=== PATIENT | female | born 1940 | race Caucasian/White ===

== ENCOUNTER 2016-12-12 13:58 | Emergency (ER) | payer MEDICARE ==
[2016-12-12 14:21] VITALS: BP 132/75
--- NOTE | 2016-12-12 14:42 | ED ---
Lower Extremity - HPI Summary HPI Summary: 75 YEAR OLD FEMALE PRESENTS WITH COMPLAINS OF LEFT FOOT AND COCCYX INJURY AFTER FALL. - History of Current Complaint Chief Complaint: UCLowerExtremity Stated Complaint: TOE INJURY LOWER LEG/FOOT SWOLLEN Time Seen by Provider: 12/12/16 14:41 Hx Obtained From: Patient Mechanism Of Injury: Fall From A Standing Position Onset/Duration: Hours Severity Initially: Moderate Severity Currently: Moderate Pain Scale Used: 0-10 Numeric - 5 Timing: Constant Character Of Pain: Sharp Associated Signs And Symptoms: Positive: Swelling, Bruising Aggravating Factor(s): Movement - Allergies/Home Medications Allergies/Adverse Reactions: Allergies Allergy/AdvReac Type Severity Reaction Status Date / Time Prochlorperazine Allergy Severe SWOLLEN Verified 12/12/16 14:21 TONGUE Latex Allergy Intermediate ITCHING,DEWEY Verified 12/12/16 14:21 H Sulfa Drugs Allergy Mild Rash Verified 12/12/16 14:21 Adhesive Tape Allergy Unknown ITCHY RASH Verified 12/12/16 14:21 Erythromycin Allergy Unknown GI Upset Verified 12/12/16 14:21 Home Medications: Home Medications Bisacodyl EC TAB* [Dulcolax EC TAB*] 5 mg PO BID 12/12/16 [History Confirmed ] PMH/Surg Hx/FS Hx/Imm Hx Previously Healthy: Yes Endocrine/Hematology History: Denies: Hx Diabetes, Hx Systemic Lupus Erythematosus, Hx Thyroid Disease Cardiovascular History: Reports: Hx Valvular Heart Disease - MV regurge, Other Cardiovascular Problems/Disorders - mitral valve regur Denies: Hx Congestive Heart Failure, Hx Hypertension, Hx Pacemaker/ICD Respiratory History: Reports: Hx Asthma, Hx Sleep Apnea - NO MACHINES GI History: Reports: Hx Gastroesophageal Reflux Disease History: Denies: Hx Dialysis, Hx Renal Disease Musculoskeletal History: Reports: Hx Arthritis, Other Musculoskeletal History - osteo arthritis Denies: Hx Rheumatoid Arthritis, Hx Gout Sensory History: Reports: Hx Cataracts, Hx Contacts or Glasses, Hx Glaucoma - BOTH EYES Denies: Hx Hearing Aid Opthamlomology History: Reports: Hx Cataracts, Hx Contacts or Glasses, Hx Glaucoma - BOTH EYES Psychiatric History: Reports: Hx Anxiety - ON MEDS, Hx Depression - ON MEDS Denies: Hx Panic Disorder - Cancer History Cancer Type, Location and Year: Breast CA WITH BONE METS Hx Chemotherapy: Yes - 1998 per pt Hx Radiation Therapy: No - Surgical History Surgery Procedure, Year, and Place: bilaterally knee replacement-07/2011, 01/2012 , right masectomy-1997, gall bladder removed-1984, rt shoulder-1999, lap for mekels diverticulum-1991, tubal ligation-1974, bunion repair-2003, bilateral, rt toes, bilateral cataract surgeries August 2014, D&C-2003 Hx Anesthesia Reactions: No Infectious Disease History: No Infectious Disease History: Denies: Hx Clostridium Difficile, Hx Hepatitis, Hx Human Immunodeficiency Virus (HIV), Hx of Known/Suspected MRSA, Hx Shingles, Hx Tuberculosis, Hx Known/ Suspected VRE, Hx Known/Suspected VRSA, History Other Infectious Disease, Traveled Outside the [place] in Last 30 Days - Social History Alcohol Use: Daily Alcohol Amount: glass wine, night caps Substance Use Type: Reports: None Smoking Status (MU): Never Smoked Tobacco Review of Systems Constitutional: Negative Eyes: Negative ENT: Negative Cardiovascular: Negative Respiratory: Negative Gastrointestinal: Negative Genitourinary: Negative Positive: Other - left foot and coccyx pain ssecondary to fall Skin: Negative Neurological: Negative Psychological: Normal All Other Systems Reviewed And Are Negative: Yes Physical Exam Triage Information Reviewed: Yes Vital Signs On Initial Exam: Initial Vitals Temp Pulse Resp BP Pulse Ox 36.9 C 72 18 132/75 98 12/12/16 14:16 12/12/16 14:16 12/12/16 14:16 12/12/16 14:16 12/12/16 14:16 Appearance: Positive: Well-Appearing Skin: Positive: Warm Head/Face: Positive: Normal Head/Face Inspection Eyes: Positive: Normal ENT: Positive: Normal ENT inspection Neck: Positive: Supple Respiratory/Lung Sounds: Positive: Clear to Auscultation Cardiovascular: Positive: Normal Abdomen Description: Positive: Nontender Musculoskeletal: Positive: Other - left foot and coccyx pain ssecondary to fall Diagnostics - Vital Signs Vital Signs Temp Pulse Resp BP Pulse Ox 12/12/16 14:16 36.9 C 72 18 132/75 98 - Laboratory Lab Statement: Any lab studies that have been ordered have been reviewed, and results considered in the medical decision making process. Lower Extremity Course/Dx - Diagnoses Provider Diagnoses: Foot sprain, Sprain of foot, left, Coccyodynia Discharge - Discharge Plan Condition: Stable Disposition: HOME Patient Education Materials: Deep Venous Thrombosis (ED), Leg Edema (ED) Referrals: Sushil Brooks MD [Primary Care Provider] - If Needed Additional Instructions: PLEASE GO TO ER TO RULE OUT FRACTURE AND DVT
== END 2016-12-12 15:26 | disposition home or self-care (01) ==
LOC: UCEAST 13:58
DX: S93.602A Unspecified sprain of left foot, initial encounter (principal); S39.92XA Unspecified injury of lower back, initial encounter; W18.30XA Fall on same level, unspecified, initial encounter; Y93.9 Activity, unspecified; Y99.9 Unspecified external cause status
CPT/HCPCS: 99212; G0463

== ENCOUNTER 2016-12-12 15:59 | Emergency (ER) | payer MEDICARE ==
--- NOTE | 2016-12-12 17:54 | RAD ---
INDICATION: Left lower extremity pain and swelling. COMPARISON: There are no prior studies available for comparison. TECHNIQUE: Multiple real-time, color flow and Doppler tracings of the left lower extremity were obtained. FINDINGS: The common femoral, femoral, profunda femoral and popliteal veins all demonstrate normal compressibility, augmentation with compression and phasic response with respiration. The posterior tibial veins demonstrate normal compressibility and augmentation with compression. There is occlusive thrombus in one of the peroneal veins. The other peroneal vein appears patent. IMPRESSION: DEEP VENOUS THROMBOSIS IN ONE PERONEAL VEIN IN THE CALF.
[2016-12-12 18:12] LABS: Hematocrit 37 % (35-47); Hemoglobin 12.2 g/dl (12.0-16.0); Mean Corpuscular HGB Conc 33 g/dl (31-36); Mean Corpuscular Hemoglobin 30 pg (27-31); Mean Corpuscular Volume 92 fL (80-97); Mean Platelet Volume 9 um3 (7.4-10.4); Red Blood Count 4.07 10^6/ul (4.0-5.4); Red Cell Distribution Width 17 % (10.5-15); White Blood Count 7.2 10^3/ul (3.5-10.8)
[2016-12-12 18:31] LABS: BUN/Creatinine Ratio 24.1 (8-20); Calcium 8.8 mg/dL (8.6-10.3); EGFR Non-African American 70.8 (>60); Potassium 3.9 mmol/L (3.5-5.0)
[2016-12-12] MEDS ORDERED: Rivaroxaban TAB(*) 15 MG PO ONE ×3 (18:34→18:48)
--- NOTE | 2016-12-12 19:17 | RAD ---
INDICATION: Left foot injury. TECHNIQUE: 3 views of the left foot were obtained. FINDINGS: There appears to be diffuse soft tissue swelling. There is an oblique fracture extending through the lateral distal aspect of the fifth proximal phalanx to the distal articular margin. The fracture fragment is slightly displaced. There is hallux valgus deformity and mild to moderate osteoarthritic change in the first metatarsal-phalangeal joint. IMPRESSION: OBLIQUE, INTRA-ARTICULAR, SLIGHTLY DISPLACED FRACTURE OF THE FIFTH PROXIMAL PHALANX.
[2016-12-12 19:33] VITALS: BP 133/76
--- NOTE | 2016-12-20 15:10 | ED ---
Hector Garner Angela, scribed for Pritesh Gardiner MD on 12/12/16 at 1736 . Lower Extremity - HPI Summary HPI Summary: This pt is a 75 y/o female presenting to [facility] from [facility] to rule out a blood clot in left lower extremity. Pt reports she has had recent air travel (3 hours long) and approximately 2.5 hour car ride home. She notes she stubbed her toe on 12/03/16 and every since she has had pain, worsening over the last few days becoming more red. She states she had difficulty breathing over the last few days, but believed it was due to the elevation. She denies heart racing. 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 Pt is currently on Coumadin. - History of Current Complaint Chief Complaint: EDExtremityLower Stated Complaint: LT LEG/ANKLE/FOOT SWOLLEN Time Seen by Provider: 12/12/16 16:38 Hx Obtained From: Patient Onset of Pain: Days Onset/Duration: Days Pain Intensity: 4 Pain Scale Used: 0-10 Numeric Timing: Constant Location: Is Discrete @ - Left lower extremity. Associated Signs And Symptoms: Positive: Redness, Bruising Aggravating Factor(s): Nothing Alleviating Factor(s): Nothing - Allergies/Home Medications Allergies/Adverse Reactions: Allergies Allergy/AdvReac Type Severity Reaction Status Date / Time Prochlorperazine Allergy Severe SWOLLEN Verified 12/12/16 14:21 TONGUE Latex Allergy Intermediate ITCHING,DEWEY Verified 12/12/16 14:21 H Sulfa Drugs Allergy Mild Rash Verified 12/12/16 14:21 Adhesive Tape Allergy Unknown ITCHY RASH Verified 12/12/16 14:21 Erythromycin Allergy Unknown GI Upset Verified 12/12/16 14:21 PMH/Surg Hx/FS Hx/Imm Hx Endocrine/Hematology History: Denies: Hx Diabetes, Hx Systemic Lupus Erythematosus, Hx Thyroid Disease Cardiovascular History: Reports: Hx Valvular Heart Disease - MV regurge, Other Cardiovascular Problems/Disorders - mitral valve regur Denies: Hx Congestive Heart Failure, Hx Hypertension, Hx Pacemaker/ICD Respiratory History: Reports: Hx Asthma, Hx Sleep Apnea - NO MACHINES GI History: Reports: Hx Gastroesophageal Reflux Disease History: Denies: Hx Dialysis, Hx Renal Disease Musculoskeletal History: Reports: Hx Arthritis, Other Musculoskeletal History - osteo arthritis Denies: Hx Rheumatoid Arthritis, Hx Gout Sensory History: Reports: Hx Cataracts, Hx Contacts or Glasses, Hx Glaucoma - BOTH EYES Denies: Hx Hearing Aid Opthamlomology History: Reports: Hx Cataracts, Hx Contacts or Glasses, Hx Glaucoma - BOTH EYES Psychiatric History: Reports: Hx Anxiety - ON MEDS, Hx Depression - ON MEDS Denies: Hx Panic Disorder - Cancer History Cancer Type, Location and Year: Breast CA WITH BONE METS Hx Chemotherapy: Yes - 1998 per pt Hx Radiation Therapy: No - Surgical History Surgery Procedure, Year, and Place: bilaterally knee replacement-07/2011, 01/2012 , right masectomy-1997, gall bladder removed-1984, rt shoulder-1999, lap for mekels diverticulum-1991, tubal ligation-1974, bunion repair-2003, bilateral, rt toes, bilateral cataract surgeries August 2014, D&C-2003 Hx Anesthesia Reactions: No Infectious Disease History: No Infectious Disease History: Denies: Hx Clostridium Difficile, Hx Hepatitis, Hx Human Immunodeficiency Virus (HIV), Hx of Known/Suspected MRSA, Hx Shingles, Hx Tuberculosis, Hx Known/ Suspected VRE, Hx Known/Suspected VRSA, History Other Infectious Disease, Traveled Outside the [place] in Last 30 Days - Social History Alcohol Use: Daily Alcohol Amount: glass wine, night caps Substance Use Type: Reports: None Smoking Status (MU): Never Smoked Tobacco Review of Systems Negative: Fever, Chills Negative: Erythema Negative: Sore Throat Negative: Chest Pain Positive: Shortness Of Breath. Negative: Cough Negative: Abdominal Pain, Vomiting, Nausea Negative: dysuria, hematuria Positive: Edema - Left lower extremity, Other - Bruise on left lower . Negative : Myalgia Negative: Rash Neurological: Other - NEGATIVE: dizziness All Other Systems Reviewed And Are Negative: Yes Physical Exam - Summary Physical Exam Summary: Constitutional: Well-developed, Well-nourished, Alert. (-) Distressed Skin: Warm, Dry HENT: Normocephalic; Atraumatic Eyes: Conjunctiva normal Neck: Musculoskeletal ROM normal neck. (-) JVD, (-) Stridor, (-) Tracheal deviation Cardio: Rhythm regular, rate normal, Heart sounds normal; Intact distal pulses; The pedal pulses are 2+ and symmetric. Radial pulses are 2+ and symmetric. (-) Murmur Pulmonary/Chest wall: Effort normal. (-) Respiratory distress, (-) Wheezes, (-) Rales Abd: Soft, (-) Tenderness, (-) Distension, (-) Guarding, (-) Rebound Musculoskeletal: (-) Edema. LLE: There is redness on the lateral aspect of left foot. The third left toe has ecchymosis on distal phalanx. Left calf is tender to palpation. Lymph: (-) Cervical adenopathy Neuro: Alert, Oriented x3 Psych: Mood and affect Normal Triage Information Reviewed: Yes Vital Signs On Initial Exam: Initial Vitals Temp Pulse Resp BP Pulse Ox 98 F 69 17 123/66 97 12/12/16 16:18 12/12/16 16:18 12/12/16 16:18 12/12/16 16:18 12/12/16 16:18 Vital Signs Reviewed: Yes - [place] Coma Scale Coma Scale Total: 15 Diagnostics - Vital Signs Vital Signs Temp Pulse Resp BP Pulse Ox 12/12/16 16:40 98 F 97 17 132/66 98 12/12/16 16:36 63 97 12/12/16 16:34 121/66 12/12/16 16:18 98 F 69 17 123/66 97 - Laboratory Lab Results: Lab Results 12/12/16 12/12/16 12/12/16 Range/Units 18:00 18:00 18:00 WBC 7.2 (3.5-10.8) 10^3/ul RBC 4.07 (4.0-5.4) 10^6/ul Hgb 12.2 (12.0-16.0) g/dl Hct 37 (35-47) % MCV 92 (80-97) fL MCH 30 (27-31) pg MCHC 33 (31-36) g/dl RDW 17 H (10.5-15) % Plt Count 209 (150-450) 10^3/ul MPV 9 (7.4-10.4) um3 INR (Anticoag Therapy) 3.04 H (0.89-1.11) Sodium 135 (133-145) mmol/L Potassium 3.9 (3.5-5.0) mmol/L Chloride 104 (101-111) mmol/L Carbon Dioxide 27 (22-32) mmol/L Anion Gap 4 (2-11) mmol/L BUN 19 (6-24) mg/dL Creatinine 0.79 (0.51-0.95) mg/dL Est GFR ( Amer) 91.0 (>60) Est GFR (Non-Af Amer) 70.8 (>60) BUN/Creatinine Ratio 24.1 H (8-20) Glucose 103 H (70-100) mg/dL Calcium 8.8 (8.6-10.3) mg/dL Result Diagrams: 12/12/16 18:00 12/12/16 18:00 Lab Statement: Any lab studies that have been ordered have been reviewed, and results considered in the medical decision making process. - Radiology XR of Left foot Xray Interpretation: Positive (See Comments) - There is a fracture of the fifth distal phalanx. Radiology Interpretation Completed By: ED Physician - Ultrasound No standard instances Ultrasound Interpretation: Positive (See Comments) - VL Lower Extremity Veins Left- IMPRESSION: Deep venous thrombosis in one peroneal vein in the calf. Ultrasound Interpretation Completed By: Radiologist Lower Extremity Course/Dx - Course Course Of Treatment: 16:56 - Pt is going to ultrasound. 17:46 - Went to see pt. Pt is still in ultrasound - Diagnoses Provider Diagnoses: DVT (deep venous thrombosis) - Physician Notifications Discussed Care Of Patient With: Adiel Perry Time Discussed With Above Provider: 18:46 Instructed by Provider To: Other - I discussed pt care with Dr. Perry. He understand that the pt has failed Coumadin at therapeutic INR. He recommends an alternate agent. We agreed on Xarelto. Discharge - Discharge Plan Condition: Stable Disposition: HOME Prescriptions: Rivaroxaban [Xarelto Starter Pack 15 & 20 mg] 1 tab PO SEE INSTRUCTIONS #1 packet Patient Education Materials: Deep Venous Thrombosis (ED) Referrals: Adiel Perry MD [Medical Doctor] - Sushil Brooks MD [Primary Care Provider] - Malik Robles MD [Medical Doctor] - Additional Instructions: Please follow up with Dr. Perry in 2-3 days. Also, please follow up with orthopedics regarding your fracture. RETURN TO THE EMERGENCY DEPARTMENT FOR CHANGING OR WORSENING SYMPTOMS. The documentation as recorded by the Hector cho Angela accurately reflects the service I personally performed and the decisions made by me, Pritesh Gardiner MD.
== END 2016-12-12 19:33 | disposition home or self-care (01) ==
LOC: ED 15:59
DX: I82.4Z2 Acute embolism and thrombosis of unspecified deep veins of left distal lower extremity (principal); R06.02 Shortness of breath; R60.9 Edema, unspecified
CPT/HCPCS: 36415; 80048; 85027; 85610; 99282

== ENCOUNTER 2017-07-12 13:07 | Inpatient (IN) | payer MEDICARE ==
[2017-07-12 13:27] LABS: ABS Basophils 0.1 10^3/ul (0-0.2); ABS Eosinophils 0 10^3/ul (0-0.6); ABS Lymphocytes 0.6 10^3/ul (1.0-4.8); ABS Monocytes 0.5 10^3/ul (0-0.8); ABS Neutrophils 1.5 10^3/ul (1.5-7.7); ABS Nucleated RBC 0 10^3/ul; Eosinophil % 1.4 % (0-6); Hematocrit 24 % (35-47); Hemoglobin 7.9 g/dl (12.0-16.0); Lymphocyte % 21.8 % (25-47); Mean Corpuscular HGB Conc 33 g/dl (31-36); Mean Corpuscular Hemoglobin 38 pg (27-31); Mean Corpuscular Volume 115 fL (80-97); Mean Platelet Volume 8 um3 (7.4-10.4); Nucleated Red Blood Cells % 0.9; Platelet Count 157 10^3/ul (150-450); Red Blood Count 2.06 10^6/ul (4.0-5.4); Red Cell Distribution Width 19 % (10.5-15); White Blood Count 2.6 10^3/ul (3.5-10.8)
[2017-07-12 13:44] LABS: EGFR Non-African American 66.7 (>60)
[2017-07-12] MEDS ORDERED: Iohexol 350* (CONTRAST) 500 ML MDV IV ONE ×2 (18:07→18:36)
[2017-07-12] MEDS ORDERED: oxyCODONE/Acetamin 5/325 MG* TAB PO PRN (18:13)
[2017-07-12] MEDS ORDERED: Ondansetron INJ* 2 MG/ML VIAL IV PRN (18:13)
[2017-07-12] MEDS ORDERED: Albuterol HFA INHALER* 8 gm MDI INH PRN (18:17)
[2017-07-12] MEDS: Mometasone 220 MCG MDI INH SCH (20:34)
[2017-07-12] MEDS ORDERED: Zolpidem TAB* 5 MG PO SCH (21:00)
--- NOTE | 2017-07-12 22:40 | CONS ---
GASTROENTEROLOGY CONSULTATION REPORT: DATE OF CONSULT: 07/12/17 HOSPITAL PROVIDER: COLLINS Barriga REASON FOR CONSULTATION: Anemia. HISTORY OF PRESENT ILLNESS: Mrs. Mckinney is a very pleasant 76-year-old female who presents with a history of breast cancer with metastasis, undergoing chemotherapy with previous hstory of right mastectomy and asthma. She was receiving chemotherapy today and she had a repeat laboratory work for progressive anemia and her hemoglobin was noted to be at 7.9. She complains of dark stools. She is currently on Xarelto therapy due to history of pulmonary embolism and recurrent DVTs. She has never had an upper endoscopy and her last colonoscopy was preformed by Dr. Lit cardenas in 2008. She did not have any colon polyps at that time. She currently denies abdominal pain, nausea, vomiting. Admits to some occasional heartburn symptoms for which she takes omeprazole 20 mg daily. Denies dysphagia, odynophagia, melena, hematemesis, and hematochezia. Gastroenterology was consulted for further evaluation of progressive anemia. She does admit to increased dyspnea on exertion. She was given 2 L of oxygen and she states she feels slightly better at this time. She is being admitted directly to [facility]. PAST MEDICAL HISTORY: 1. Asthma. 2. Breast cancer with metastasis. 3. GERD. 4. History of PE and recurrent DVTs. PAST SURGICAL HISTORY: 1. Bilateral knee replacement. 2. Right mastectomy. 3. Cholecystectomy. 4. Meckel's diverticulum with laparoscopic surgery. 5. Tubal ligation. 6. Bunion repair. 7. Bilateral cataract surgeries. 8. D and C. HOME MEDICATIONS: 1. Fish oil. 2. Nasonex. 3. Calcium carbonate. 4. Prilosec. 5. Coenzyme Q10. 6. Xarelto. 7. Dulcolax as needed. 8. Ibrance. 9. Albuterol inhaler as needed. 10. Oxycodone/acetaminophen. 11. Xanax as needed. 12. Lexapro. 13. OxyContin. 14. Arimidex. 15. Remeron. ALLERGIES: To ADHESIVE TAPE, ERYTHROMYCIN BASE, LATEX, ZOFRAN. FAMILY HISTORY: Denies any known history of gastrointestinal malignancies. SOCIAL HISTORY: She denies any tobacco or recreational drug use. She does admit to drinking sebastian every night with a glass of wine during lunch. REVIEW OF SYSTEMS: On a 14-point scale have been reviewed, all pertinent positives and negatives have been noted above in the HPI. PHYSICAL EXAM: Generally, the patient is alert and oriented x3, well nourished , no acute distress. HEENT: Normocephalic, atraumatic. Anicteric sclerae bilaterally. Cardiovascular: Regular rate and rhythm. Pulmonary: Clear to auscultation bilaterally. Abdomen: Positive bowel sounds, soft, nontender, nondistended, obese. Extremities: No clubbing, cyanosis, or edema. Neurological Exam: No gross focal deficits are appreciated. LABORATORY DATA: WBC is 2.6, hemoglobin 7.9, hematocrit 24, platelet count 157. ASSESSMENT AND PLAN: Mrs. Mckinney is a very pleasant 76-year-old female with breast cancer and metastasis, on chemotherapy with progressive dyspnea on exertion and progressive anemia, who presented as a direct admit to [facility] for further evaluation. The patient had a colonoscopy back in [address] Murrieta, which was negative for any polyps. She denies previous history of an endoscopy. She has been on anticoagulation and currently on Xarelto therapy for many years due to her history of PEs and recurrent DVTs. Given her progressive anemia, she is a candidate for an upper endoscopy to further evaluate for any peptic ulcer diseases versus infiltrative masses. We will plan for this tomorrow morning. Her anemia may be related to her chemo regimen as well. She is scheduled to receive a CAT scan to rule out pulmonary embolism due to her dyspnea on exertion. She will also receive 2 units of packed red blood cells due to her symptomatic anemia. If upper endoscopy is grossly unremarkable, we will proceed forward with a colonoscopy for further evaluation since it has almost been 10 years since her last colonoscopy. The patient is in agreement with this plan. Will hold Xarelto for now and further recommendations will be provided after endoscopy tomorrow. Continue PPI daily. The case was discussed with Medardo Pacheco PA-C. Thank you for allowing us to participate in the care of your pleasant patient. If you should have any further questions or concerns, please do not hesitate to contact us. [id number]/[facility] #: [id number] MTDD
[2017-07-12] MEDS: Betaxolol-S 0.25%* 10 ML BTL BOTH EYES SCH (22:51)
[2017-07-12] MEDS: CMCS Escitalopram (NF) 10 MG TAB PO SCH (22:51)
[2017-07-12] MEDS: oxyCODONE SR TAB(*) 10 MG TAB.SR PO SCH (22:51)
[2017-07-12] MEDS: Heparin VIAL(*) 5000 UNITS/ML VIAL (FIVE THOUSAND) SUBCUT SCH (22:52)
[2017-07-12] MEDS: Pantoprazole IV* 40 MG IV SCH (23:27)
[2017-07-12] MEDS: NS 0.9% 1000 ML* 1,000 ML IV SCH (23:28)
[2017-07-13 07:04] LABS: Hematocrit 25 % (35-47); Hemoglobin 8.8 g/dl (12.0-16.0); Mean Corpuscular HGB Conc 35 g/dl (31-36); Mean Corpuscular Hemoglobin 37 pg (27-31); Mean Corpuscular Volume 105 fL (80-97); Mean Platelet Volume 9 um3 (7.4-10.4); Platelet Count 136 10^3/ul (150-450); Red Blood Count 2.41 10^6/ul (4.0-5.4); Red Cell Distribution Width 24 % (10.5-15); White Blood Count 2.7 10^3/ul (3.5-10.8)
[2017-07-13 07:10] LABS: EGFR Non-African American 68.6 (>60)
[2017-07-13] MEDS: NS 0.9% 1000 ML* 1,000 ML IV SCH (07:58)
[2017-07-13] MEDS: Pantoprazole IV* 40 MG IV SCH (08:00)
[2017-07-13] MEDS: Betaxolol-S 0.25%* 10 ML BTL BOTH EYES SCH ×2 (08:01→21:33)
[2017-07-13] MEDS: Heparin VIAL(*) 5000 UNITS/ML VIAL (FIVE THOUSAND) SUBCUT SCH ×2 (08:01→21:36)
[2017-07-13] MEDS: Acetaminophen TAB* 325 MG PO PRN ×2 (08:04→19:40)
[2017-07-13] MEDS: Mirtazapine TAB* 15 MG PO SCH ×2 (08:04→21:33)
[2017-07-13] MEDS: TRETIN X TOPICAL SCH (08:05)
[2017-07-13] MEDS: oxyCODONE SR TAB(*) 10 MG TAB.SR PO SCH ×2 (08:05→21:33)
[2017-07-13] MEDS: CMCS Anastrozole (NF) 1 MG TAB PO SCH (08:06)
[2017-07-13] MEDS ORDERED: Docusate CAP* 100 MG PO PRN (08:22)
--- NOTE | 2017-07-13 08:34 | RAD ---
INDICATION: Shortness in breath and elevated d-dimer COMPARISON: Similar CTA of the chest dated February 05, 2017 TECHNIQUE: Axial source images were acquired following the administration of 82 mL Omnipaque [address] angiographic technique. Coronal and sagittal reconstructed images were constructed and reviewed. FINDINGS: At the distal portion of the right interlobular pulmonary artery (axial image 120) there is nonocclusive linear filling defect that is similar in appearance to the previous CTA. There are no new filling defects of the pulmonary arteries morphologically consistent with acute pulmonary embolism. Lungs exhibit diffuse centrilobular emphysematous changes. There is pleural-based linear density at the lung bases as well as compressive atelectasis at the medial left lower lobe adjacent to a large hiatal hernia. At the right upper and middle lobes there is nodular parenchymal thickening similar in appearance to the previous CT examination (for example axial image 31). There are bibasilar trace pleural effusions. The heart is normal in size. There is no evidence of pericardial effusion. There is no evidence of aortic aneurysm or dissection. There is no mediastinal, hilar, or axillary lymphadenopathy. Multilevel degenerative changes of the thoracic spine includes loss of intervertebral disc height and mild marginal osteophyte formation. There are multilevel sclerotic foci in the thoracic spine and sternum unchanged from the previous CT examination. There are expansile bony lesions scattered the ribs, for example the lateral left seventh rib (axial image 66). There is trace perihepatic fluid. IMPRESSION: 1. The stable linear filling defects at the distal interlobular pulmonary artery are unchanged from the previous CT examination and are more consistent with scarring than acute pulmonary embolism. The pulmonary arteries are otherwise grossly clear. 2. Interlobular parenchymal thickening and nodularity overlying the right lung similar in appearance to the previous CT examination could be secondary to external beam radiation therapy. 3. Interval appearance of trace pleural effusions and trace perihepatic fluid. 4. Diffuse bony sclerotic lesions similar in appearance to the previous CTA consistent with the patient's reported history of breast cancer with healed bony metastases.
--- NOTE | 2017-07-13 09:24 | PN ---
Progress Note - Progress Note Date of Service: 07/13/17 SOAP: Subjective: []Better today, less SOB. Still with solid BM, dark. Some gastric pain. Pain in sternum. No fevers. Acetaminophen (Tylenol Tab*) 650 mg PO Q4H PRN PRN Reason: FEVER/PAIN Last Admin: 07/13/17 08:04 Dose: 650 mg Albuterol (Ventolin Hfa Inhaler*) 2 puff INH Q4H PRN PRN Reason: SOB/WHEEZING Alprazolam (Xanax Tab*) 0.25 mg PO BEDTIME PRN PRN Reason: ANXIETY Anastrozole (Arimidex (Nf)) 1 mg PO QAM [facility] Last Admin: 07/13/17 08:06 Dose: 1 mg Betaxolol HCl (Betoptic-S 0.25%*) 1 drop BOTH EYES BID [facility] Last Admin: 07/13/17 08:01 Dose: 1 drop Docusate Sodium (Colace Cap*) 100 mg PO BID PRN PRN Reason: CONSTIPATION Escitalopram Oxalate (Lexapro (Nf)) 20 mg PO BEDTIME [facility] Last Admin: 07/12/17 22:51 Dose: 20 mg Heparin Sodium (Porcine) (Heparin Vial(*)) 5,000 units SUBCUT Q12HR [facility] Last Admin: 07/13/17 08:01 Dose: Not Given Sodium Chloride (Ns 0.9% 1000 Ml*) 1,000 mls @ 125 mls/hr IV PER RATE [facility] Last Admin: 07/13/17 07:58 Dose: 125 mls/hr Mirtazapine (Remeron Tab*) 30 mg PO 2100 [facility] Mometasone Furoate (Asmanex 220 Mcg Mdi *) 2 puff INH 2100 [facility] Last Admin: 07/12/17 20:34 Dose: 2 puff Non-Formulary Medication (Tretin-X 0.05 % Cream) 1 applic TOPICAL DAILY [facility] Last Admin: 07/13/17 08:05 Dose: Not Given Ondansetron HCl (Zofran Inj*) 4 mg IV Q4H PRN PRN Reason: NAUSEA/VOMITING Oxycodone HCl (Oxycontin(*)) 10 mg PO BID [facility] Last Admin: 07/13/17 08:05 Dose: 10 mg Oxycodone/Acetaminophen (Percocet 5/325 Tab*) 1 tab PO Q4H PRN PRN Reason: Pain Pantoprazole Sodium (Protonix Iv*) 40 mg IV DAILY [facility] Last Admin: 07/13/17 08:00 Dose: 40 mg Objective: Vital Signs Temp Pulse Resp BP Pulse Ox 101.1 F 86 18 133/66 92 07/13/17 07:45 07/13/17 07:45 07/13/17 08:05 07/13/17 07:45 07/13/17 07:45 HEENT - pale, no oral lesions CTA RRR S1S2 +BS, there is slight epigastric pain No ROSAS Neuro - AAOx3 Assessment: []76 year old on Ibrance and Femara with history of PE. Presents with dark stool and progressive anemia after changing from Lovenox to Xeloda 10 days ago. Suspect GIB. She has been stable overnight, increased Hgb with 2 U PRBC. Plan: []1. EGD today 2. If negative will follow CBC until tomorrow and if stable re-start full dose anticoagulation. 3. CTA without new thrombosis or progression of cancer. SQ heparin today. 4. She continues on Femara, hold Ibrance until follow up in clinic with Dr. Perry 5. Will add back her regular bowl regimen. 6. Advance diet pending EGD
[2017-07-13] MEDS ORDERED: Midazolam* 1 MG/ML 10 ML VIAL (10 MG) ONE (09:47)
[2017-07-13] MEDS ORDERED: fentaNYL* 50 MCG/ML 2 ML VIAL (100 MCG VIAL) ONE (09:47)
--- NOTE | 2017-07-13 11:15 | PN ---
Progress Note - Progress Note Date of Service: 07/13/17 - Gastroenterology Note: Patient seen and examined. Feeling better after 2 units of prbcs. No CP. Improved RODRIGUEZ. Had a hard dark bowel movement. Fever this am. No abdominal pain. Tolerating clears. No nausea/emesis. Was NPO for EGD this am. Vital Signs: Temp Pulse Resp BP Pulse Ox 101.1 F 86 18 133/66 92 07/13/17 07:45 07/13/17 07:45 07/13/17 08:05 07/13/17 07:45 07/13/17 07:45 Physical Examination: GENERAL: NAD, O2 per nasal canula. CV: RRR. PULM: Decreased air movement on exhalation B/L. ABDOMEN: Soft. Obese. NT/ND. EXT: No edema. Laboratory Results - last 24 hr 07/12/17 07/12/17 07/12/17 13:18 13:18 13:18 WBC 2.6 L RBC 2.06 L Hgb 7.9 L Hct 24 L MCV 115 H MCH 38 H MCHC 33 RDW 19 H Plt Count 157 MPV 8 Neut % (Auto) 55.2 Lymph % (Auto) 21.8 L Wolfe % (Auto) 19.5 H Eos % (Auto) 1.4 Baso % (Auto) 2.1 H Absolute Neuts (auto) 1.5 Absolute Lymphs (auto) 0.6 L Absolute Monos (auto) 0.5 Absolute Eos (auto) 0 Absolute Basos (auto) 0.1 Absolute Nucleated RBC 0 Nucleated RBC % 0.9 D-Dimer, Quantitative 499 H Sodium 134 Potassium 4.1 Chloride 103 Carbon Dioxide 27 Anion Gap 4 BUN 16 Creatinine 0.83 Est GFR ( Amer) 85.7 Est GFR (Non-Af Amer) 66.7 BUN/Creatinine Ratio 19.3 Glucose 105 H Calcium 8.9 Iron TIBC % Saturation Unsat Iron Binding Transferrin Ferritin Total Bilirubin 0.50 AST 44 H ALT 37 Alkaline Phosphatase 95 Troponin I 0.00 Total Protein 6.7 Albumin 3.5 Globulin 3.2 Albumin/Globulin Ratio 1.1 07/13/17 07/13/17 07/13/17 06:33 06:34 06:34 WBC 2.7 L RBC 2.41 L Hgb 8.8 L Hct 25 L MCV 105 H MCH 37 H MCHC 35 RDW 24 H Plt Count 136 L MPV 9 Neut % (Auto) Lymph % (Auto) Wol[place] % (Auto) Eos % (Auto) Baso % (Auto) Absolute Neuts (auto) Absolute Lymphs (auto) Absolute Monos (auto) Absolute Eos (auto) Absolute Basos (auto) Absolute Nucleated RBC Nucleated RBC % D-Dimer, Quantitative Sodium 135 Potassium 3.8 Chloride 106 Carbon Dioxide 22 Anion Gap 7 BUN 14 Creatinine 0.81 Est GFR ( Amer) 88.2 Est GFR (Non-Af Amer) 68.6 BUN/Creatinine Ratio 17.3 Glucose 103 H Calcium 8.4 L Iron 348 H TIBC 372 % Saturation 94 H Unsat Iron Binding 24 Transferrin 266 Ferritin 26.8 Total Bilirubin 1.20 H AST 34 ALT 29 Alkaline Phosphatase 75 Troponin I Total Protein 5.8 L Albumin 3.2 Globulin 2.6 Albumin/Globulin Ratio 1.2 A/P: 76 yo female with breast cancers and mets undergoing chemotherapy and 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 She is s/p 2 units of prbcs with improvement in hgb and symptoms. CT was negative for new PE on this admission. EGD was done this morning fairly unremarkable. 1. Macrocytic anemia s/p 2 units of prbcs ~S/p EGD this am: Mild gastritis. Normal duodenum and esophagus. No evidence of active bleeding or previous stigmata of bleeding. ~Discussed results with Dr. Hutchinson. Will re-start patient's diet and anticoagulation and monitor hgb. If there are signs of GI bleeding and continued progressive anemia, will consider a Colonoscopy at that time. ~Continue to monitor hgb. ~Of note, last colonoscopy was done by Dr. Murrieta in 2008 and was unremarkable. 2. Breast CA with metastatsis undergoing chemotherapy ~Heme/Onc following. D/w Dr. Hutchinson. Please call with any questions or concerns. Niyah Grady D.O.
[2017-07-13] MEDS: Mometasone 220 MCG MDI INH SCH (19:58)
[2017-07-13] MEDS: CMCS Escitalopram (NF) 10 MG TAB PO SCH (21:33)
--- NOTE | 2017-07-14 00:17 | PRO ---
AMENDED REPORT NOW INCLUDES DATE OF PROCEDURE - ESIGNED BEFORE ADJUSTMENT * CC: Dr. Hutchinson * GASTROENTEROLOGY OPERATIVE REPORT: DATE OF PROCEDURE: 07/13/17 OPERATIVE PROCEDURE: Esophagogastroduodenoscopy to third portion of the duodenum. SURGEON: Niyah Grady MD ANESTHESIA: 1. Midazolam 5 mg IV. 2. Fentanyl 75 mcg IV. HISTORY OF PRESENT ILLNESS: Marianne is a very pleasant 76-year-old female with breast cancer and metastasis, currently undergoing chemotherapy and on Xarelto for previous pulmonary embolism and recurrent DVTs, who presented with progressive symptomatic anemia. She is currently status post 2 units of packed red blood cells and requiring 2 L of oxygen per nasal cannula to maintain sats above 92%. She is here for a diagnostic endoscopy. PREOPERATIVE DIAGNOSES: 1. Symptomatic anemia. 2. Breast cancer with metastasis, undergoing chemotherapy. 3. History of pulmonary embolism with recurrent DVTs, on Xarelto therapy. POSTOPERATIVE DIAGNOSES: 1. Normal-appearing duodenum to the third portion with biopsy to rule out celiac disease. 2. Mild antral gastritis. 3. Hiatal hernia. 4. Normal gastroesophageal junction at 35 cm from the incisors. 5. Normal-appearing mid and proximal esophagus. 6. No active bleeding or previous stigmata of bleeding seen on this examination. RECOMMENDATIONS: 1. We will follow up path results. 2. Continue to monitor the patient's hemoglobin. 3. May resume diet and anticoagulation today. 4. Discussed endoscopy results with Dr. Hutchinson. We will continue to monitor the patient for now. If she shows any signs of active gastrointestinal bleeding or continued progressive anemia, we will consider a colonoscopy at that time for further evaluation. DESCRIPTION OF PROCEDURE: Esophagogastroduodenoscopy was explained in detail to the patient. The risks, benefits, complications, alternatives, possibilities of missed lesions were explained and understood. Complications included, but were not limited to reaction to anesthesia, aspiration, increased risk of bleeding, and perforation. All questions were answered. The patient demonstrated understanding of the conversation and informed consent was obtained. Next, the patient was brought to the endoscopy suite, placed in the left lateral recumbent position, where blood pressure, cardiac and oxygen monitors were applied. The patient was found to be a fit candidate for moderate anesthesia. After adequate IV sedation was achieved, a bite-block was placed. Next, an adult Olympus endoscope was inserted per os under direct visualization to the first, second, and third portion of the duodenum, which appeared grossly unremarkable. One very small biopsy was obtained via cold forceps. Further withdrawal of the endoscope into the gastric lumen revealed mild erythema in the antrum consistent with gastritis on retroflexion. The patient had a loose gastric cardia sling. Further withdrawal of the endoscope into the distal esophagus revealed a hiatal hernia. The length of hiatal hernia was unable to be assessed due to decreased 02 saturations in the low 90s while on 4L nasal canula and increased need for more sedation. There was a normal gastroesophageal junction at 35 cm from the incisors. The rest of the tubular esophagus was normal appearing. Air was then removed from the patient. Endoscope was removed from the patient and the patient tolerated the procedure well. There were no immediate complications. After a period of observation, the patient was transferred back to the medical floor in stable condition for further care and treatment. Thank you, Dr. Hutchinson for allowing us to participate in the care of your patient. If you should have any further questions or concerns, please do not hesitate to contact us. [id number]/[facility] #: [id number] [facility] HOSPITALFilomena
[2017-07-14] MEDS: NS 0.9% 1000 ML* 1,000 ML IV SCH ×2 (03:01→20:22)
[2017-07-14 06:24] LABS: EGFR Non-African American 73.8 (>60)
[2017-07-14] MEDS ORDERED: Albuterol 2.5 MG/3 ML NEB.SOL* (0.083%) ONE (06:24)
[2017-07-14 06:29] LABS: ABS Basophils 0.1 10^3/ul (0-0.2); ABS Eosinophils 0 10^3/ul (0-0.6); ABS Monocytes 0.4 10^3/ul (0-0.8); ABS Nucleated RBC 0 10^3/ul; Eosinophil % 0.2 % (0-6); Hematocrit 28 % (35-47); Hemoglobin 9.4 g/dl (12.0-16.0); Lymphocyte % 29.4 % (25-47); Mean Corpuscular HGB Conc 34 g/dl (31-36); Mean Corpuscular Hemoglobin 36 pg (27-31); Mean Corpuscular Volume 106 fL (80-97); Mean Platelet Volume 9 um3 (7.4-10.4); Nucleated Red Blood Cells % 1.2; Platelet Count 166 10^3/ul (150-450); Red Blood Count 2.62 10^6/ul (4.0-5.4); Red Cell Distribution Width 24 % (10.5-15); White Blood Count 3.5 10^3/ul (3.5-10.8)
[2017-07-14] MEDS ORDERED: Furosemide IV* 10 MG/ML VIAL (40 MG) IV ONE (06:36)
--- NOTE | 2017-07-14 06:42 | PN ---
Hospitalist Progress Note Date of Service: 07/14/17 called to the bedside by RT for work of breathing. Ms. Mckinney is tachypneic but able to speak to me and says she feels short of breath but otherwise has no pain or complaints. On exam, she is tachypneic, pulse ox is 92% on 2L, she is using accessory respiratory muscles. I cannot appreciate JVP due to accessory muscle use. She has wet crackles 1/4 up both lung valdovinos. Stop IVF, check stat CXR, neb now, bipap now, lasix now.
--- NOTE | 2017-07-14 08:45 | RAD ---
INDICATION: Difficulty breathing COMPARISON: CT chest July 12, 2017 TECHNIQUE: Single AP portable view of the chest was obtained. FINDINGS: Image quality is compromised due to the relative inferiority of a portable chest x-ray. Surgical clips are seen overlying the right axilla. The heart and mediastinum exhibit normal size and contour. Lungs exhibit mild patchy densities. There is no focal or lobar consolidation. There is no evidence of a large pleural effusion. Visualized bones are normal for the patient's age. IMPRESSION: Faint patchy densities overlying the bilateral lungs could be seen in the setting of pulmonary edema corresponding to the vague groundglass opacifications and trace pleural effusions seen on the July 12, 2017 CT of the chest.
[2017-07-14] MEDS: TRETIN X TOPICAL SCH (10:25)
[2017-07-14] MEDS: Enoxaparin(*) 100 MG/ML SYR SUBCUT SCH ×2 (10:26→20:26)
[2017-07-14] MEDS: Pantoprazole IV* 40 MG IV SCH (10:26)
[2017-07-14] MEDS: CMCS Anastrozole (NF) 1 MG TAB PO SCH (10:27)
[2017-07-14] MEDS: Betaxolol-S 0.25%* 10 ML BTL BOTH EYES SCH ×2 (10:27→20:26)
[2017-07-14] MEDS: oxyCODONE SR TAB(*) 10 MG TAB.SR PO SCH ×2 (10:27→20:24)
[2017-07-14] MEDS: Acetaminophen TAB* 325 MG PO PRN (11:20)
--- NOTE | 2017-07-14 11:20 | PN ---
Progress Note - Progress Note Date of Service: 07/21/17 SOAP: Subjective: [] Events: EGD w/o gastric lesion Episode sever SOB early this am, seen by hospitalist. Distressed and crackles both lungs, sat to 92% on 2L. Lasix 40 IV and improved. This am feeling better, still some SOB but no distress at rest. Has otherwise been feeling better. No pain. Tolerated procedure will. BM unchanged and no diarrhea. Started using Bipap last night after SOB as well. Polyuria after Lasix Acetaminophen (Tylenol Tab*) 650 mg PO Q4H PRN PRN Reason: FEVER/PAIN Last Admin: 07/13/17 19:40 Dose: 650 mg Albuterol (Ventolin Hfa Inhaler*) 2 puff INH Q4H PRN PRN Reason: SOB/WHEEZING Alprazolam (Xanax Tab*) 0.25 mg PO BEDTIME PRN PRN Reason: ANXIETY Anastrozole (Arimidex (Nf)) 1 mg PO QAM [facility] Last Admin: 07/14/17 10:27 Dose: 1 mg Betaxolol HCl (Betoptic-S 0.25%*) 1 drop BOTH EYES BID [facility] Last Admin: 07/14/17 10:27 Dose: 1 drop Docusate Sodium (Colace Cap*) 100 mg PO BID PRN PRN Reason: CONSTIPATION Enoxaparin Sodium (Lovenox(*)) 90 mg SUBCUT Q12H [facility] Last Admin: 07/14/17 10:26 Dose: 90 mg Escitalopram Oxalate (Lexapro (Nf)) 20 mg PO BEDTIME [facility] Last Admin: 07/13/17 21:33 Dose: 20 mg Mirtazapine (Remeron Tab*) 30 mg PO 2100 [facility] Last Admin: 07/13/17 21:33 Dose: 30 mg Mometasone Furoate (Asmanex 220 Mcg Mdi *) 2 puff INH 2100 [facility] Last Admin: 07/13/17 19:58 Dose: 2 puff Non-Formulary Medication (Tretin-X 0.05 % Cream) 1 applic TOPICAL DAILY [facility] Last Admin: 07/14/17 10:25 Dose: Not Given Ondansetron HCl (Zofran Inj*) 4 mg IV Q4H PRN PRN Reason: NAUSEA/VOMITING Oxycodone HCl (Oxycontin(*)) 10 mg PO BID [facility] Last Admin: 07/14/17 10:27 Dose: 10 mg Oxycodone/Acetaminophen (Percocet 5/325 Tab*) 1 tab PO Q4H PRN PRN Reason: Pain Pantoprazole Sodium (Protonix Iv*) 40 mg IV DAILY [facility] Last Admin: 07/14/17 10:26 Dose: 40 mg Objective: [] Vital Signs Temp Pulse Resp BP Pulse Ox 98.0 F 90 19 150/68 93 07/14/17 00:01 07/14/17 06:31 07/14/17 10:27 07/14/17 00:15 07/14/17 06:31 HEENT - pale, no oral lesions CTA, no carckles on exam now but after IV lasix RRR S1S2 +BS, no pain this am. No ROSAS Neuro - AAOx3 Assessment: []76 year old on Ibrance and Femara with history of PE. Presents with dark stool and progressive anemia after changing from Lovenox to Xeloda 10 days ago. EGD negative and suspect lower GIB. Course complicated by episode of sever SOB last night. Plan: []1. SOB. Suspect fluid overload after hydration for GIB. Better after lasix. Ddx also includes recurrent PE. - Follow after lasix and off IVF - check BNP today - Re-start Lovenox 90 sq bid. If stable discharge will be back on 150 mg daily. No Xeralto. 2. GIB. Follow on Lovenox today, if Hgb drops again will need colonoscopy. 4. She continues on Femara, hold Ibrance until follow up in clinic with Dr. Perry 5. Bipap at night
--- NOTE | 2017-07-14 12:03 | PN ---
Progress Note - Progress Note Date of Service: 07/14/17 - Gastroenterology Note: Patient seen and examined. [place] SOB of this am. XRAY showed small pleural effusions. Given lasix and feels much better. On 2L N/C. Tolerating diet. No nausea/emesis. No rectal bleeding. Vital Signs: Temp Pulse Resp BP Pulse Ox 98.0 F 90 19 150/68 93 07/14/17 00:01 07/14/17 06:31 07/14/17 10:27 07/14/17 00:15 07/14/17 06:31 Physical Examination: GENERAL: AAOx3. NAD. CV: RRR. PULM: CTAB. ABDOMEN: Soft. NT/ND. EXTREMITIES: No edema. Laboratory Results - last 24 hr 07/12/17 07/14/17 07/14/17 13:18 05:41 05:41 WBC 3.5 RBC 2.62 L Hgb 9.4 L Hct 28 L MCV 106 H MCH 36 H MCHC 34 RDW 24 H Plt Count 166 MPV 9 Neut % (Auto) 58.5 Lymph % (Auto) 29.4 [place] % (Auto) 10.2 H Eos % (Auto) 0.2 Baso % (Auto) 1.7 Absolute Neuts (auto) 2.0 Absolute Lymphs (auto) 1.0 Absolute Monos (auto) 0.4 Absolute Eos (auto) 0 Absolute Basos (auto) 0.1 Absolute Nucleated RBC 0 Nucleated RBC % 1.2 Sodium 137 Potassium 3.7 Chloride 106 Carbon Dioxide 25 Anion Gap 6 BUN 12 Creatinine 0.76 Est GFR ( Amer) 94.9 Est GFR (Non-Af Amer) 73.8 BUN/Creatinine Ratio 15.8 Glucose 108 H Calcium 8.5 L Ferritin 53.5 Total Bilirubin 0.50 AST 42 H ALT 34 Alkaline Phosphatase 92 Total Protein 6.5 Albumin 3.4 Globulin 3.1 Albumin/Globulin Ratio 1.1 CA 27-29 175 H A/P: 76 yo female with breast cancers and mets undergoing chemotherapy and 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 She is s/p 2 units of prbcs with improvement in hgb and symptoms. CT was negative for new PE on this admission. EGD was done yesterday morning fairly unremarkable. 1. Macrocytic anemia s/p 2 units of prbcs ~Last colonoscopy was done by Dr. Murrieta in 2008 and was unremarkable. ~S/p EGD this am: Mild gastritis. Hiatal hernia. Normal duodenum and esophagus. No evidence of active bleeding or previous stigmata of bleeding. ~Discussed results with Dr. Hutchinson. ~Anticoagulation was restarted yesterday and hgb remains stable at 9.4 today. ~If there are any signs of GI bleeding and continued progressive anemia in the future, will consider a Colonoscopy at that time. ~Continue to monitor hgb. 2. Breast CA with metastatsis undergoing chemotherapy ~Heme/Onc on board. 3. B/L pleural effusions ~S/p lasix and symptomatically improved. Please feel free to call with any further questions or concerns. Niyah Grady D.O.
[2017-07-14] MEDS ORDERED: Ibuprofen TAB* 400 MG PO ONE (13:00)
[2017-07-14 16:34] LABS: Urine Appearance Clear; Urine Blood 1+ (Negative); Urine Color Yellow; Urine Ketones Negative (Negative); Urine Protein Negative (Negative); Urine Specific Gravity 1.014 (1.010-1.030); Urine Urobilinogen Negative (Negative)
[2017-07-14] MEDS: Mometasone 220 MCG MDI INH SCH (19:18)
[2017-07-14] MEDS: Mirtazapine TAB* 15 MG PO SCH (20:24)
[2017-07-14] MEDS: CMCS Escitalopram (NF) 10 MG TAB PO SCH (20:25)
[2017-07-14] MEDS: Oseltamivir CAP* 75 MG CAP PO SCH (20:25)
[2017-07-15 05:55] LABS: ABS Basophils 0.1 10^3/ul (0-0.2); ABS Eosinophils 0 10^3/ul (0-0.6); ABS Lymphocytes 1.1 10^3/ul (1.0-4.8); ABS Monocytes 0.4 10^3/ul (0-0.8); ABS Neutrophils 2.5 10^3/ul (1.5-7.7); ABS Nucleated RBC 0 10^3/ul; Eosinophil % 0.5 % (0-6); Hematocrit 28 % (35-47); Hemoglobin 9.6 g/dl (12.0-16.0); Lymphocyte % 26.7 % (25-47); Mean Corpuscular HGB Conc 34 g/dl (31-36); Mean Corpuscular Hemoglobin 36 pg (27-31); Mean Corpuscular Volume 106 fL (80-97); Mean Platelet Volume 9 um3 (7.4-10.4); Nucleated Red Blood Cells % 0.7; Platelet Count 171 10^3/ul (150-450); Red Blood Count 2.66 10^6/ul (4.0-5.4); Red Cell Distribution Width 23 % (10.5-15); White Blood Count 4.1 10^3/ul (3.5-10.8)
[2017-07-15 06:01] LABS: EGFR Non-African American 72.7 (>60)
[2017-07-15] MEDS: Enoxaparin(*) 100 MG/ML SYR SUBCUT SCH ×2 (09:31→20:38)
[2017-07-15] MEDS: Pantoprazole IV* 40 MG IV SCH (09:32)
[2017-07-15] MEDS: oxyCODONE SR TAB(*) 10 MG TAB.SR PO SCH ×2 (09:32→20:36)
[2017-07-15] MEDS: Oseltamivir CAP* 75 MG CAP PO SCH ×2 (09:32→20:36)
[2017-07-15] MEDS: CMCS Anastrozole (NF) 1 MG TAB PO SCH (09:32)
[2017-07-15] MEDS: Betaxolol-S 0.25%* 10 ML BTL BOTH EYES SCH ×2 (09:33→20:36)
[2017-07-15] MEDS: NS 0.9% 1000 ML* 1,000 ML IV SCH (09:35)
[2017-07-15] MEDS: TRETIN X TOPICAL SCH (09:40)
--- NOTE | 2017-07-15 10:17 | PN ---
Progress Note - Progress Note Date of Service: 07/15/17 SOAP: Subjective: [Still has some complaints of dyspnea, especially when ambulating without O2. Occasional cough. No melena/hematachezia. No abd pain, n/v.] Objective: [ Acetaminophen (Tylenol Tab*) 650 mg PO Q4H PRN PRN Reason: FEVER/PAIN Last Admin: 07/14/17 11:20 Dose: 650 mg Albuterol (Ventolin Hfa Inhaler*) 2 puff INH Q4H PRN PRN Reason: SOB/WHEEZING Alprazolam (Xanax Tab*) 0.25 mg PO BEDTIME PRN PRN Reason: ANXIETY Anastrozole (Arimidex (Nf)) 1 mg PO QAM [facility] Last Admin: 07/15/17 09:32 Dose: 1 mg Betaxolol HCl (Betoptic-S 0.25%*) 1 drop BOTH EYES BID [facility] Last Admin: 07/15/17 09:33 Dose: 1 drop Docusate Sodium (Colace Cap*) 100 mg PO BID PRN PRN Reason: CONSTIPATION Enoxaparin Sodium (Lovenox(*)) 90 mg SUBCUT Q12H [facility] Last Admin: 07/15/17 09:31 Dose: 90 mg Escitalopram Oxalate (Lexapro (Nf)) 20 mg PO BEDTIME [facility] Last Admin: 07/14/17 20:25 Dose: 20 mg Sodium Chloride (Ns 0.9% 1000 Ml*) 1,000 mls @ 100 mls/hr IV PER RATE [facility] Last Admin: 07/15/17 09:35 Dose: 100 mls/hr Mirtazapine (Remeron Tab*) 30 mg PO 2100 [facility] Last Admin: 07/14/17 20:24 Dose: 30 mg Mometasone Furoate (Asmanex 220 Mcg Mdi *) 2 puff INH 2100 [facility] Last Admin: 07/14/17 19:18 Dose: 2 puff Non-Formulary Medication (Tretin-X 0.05 % Cream) 1 applic TOPICAL DAILY [facility] Last Admin: 07/15/17 09:40 Dose: Not Given Ondansetron HCl (Zofran Inj*) 4 mg IV Q4H PRN PRN Reason: NAUSEA/VOMITING Oseltamivir Phosphate (Tamiflu Cap*) 75 mg PO BID [facility] Stop: 07/19/17 09:01 Last Admin: 07/15/17 09:32 Dose: 75 mg Oxycodone HCl (Oxycontin(*)) 10 mg PO BID [facility] Last Admin: 07/15/17 09:32 Dose: 10 mg Oxycodone/Acetaminophen (Percocet 5/325 Tab*) 1 tab PO Q4H PRN PRN Reason: Pain Pantoprazole Sodium (Protonix Iv*) 40 mg IV DAILY [facility] Last Admin: 07/15/17 09:32 Dose: 40 mg Laboratory Results - last 24 hr 07/14/17 07/14/17 07/14/17 05:35 13:00 16:12 WBC RBC Hgb Hct MCV MCH MCHC RDW Plt Count MPV Neut % (Auto) Lymph % (Auto) [place] % (Auto) Eos % (Auto) Baso % (Auto) Absolute Neuts (auto) Absolute Lymphs (auto) Absolute Monos (auto) Absolute Eos (auto) Absolute Basos (auto) Absolute Nucleated RBC Nucleated RBC % Sodium Potassium Chloride Carbon Dioxide Anion Gap BUN Creatinine Est GFR ( Amer) Est GFR (Non-Af Amer) BUN/Creatinine Ratio Glucose Calcium Magnesium B-Natriuretic Peptide 559 H Urine Color Yellow Urine Appearance Clear Urine pH 5.0 Ur Specific [place] 1.014 Urine Protein Negative Urine Ketones Negative Urine Blood 1+ A Urine Nitrate Negative Urine Bilirubin Negative Urine Urobilinogen Negative Ur Leukocyte Esterase Negative Urine WBC (Auto) Trace(0-5/hpf) Urine RBC (Auto) 1+(3-5/hpf) A Ur Squamous Epith Cells Present A Urine Bacteria Absent Urine Glucose Negative Influenza A (Rapid) Negative Influenza B (Rapid) Positive A 07/15/17 07/15/17 05:25 05:25 WBC 4.1 RBC 2.66 L Hgb 9.6 L Hct 28 L MCV 106 H MCH 36 H MCHC 34 RDW 23 H Plt Count 171 MPV 9 Neut % (Auto) 62.3 Lymph % (Auto) 26.7 [place] % (Auto) 9.3 H Eos % (Auto) 0.5 Baso % (Auto) 1.2 Absolute Neuts (auto) 2.5 Absolute Lymphs (auto) 1.1 Absolute Monos (auto) 0.4 Absolute Eos (auto) 0 Absolute Basos (auto) 0.1 Absolute Nucleated RBC 0 Nucleated RBC % 0.7 Sodium 133 Potassium 3.8 Chloride 102 Carbon Dioxide 25 Anion Gap 6 BUN 14 Creatinine 0.77 Est GFR ( Amer) 93.5 Est GFR (Non-Af Amer) 72.7 BUN/Creatinine Ratio 18.2 Glucose 109 H Calcium 8.3 L Magnesium 1.9 B-Natriuretic Peptide Urine Color Urine Appearance Urine pH Ur Specific [place] Urine Protein Urine Ketones Urine Blood Urine Nitrate Urine Bilirubin Urine Urobilinogen Ur Leukocyte Esterase Urine WBC (Auto) Urine RBC (Auto) Ur Squamous Epith Cells Urine Bacteria Urine Glucose Influenza A (Rapid) Influenza B (Rapid) Vital Signs: Temp Pulse Resp BP Pulse Ox 99.4 F 96 18 138/68 96 07/15/17 02:26 07/15/17 07:59 07/15/17 09:32 07/15/17 07:59 07/15/17 07:59 Gen: Relatively well appearing 76 yo female in NAD HEENT: MMM CV: RRR, no m/r/g Resp: faint wheeze in all lung valdovinos Abd: soft, nonTTP Ext: trace edema] Assessment: [76 yo female with metastatic BCA on Ibrance and Femara who was admitted with symptomatic anemia and suspected GI bleed with negative EGD, who has now developed influenza.] Plan: [1. Symptomatic anemia - improved with 2U PRBCs EGD neg for signs of bleeding Anticoagulation resumed, will require colonoscopy if evidence of new bleeding, Hgb currently stable 2. Influenza - cont Tamiflu 3. Asthma - mild exacerbation secondary to influenza - start prednisone and prn albuterol - cont ICS 4. Metastatic BCA - holding Ibrance, follow up with Dr Perry following dc 5. H/o recurrent VTE - Lovenox resumed, Xarelto stopped Dispo: possible dc home tomorrow, will need to reassess O2 need in am]
[2017-07-15] MEDS ORDERED: Furosemide IV* 10 MG/ML 2 ML VIAL (20 MG) IV ONE (10:40)
[2017-07-15] MEDS ORDERED: Albuterol 2.5 MG/3 ML NEB.SOL* (0.083%) INH PRN (10:41)
[2017-07-15] MEDS: predniSONE TAB* 20 MG PO SCH (10:55)
[2017-07-15] MEDS: Hydrocortisone 1% CREAM* 30 GM TUBE TOPICAL SCH ×3 (12:03→20:37)
[2017-07-15] MEDS: Acetaminophen TAB* 325 MG PO PRN (15:52)
[2017-07-15] MEDS: Mometasone 220 MCG MDI INH SCH (19:49)
[2017-07-15] MEDS: Mirtazapine TAB* 15 MG PO SCH (20:35)
[2017-07-15] MEDS: CMCS Escitalopram (NF) 10 MG TAB PO SCH (20:36)
[2017-07-16 06:02] LABS: ABS Basophils 0 10^3/ul (0-0.2); ABS Eosinophils 0 10^3/ul (0-0.6); ABS Lymphocytes 0.6 10^3/ul (1.0-4.8); ABS Monocytes 0.2 10^3/ul (0-0.8); ABS Neutrophils 2.1 10^3/ul (1.5-7.7); ABS Nucleated RBC 0 10^3/ul; Eosinophil % 0 % (0-6); Hematocrit 25 % (35-47); Hemoglobin 8.4 g/dl (12.0-16.0); Lymphocyte % 21.5 % (25-47); Mean Corpuscular HGB Conc 34 g/dl (31-36); Mean Corpuscular Hemoglobin 36 pg (27-31); Mean Corpuscular Volume 106 fL (80-97); Mean Platelet Volume 9 um3 (7.4-10.4); Nucleated Red Blood Cells % 1.1; Platelet Count 157 10^3/ul (150-450); Red Blood Count 2.34 10^6/ul (4.0-5.4); Red Cell Distribution Width 22 % (10.5-15); White Blood Count 2.9 10^3/ul (3.5-10.8)
[2017-07-16 06:18] LABS: EGFR Non-African American 88.4 (>60)
--- NOTE | 2017-07-16 08:51 | PN ---
Progress Note - Progress Note Date of Service: 07/16/17 SOAP: Subjective: [Patient reports no significant change in symptoms. Dyspnea may be slightly improved. Occasional cough. Febrile yesterday afternoon to 100.7. No BM since Saturday. ] Objective: [ Acetaminophen (Tylenol Tab*) 650 mg PO Q4H PRN PRN Reason: FEVER/PAIN Last Admin: 07/15/17 15:52 Dose: 650 mg Albuterol (Ventolin Hfa Inhaler*) 2 puff INH Q4H PRN PRN Reason: SOB/WHEEZING Albuterol (Ventolin 2.5 Mg/3 Ml Neb.Mariajose*) 2.5 mg INH Q4H PRN PRN Reason: SOB/WHEEZING Alprazolam (Xanax Tab*) 0.25 mg PO BEDTIME PRN PRN Reason: ANXIETY Anastrozole (Arimidex (Nf)) 1 mg PO QAM [facility] Last Admin: 07/15/17 09:32 Dose: 1 mg Betaxolol HCl (Betoptic-S 0.25%*) 1 drop BOTH EYES BID [facility] Last Admin: 07/15/17 20:36 Dose: 1 drop Docusate Sodium (Colace Cap*) 100 mg PO BID PRN PRN Reason: CONSTIPATION Enoxaparin Sodium (Lovenox(*)) 90 mg SUBCUT Q12H [facility] Last Admin: 07/15/17 20:38 Dose: 90 mg Escitalopram Oxalate (Lexapro (Nf)) 20 mg PO BEDTIME [facility] Last Admin: 07/15/17 20:36 Dose: 20 mg Hydrocortisone (Hytone Cream 1%*) 1 applic TOPICAL BID [facility] Last Admin: 07/15/17 20:37 Dose: 1 applic Mirtazapine (Remeron Tab*) 30 mg PO 2100 [facility] Last Admin: 07/15/17 20:35 Dose: 30 mg Mometasone Furoate (Asmanex 220 Mcg Mdi *) 2 puff INH 2100 [facility] Last Admin: 07/15/17 19:49 Dose: 2 puff Non-Formulary Medication (Tretin-X 0.05 % Cream) 1 applic TOPICAL DAILY [facility] Last Admin: 07/15/17 09:40 Dose: Not Given Ondansetron HCl (Zofran Inj*) 4 mg IV Q4H PRN PRN Reason: NAUSEA/VOMITING Oseltamivir Phosphate (Tamiflu Cap*) 75 mg PO BID [facility] Stop: 07/19/17 09:01 Last Admin: 07/15/17 20:36 Dose: 75 mg Oxycodone HCl (Oxycontin(*)) 10 mg PO BID [facility] Last Admin: 07/15/17 20:36 Dose: 10 mg Oxycodone/Acetaminophen (Percocet 5/325 Tab*) 1 tab PO Q4H PRN PRN Reason: Pain Pantoprazole Sodium (Protonix Iv*) 40 mg IV DAILY [facility] Last Admin: 07/15/17 09:32 Dose: 40 mg Prednisone (Deltasone Tab*) 40 mg PO DAILY [facility] Last Admin: 07/15/17 10:55 Dose: 40 mg Laboratory Results - last 24 hr 07/16/17 07/16/17 05:43 05:43 WBC 2.9 L RBC 2.34 L Hgb 8.4 L Hct 25 L MCV 106 H MCH 36 H MCHC 34 RDW 22 H Plt Count 157 MPV 9 Neut % (Auto) 70.9 Lymph % (Auto) 21.5 L [place] % (Auto) 6.4 Eos % (Auto) 0 Baso % (Auto) 1.2 Absolute Neuts (auto) 2.1 Absolute Lymphs (auto) 0.6 L Absolute Monos (auto) 0.2 Absolute Eos (auto) 0 Absolute Basos (auto) 0 Absolute Nucleated RBC 0 Nucleated RBC % 1.1 Sodium 137 Potassium 3.1 L Chloride 104 Carbon Dioxide 30 Anion Gap 3 BUN 13 Creatinine 0.65 Est GFR ( Amer) 113.7 Est GFR (Non-Af Amer) 88.4 BUN/Creatinine Ratio 20.0 Glucose 103 H Calcium 8.4 L Vital Signs Temp Pulse Resp BP Pulse Ox 98.6 F 70 18 115/58 98 07/16/17 07:22 07/16/17 07:22 07/16/17 07:39 07/16/17 07:22 07/16/17 07:22 Gen: Relatively well appearing 76 yo female in NAD HEENT: MMM CV: RRR, no m/r/g Resp: faint wheeze in all lung valdovinos Abd: soft, nonTTP Ext: trace edema] Assessment: [76 yo female with metastatic BCA on Ibrance and Femara who was admitted with symptomatic anemia and suspected GI bleed with negative EGD, who has now developed influenza.] Plan: [1. Symptomatic anemia - improved with 2U PRBCs - EGD neg for signs of bleeding - Anticoagulation resumed - Hgb drop by 1g overnight, no melena - Plan to repeat H&H at noon, if Hgb the same or lower will consult with GI regarding a colonoscopy and stop anticoagulation again 2. Influenza - cont Tamiflu 3. Asthma - mild exacerbation secondary to influenza - cont prednisone and prn albuterol - cont ICS 4. Metastatic BCA - holding Ibrance, follow up with Dr Perry following dc 5. H/o recurrent VTE - Lovenox resumed, Xarelto stopped Dispo: pending repeat H&H, may require colonoscopy]
[2017-07-16] MEDS: Pantoprazole IV* 40 MG IV SCH (09:49)
[2017-07-16] MEDS: oxyCODONE SR TAB(*) 10 MG TAB.SR PO SCH ×2 (09:52→21:40)
[2017-07-16] MEDS: CMCS Anastrozole (NF) 1 MG TAB PO SCH (09:53)
[2017-07-16] MEDS: predniSONE TAB* 20 MG PO SCH (09:53)
[2017-07-16] MEDS: Oseltamivir CAP* 75 MG CAP PO SCH ×2 (09:53→21:39)
[2017-07-16] MEDS: Bisacodyl EC TAB* 5 MG PO SCH (09:53)
[2017-07-16] MEDS: Betaxolol-S 0.25%* 10 ML BTL BOTH EYES SCH ×2 (09:54→21:41)
[2017-07-16] MEDS: Enoxaparin(*) 100 MG/ML SYR SUBCUT SCH ×2 (09:55→21:41)
[2017-07-16] MEDS: Hydrocortisone 1% CREAM* 30 GM TUBE TOPICAL SCH ×2 (09:57→21:42)
[2017-07-16] MEDS: TRETIN X TOPICAL SCH (09:58)
[2017-07-16] MEDS ORDERED: Potassium Chlor TAB* 20 MEQ TAB.ER PO ONE (10:49)
[2017-07-16 13:15] LABS: Hematocrit 27 % (35-47); Hemoglobin 8.8 g/dl (12.0-16.0)
[2017-07-16] MEDS: Mometasone 220 MCG MDI INH SCH ×2 (18:37→19:16)
[2017-07-16] MEDS: Mirtazapine TAB* 15 MG PO SCH (21:39)
[2017-07-16] MEDS: CMCS Escitalopram (NF) 10 MG TAB PO SCH (21:40)
[2017-07-17] MEDS: ALPRAZolam TAB* 0.25 MG PO PRN ×2 (00:26→22:45)
[2017-07-17 06:57] LABS: ABS Basophils 0 10^3/ul (0-0.2); ABS Eosinophils 0 10^3/ul (0-0.6); ABS Lymphocytes 0.9 10^3/ul (1.0-4.8); ABS Monocytes 0.3 10^3/ul (0-0.8); ABS Nucleated RBC 0.1 10^3/ul; Eosinophil % 0.1 % (0-6); Hematocrit 24 % (35-47); Hemoglobin 7.9 g/dl (12.0-16.0); Lymphocyte % 28.1 % (25-47); Mean Corpuscular HGB Conc 34 g/dl (31-36); Mean Corpuscular Hemoglobin 36 pg (27-31); Mean Corpuscular Volume 107 fL (80-97); Mean Platelet Volume 9 um3 (7.4-10.4); Nucleated Red Blood Cells % 2.9; Platelet Count 161 10^3/ul (150-450); Red Blood Count 2.21 10^6/ul (4.0-5.4); Red Cell Distribution Width 23 % (10.5-15); White Blood Count 3.2 10^3/ul (3.5-10.8)
[2017-07-17 07:05] LABS: EGFR Non-African American 83.9 (>60)
[2017-07-17] MEDS ORDERED: predniSONE TAB* 20 MG PO SCH (09:22)
--- NOTE | 2017-07-17 09:39 | PN ---
Progress Note - Progress Note Date of Service: 07/17/17 SOAP: Subjective: [Patient reports her SOB is improving. No CP, cough improving. No abd pain, n/ v. No melena hematachezia. Having some trouble with insomnia that she blames on the prednisone.] Objective: [ Acetaminophen (Tylenol Tab*) 650 mg PO Q4H PRN PRN Reason: FEVER/PAIN Last Admin: 07/15/17 15:52 Dose: 650 mg Albuterol (Ventolin Hfa Inhaler*) 2 puff INH Q4H PRN PRN Reason: SOB/WHEEZING Albuterol (Ventolin 2.5 Mg/3 Ml Neb.Mariajose*) 2.5 mg INH Q4H PRN PRN Reason: SOB/WHEEZING Last Admin: 07/16/17 18:13 Dose: 2.5 mg Alprazolam (Xanax Tab*) 0.25 mg PO BEDTIME PRN PRN Reason: ANXIETY Last Admin: 07/17/17 00:26 Dose: 0.25 mg Betaxolol HCl (Betoptic-S 0.25%*) 1 drop BOTH EYES BID [facility] Last Admin: 07/16/17 21:41 Dose: 1 drop Bisacodyl (Dulcolax Ec Tab*) 5 mg PO DAILY [facility] Last Admin: 07/16/17 09:53 Dose: 5 mg Docusate Sodium (Colace Cap*) 100 mg PO BID PRN PRN Reason: CONSTIPATION Escitalopram Oxalate (Lexapro (Nf)) 20 mg PO BEDTIME [facility] Last Admin: 07/16/17 21:40 Dose: 20 mg Hydrocortisone (Hytone Cream 1%*) 1 applic TOPICAL BID [facility] Last Admin: 07/16/17 21:42 Dose: 1 applic Mirtazapine (Remeron Tab*) 30 mg PO 2100 [facility] Last Admin: 07/16/17 21:39 Dose: 30 mg Mometasone Furoate (Asmanex 220 Mcg Mdi *) 2 puff INH 2100 [facility] Last Admin: 07/16/17 19:16 Dose: Not Given Non-Formulary Medication (Tretin-X 0.05 % Cream) 1 applic TOPICAL DAILY [facility] Last Admin: 07/16/17 09:58 Dose: Not Given Ondansetron HCl (Zofran Inj*) 4 mg IV Q4H PRN PRN Reason: NAUSEA/VOMITING Oseltamivir Phosphate (Tamiflu Cap*) 75 mg PO BID [facility] Stop: 07/19/17 09:01 Last Admin: 07/16/17 21:39 Dose: 75 mg Oxycodone HCl (Oxycontin(*)) 10 mg PO BID [facility] Last Admin: 07/16/17 21:40 Dose: 10 mg Oxycodone/Acetaminophen (Percocet 5/325 Tab*) 1 tab PO Q4H PRN PRN Reason: Pain Pantoprazole Sodium (Protonix Iv*) 40 mg IV DAILY [facility] Last Admin: 07/16/17 09:49 Dose: 40 mg Polyethylene Glycol/Electrolytes (Golytely*) 4,000 ml PO ONCE ONE Stop: 07/17/17 17:01 Prednisone (Deltasone Tab*) 20 mg PO DAILY [facility] Laboratory Results - last 24 hr 07/16/17 07/17/17 07/17/17 12:14 06:35 06:35 WBC 3.2 L RBC 2.21 L Hgb 8.8 L 7.9 L Hct 27 L 24 L MCV 107 H MCH 36 H MCHC 34 RDW 23 H Plt Count 161 MPV 9 Neut % (Auto) 62.0 Lymph % (Auto) 28.1 [place] % (Auto) 9.1 H Eos % (Auto) 0.1 Baso % (Auto) 0.7 Absolute Neuts (auto) 2.0 Absolute Lymphs (auto) 0.9 L Absolute Monos (auto) 0.3 Absolute Eos (auto) 0 Absolute Basos (auto) 0 Absolute Nucleated RBC 0.1 Nucleated RBC % 2.9 Sodium 140 Potassium 3.6 Chloride 108 Carbon Dioxide 28 Anion Gap 4 BUN 12 Creatinine 0.68 Est GFR ( Amer) 107.9 Est GFR (Non-Af Amer) 83.9 BUN/Creatinine Ratio 17.6 Glucose 81 Calcium 8.2 L Vital Signs: Temp Pulse Resp BP Pulse Ox 97.6 F 67 14 129/71 96 07/17/17 03:42 07/17/17 09:21 07/17/17 09:21 07/17/17 03:42 07/17/17 09:21 Gen: Relatively well appearing 76 yo female in NAD HEENT: MMM CV: RRR, no m/r/g Resp: occasional wheeze in all lung valdovinos Abd: soft, nonTTP Ext: trace edema] Assessment: [76 yo female with metastatic BCA on Ibrance and Femara who was admitted with symptomatic anemia and suspected GI bleed with negative EGD, who has now developed influenza.] Plan: [1. Symptomatic anemia - s/p 2U PRBCs - EGD neg for signs of bleeding - Anticoagulation resumed but now Hgb falling again - will transfuse an additional unit PRBCs today - Discussed case again with Dr Grady this am who agrees to complete colonoscopy tomorrow, start prep this evening 2. Influenza - cont Tamiflu 3. Asthma - mild exacerbation secondary to influenza - improving - no longer requiring supp O2 - start to taper prednisone and cont prn albuterol - cont ICS 4. 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
[2017-07-17] MEDS: Pantoprazole IV* 40 MG IV SCH (09:43)
[2017-07-17] MEDS: oxyCODONE SR TAB(*) 10 MG TAB.SR PO SCH ×2 (09:43→22:32)
[2017-07-17] MEDS: Oseltamivir CAP* 75 MG CAP PO SCH ×2 (09:44→22:44)
[2017-07-17] MEDS: Betaxolol-S 0.25%* 10 ML BTL BOTH EYES SCH ×2 (09:44→22:48)
[2017-07-17] MEDS: Hydrocortisone 1% CREAM* 30 GM TUBE TOPICAL SCH ×2 (09:44→22:48)
[2017-07-17] MEDS: TRETIN X TOPICAL SCH (09:45)
[2017-07-17] MEDS: Bisacodyl EC TAB* 5 MG PO SCH (09:45)
[2017-07-17] MEDS: predniSONE TAB* 20 MG PO SCH ×2 (10:02→10:50)
[2017-07-17] MEDS: CMCS Anastrozole (NF) 1 MG TAB PO SCH (10:50)
[2017-07-17] MEDS ORDERED: PEG 3000 GI LAVAGE* 1 GALLON PO ONE (17:00)
--- NOTE | 2017-07-17 18:49 | PN ---
Progress Note - Progress Note Date of Service: 07/17/17 - Gastroenterology Note: Patient seen and examined. Decrease in hgb overnight to 7.9. One dark tarry stool this am. No abdominal pain. Tolerating diet. No nausea/emesis. No longer on nasal canula and feels less SOB. Vital Signs: Temp Pulse Resp BP Pulse Ox 98.7 F 68 16 129/64 94 07/17/17 11:40 07/17/17 11:40 07/17/17 11:40 07/17/17 11:40 07/17/17 11:40 Physical Examination: GENERAL: NAD. CV: RRR. PULM: B/L mild expiratory wheezing. ABDOMEN: Obese. Soft, NT/ND. Laboratory Results - last 24 hr 07/17/17 07/17/17 07/17/17 06:35 06:35 06:35 WBC 3.2 L RBC 2.21 L Hgb 7.9 L Hct 24 L MCV 107 H MCH 36 H MCHC 34 RDW 23 H Plt Count 161 MPV 9 Neut % (Auto) 62.0 Lymph % (Auto) 28.1 Taylor % (Auto) 9.1 H Eos % (Auto) 0.1 Baso % (Auto) 0.7 Absolute Neuts (auto) 2.0 Absolute Lymphs (auto) 0.9 L Absolute Monos (auto) 0.3 Absolute Eos (auto) 0 Absolute Basos (auto) 0 Absolute Nucleated RBC 0.1 Nucleated RBC % 2.9 Sodium 140 Potassium 3.6 Chloride 108 Carbon Dioxide 28 Anion Gap 4 BUN 12 Creatinine 0.68 Est GFR ( Amer) 107.9 Est GFR (Non-Af Amer) 83.9 BUN/Creatinine Ratio 17.6 Glucose 81 Calcium 8.2 L Blood Type A Positive Antibody Screen Negative Crossmatch See Detail A/P: 76 yo female with breast cancers and mets undergoing chemotherapy and 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 She is s/p 2 units of prbcs with improvement in hgb and symptoms. CT was negative for new PE on this admission. EGD was done and it was fairly unremarkable. 1. Anemia s/p 3 units of prbcs ~Last colonoscopy was done by Dr. Murrieta in 2008 and was unremarkable. ~s/p EGD: Mild gastritis. Hiatal hernia. Normal duodenum and esophagus. No evidence of active bleeding or previous stigmata of bleeding. ~Anticoagulation was restarted and patient became progressively anemic again requiring another unit of prbcs today. Anticoagulation was placed on hold again. ~Plan for colonoscopy tomorrow afternoon. Patient is agreeable. Will prep tonight. 2. Breast CA with metastatsis undergoing chemotherapy ~Heme/Onc on board. 3. Asthma exacerbation - improving. ~On steroids and nebs. ~No longer requiring o2 per nasal canula. 4. Influenzae D/w Medardo Pacheco. Please call with any further questions or concerns. Niyah Grady D.O.
[2017-07-17] MEDS: Mometasone 220 MCG MDI INH SCH (19:43)
[2017-07-17] MEDS: CMCS Escitalopram (NF) 10 MG TAB PO SCH (22:33)
[2017-07-17] MEDS: Mirtazapine TAB* 15 MG PO SCH (22:33)
[2017-07-18] MEDS ORDERED: diPHENhydraMINE PO* 50 MG PO ONE (01:00)
[2017-07-18 06:02] LABS: ABS Basophils 0 10^3/ul (0-0.2); ABS Eosinophils 0 10^3/ul (0-0.6); ABS Monocytes 0.3 10^3/ul (0-0.8); ABS Neutrophils 2.3 10^3/ul (1.5-7.7); ABS Nucleated RBC 0.1 10^3/ul; Eosinophil % 0.1 % (0-6); Hematocrit 28 % (35-47); Hemoglobin 9.4 g/dl (12.0-16.0); Lymphocyte % 27.9 % (25-47); Mean Corpuscular HGB Conc 34 g/dl (31-36); Mean Corpuscular Hemoglobin 35 pg (27-31); Mean Corpuscular Volume 103 fL (80-97); Nucleated Red Blood Cells % 2.8; Platelet Count 159 10^3/ul (150-450); Red Blood Count 2.69 10^6/ul (4.0-5.4); Red Cell Distribution Width 24 % (10.5-15); White Blood Count 3.8 10^3/ul (3.5-10.8)
[2017-07-18 06:16] LABS: EGFR Non-African American 82.5 (>60)
[2017-07-18] MEDS: Betaxolol-S 0.25%* 10 ML BTL BOTH EYES SCH ×2 (09:36→21:09)
[2017-07-18] MEDS: oxyCODONE SR TAB(*) 10 MG TAB.SR PO SCH ×2 (09:37→21:07)
[2017-07-18] MEDS: Bisacodyl EC TAB* 5 MG PO SCH (09:37)
[2017-07-18] MEDS: Oseltamivir CAP* 75 MG CAP PO SCH ×2 (09:38→21:09)
[2017-07-18] MEDS: Pantoprazole IV* 40 MG IV SCH (09:39)
[2017-07-18] MEDS: TRETIN X TOPICAL SCH (09:39)
[2017-07-18] MEDS: Hydrocortisone 1% CREAM* 30 GM TUBE TOPICAL SCH ×2 (09:42→21:09)
--- NOTE | 2017-07-18 10:00 | PN ---
Progress Note - Progress Note Date of Service: 07/18/17 SOAP: Subjective: []Feeling well today overall. Breathing is much better though still coughing intermittently. Hates the prednisone as it keeps her up all night, does not want to take. Did the best she could with GI prep and has "barely any stool left." Did note a "glob" of blood in toilet this AM. No abd. pain or cramping. No pain. Aware of plan of care Medications: Acetaminophen (Tylenol Tab*) 650 mg PO Q4H PRN PRN Reason: FEVER/PAIN Last Admin: 07/15/17 15:52 Dose: 650 mg Albuterol (Ventolin Hfa Inhaler*) 2 puff INH Q4H PRN PRN Reason: SOB/WHEEZING Albuterol (Ventolin 2.5 Mg/3 Ml Neb.Mariajose*) 2.5 mg INH Q4H PRN PRN Reason: SOB/WHEEZING Last Admin: 07/16/17 18:13 Dose: 2.5 mg Alprazolam (Xanax Tab*) 0.25 mg PO BEDTIME PRN PRN Reason: ANXIETY Last Admin: 07/17/17 22:45 Dose: 0.25 mg Betaxolol HCl (Betoptic-S 0.25%*) 1 drop BOTH EYES BID [facility] Last Admin: 07/18/17 09:36 Dose: 1 drop Bisacodyl (Dulcolax Ec Tab*) 5 mg PO DAILY [facility] Last Admin: 07/18/17 09:37 Dose: Not Given Docusate Sodium (Colace Cap*) 100 mg PO BID PRN PRN Reason: CONSTIPATION Escitalopram Oxalate (Lexapro (Nf)) 20 mg PO BEDTIME [facility] Last Admin: 07/17/17 22:33 Dose: 20 mg Hydrocortisone (Hytone Cream 1%*) 1 applic TOPICAL BID [facility] Last Admin: 07/18/17 09:42 Dose: 1 applic Mirtazapine (Remeron Tab*) 30 mg PO 2100 [facility] Last Admin: 07/17/17 22:33 Dose: 30 mg Mometasone Furoate (Asmanex 220 Mcg Mdi *) 2 puff INH 2100 [facility] Last Admin: 07/17/17 19:43 Dose: 2 puff Non-Formulary Medication (Tretin-X 0.05 % Cream) 1 applic TOPICAL DAILY [facility] Last Admin: 07/18/17 09:39 Dose: Not Given Ondansetron HCl (Zofran Inj*) 4 mg IV Q4H PRN PRN Reason: NAUSEA/VOMITING Oseltamivir Phosphate (Tamiflu Cap*) 75 mg PO BID [facility] Stop: 07/19/17 09:01 Last Admin: 07/18/17 09:38 Dose: 75 mg Oxycodone HCl (Oxycontin(*)) 10 mg PO BID [facility] Last Admin: 07/18/17 09:37 Dose: 10 mg Oxycodone/Acetaminophen (Percocet 5/325 Tab*) 1 tab PO Q4H PRN PRN Reason: Pain Pantoprazole Sodium (Protonix Iv*) 40 mg IV DAILY [facility] Last Admin: 07/18/17 09:39 Dose: 40 mg Prednisone (Deltasone Tab*) 20 mg PO DAILY [facility] Last Admin: 07/17/17 10:02 Dose: 20 mg Objective: [] Vital Signs Temp Pulse Resp BP Pulse Ox 98.6 F 72 16 136/81 94 07/18/17 08:10 07/18/17 08:10 07/18/17 09:37 07/18/17 08:10 07/18/17 08:10 A&Ox3, EOMI, YOON, neuro grossly non-focal HRR, S1S2 LS with scattered wheeze, no rhonchi, resp. even and non-labored ++BS throughout, abd. soft and non-tender No edema noted Laboratory Results - last 24 hr 07/17/17 07/18/17 07/18/17 06:35 05:47 05:47 WBC 3.8 RBC 2.69 L Hgb 9.4 L Hct 28 L MCV 103 H MCH 35 H MCHC 34 RDW 24 H Plt Count 159 MPV 9.0 Neut % (Auto) 61.9 Lymph % (Auto) 27.9 Adams % (Auto) 9.3 H Eos % (Auto) 0.1 Baso % (Auto) 0.8 Absolute Neuts (auto) 2.3 Absolute Lymphs (auto) 1.0 Absolute Monos (auto) 0.3 Absolute Eos (auto) 0 Absolute Basos (auto) 0 Absolute Nucleated RBC 0.1 Nucleated RBC % 2.8 Sodium 140 Potassium 3.4 L Chloride 105 Carbon Dioxide 30 Anion Gap 5 BUN 10 Creatinine 0.69 Est GFR ( Amer) 106.1 Est GFR (Non-Af Amer) 82.5 BUN/Creatinine Ratio 14.5 Glucose 86 Calcium 8.3 L Blood Type A Positive Antibody Screen Negative Crossmatch See Detail Assessment: []76 yo female with metastatic breast cancer admitted a week ago d/t GI bleed c/ b influenza. Work-up cont.'s with colonoscopy today. Plan: []1. Anemia: stable following transfusion yesterday, EGD negative - Colonsocopy as planned today, repeat CBC in AM 2. Influenza B: D4 of 5 Tamiflu and symptomatically improved 3. Asthma exacerbation 05/31 Influenza: OK to stop prednisone (started 07/15 and I do not think a taper is necessary) - cont. PRN nebs, enc. incentive spirometry 4. Hypokalemia: / GI prep - give 20 mEq IV KCl today, check Mg, repeat labs in AM 5. Breast Cancer: chemo on hold - chemo precautions are not necessary as she has been on Palbocicilib and AI on hold 6. PE/DVT: anticoagulation on hold d/t active bleeding Disposition: monitor overnight following colonoscopy, hopeful for d/c tomorrow dependent on results
[2017-07-18] MEDS: predniSONE TAB* 20 MG PO SCH (10:23)
[2017-07-18] MEDS ORDERED: KCL 20 MEQ/100 ML IVPREMIX* 20 MEQ/100 ML BAG IV ONE (11:20)
[2017-07-18] MEDS ORDERED: Potassium Chloride IV* 20 MEQ in NS 0.9% 100 ML* 100 ML IVPB ONE (12:00)
[2017-07-18] MEDS ORDERED: Midazolam* 1 MG/ML 5 ML VIAL (5 MG) ONE (15:54)
[2017-07-18] MEDS ORDERED: fentaNYL* 50 MCG/ML 2 ML VIAL (100 MCG VIAL) ONE (15:54)
--- NOTE | 2017-07-18 19:22 | PN ---
Progress Note - Progress Note Date of Service: 07/18/17 - Gastroenterology Note: Patient seen and examined. No new overnight issues. No rectal bleeding. No abdominal pain. Vital Signs: Temp Pulse Resp BP Pulse Ox 99.0 F 63 16 138/66 93 07/18/17 17:53 07/18/17 17:53 07/18/17 17:53 07/18/17 17:53 07/18/17 17:53 Physical Examination: GENERAL: NAD. CV: RRR. PULM: Poor airway movement (baseline). No wheezing, ronchi, rales. ABDOMEN: Soft, NT/ND. EXTREMITIES: No edema. Laboratory Results - last 24 hr 07/18/17 07/18/17 05:47 05:47 WBC 3.8 RBC 2.69 L Hgb 9.4 L Hct 28 L MCV 103 H MCH 35 H MCHC 34 RDW 24 H Plt Count 159 MPV 9.0 Neut % (Auto) 61.9 Lymph % (Auto) 27.9 [place] % (Auto) 9.3 H Eos % (Auto) 0.1 Baso % (Auto) 0.8 Absolute Neuts (auto) 2.3 Absolute Lymphs (auto) 1.0 Absolute Monos (auto) 0.3 Absolute Eos (auto) 0 Absolute Basos (auto) 0 Absolute Nucleated RBC 0.1 Nucleated RBC % 2.8 Sodium 140 Potassium 3.4 L Chloride 105 Carbon Dioxide 30 Anion Gap 5 BUN 10 Creatinine 0.69 Est GFR ( Amer) 106.1 Est GFR (Non-Af Amer) 82.5 BUN/Creatinine Ratio 14.5 Glucose 86 Calcium 8.3 L Magnesium 2.0 A/P: 76 yo female with breast cancers and mets undergoing chemotherapy and 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 She is s/p 3 units of prbcs with improvement in hgb and symptoms. CT was negative for new PE on this admission. EGD was done and it was fairly unremarkable. 1. Anemia s/p 3 units of prbcs - stable. ~s/p EGD: Mild gastritis. Hiatal hernia. Normal duodenum and esophagus. No evidence of active bleeding or previous stigmata of bleeding. ~Colonoscopy today was negative for large tumors, poor prep. No active bleeding or previous stigmata of bleeding. ~Off Xarelto for now. ~Will monitor hgb in AM. ~D/w Dr. John haley. Will plan for outpatient video capsule endoscopy for further evaluation of anemia. 2. Breast CA with metastatsis undergoing chemotherapy ~Heme/Onc on board. 3. Asthma exacerbation - improving. ~On steroids and nebs. ~No longer requiring o2 per nasal canula. 4. Influenzae 5. Hx of PE and recurrent DVTs ~Xarelto on hold. D/w Dr. Lopez. Please call with any questions or concerns. Niyah Grady D.O.
[2017-07-18] MEDS: CMCS Escitalopram (NF) 10 MG TAB PO SCH (21:07)
[2017-07-18] MEDS: Mirtazapine TAB* 15 MG PO SCH (21:08)
[2017-07-18] MEDS: Mometasone 220 MCG MDI INH SCH (21:09)
[2017-07-18] MEDS: ALPRAZolam TAB* 0.25 MG PO PRN (21:21)
[2017-07-19 06:23] LABS: Hematocrit 29 % (35-47); Hemoglobin 9.7 g/dl (12.0-16.0); Mean Corpuscular HGB Conc 34 g/dl (31-36); Mean Corpuscular Hemoglobin 35 pg (27-31); Mean Corpuscular Volume 103 fL (80-97); Platelet Count 155 10^3/ul (150-450); Red Blood Count 2.77 10^6/ul (4.0-5.4); Red Cell Distribution Width 24 % (10.5-15); White Blood Count 3.4 10^3/ul (3.5-10.8)
[2017-07-19 06:29] LABS: EGFR Non-African American 77.3 (>60)
[2017-07-19 06:47] LABS: ABS Basophils 0 10^3/ul (0-0.2); ABS Eosinophils 0 10^3/ul (0-0.6); ABS Lymphocytes 0.9 10^3/ul (1.0-4.8); ABS Monocytes 0.4 10^3/ul (0-0.8)
[2017-07-19 06:50] LABS: Monocytes % 12 % (0-7)
[2017-07-19] MEDS: Betaxolol-S 0.25%* 10 ML BTL BOTH EYES SCH (08:50)
[2017-07-19] MEDS: oxyCODONE SR TAB(*) 10 MG TAB.SR PO SCH (08:51)
[2017-07-19] MEDS: Bisacodyl EC TAB* 5 MG PO SCH (08:51)
[2017-07-19] MEDS: Pantoprazole IV* 40 MG IV SCH (08:51)
[2017-07-19] MEDS: Oseltamivir CAP* 75 MG CAP PO SCH (08:52)
[2017-07-19] MEDS: TRETIN X TOPICAL SCH (08:53)
[2017-07-19] MEDS: Hydrocortisone 1% CREAM* 30 GM TUBE TOPICAL SCH (08:53)
--- NOTE | 2017-07-19 12:14 | PRO ---
CC: Dr. Hutchinson; Niyah Grady MD GASTROENTEROLOGY OPERATIVE REPORT: DATE OF PROCEDURE: 07/18/17 OPERATIVE PROCEDURE: Colonoscopy to the cecal base. SURGEON: Niyah Grady MD. ANESTHESIA: 1. Midazolam 7 mg IV. 2. Fentanyl 100 mcg IV. HISTORY OF PRESENT ILLNESS: Marianne is a pleasant 76-year-old female with breast cancer and metastasis, currently undergoing chemotherapy. She was found to be anemic and has been given 3 units of packed red blood cells with now stable hemoglobin. She is on Xarelto for previous history of PE and recurrent DVTs. Currently the Xarelto has been held. Endoscopy was performed earlier this week and was unrevealing for an etiology of acute anemia. Therefore, colonoscopy was requested by hematology/oncology services for further evaluation. PREOPERATIVE DIAGNOSIS: 1. Acute blood loss anemia. POSTOPERATIVE DIAGNOSES: 1. No large tumors seen in the colon. 2. Small non-bleeding internal hemorrhoids seen on retroflexion. 3. Poor colonoscopy preparation. Polyps less than 5 mm may have been missed on this examination. RECOMMENDATIONS: 1. We will resume the patient's diet. 2. Continue to monitor the patient's hemoglobin. 3. If anemia persists, the patient will have a video capsule endoscopy as an outpatient. 4. Discussed with Dr. Lopez, hematology/oncology. DESCRIPTION OF PROCEDURE: Colonoscopy was explained in detail to the patient. The risks, benefits, complications, alternatives, and possibilities of missed lesions were explained and understood. Complications included, but were not limited to reaction to anesthesia, aspiration, increased risk of bleeding, and perforation. All questions were answered. The patient demonstrated understanding of the conversation and informed consent was obtained. Next, the patient was brought to the endoscopy suite and placed in the left lateral recumbent position while blood pressure, cardiac, and oxygen monitors were applied. The patient was found to be a fit candidate for moderate anesthesia. After adequate IV sedation was achieved, a digital rectal exam was performed which revealed normal sphincter tone. No palpable masses were appreciated. Next, a standard adult Olympus colonoscope was inserted through the rectum, maneuvered all the way to the cecal base where the ileocecal valve and appendiceal orifice were identified and photographed. The patient's colonoscopy preparation overall was very poor. Polyps less than 5 mm may have been missed. There was significant stool adherent to the right side of the colonic mucosa. Aggressive irrigation and suctioning was performed in order to adequately visualize the mucosa. There were no large tumors present throughout the entire colon including the cecum, ascending colon, transverse colon, descending colon, sigmoid colon and rectum. Retroflexion was performed revealing some small non-bleeding internal hemorrhoids. No active bleeding was noted during the examination or previous stigmata of bleeding. Air was then removed from the patient. Colonoscope was removed from the patient. The patient tolerated the procedure well. There were no immediate complications. After a period of observation, the patient was transferred back to the medical floor for further care. Thank you, Drs. Hutchinson and John , for allowing us to participate in the care of your patient. If you should have any further questions or concerns, please do not hesitate to contact us. [id number]/[facility] #: [id number] PILY
[2017-07-19 12:38] VITALS: BP 123/63
== END 2017-07-19 15:40 | disposition home or self-care (01) | DRG 378 ==
LOC: CHOA 13:07 → MED 15:12
PROVIDERS: ADMIT Internal Medicine Hematology & Oncology; ATTEND Internal Medicine Hematology & Oncology
PROC: 30233N1 Transfusion of Nonautologous Red Blood Cells into Peripheral Vein, Percutaneous Approach (ICD-10-PCS; principal; 2017-07-12)
PROC: 0DB98ZX Excision of Duodenum, Via Natural or Artificial Opening Endoscopic, Diagnostic (ICD-10-PCS; 2017-07-13)
PROC: 5A09357 Assistance with Respiratory Ventilation, Less than 24 Consecutive Hours, Continuous Positive Airway Pressure (ICD-10-PCS; 2017-07-14)
PROC: 0DJD8ZZ Inspection of Lower Intestinal Tract, Via Natural or Artificial Opening Endoscopic (ICD-10-PCS; 2017-07-19)
DX: K92.2 Gastrointestinal hemorrhage, unspecified (principal); J90 Pleural effusion, not elsewhere classified; C79.9 Secondary malignant neoplasm of unspecified site; C50.919 Malignant neoplasm of unspecified site of unspecified female breast; J45.901 Unspecified asthma with (acute) exacerbation; D53.9 Nutritional anemia, unspecified; K21.9 Gastro-esophageal reflux disease without esophagitis; D62 Acute posthemorrhagic anemia; Z96.653 Presence of artificial knee joint, bilateral; R06.02 Shortness of breath; R06.82 Tachypnea, not elsewhere classified; R35.8 Other polyuria; G47.00 Insomnia, unspecified; K44.9 Diaphragmatic hernia without obstruction or gangrene; K29.70 Gastritis, unspecified, without bleeding; J10.1 Influenza due to other identified influenza virus with other respiratory manifestations; E87.6 Hypokalemia; K64.8 Other hemorrhoids; Z86.711 Personal history of pulmonary embolism; Z86.718 Personal history of other venous thrombosis and embolism; Z90.49 Acquired absence of other specified parts of digestive tract; Z90.11 Acquired absence of right breast and nipple; Z98.51 Tubal ligation status; Z98.42 Cataract extraction status, left eye; Z98.41 Cataract extraction status, right eye; Z88.8 Allergy status to other drugs, medicaments and biological substances; Z88.1 Allergy status to other antibiotic agents; Z91.040 Latex allergy status; Z91.048 Other nonmedicinal substance allergy status; Z72.89 Other problems related to lifestyle
CPT/HCPCS: 36415; 71045; 71275; 80048; 80053; 81003; 81015; 82272; 82728; 83540; 83550; 83735; 83880; 84484; 85014; 85018; 85025; 85027; 85379; 86300; 86850; 86900; 86901; 86922; 87040; 87086; 87502; 88305; 88341; 88342; 94640; 94660; 94760; 99156; 99157; 99214; 99222; 99231; 99232; 99233; 99238; A9270-GY; G0463; J1644; J1650; J1940; J2250; J3010; J3480; J7512; P9040; Q9967

== ENCOUNTER 2018-06-19 15:34 | Inpatient (IN) | payer MEDICARE ==
[2018-06-19] MEDS ORDERED: Albuterol 2.5 MG/3 ML NEB.SOL* (0.083%) INH PRN (16:25)
[2018-06-19] MEDS: Mirtazapine TAB* 15 MG PO SCH (21:41)
[2018-06-19] MEDS: oxyCODONE SR TAB(*) 10 MG TAB.SR PO SCH (21:43)
[2018-06-19] MEDS: Docusate CAP* 100 MG PO SCH (21:43)
[2018-06-19] MEDS: Betaxolol-S 0.25%* 10 ML BTL BOTH EYES SCH (21:45)
[2018-06-19] MEDS: PTO:Budesonide/Formote 80/4.5(NF) MDI INH SCH ×2 (21:47→23:24)
[2018-06-19] MEDS: ALPRAZolam TAB* 0.25 MG PO PRN (22:14)
[2018-06-20 08:08] LABS: Hematocrit 32 % (35-47); Hemoglobin 10.6 g/dl (12.0-16.0); Mean Corpuscular HGB Conc 33 g/dl (31-36); Mean Corpuscular Hemoglobin 40 pg (27-31); Mean Corpuscular Volume 120 fL (80-97); Platelet Count 72 10^3/ul (150-450); Red Blood Count 2.65 10^6/ul (4.00-5.40); Red Cell Distribution Width 17 % (10.5-15); White Blood Count 3.2 10^3/ul (3.5-10.8)
[2018-06-20 08:21] LABS: Albumin 3.4 g/dL (3.2-5.2); Potassium 4.5 mmol/L (3.5-5.0); Total Bilirubin 0.6 mg/dL (0.2-1.0)
[2018-06-20 08:27] LABS: Albumin/Globulin Ratio 1.2 (1-3); Globulin 2.9 g/dL (2-4); Total Protein 6.3 g/dL (6.4-8.9)
[2018-06-20] MEDS: PTO:Budesonide/Formote 80/4.5(NF) MDI INH SCH ×2 (08:36→19:25)
[2018-06-20 08:46] LABS: ABS Basophils 0 10^3/ul (0-0.2); ABS Eosinophils 0 10^3/ul (0-0.6); ABS Lymphocytes 0.5 10^3/ul (1.0-4.8); ABS Monocytes 0.1 10^3/ul (0-0.8); ABS Neutrophils 2.6 10^3/ul (1.5-7.7); ABS Nucleated RBC 0 10^3/ul; Eosinophil % 0 %; Lymphocyte % 14.5 %; Nucleated Red Blood Cells % 0.2
[2018-06-20] MEDS ORDERED: methylPREDNISolone SOD 40 MG* 1 ML VIAL IV SCH (09:00)
[2018-06-20] MEDS: CMCS:Escitalopram (NF) 10 MG TAB PO SCH (09:16)
[2018-06-20] MEDS: Docusate CAP* 100 MG PO SCH ×2 (09:17→22:05)
[2018-06-20] MEDS: Clindamycin 1% TOPICAL(NF) TOPICAL SCH (09:25)
[2018-06-20] MEDS: Pantoprazole TAB * 40 MG TAB PO SCH (09:25)
[2018-06-20] MEDS: Fluticasone NASAL SPRAY 50MCG* 16 gm SPRAY BTL BOTH NARES SCH (09:25)
[2018-06-20] MEDS: oxyCODONE SR TAB(*) 10 MG TAB.SR PO SCH ×2 (09:25→22:06)
[2018-06-20] MEDS: Betaxolol-S 0.25%* 10 ML BTL BOTH EYES SCH ×2 (09:25→22:13)
[2018-06-20] MEDS ORDERED: Albuterol 2.5 MG/3 ML NEB.SOL* (0.083%) INH PRN (10:14)
[2018-06-20 12:49] LABS: EGFR Non-African American 96.7 (>60)
[2018-06-20] MEDS ORDERED: Albuterol 2.5 MG/3 ML NEB.SOL* (0.083%) INH SCH (13:00)
[2018-06-20] MEDS: Albuterol/Ipratropium NEB.SOL* Albuterol 2.5 MG/Ipratropium 0.5 MG 3 ML INH SCH ×2 (14:04→20:20)
[2018-06-20] MEDS: NS 0.9% 1000 ML** 1,000 ML IV SCH (15:22)
[2018-06-20] MEDS: cefTRIAXone(*) 1 GM in NS 0.9% 50 ML* 50 ML IVPB SCH (18:04)
[2018-06-20] MEDS: Azithromycin IV(*) 250 MG in NS 0.9% 250 ML* 250 ML IVPB SCH (18:05)
[2018-06-20] MEDS: Acetaminophen TAB* 325 MG PO PRN (22:06)
[2018-06-20] MEDS: Mirtazapine TAB* 15 MG PO SCH (22:06)
[2018-06-20] MEDS: ALPRAZolam TAB* 0.25 MG PO PRN (22:09)
[2018-06-21] MEDS: Albuterol/Ipratropium NEB.SOL* Albuterol 2.5 MG/Ipratropium 0.5 MG 3 ML INH SCH ×4 (01:41→19:42)
[2018-06-21] MEDS: NS 0.9% 1000 ML** 1,000 ML IV SCH (03:03)
[2018-06-21] MEDS: oxyCODONE/Acetamin 5/325 MG* TAB PO PRN ×2 (03:04→18:43)
[2018-06-21] MEDS: PTO:Budesonide/Formote 80/4.5(NF) MDI INH SCH ×3 (06:59→19:44)
[2018-06-21] MEDS ORDERED: Furosemide IV* 10 MG/ML 2 ML VIAL (20 MG) IV ONE (09:02)
--- NOTE | 2018-06-21 09:02 | PN ---
Progress Note - Progress Note Date of Service: 06/21/18 SOAP: Subjective: []Breathing no better, using more oxygen. Could not sleep last night, no fevers. Has never had asthma this bad. Urinating, eating. Has had some chest pain that will come and go, chronic. Acetaminophen (Tylenol Tab*) 650 mg PO Q4H PRN PRN Reason: FEVER/PAIN Last Admin: 06/20/18 22:06 Dose: 650 mg Albuterol (Ventolin 2.5 Mg/3 Ml Neb.Mariajose*) 2.5 mg INH Q2H PRN PRN Reason: SOB/WHEEZING Albuterol/Ipratropium (Duoneb (Albuterol 2.5 Mg/Ipratropium 0.5 Mg)) 1 neb INH [id number] AWAKE [facility] Last Admin: 06/21/18 06:30 Dose: 1 neb Alprazolam (Xanax Tab*) 0.25 mg PO BID PRN PRN Reason: ANXIETY Last Admin: 06/20/18 22:09 Dose: 0.25 mg Betaxolol HCl (Betoptic-S 0.25%*) 1 drop BOTH EYES BID [facility] Last Admin: 06/20/18 22:13 Dose: 1 drop Budesonide/Formoterol Fumarate (Symbicort 80/4.5 (Nf)) 2 puff INH BID [facility] Last Admin: 06/21/18 06:59 Dose: Not Given Clindamycin Phosphate (Cleocin-T 1% Topical(Nf)) 1 applic TOPICAL DAILY [facility] Last Admin: 06/20/18 09:25 Dose: Not Given Docusate Sodium (Colace Cap*) 100 mg PO BID [facility] Last Admin: 06/20/18 22:05 Dose: 100 mg Escitalopram Oxalate (Lexapro (Nf)) 20 mg PO DAILY [facility] Last Admin: 06/20/18 09:16 Dose: 20 mg Fluticasone Propionate (Flonase Nasal [place] 50mcg*) 1 spray BOTH NARES DAILY [facility] Last Admin: 06/20/18 09:25 Dose: 1 spray Ceftriaxone Sodium 1 gm/ (Sodium Chloride) 50 mls @ 200 mls/hr IVPB Q24H [facility] Last Admin: 06/20/18 18:04 Dose: 200 mls/hr Azithromycin 250 mg/ Sodium (Chloride) 250 mls @ 250 mls/hr IVPB Q24H [facility] Last Admin: 06/20/18 18:05 Dose: 250 mls/hr Methylprednisolone Sodium Succinate (Solu-Medrol 40 Mg) 60 mg IV Q12H [facility] Mirtazapine (Remeron Tab*) 30 mg PO BEDTIME [facility] Last Admin: 06/20/18 22:06 Dose: 30 mg Montelukast Sodium (Singulair Tab*) 10 mg PO DAILY [facility] Oxycodone HCl (Oxycontin(*)) 10 mg PO BID [facility] Last Admin: 06/20/18 22:06 Dose: 10 mg Oxycodone/Acetaminophen (Percocet 5/325 Tab*) 1 tab PO Q6H PRN PRN Reason: PAIN Last Admin: 06/21/18 03:04 Dose: 1 tab Pantoprazole Sodium (Protonix Tab*) 40 mg PO DAILY [facility] Last Admin: 06/20/18 09:25 Dose: 40 mg Objective: [] Vital Signs Temp Pulse Resp BP Pulse Ox 98.1 F 95 16 166/74 98 06/21/18 02:58 06/21/18 06:30 06/21/18 06:30 06/21/18 02:58 06/21/18 06:30 HEENT - no thrush No JVD wheezed anteriorly, crackles at bases. rapid RR, has good air movement +BS Obsese, NT ND Ext w/o edema CXR-diffuse interstitial changes. no lobular infiltrate Assessment: []77 yo with history of asthma and metastatic breast cancer presents with fever and infiltrate on Ibrance/Femara. She is not neutropenic. Today a-fibrile on antibiotics but with progressive SOB. Ddx: viral illness and asthma exacerbation , same c/o CHF from IVF, atypical pneumonia with asthma, PCP or other OI pneumonia on Ibrance. Plan: []1. SOB. - Increase Solu-Medrol to 60 q 12 - Hold IVF and Lasix 20 IV x 1 - Check BNP and check LDH - Repeat CXR 2. Insomnia. Can try Trazadone 50 mg with current medications. 3. Breast cancer. Ibrance on hold 4. Hematologic. Leukopenia from Ibrance.
[2018-06-21] MEDS: Betaxolol-S 0.25%* 10 ML BTL BOTH EYES SCH ×2 (09:25→20:26)
[2018-06-21] MEDS: Fluticasone NASAL SPRAY 50MCG* 16 gm SPRAY BTL BOTH NARES SCH (09:25)
[2018-06-21] MEDS: methylPREDNISolone 125 MG* 2 ML VIAL IV SCH ×2 (09:26→20:21)
[2018-06-21] MEDS: Docusate CAP* 100 MG PO SCH ×2 (09:26→20:26)
[2018-06-21] MEDS: Pantoprazole TAB * 40 MG TAB PO SCH (09:26)
[2018-06-21] MEDS: Montelukast Sodium TAB* 10 MG PO SCH (09:26)
[2018-06-21] MEDS: CMCS:Escitalopram (NF) 10 MG TAB PO SCH (09:26)
[2018-06-21] MEDS: oxyCODONE SR TAB(*) 10 MG TAB.SR PO SCH ×2 (09:26→20:28)
[2018-06-21] MEDS: Clindamycin 1% TOPICAL(NF) TOPICAL SCH (09:30)
[2018-06-21] MEDS: Azithromycin IV(*) 250 MG in NS 0.9% 250 ML* 250 ML IVPB SCH (17:03)
[2018-06-21] MEDS: cefTRIAXone(*) 1 GM in NS 0.9% 50 ML* 50 ML IVPB SCH (19:06)
[2018-06-21] MEDS: traZODone TAB* 50 MG TAB PO SCH (20:25)
[2018-06-21] MEDS: Mirtazapine TAB* 15 MG PO SCH (20:26)
[2018-06-22] MEDS: oxyCODONE/Acetamin 5/325 MG* TAB PO PRN ×3 (00:12→17:50)
[2018-06-22] MEDS: Albuterol/Ipratropium NEB.SOL* Albuterol 2.5 MG/Ipratropium 0.5 MG 3 ML INH SCH ×4 (01:05→19:18)
[2018-06-22] MEDS: PTO:Budesonide/Formote 80/4.5(NF) MDI INH SCH ×2 (07:31→19:24)
--- NOTE | 2018-06-22 09:10 | PN ---
Progress Note - Progress Note Date of Service: 06/22/18 SOAP: Subjective: [] Better today, less short of breath. He urinated a lot with the Lasix. No fevers. No cough. Still not at baseline. Acetaminophen (Tylenol Tab*) 650 mg PO Q4H PRN PRN Reason: FEVER/PAIN Last Admin: 06/20/18 22:06 Dose: 650 mg Albuterol (Ventolin 2.5 Mg/3 Ml Neb.Mariajose*) 2.5 mg INH Q2H PRN PRN Reason: SOB/WHEEZING Last Admin: 06/21/18 09:56 Dose: 2.5 mg Albuterol/Ipratropium (Duoneb (Albuterol 2.5 Mg/Ipratropium 0.5 Mg)) 1 neb INH [id number] AWAKE [facility] Last Admin: 06/22/18 07:31 Dose: 1 neb Alprazolam (Xanax Tab*) 0.25 mg PO BID PRN PRN Reason: ANXIETY Last Admin: 06/20/18 22:09 Dose: 0.25 mg Betaxolol HCl (Betoptic-S 0.25%*) 1 drop BOTH EYES BID [facility] Last Admin: 06/21/18 20:26 Dose: 1 drop Budesonide/Formoterol Fumarate (Symbicort 80/4.5 (Nf)) 2 puff INH BID [facility] Last Admin: 06/22/18 07:31 Dose: 2 puff Clindamycin Phosphate (Cleocin-T 1% Topical(Nf)) 1 applic TOPICAL DAILY [facility] Last Admin: 06/21/18 09:30 Dose: Not Given Docusate Sodium (Colace Cap*) 100 mg PO BID [facility] Last Admin: 06/21/18 20:26 Dose: Not Given Escitalopram Oxalate (Lexapro (Nf)) 20 mg PO DAILY [facility] Last Admin: 06/21/18 09:26 Dose: 20 mg Fluticasone Propionate (Flonase Nasal [place] 50mcg*) 1 spray BOTH NARES DAILY [facility] Last Admin: 06/21/18 09:25 Dose: 1 spray Ceftriaxone Sodium 1 gm/ (Sodium Chloride) 50 mls @ 200 mls/hr IVPB Q24H [facility] Last Admin: 06/21/18 19:06 Dose: 200 mls/hr Azithromycin 250 mg/ Sodium (Chloride) 250 mls @ 250 mls/hr IVPB Q24H [facility] Last Admin: 06/21/18 17:03 Dose: 250 mls/hr Mirtazapine (Remeron Tab*) 30 mg PO BEDTIME [facility] Last Admin: 06/21/18 20:26 Dose: 30 mg Montelukast Sodium (Singulair Tab*) 10 mg PO DAILY [facility] Last Admin: 06/21/18 09:26 Dose: 10 mg Oxycodone HCl (Oxycontin(*)) 10 mg PO BID [facility] Last Admin: 06/21/18 20:28 Dose: 10 mg Oxycodone/Acetaminophen (Percocet 5/325 Tab*) 1 tab PO Q6H PRN PRN Reason: PAIN Last Admin: 06/22/18 00:12 Dose: 1 tab Pantoprazole Sodium (Protonix Tab*) 40 mg PO DAILY [facility] Last Admin: 06/21/18 09:26 Dose: 40 mg Prednisone (Deltasone Tab*) 40 mg PO DAILY [facility] Trazodone HCl (Desyrel Tab*) 50 mg PO BEDTIME [facility] Last Admin: 06/21/18 20:25 Dose: 50 mg Objective: [] Vital Signs Temp Pulse Resp BP Pulse Ox 97.5 F 81 16 133/68 98 06/22/18 03:44 06/22/18 07:37 06/22/18 07:37 06/22/18 03:44 06/22/18 07:37 HEENT - no thrush No JVD wheezed anteriorly, no change. Crackles posteriorly. Breathing comfortably. Improved. +BS Obsese, NT ND Ext w/o edema CXR-diffuse interstitial changes and hyperinflation. Not clearly changed from the . BNP 571 LDH 307 Assessment: []77 yo with history of asthma and metastatic breast cancer presents with fever and infiltrate on Ibrance/Femara. She is not neutropenic. Today a-fibrile on antibiotics. Breathing improved with Lasix. Shortness of breath is in part from CHF, asthma exacerbation, +/- atypical pneumonia. Plan: []1. SOB. -Improved with diuretics and not sleeping. Changed to prednisone 40 mg by mouth daily - Lasix 20 IV x 1 today -PCP unlikely. Given increased LDH will check noncontrast CT of chest. 2. Insomnia. Trazadone 50 mg and decreased steroids. 3. Breast cancer. Ibrance on hold 4. Hematologic. Leukopenia from Ibrance. 5. Labs still pending today, check magnesium and potassium.
[2018-06-22 09:12] LABS: Albumin 3.5 g/dL (3.2-5.2); BUN/Creatinine Ratio 23.6 (8-20); Calcium 8.7 mg/dL (8.6-10.3); EGFR African American 129.3 (>60); EGFR Non-African American 106.9 (>60); Globulin 3.4 g/dL (2-4); Magnesium 2.2 mg/dL (1.9-2.7); Potassium 3.6 mmol/L (3.5-5.0); Total Bilirubin 0.6 mg/dL (0.2-1.0); Total Protein 6.9 g/dL (6.4-8.9)
[2018-06-22 09:21] LABS: Hematocrit 30 % (35-47); Mean Corpuscular HGB Conc 34 g/dl (31-36); Mean Corpuscular Hemoglobin 39 pg (27-31); Mean Corpuscular Volume 117 fL (80-97); Mean Platelet Volume 10.1 fL (7.4-10.4); Platelet Count 94 10^3/ul (150-450); Red Blood Count 2.57 10^6/ul (4.00-5.40); Red Cell Distribution Width 17 % (10.5-15); White Blood Count 3.6 10^3/ul (3.5-10.8)
[2018-06-22 10:00] LABS: ABS Basophils 0 10^3/ul (0-0.2); ABS Eosinophils 0 10^3/ul (0-0.6); ABS Lymphocytes 0.4 10^3/ul (1.0-4.8); ABS Monocytes 0.2 10^3/ul (0-0.8); ABS Nucleated RBC 0 10^3/ul; Eosinophil % 0 %; Lymphocyte % 11.1 %; Nucleated Red Blood Cells % 0.4
[2018-06-22] MEDS: predniSONE TAB* 20 MG PO SCH (10:00)
[2018-06-22] MEDS: Docusate CAP* 100 MG PO SCH ×2 (10:00→20:37)
[2018-06-22] MEDS: Betaxolol-S 0.25%* 10 ML BTL BOTH EYES SCH ×2 (10:01→20:37)
[2018-06-22] MEDS: Fluticasone NASAL SPRAY 50MCG* 16 gm SPRAY BTL BOTH NARES SCH (10:01)
[2018-06-22] MEDS: oxyCODONE SR TAB(*) 10 MG TAB.SR PO SCH ×2 (10:02→20:38)
[2018-06-22] MEDS: Montelukast Sodium TAB* 10 MG PO SCH (10:02)
[2018-06-22] MEDS: Pantoprazole TAB * 40 MG TAB PO SCH (10:02)
[2018-06-22] MEDS: CMCS:Escitalopram (NF) 10 MG TAB PO SCH (10:02)
[2018-06-22] MEDS: Clindamycin 1% TOPICAL(NF) TOPICAL SCH (10:06)
[2018-06-22] MEDS: methylPREDNISolone 125 MG* 2 ML VIAL IV SCH (10:07)
[2018-06-22] MEDS ORDERED: Furosemide IV* 10 MG/ML 2 ML VIAL (20 MG) IV ONE (14:00)
[2018-06-22] MEDS: cefTRIAXone(*) 1 GM in NS 0.9% 50 ML* 50 ML IVPB SCH (17:51)
[2018-06-22] MEDS: Azithromycin IV(*) 250 MG in NS 0.9% 250 ML* 250 ML IVPB SCH (17:53)
[2018-06-22] MEDS: Mirtazapine TAB* 15 MG PO SCH (20:37)
[2018-06-22] MEDS: ALPRAZolam TAB* 0.25 MG PO PRN (20:38)
[2018-06-22] MEDS: traZODone TAB* 50 MG TAB PO SCH (20:38)
[2018-06-22] MEDS: Latanoprost 0.005%* 2.5 ml BTL SCH (20:48)
[2018-06-23] MEDS: Albuterol/Ipratropium NEB.SOL* Albuterol 2.5 MG/Ipratropium 0.5 MG 3 ML INH SCH ×4 (01:24→18:56)
[2018-06-23] MEDS: oxyCODONE/Acetamin 5/325 MG* TAB PO PRN ×4 (05:12→23:13)
[2018-06-23] MEDS: PTO:Budesonide/Formote 80/4.5(NF) MDI INH SCH ×3 (07:02→19:21)
[2018-06-23 07:45] LABS: Hematocrit 30 % (35-47); Hemoglobin 9.8 g/dl (12.0-16.0); Mean Corpuscular HGB Conc 33 g/dl (31-36); Mean Corpuscular Hemoglobin 39 pg (27-31); Mean Corpuscular Volume 118 fL (80-97); Mean Platelet Volume 10.3 fL (7.4-10.4); Platelet Count 100 10^3/ul (150-450); Red Blood Count 2.51 10^6/ul (4.00-5.40); Red Cell Distribution Width 17 % (10.5-15); White Blood Count 3.6 10^3/ul (3.5-10.8)
[2018-06-23 07:52] LABS: Albumin 3.3 g/dL (3.2-5.2); BUN/Creatinine Ratio 26.2 (8-20); Calcium 8.6 mg/dL (8.6-10.3); EGFR African American 114.8 (>60); EGFR Non-African American 94.9 (>60); Globulin 3.3 g/dL (2-4); Magnesium 2.1 mg/dL (1.9-2.7); Potassium 3.6 mmol/L (3.5-5.0); Total Bilirubin 0.7 mg/dL (0.2-1.0); Total Protein 6.6 g/dL (6.4-8.9)
[2018-06-23] MEDS: predniSONE TAB* 20 MG PO SCH (08:06)
[2018-06-23] MEDS: Montelukast Sodium TAB* 10 MG PO SCH (08:06)
[2018-06-23] MEDS: Fluticasone NASAL SPRAY 50MCG* 16 gm SPRAY BTL BOTH NARES SCH (08:07)
[2018-06-23] MEDS: CMCS:Escitalopram (NF) 10 MG TAB PO SCH (08:07)
[2018-06-23] MEDS: Betaxolol-S 0.25%* 10 ML BTL BOTH EYES SCH ×2 (08:07→23:03)
[2018-06-23] MEDS: Pantoprazole TAB * 40 MG TAB PO SCH (08:07)
[2018-06-23] MEDS: oxyCODONE SR TAB(*) 10 MG TAB.SR PO SCH ×2 (08:08→23:02)
[2018-06-23] MEDS: Docusate CAP* 100 MG PO SCH ×2 (08:09→23:02)
[2018-06-23 08:36] LABS: ABS Basophils 0 10^3/ul (0-0.2); ABS Eosinophils 0 10^3/ul (0-0.6); ABS Lymphocytes 0.8 10^3/ul (1.0-4.8); ABS Monocytes 0.4 10^3/ul (0-0.8); ABS Neutrophils 2.4 10^3/ul (1.5-7.7); ABS Nucleated RBC 0 10^3/ul; Eosinophil % 0.5 %; Lymphocyte % 21.1 %
[2018-06-23] MEDS: Clindamycin 1% TOPICAL(NF) TOPICAL SCH (09:55)
[2018-06-23] MEDS ORDERED: Furosemide IV* 10 MG/ML 2 ML VIAL (20 MG) IV ONE (10:17)
--- NOTE | 2018-06-23 10:17 | PN ---
Progress Note - Progress Note Date of Service: 06/23/18 SOAP: Subjective: []Still having a lot of difficulty breathing and gets winded with minimal activity. "I'm just rattling away." Coughs a lot in AM and sputum is dark brown. Chest pain to right lower lobe area, worse with coughing. Had some loose stools but then no BM yesterday. Asking for stool softener appropriately. Peeing a lot with lasix. Has seen Dr. Pierre in the past, but doesn't know exactly whey. Has not ever been on BP meds or diuretics. Medications: Acetaminophen (Tylenol Tab*) 650 mg PO Q4H PRN PRN Reason: FEVER/PAIN Last Admin: 06/20/18 22:06 Dose: 650 mg Albuterol (Ventolin 2.5 Mg/3 Ml Neb.Mariajose*) 2.5 mg INH Q2H PRN PRN Reason: SOB/WHEEZING Last Admin: 06/21/18 09:56 Dose: 2.5 mg Albuterol/Ipratropium (Duoneb (Albuterol 2.5 Mg/Ipratropium 0.5 Mg)) 1 neb INH [id number] AWAKE [facility] Last Admin: 06/23/18 07:01 Dose: 1 neb Alprazolam (Xanax Tab*) 0.25 mg PO BID PRN PRN Reason: ANXIETY Last Admin: 06/22/18 20:38 Dose: 0.25 mg Betaxolol HCl (Betoptic-S 0.25%*) 1 drop BOTH EYES BID [facility] Last Admin: 06/23/18 08:07 Dose: 1 drop Budesonide/Formoterol Fumarate (Symbicort 80/4.5 (Nf)) 2 puff INH BID [facility] Last Admin: 06/23/18 07:02 Dose: 2 puff Clindamycin Phosphate (Cleocin-T 1% Topical(Nf)) 1 applic TOPICAL DAILY [facility] Last Admin: 06/23/18 09:55 Dose: Not Given Docusate Sodium (Colace Cap*) 100 mg PO BID [facility] Last Admin: 06/23/18 08:09 Dose: 100 mg Escitalopram Oxalate (Lexapro (Nf)) 20 mg PO DAILY [facility] Last Admin: 06/23/18 08:07 Dose: 20 mg Fluticasone Propionate (Flonase Nasal [place] 50mcg*) 1 spray BOTH NARES DAILY [facility] Last Admin: 06/23/18 08:07 Dose: 1 spray Ceftriaxone Sodium 1 gm/ (Sodium Chloride) 50 mls @ 200 mls/hr IVPB Q24H [facility] Last Admin: 06/22/18 17:51 Dose: 200 mls/hr Azithromycin 250 mg/ Sodium (Chloride) 250 mls @ 250 mls/hr IVPB Q24H [facility] Last Admin: 06/22/18 17:53 Dose: 250 mls/hr Latanoprost (Xalatan 0.005%*) 1 drop .SEE ORDER BEDTIME [facility] Last Admin: 06/22/18 20:48 Dose: 1 drop Mirtazapine (Remeron Tab*) 30 mg PO BEDTIME [facility] Last Admin: 06/22/18 20:37 Dose: 30 mg Montelukast Sodium (Singulair Tab*) 10 mg PO DAILY [facility] Last Admin: 06/23/18 08:06 Dose: 10 mg Oxycodone HCl (Oxycontin(*)) 10 mg PO BID [facility] Last Admin: 06/23/18 08:08 Dose: 10 mg Oxycodone/Acetaminophen (Percocet 5/325 Tab*) 1 tab PO Q6H PRN PRN Reason: PAIN Last Admin: 06/23/18 05:12 Dose: 1 tab Pantoprazole Sodium (Protonix Tab*) 40 mg PO DAILY [facility] Last Admin: 06/23/18 08:07 Dose: 40 mg Prednisone (Deltasone Tab*) 40 mg PO DAILY [facility] Last Admin: 06/23/18 08:06 Dose: 40 mg Trazodone HCl (Desyrel Tab*) 50 mg PO BEDTIME [facility] Last Admin: 06/22/18 20:38 Dose: 50 mg Objective: [] Vital Signs Temp Pulse Resp BP Pulse Ox 98.6 F 79 24 152/67 96 06/23/18 07:42 06/23/18 07:42 06/23/18 08:08 06/23/18 07:42 06/23/18 07:42 A&Ox3, EOMI, neuro grossly non-focal HRR, S1S2 LS with diffuse rhonchi and scattered wheeze, resp. even with some accessory muscle use +BS, abd. soft and non-tender +PP = bilat., trace edema Laboratory Results - last 24 hr 06/23/18 06/23/18 07:14 07:14 WBC 3.6 RBC 2.51 L Hgb 9.8 L Hct 30 L MCV 118 H MCH 39 H MCHC 33 RDW 17 H Plt Count 100 L MPV 10.3 Neut % (Auto) 67.8 Lymph % (Auto) 21.1 [place] % (Auto) 10.0 Eos % (Auto) 0.5 Baso % (Auto) 0.6 Absolute Neuts (auto) 2.4 Absolute Lymphs (auto) 0.8 L Absolute Monos (auto) 0.4 Absolute Eos (auto) 0 Absolute Basos (auto) 0 Absolute Nucleated RBC 0 Nucleated RBC % 1.0 Sodium 140 Potassium 3.6 Chloride 105 Carbon Dioxide 31 Anion Gap 4 BUN 16 Creatinine 0.61 Est GFR ( Amer) 114.8 Est GFR (Non-Af Amer) 94.9 BUN/Creatinine Ratio 26.2 H Glucose 86 Calcium 8.6 Magnesium 2.1 Total Bilirubin 0.70 AST 37 ALT 28 Alkaline Phosphatase 94 Total Protein 6.6 Albumin 3.3 Globulin 3.3 Albumin/Globulin Ratio 1.0 Assessment: []77 yo female with metastatic breast cancer stable of Ibrance/Letrozole since 2017, admitted with pneumonia c/b fluid overload and continued SOB. Plan: []1. Pneumonia: CT chest personally reviewed, infiltrates focal and appear less likely PCP, continue current meds - suspect viral illness however with co-morbidities cont. current abx. d/t potential for secondary bacterial infection - long standing asthma/COPD, cont. steroids and nebs 2. Fluid overload: elevated BNP and still very rhonchorous, will check echo today and repeat diuretic - consider cardiology consult dependent on results and she may benefit from closer BP management as well 3. Breast Cancer: hold chemo during acute illness, will plan on resuming once recovered
--- NOTE | 2018-06-23 16:56 | ECHO ---
Patient: [facility] Rec#: [id number] : 1940 Date: 06/23/2018 Age: 77y Height: 168 cm / 66.1 in Weight: 70.2 kg / 154.7 lbs Sex: F BSA: 1.8 Room#: [facility] Admit Date#: 06/19/2018 Type: Inpatient Referring: Page Cardenas Reading: Grayson Rangel DO Automotive Welder: Petrona Bowens RN RDCS CC: Sushil Brooks MD Transthoracic Echocardiogram Indication: Shortness of breath, CHF BP: 152/67 HR: 82 Rhythm: NSR Findings History: Asthma, metastatic breast cancer, fever, pleural effusion Technical Comments: The study is technically limited due to patient body habitus. Left Ventricle: The left ventricular chamber size is normal. Mild concentric left ventricular hypertrophy is observed. Global left ventricular wall motion and contractility are within normal limits. There is normal left ventricular systolic function. The estimated ejection fraction is greater than 65%. Abnormal left ventricular diastolic function is observed. Left Atrium: The left atrium is moderately dilated. Right Ventricle: The right ventricular chamber size and systolic function are within normal limits. Right Atrium: The right atrium is moderately dilated. Aortic Valve: The aortic valve is trileaflet. The aortic valve leaflets are mildly thickened. There is no evidence of aortic regurgitation. There is no evidence of aortic stenosis. Mitral Valve: The mitral valve leaflets are mildly thickened. There is mild mitral regurgitation. There is no evidence of mitral stenosis. Tricuspid Valve: The tricuspid valve structure is not well visualized. There is mild tricuspid regurgitation. There is evidence of moderate to severe pulmonary hypertension. There is no tricuspid stenosis. Pulmonic Valve: The pulmonic valve structure is not well visualized. There is no evidence of pulmonic regurgitation. There is no pulmonic stenosis. Pericardium: There is no significant pericardial effusion. Aorta: There is no dilatation of the ascending aorta. There is no dilatation of the aortic arch. There is no dilation of the aortic root. Pulmonary Artery: The main pulmonary artery is not well visualized. Venous: The inferior vena cava is dilated. There is a greater than 50% respiratory change in the inferior vena cava dimension. Conclusions The left ventricular chamber size is normal. Mild concentric left ventricular hypertrophy is observed. Global left ventricular wall motion and contractility are within normal limits. There is normal left ventricular systolic function. The estimated ejection fraction is 65-70% The left atrium is moderately dilated. The right ventricular chamber size and systolic function are within normal limits. No significant valvular abnormalities noted There is evidence of moderate to severe pulmonary hypertension. Compared to prior study from 05/2017, no clinically significant changes noted Measurements Name Value Normal Range RVDdMajor (2D) 3.3 cm (2.2 - 4.4) RVAW (2D) 1 cm (0.2 - 0.5) RAd ISD 4CH 6.3 cm (3.4 - 4.9) RA (A4C)W 4.1 cm (2.9 - 4.6) IVSd (2D) 1.1 cm (0.6 - 1) LVPWd (2D) 1.1 cm (0.6 - 1) LVIDd (2D) 5.3 cm (3.6 - 5.4) LVIDs (2D) 3.4 cm - LV FS (2D) 36 % (25 - 45) Aortic Annulus 1.9 cm (1.4 - 2.6) Ao root diameter (2D) 3.1 cm (2.1 - 3.5) Ascending Ao 3.2 cm (2.1 - 3.4) Aortic arch 2.1 cm (1.8 - 3.4) LA dimension (AP) 2D 3.6 cm (2.3 - 3.8) LAd ISD 4CH 6.4 cm (2.9 - 5.3) LA ISD 4CH W 4.8 cm (2.5 - 4.5) Name Value Normal Range LA ESV BP (A/L) index 44.8 ml/m2 - Name Value Normal Range MV E-wave Vmax 1.2 m/sec - MV deceleration time 268 msec - MV A-wave Vmax 0.94 m/sec - MV E:A ratio 1.3 ratio - LV septal e' Vmax 0.08 m/sec - LV lateral e' Vmax 0.08 m/sec - LV E:e' septal ratio 15 ratio - LV E:e' lateral ratio 15 ratio - Name Value Normal Range AV Vmax 2.3 m/sec - AV VTI 46.4 cm - AV peak gradient 21 mmHg - AV mean gradient 11 mmHg - LVOT Vmax 1.9 m/sec - LVOT VTI 36.5 cm - LVOT peak gradient 15 mmHg - LVOT mean gradient 7 mmHg - DMITRIY Vmax 0.96 m/sec - Name Value Normal Range TR Vmax 3.6 m/sec - TR peak gradient 52 mmHg - RAP 8 mmHg - RVSP 60 mmHg - IVC diameter 2.4 cm - Name Value Normal Range PV Vmax 0.92 m/sec -
[2018-06-23] MEDS: cefTRIAXone(*) 1 GM in NS 0.9% 50 ML* 50 ML IVPB SCH (17:34)
[2018-06-23] MEDS: Azithromycin IV(*) 250 MG in NS 0.9% 250 ML* 250 ML IVPB SCH (17:43)
[2018-06-23] MEDS: Mirtazapine TAB* 15 MG PO SCH (22:59)
[2018-06-23] MEDS: ALPRAZolam TAB* 0.25 MG PO PRN (22:59)
[2018-06-23] MEDS: traZODone TAB* 50 MG TAB PO SCH (23:02)
[2018-06-23] MEDS: Latanoprost 0.005%* 2.5 ml BTL SCH (23:03)
[2018-06-24] MEDS: Albuterol/Ipratropium NEB.SOL* Albuterol 2.5 MG/Ipratropium 0.5 MG 3 ML INH SCH ×4 (00:56→19:00)
[2018-06-24] MEDS: PTO:Budesonide/Formote 80/4.5(NF) MDI INH SCH ×2 (08:25→19:00)
[2018-06-24] MEDS: oxyCODONE SR TAB(*) 10 MG TAB.SR PO SCH ×2 (08:51→21:39)
[2018-06-24] MEDS: Docusate CAP* 100 MG PO SCH ×2 (08:51→21:39)
[2018-06-24] MEDS: Fluticasone NASAL SPRAY 50MCG* 16 gm SPRAY BTL BOTH NARES SCH (08:52)
[2018-06-24] MEDS: Montelukast Sodium TAB* 10 MG PO SCH (08:52)
[2018-06-24] MEDS: Betaxolol-S 0.25%* 10 ML BTL BOTH EYES SCH ×2 (08:52→21:37)
[2018-06-24] MEDS: Pantoprazole TAB * 40 MG TAB PO SCH (08:52)
[2018-06-24] MEDS: CMCS:Escitalopram (NF) 10 MG TAB PO SCH (08:52)
[2018-06-24] MEDS: predniSONE TAB* 20 MG PO SCH (08:52)
[2018-06-24] MEDS: Acetaminophen TAB* 325 MG PO PRN (08:52)
[2018-06-24] MEDS: Clindamycin 1% TOPICAL(NF) TOPICAL SCH (08:53)
[2018-06-24] MEDS ORDERED: Magnesium Hydroxide LIQ* 30 ML UDC PO ONE (10:50)
[2018-06-24] MEDS ORDERED: Furosemide IV* 10 MG/ML 2 ML VIAL (20 MG) IV ONE (10:50)
[2018-06-24] MEDS: oxyCODONE/Acetamin 5/325 MG* TAB PO PRN ×2 (11:09→21:37)
[2018-06-24] MEDS: cefTRIAXone(*) 1 GM in NS 0.9% 50 ML* 50 ML IVPB SCH (16:55)
[2018-06-24] MEDS: Azithromycin IV(*) 250 MG in NS 0.9% 250 ML* 250 ML IVPB SCH (17:16)
[2018-06-24] MEDS: traZODone TAB* 50 MG TAB PO SCH (21:38)
[2018-06-24] MEDS: Mirtazapine TAB* 15 MG PO SCH (21:38)
[2018-06-24] MEDS: ALPRAZolam TAB* 0.25 MG PO PRN (21:38)
[2018-06-24] MEDS: Latanoprost 0.005%* 2.5 ml BTL SCH (21:40)
[2018-06-25] MEDS: Albuterol/Ipratropium NEB.SOL* Albuterol 2.5 MG/Ipratropium 0.5 MG 3 ML INH SCH ×2 (01:16→07:28)
[2018-06-25] MEDS: PTO:Budesonide/Formote 80/4.5(NF) MDI INH SCH (07:28)
[2018-06-25] MEDS ORDERED: Albuterol/Ipratropium NEB.SOL* Albuterol 2.5 MG/Ipratropium 0.5 MG 3 ML INH PRN (07:33)
[2018-06-25] MEDS: Clindamycin 1% TOPICAL(NF) TOPICAL SCH (08:36)
[2018-06-25] MEDS: Montelukast Sodium TAB* 10 MG PO SCH (09:05)
[2018-06-25] MEDS: Pantoprazole TAB * 40 MG TAB PO SCH (09:05)
[2018-06-25] MEDS: oxyCODONE SR TAB(*) 10 MG TAB.SR PO SCH (09:05)
[2018-06-25] MEDS: Docusate CAP* 100 MG PO SCH (09:06)
[2018-06-25] MEDS: predniSONE TAB* 20 MG PO SCH (09:06)
[2018-06-25] MEDS: Fluticasone NASAL SPRAY 50MCG* 16 gm SPRAY BTL BOTH NARES SCH (09:08)
[2018-06-25] MEDS: CMCS:Escitalopram (NF) 10 MG TAB PO SCH (09:09)
[2018-06-25] MEDS: Betaxolol-S 0.25%* 10 ML BTL BOTH EYES SCH (09:09)
[2018-06-25 09:12] VITALS: BP 163/86
[2018-06-25] MEDS ORDERED: Bisacodyl SUPP* 10 MG SUPP PR ONE (10:26)
--- NOTE | 2018-06-25 10:44 | PN ---
Progress Note - Progress Note Date of Service: 06/25/18 SOAP: See full discharge summary. Oxygen saturation on room air at rest was 91%, with ambulation dropped to 86%. On 4L via NC oxygen saturation was maintained at 92% while ambulating.
--- NOTE | 2018-06-25 12:47 | DS ---
CC: Dr. Sushil Brooks; Dr. Perry * DISCHARGE SUMMARY: DATE OF ADMISSION: 06/19/18 DATE OF DISCHARGE: 06/25/18 PRIMARY CARE PROVIDER: Dr. Sushil Brooks. PRIMARY ONCOLOGIST: Dr. Adiel Perry. ATTENDING PHYSICIAN: Dr. Dudley Hutchinson.* (DICTATED BY COLLINS BONILLA) DISCHARGING PROVIDER: COLLINS Bonilla. PRIMARY DISCHARGE DIAGNOSES: 1. Pneumonia. 2. Chronic obstructive pulmonary disease/asthma exacerbation. 3. Metastatic breast cancer, currently treated with Ibrance and Faslodex. DISCHARGE MEDICATIONS: 1. Albuterol inhaler 2 puffs inhaled q.4 hours as needed for shortness of breath. 2. Xanax 0.25 mg p.o. twice daily as needed for anxiety. 3. Betoptic S eye drops 0.25% solution, 1 drop bilaterally twice daily. 4. Symbicort 2 puffs inhaled twice daily. 5. Calcium and vitamin D 1 tablet p.o. twice daily. 6. Topical clindamycin 1% applied topically once daily. 7. Docusate 100 mg p.o. twice daily. 8. Lexapro 20 mg p.o. daily at mealtime. 9. Ferrous sulfate 325 mg p.o. every other day. 10. Fluticasone nasal spray 50 mcg per spray, 1 spray in both nostrils daily. 11. Faslodex 250 mg IM q. 4 weeks. 12. Remeron 30 mg p.o. at bedtime. 13. Multivitamin 1 tablet p.o. daily. 14. [place]-3 fatty acids 1 capsule p.o. at bedtime. 15. Omeprazole 20 mg p.o. daily. 16. OxyContin 10 mg p.o. twice daily. 17. Oxycodone/acetaminophen 1 tablet p.o. q. 6 hours as needed for pain. 18. Retin-A 0.01% solution applied topically at bedtime. 19. DuoNeb 1 neb inhaled q. 4 hours as needed for shortness of breath. 20. Cefdinir 300 mg p.o. twice daily x5 days. 21. Ibrance 125 mg p.o. daily for 21 days of a 28-day cycle - currently on hold. 22. Prednisone at a tapering dose with instructions for 40 mg x3 days followed by 20 mg x3 days, followed by 10 mg x3 days. HOSPITAL IMAGIN. Chest x-ray, 06/19/18, demonstrated mild diffuse interstitial infiltrate suggesting the possibility of mild congestive heart failure and atypical pneumonia. 2. Chest x-ray, 06/21/18, demonstrates cardiomegaly, hyperinflation consistent with COPD and a large hiatal hernia. 3. CT chest, 06/22/18, shows new bilateral ground glass infiltrate, nonspecific , although would be consistent with pneumonia, trace bilateral effusions, small amount of ascites which is unchanged, large hiatal hernia which is unchanged and extensive sclerotic osseous metastatic disease, which appears to be unchanged. HOSPITAL COURSE: This is a 77-year-old female with metastatic breast cancer followed by Dr. Adiel Perry, who presented to the Oncology Clinic with complaints of fever, cough and shortness of breath. Influenza testing in the clinic was negative. The patient was noted to be hypoxic on initial evaluation with oxygen saturations approximately 85% at rest. The patient initially received nebulizer treatment as well as Solu-Medrol and initiated antibiotics for a suspected pneumonia at that time. Due to her hypoxia, recommendations for admission were made. The patient was not neutropenic at the time of admission. She was day 19 of her Ibrance cycle at that time. The patient's chest x-ray demonstrated somewhat atypical pattern of infiltrate, but did appear to be consistent with pneumonia. Blood cultures were collected, which demonstrated no growth. Initial lactic acid measured at 1.6. The patient was treated with ceftriaxone and azithromycin to cover for community - acquired pneumonia. She received nebulizer treatments and IV corticosteroids , eventually transitioned to oral prednisone. She remained hypoxic throughout her hospitalization, although her level of dyspnea and severity of her cough improved. At the time of discharge, she was no longer hypoxic at rest with oxygen saturations maintaining in the low 90s on room air, but with ambulation desaturated to 86% on room air and was able to maintain oxygen saturations in the low 90s on 4 L of supplemental O2. In addition to this acute pneumonia, the patient does have a diagnosis of COPD/asthma, which is likely contributing to her persistent hypoxia. DISPOSITION AND FOLLOWUP PLAN: The patient is being discharged to home where she lives with her . She will continue to hold her Ibrance at this time until reevaluated by Dr. Perry next week. A followup appointment has been made on her behalf for 06/30/18. The patient will be discharged on 5 additional days of antibiotics and a tapering steroid dose. Arrangements have been made for her to have a home nebulizer machine and will require continued supplemental oxygen. This will be reevaluated during her followup office visit to determine whether it needs to be continued beyond next week. COLLINS BONILLA [id number]/[facility] #: [id number] PILY
== END 2018-06-25 13:30 | disposition home or self-care (01) | DRG 194 ==
LOC: MED 15:41
PROVIDERS: ADMIT Internal Medicine Hematology & Oncology; ATTEND Internal Medicine Hematology & Oncology
DX: J18.9 Pneumonia, unspecified organism (principal); J44.1 Chronic obstructive pulmonary disease with (acute) exacerbation; R18.8 Other ascites; J44.0 Chronic obstructive pulmonary disease with (acute) lower respiratory infection; J45.901 Unspecified asthma with (acute) exacerbation; C79.51 Secondary malignant neoplasm of bone; K44.9 Diaphragmatic hernia without obstruction or gangrene; I50.9 Heart failure, unspecified; R09.02 Hypoxemia; Z96.651 Presence of right artificial knee joint; G47.30 Sleep apnea, unspecified; C50.911 Malignant neoplasm of unspecified site of right female breast; K59.00 Constipation, unspecified; D72.819 Decreased white blood cell count, unspecified; G47.00 Insomnia, unspecified; Z17.0 Estrogen receptor positive status [ER+]; Z86.718 Personal history of other venous thrombosis and embolism; Z88.8 Allergy status to other drugs, medicaments and biological substances; Z88.2 Allergy status to sulfonamides; Z91.040 Latex allergy status; Z86.711 Personal history of pulmonary embolism; Z80.0 Family history of malignant neoplasm of digestive organs; Z80.8 Family history of malignant neoplasm of other organs or systems; Z98.42 Cataract extraction status, left eye; Z98.41 Cataract extraction status, right eye; Z98.51 Tubal ligation status; Z90.49 Acquired absence of other specified parts of digestive tract
CPT/HCPCS: 36415; 71046; 71250; 80053; 83615; 83735; 83880; 85025; 93306; 94640; 94660; 99222; 99232; 99233; 99239; A9270-GY; J0456; J0696; J1940; J2920; J2930; J7512

== ENCOUNTER 2018-12-08 16:58 | Inpatient (IN) | payer MEDICARE ==
--- OUTSIDE RECORDS SUMMARY | 2018-12-08 17:37 | XMS REPORT | Continuity of Care Document ---
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 [address] [place] [address] Policy Number: [id number] [facility] Care Option Marianne Mckinney PayID: [id number] Claims, [address] [place] [address] Problems Active Problems Provider Date Cirrhosis - non-alcoholic Rommel Chowdhury MD Onset: 11/19/2018 Iron deficiency anemia Rommel Chowdhury MD Onset: 08/22/2017 Social History Type Date Description Comments Sex Unknown ETOH Use Drinks 1 Alcoholic Beverage Per Day Tobacco Use Start: Unknown Patient has never smoked Smoking Status Reviewed: 11/19/18 Patient has never smoked Allergies, Adverse Reactions, Alerts Active Allergies Reaction Severity Comments Date Sulfa 09/21/2016 Compazine 09/21/2016 Erythromycin 09/21/2016 Latex 09/21/2016 Medications Active Medications SIG Qnty Indications Ordering Provider Date Symbicort 2 puff twice a day Unknown 80-4.5mcg/Act Aerosol Co Q-10 1 by mouth every Unknown 100mg Capsules day Faslodex Unknown 250mg/5ML Solution Ibrance Unknown 125mg Capsules Ferrous Sulfate 1 by mouth every Unknown 325(65Fe) day mg Tablets Vaniqa Apply Two Times A Unknown 13.9% Cream Day To Unwanted Hair Proair HFA Inhale Two Puffs Unknown 108(90Base) By Mouth Every 4 mcg/Act Aerosol Hours Mometasone Furoate Sushil Brooks MD 50mcg/Act Suspension Betoptic-S Place 1 Drop Into Unknown 0.25% Both Eyes Two Suspension Times A Day Anastrozole Page Gutierres NP 1mg Tablets Oxycodone-Acetaminophe Adiel Perry MD n 5-325mg Tablets Oxycodone HCL ER Take One Tablet By Unknown 10mg Tab Mouth Every 12 ER 12H Abuse-Det Hours Maximum Daily Dose Two Table Omeprazole Sushil Brooks MD 20mg Capsules Escitalopram Oxalate Sushil Brooks MD 20mg Tablets SoolantKanu Solis 1% Cream MD fabian Fluticasone Propionate Sushil Brooks MD 50mcg/Act Suspension Mirtazapine Sushil Brooks MD 45mg Tablets Alprazolam Sushil Brooks MD 0.5mg Tablets Betaxolol HCL Instill One Drop Unknown 0.5% In Each Eye Twice Solution A Day History Medications Amoxicillin/Clavulanate take one by 20tabs Marjorie Stafford, 09/21/2016 - Potassium mouth twice [employer] 10/16/2016 500-125mg Tablets daily for 10 days Warfarin Sodium Unknown - 5mg Tablets 08/22/2017 Qvar Sushil Brooks M - 80mcg/Act Aerosol D 11/06/2017 Amoxicillin Unknown - 500mg Capsules 09/21/2016 Clindamycin HCL Unknown - 300mg Capsules 09/21/2016 Penicillin V Potassium Take One Tablet Unknown - 500mg Tablets By Mouth Four 09/21/2016 Times A Day Tretinoin Apply To Unknown - 0.1% Cream Affected Area S 09/21/2016 A Pea Size Amount Nightly Metronidazole Apply Once Unknown - 0.75% Cream Daily For Acne 09/21/2016 Rosacea Clindamycin Phosphate Apply To Acne Unknown - 1% Lotion Once Daily 09/21/2016 Vital Signs Date Vital Result Comment 11/19/2018 1:02pm Height 65.5 inches 5'5.50" Weight 205.00 lb BP Systolic 130 mmHg BP Diastolic 74 mmHg Heart Rate 74 /min BMI (Body Mass Index) 33.6 kg/m2 11/06/2017 3:49pm Height 65.5 inches 5'5.50" Weight 214.00 lb BMI (Body Mass Index) 35.1 kg/m2 08/22/2017 2:49pm Height 65.5 inches 5'5.50" Weight 215.00 lb BP Systolic 130 mmHg BP Diastolic 74 mmHg Heart Rate 78 /min BMI (Body Mass Index) 35.2 kg/m2 11/05/2016 10:02am Height 66 inches 5'6" Weight 214.00 lb BMI (Body Mass Index) 34.5 kg/m2 10/16/2016 11:14am Height 66 inches 5'6" Weight 216.00 lb BMI (Body Mass Index) 34.9 kg/m2 09/21/2016 8:51am Height 66 inches 5'6" Weight 215.00 lb BP Systolic 134 mmHg BP Diastolic 88 mmHg Heart Rate 82 /min BMI (Body Mass Index) 34.7 kg/m2 Results Test Date Facility Test Result H/L Range Note CBC Auto Diff 11/25/2018 [facility] White Blood Count 3.4 10^3/uL Low 3.5-10.8 Red Blood Count 2.60 10^6/uL Low 3.70-4.87 Hemoglobin 10.2 g/dL Low 12.0-16.0 Hematocrit 29 % Low 35-47 Mean Corpuscular Volume 112 fL High 80-97 Mean Corpuscular Hemoglobin 39 pg High 27-31 Mean Corpuscular HGB Conc 35 g/dL N 31-36 Red Cell Distribution Width 19 % High 10-15 Platelet Count 160 10^3/uL N 150-450 Mean Platelet Volume 9.0 fL N 7.4-10.4 Abs Neutrophils 2.5 10^3/uL N 1.5-7.7 Abs Lymphocytes 0.5 10^3/uL Low 1.0-4.8 Abs Monocytes 0.3 10^3/uL N 0-0.8 Abs Eosinophils 0.1 10^3/uL N 0-0.6 Abs Basophils 0.0 10^3/uL N 0-0.2 Abs Nucleated RBC 0.0 10^3/uL Granulocyte % 74.3 % Lymphocyte % 14.7 % Monocyte % 7.8 % Eosinophil % 1.7 % Basophil % 1.5 % Nucleated Red Blood Cells % 0.1 Comp Metabolic Panel 11/25/2018 [facility] Sodium 128 mmol/L Low 135-145 Potassium 4.6 mmol/L N 3.5-5.0 Chloride 92 mmol/L Low 101-111 Co2 Carbon Dioxide 27 mmol/L N 22-32 Anion Gap 9 mmol/L N 2-11 Glucose 132 mg/dL High 70-100 Blood Urea Nitrogen 47 mg/dL High 6-24 Creatinine 1.77 mg/dL High 0.51-0.95 BUN/Creatinine Ratio 26.6 High 8-20 Calcium 9.3 mg/dL N 8.6-10.3 Total Protein 7.1 g/dL N 6.4-8.9 Albumin 3.4 g/dL N 3.2-5.2 Globulin 3.7 g/dL N 2-4 Albumin/Globulin Ratio 0.9 Low 1-3 Total Bilirubin 0.90 mg/dL N 0.2-1.0 Alkaline Phosphatase 134 U/L High 34-104 Alt 19 U/L N 7-52 Ast 39 U/L N 13-39 Egfr Non- 27.7 >60 Egfr 33.6 >60 1 Laboratory test finding 11/25/2018 [facility] Magnesium 2.6 mg/dL N 1.9-2.7 Manual Differential 11/25/2018 [facility] Immature Granulocytes 1.0 % N 0-9 Neutrophil % 70.0 % Band % 1.0 % N 0-8 Lymphocytes % 17.0 % Monocytes % 8.0 % Eosinophils % 2.0 % Basophil % 2.0 % Macrocytosis 2+ Anisocytosis 2+ Laboratory test finding 11/25/2018 [facility] Breast Carcinoma 679 U/mL High <= 38.0 2 Ag(Ca27.29) Pathologist Review (SEE NOTE) 3 Comp Metabolic Panel 11/19/2018 [facility] Sodium 134 mmol/L Low 135-145 Potassium 4.1 mmol/L N 3.5-5.0 Chloride 94 mmol/L Low 101-111 Co2 Carbon Dioxide 30 mmol/L N 22-32 Anion Gap 10 mmol/L N 2-11 Glucose 139 mg/dL High 70-100 Blood Urea Nitrogen 59 mg/dL High 6-24 Creatinine 1.85 mg/dL High 0.51-0.95 BUN/Creatinine Ratio 31.9 High 8-20 Calcium 9.4 mg/dL N 8.6-10.3 Total Protein 7.1 g/dL N 6.4-8.9 Albumin 3.6 g/dL N 3.2-5.2 Globulin 3.5 g/dL N 2-4 Albumin/Globulin Ratio 1.0 N 1-3 Total Bilirubin 0.90 mg/dL N 0.2-1.0 Alkaline Phosphatase 142 U/L High 34-104 Alt 19 U/L N 7-52 Ast 38 U/L N 13-39 Egfr Non- 26.4 >60 Egfr 31.9 >60 4 Hepatitis Acute PNL ([facility]) 11/19/2018 [facility] Hepatitis A AB Igm Negative Negative 5 Hepatitis B Core AB Igm Nonreactive Nonreactive 6 Hepatitis B Surface Ag Negative Negative 7 Hepatitis C Antibody 11/19/2018 [facility] HCV Index 0.05 s/c Hepatitis C Antibody Negative Negative Laboratory test finding 11/19/2018 [facility] Hepatitis B Core AB Negative Negative 8 Total Anti Nuclear Antibody 0.2 U 9 Mitochondrial AB AMA M2 Igg 0.1 U Abnormal 10 Iron & Iron Binding Capacity 11/19/2018 [facility] Iron 89 g/dL N 50-212 Unsaturated Iron Binding < 286 g/dL Total Iron Binding Capacity 301 g/dL N 250-450 Transferrin 215 mg/dL N 203-362 % Iron Saturation 30 % N 15-55 Laboratory test 11/19/2018 [facility] Hepatitis B Not Immune Abnormal Immune 11 finding Eber AB Titer Laboratory test 10/14/2018 [facility] CA 27-29 <pending> finding CBC Auto Diff 10/29/2017 [facility] White Blood 2.1 10^3/uL Low 3.5-10.8 Count Red Blood Count 2.81 10^6/uL Low 4.00-5.40 Hemoglobin 11.3 g/dL Low 12.0-16.0 Hematocrit 33 % Low 35-47 Mean Corpuscular Volume 116 fL High 80-97 12 Mean Corpuscular Hemoglobin 40 pg High 27-31 Mean Corpuscular HGB Conc 34 g/dL N 31-36 Red Cell Distribution Width 20 % High 10.5-15 Platelet Count 125 10^3/uL Low 150-450 Mean Platelet Volume 9.8 um3 N 7.4-10.4 Abs Neutrophils 1.0 10^3/uL Low 1.5-7.7 Abs Lymphocytes 0.7 10^3/uL Low 1.0-4.8 Abs Monocytes 0.3 10^3/uL N 0-0.8 Abs Eosinophils 0.1 10^3/uL N 0-0.6 Abs Basophils 0.1 10^3/uL N 0-0.2 Abs Nucleated RBC 0 10^3/uL Granulocyte % 46.5 % N 38-83 Lymphocyte % 32.7 % N 25-47 Monocyte % 14.0 % High 0-7 Eosinophil % 2.9 % N 0-6 Basophil % 3.9 % High 0-2 Nucleated Red Blood Cells % 0.2 Laboratory test 10/29/2017 [facility] Breast Carcinoma 189 U/mL High <=38.0 13 finding Ag(Ca27.29) Comp Metabolic Panel 10/29/2017 [facility] Sodium 140 mmol/L N 135-145 Potassium 4.3 mmol/L N 3.5-5.0 Chloride 107 mmol/L N 101-111 Co2 Carbon Dioxide 28 mmol/L N 22-32 Anion Gap 5 mmol/L N 2-11 Glucose 94 mg/dL N 70-100 Blood Urea Nitrogen 13 mg/dL N 6-24 Creatinine 0.73 mg/dL N 0.51-0.95 BUN/Creatinine Ratio 17.8 N 8-20 Calcium 9.5 mg/dL N 8.6-10.3 Total Protein 7.2 g/dL N 6.4-8.9 Albumin 3.8 g/dL N 3.2-5.2 Globulin 3.4 g/dL N 2-4 Albumin/Globulin Ratio 1.1 N 1-3 Total Bilirubin 0.60 mg/dL N 0.2-1.0 Alkaline Phosphatase 98 U/L N 34-104 Alt 30 U/L N 7-52 Ast 40 U/L High 13-39 Egfr Non- 77.3 >60 Egfr 93.5 >60 14 Lipid Profile (Trig/Chol/HDL) 10/29/2017 [facility] Triglycerides 71 mg/dL 15 Cholesterol 154 mg/dL 16 HDL Cholesterol 54.5 mg/dL 17 LDL Cholesterol 85 mg/dL 18 Urinalysis Profile 10/29/2017 [facility] Urine Color Yellow Urine Appearance Cloudy Urine Specific Randolph 1.011 N 1.010-1.030 Urine pH 6.0 N 5-9 Urine Urobilinogen Negative Negative Urine Ketones Negative Negative Urine Protein Negative Negative Urine Leukocytes 3+ Abnormal Negative Urine Blood Negative Negative Urine Nitrite Negative Negative Urine Bilirubin Negative Negative Urine Glucose Negative Negative Urine White Blood Cell 3+(>20/hpf) Abnormal Absent Urine Red Blood Cell Absent Absent Urine Bacteria Absent Absent Urine Squamous Epithelial Cell Present Abnormal Absent Laboratory test finding 10/29/2017 [facility] Iron 93 g/dL N 50-212 TSH (Thyroid Stim Horm) 3.74 mcIU/mL N 0.34-5.60 Urine Culture And 10/29/2017 [facility] Urine Culture SEE RESULT 19 Sensitivities BELOW Laboratory test 07/17/2017 [facility] Occult Blood <pending> finding Stool Xray 07/14/2017 [facility] Radiology Chest Ap <pending> Portable Laboratory test 07/13/2017 [facility] Surgical SEE RESULT 20 finding Interface BELOW Order Laboratory test 07/12/2017 [facility] Occult Blood <pending> finding Stool Xray 07/12/2017 [facility] Radiology Cta Chest <pending> Laboratory test 10/16/2016 [facility] Inr(!) 3.9 High finding [address] [place], [place] [id number] [phone] CBC W/Auto 10/16/2016 [facility] White Blood 6.2 3/UL 4.8- Differential(!) [facility] Count Ser 10.8 [place] [address] Auto CNT [phone] RBC Red Blood Count 4.14 X106/UL Low 4.20-6.20 Hemoglobin Blood 12.4 g/dL 12.0-18.0 Hematocrit 37.8 % 35-52 MCV (Corpuscular Volume) 91.3 FL 79-97 MCH (Corpuscular Hemoglobin) 30.0 pg 27-31 MCHC (Corpuscular Hemog Conc) 32.9 g/dL 32.0-36.0 RDW 17.0 % High 10.5-15.0 Platelet Count Blood Auto CNT 184 X103/UL 150-450 MPV 7.7 FL 7.4-10.4 Lymph% 31.5 % 20.0-45.0 [place]% 8.8 % 1.0-9.0 Neutrophil % 59.7 % 38.0-83.0 Absolute Lymphocytes 2.0 X103/UL 1.0-4.8 Absolute Monocytes 8.8 X103/UL High 0.0-0.8 Absolute Neutrophils 59.7 X103/UL High 1.5-7.7 CBC W/Auto 09/21/2016 [facility] White 12.7 High 4.8- 10.8 Differential(!) [facility] Blood 3/[place] [address] Count Ser [phone] Auto CNT RBC Red Blood Count 4.38 X106/UL 4.20-6.20 Hemoglobin Blood 12.8 g/dL 12.0-18.0 Hematocrit 41.2 % 35-52 MCV (Corpuscular Volume) 94.0 FL 79-97 MCH (Corpuscular Hemoglobin) 29.1 pg 27-31 MCHC (Corpuscular Hemog Conc) 31.0 g/dL Low 32.0-36.0 RDW 17.6 % High 10.5-15.0 Platelet Count Blood Auto CNT 192 X103/UL 150-450 MPV 7.8 FL 7.4-10.4 Lymph% 15.3 % Low 20.0-45.0 [place]% 9.8 % High 1.0-9.0 Neutrophil % 74.9 % 38.0-83.0 Absolute Lymphocytes 1.9 X103/UL 1.0-4.8 Absolute Monocytes 1.2 X103/UL High 0.0-0.8 Absolute Neutrophils 9.5 X103/UL High 1.5-7.7 CBC W/Auto 09/20/2016 [facility] White Blood <pending> Differential(!) Count Ser Auto CNT RBC Red Blood Count <pending> Hemoglobin Blood <pending> Hematocrit <pending> MCV (Corpuscular Volume) <pending> MCH (Corpuscular Hemoglobin) <pending> MCHC (Corpuscular Hemog Conc) <pending> RDW <pending> Platelet Count Blood Auto CNT <pending> MPV <pending> Lymph% <pending> [place]% <pending> Neutrophil % <pending> Absolute Lymphocytes <pending> Absolute Monocytes <pending> Absolute Neutrophils <pending> CMP(!) 09/20/2016 [facility] Sodium(!) <pending> Potassium(!) <pending> Chloride Serum/Plasma(!) <pending> Carbon Dioxide Ser/Plasm(!) <pending> BUN - Urea Nitrogen(!) <pending> Calcium Ser/Plasma Mass/Vol(!) <pending> Creatinine Serum Mass/Vol(!) <pending> Glucose Serum(!) <pending> Uric Acid Ser/Plas Mass/Vol(!) <pending> BUN/Creatinine Ratio(!) <pending> Albumin Serum/Plasma(!) <pending> Alkaline Phosphatase(!) <pending> Bilirubin Total Mass/Vol(!) <pending> Ast - Sgot <pending> Alt - SGPT <pending> Protein Total <pending> Laboratory test 09/20/2016 [facility] Inr(!) <pending> finding Xray 08/23/2016 [facility] Radiology PET Skull-Thigh <pending> W/CT-Subsequen Xray 06/01/2016 [facility] Radiology CT Chest Abd/Pel W <pending> Xray 01/04/2016 [facility] Radiology CT Chest Abd/Pel W <pending> Xray 09/01/2015 [facility] Radiology CT Chest Abd/Pel W <pending> Xray 03/17/2015 [facility] Radiology CT Chest Abd/Pel W <pending> Xray 09/22/2014 [facility] Radiology CT Chest Abd/Pel W <pending> 1 Because ethnic data is not always readily available, this report includes an eGFR for both -Americans and non- Americans. The National Kidney Disease Education Program (NKDEP) does not endorse the use of the MDRD equation for patients that are not between the ages of 18 and 70, are , have extremes of body size, muscle mass, or nutritional status, or are non- or non-. According to the National Kidney Foundation, irrespective of diagnosis, the stage of the disease is based on the level of kidney function: Stage Description GFR(mL/min/1.73 m(2)) 1 Kidney damage with normal or decreased GFR 90 2 Kidney damage with mild decrease in GFR 60-89 3 Moderate decrease in GFR 30-59 4 Severe decrease in GFR 15-29 5 Kidney failure <15 (or dialysis) 2 ADDITIONAL INFORMATION The testing method is a chemiluminometric immunoassay manufactured by [employer] and performed on the [employer]'s [employer]. Values obtained with different assay methods or kits may be different and cannot be used interchangeably. Test results cannot be interpreted as absolute evidence for the presence or absence of malignant disease. Test Performed by: [place] [id number] 3 Macrocytic anemia with reactive-appearing lymphocytes. Reviewed by La Guevara MD 4 Because ethnic data is not always readily available, this report includes an eGFR for both -Americans and non- Americans. The National Kidney Disease Education Program (NKDEP) does not endorse the use of the MDRD equation for patients that are not between the ages of 18 and 70, are , have extremes of body size, muscle mass, or nutritional status, or are non- or non-. According to the National Kidney Foundation, irrespective of diagnosis, the stage of the disease is based on the level of kidney function: Stage Description GFR(mL/min/1.73 m(2)) 1 Kidney damage with normal or decreased GFR 90 2 Kidney damage with mild decrease in GFR 60-89 3 Moderate decrease in GFR 30-59 4 Severe decrease in GFR 15-29 5 Kidney failure <15 (or dialysis) 5 [id number] Test Performed by: [facility] [place] [address] 9 REFERENCE VALUE <=1.0 (Negative) Test Performed by: [address] [address] 10 Interpretation: Borderline (0.1-0.3) REFERENCE VALUE <0.1 (Negative) Test Performed by: [facility] [address] [place] [address] 11 [id number] Consistent with Previous Results Reported on 10/04/17 13 ADDITIONAL INFORMATION The testing method is a chemiluminometric immunoassay manufactured by [employer] and performed on the [employer]'s [employer]. Values obtained with different assay methods or kits may be different and cannot be used interchangeably. Test results cannot be interpreted as absolute evidence for the presence or absence of malignant disease. Test Performed by: [facility] [address] [place] [address] 14 Because ethnic data is not always readily available, this report includes an eGFR for both -Americans and non- Americans. The National Kidney Disease Education Program (NKDEP) does not endorse the use of the MDRD equation for patients that are not between the ages of 18 and 70, are , have extremes of body size, muscle mass, or nutritional status, or are non- or non-. According to the National Kidney Foundation, irrespective of diagnosis, the stage of the disease is based on the level of kidney function: Stage Description GFR(mL/min/1.73 m(2)) 1 Kidney damage with normal or decreased GFR 90 2 Kidney damage with mild decrease in GFR 60-89 3 Moderate decrease in GFR 30-59 4 Severe decrease in GFR 15-29 5 Kidney failure <15 (or dialysis) 15 Desirable: <150 Borderline High: 150-199 High: 200-499 Very High: >500 16 Desirable: <200 Borderline High: 200-239 High: >239 17 Low: <40 Desirable: 40-60 High: >60 18 Desirable: <100 Near Optimal: 100-129 Borderline High: 130-159 High: 160-189 Very High: >189 19 SEE RESULT BELOW Name: MARIANNE MCKINNEY : [address]: Adiel Perry MD Acct: [id number] Unit: [id number] AGE: 76 Location: [facility] Re10/29/17 SEX: F Status: REG REF SPEC: [id number] KEE: 10/29/17-[address]: Sushil Brooks MD REQ: [id number] RECD: 10/29/17 STATUS: COMP JOSE CRUZHR DR: Rommel Perry MD _ SOURCE: URINE SPDESC: ORDERED: Urine Culture Procedure Result Reported Site Urine Culture Final 10/30/17- 1419 ML No growth of clinically significant organisms * - [facility] . END OF REPORT DEPARTMENT OF PATHOLOGY, [address] [place] [address] Nathan Bender M.D. Director [facility] # [id number] 20 SEE RESULT BELOW Name: MARIANNE MCKINNEY : [address]: Adiel Perry MD Acct: [id number] Unit: [id number] AGE: 76 Location: [facility] 408-01 Re07/12/17 SEX: F Status: ADM IN SPEC: [id number] KEE: 07/13/17-[address] [facility] [address]: Niyah Grady DO REQ: [id number] RECD: 07/13/173429 STATUS: MELISSA PRICE DR: Wilman Hutchinson MD _ ORDERED: LEVEL 4, IMMUNO-FIRST, IMMUNO-ADDL FINAL DIAGNOSIS Duodenum, biopsy: -- Metastatic adenocarcinoma, morphologically compatible with lobular breast primary origin; see comment. COMMENT: Histologic sections show a small portion of small intestinal mucosa with a minute focus (approximately 20 cells) of discohesive malignant cells that are round with abundant cytoplasm, pleomorphic nuclei, and a rare intracytoplasmic mucin vacuole. Immunohistochemical stains, with appropriate controls, were performed and show malignant cells to be CK7 positive and CK20 negative. Staning for ER, [place], and Her2/kee is non-contributory as the metastatic focus is cut through. The morphology and immunoprofile are compatible with metastasis from the patient?s known primary lobular breast adenocarcinoma. Dr. Bender reviewed this case in intradepartmental consultation and agrees with the diagnosis. CLINICAL HISTORY 76 year old female with breast cancer with mets on chemo presented with progressive anemia; status post 2 unites packed red blood cells; on Xarelto for recurrent deep vein thromboses CONTINUED ON NEXT PAGE DEPARTMENT OF PATHOLOGY, [address] [place] [address] Nathan Bender M.D. Director [facility] # [id number] RUN DATE: 07/16/17 [facility] LAB LIVE PAGE 2 Patient: YONGMARIANNE Huntley [id number] (Continued) POST-OPERATIVE DIAGNOSIS (Continued) POST-OPERATIVE DIAGNOSIS Normal duodenum to third portion with biopsy; mild antral gastritis; hiatal hernia; gastroesophageal junction at 35 cm; normal mid and proximal esophagus; no active bleeding seen; no PUDYS tumors. Conclusions/Plan: Follow-up pathology; monitor hemoglobin; may resume diet and anticoagulation GROSS DESCRIPTION The specimen is received in formalin labeled, Duodenal Biopsy, and consists of a 0.3 x 0.2 x 0.1 cm tse irregular soft tissue fragment which is submitted entirely in one cassette. Signed (signature on file) La Guevara MD [id number] END OF REPORT DEPARTMENT OF PATHOLOGY, [address] [place] [address] Nathan Bender M.D. Director [facility] # [id number] Procedures Date Code Description Status 09/30/2017 99657 Capsule Endoscopy Completed Encounters Type Date Location Provider Dx Diagnosis Office Visit 11/19/2018 [facility] Romeml Douglas K74.69 Other cirrhosis 1:00p [facility] of liver Office Visit 11/06/2017 Maribell Douglas D50.9 Iron deficiency 3:45p [facility] anemia, unspecified Office Visit 08/22/2017 Maribell Douglas D64.9 Anemia, 2:45p [facility] unspecified D50.9 Iron deficiency anemia, unspecified Office Visit 11/05/2016 Maribell Amador K60.2 Anal fissure, 10:00a [facility] Stafford, unspecified [employer] K60.0 Acute anal fissure Office Visit 10/16/2016 Maribell Campa60.2 Anal fissure, 11:15a [facility] unspecified [employer] K60.0 Acute anal fissure K62.5 Hemorrhage of anus and rectum Z79.01 group home (current) use of anticoagulants Office Visit 09/21/2016 Maribell Campa62.5 Hemorrhage of 8:30a [facility], anus and rectum [employer] R10.30 Lower abdominal pain, unspecified R10.84 Generalized abdominal pain Plan of Treatment Future Appointment(s):12/24/2018 2:30 pm - Rom[facility]dh[facility]11/19/2018 - Rommel Chowdhury, K74.69 Other cirrhosis of liverComments:I had a very long discussion with the patient and her regarding her cirrhosis. She has thrombocytopenia ascites a nodular appearance. All consistent with cirrhosis. Most likely it is relatedto her alcohol use in the past. I would like to rule out other potential causes such as autoimmune hepatitis viral hepatitis PBC and hemochromatosis. We had a long discussion regarding cirrhosis and natural history of potential complications. She does have ascites no evidence of encephalopathy she does not have asterixis and she did have an EGD just over a year ago with no varices noted. Regarding her ascites I am concerned that her creatinine is up to 1.62 it is more than doubled. I am worriedthat we are going to need to hold her diuretics if that is the case or decrease them, if that is thecase she will need more frequent paracenteses. I will get more blood work today she has follow-up with her automotive product engineer tomorrow and that her oncologist on Saturday I would like to see her back in approximately 2 months from now
--- OUTSIDE RECORDS SUMMARY | 2018-12-08 17:37 | XMS REPORT | Continuity of Care Document ---
:1940 External Reference #:[id number] Author Name Rommel Chowdhury MD Address [facility] [place] [address] Care Team Providers Name Role Phone Adiel Perry MD Care Team Information Chief Solution Architect Unavailable Sushil Brooks MD Primary Care Physician Unavailable Payers Date Identification Numbers Payment Provider Subscriber Policy Number: [id number] Medicare Marianne Mckinney PayID: [id number] [facility] [address] [place] [address] Policy Number: [id number] [facility] Care Option Marianne Mckinney PayID: [id number] Claims, [address] [place] [address] Problems Active Problems Provider Date Cirrhosis - [...] Marjorie Stafford, 09/21/2016 - Potassium mouth twice [employer] 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 500-125mg Tablets daily for 10 days [...] H/L Range Note CBC Auto Diff 11/25/2018 [facility] White Blood Count 3.4 10^3/uL Low 3.5-10.8 [...] Cells % 0.1 Comp Metabolic Panel 11/25/2018 [facility] Sodium 128 mmol/L Low 135-145 Potassium 4.6 [...] 33.6 >60 1 Laboratory test finding 11/25/2018 [facility] Magnesium 2.6 mg/dL N 1.9-2.7 Manual Differential 11/25/2018 [facility] Immature Granulocytes 1.0 % N 0-9 Neutrophil % 70.0 % Band % 1.0 % N 0-8 Lymphocytes % 17.0 % Monocytes % 8.0 % Eosinophils % 2.0 % Basophil % 2.0 % Macrocytosis 2+ Anisocytosis 2+ Laboratory test finding 11/25/2018 [facility] Breast Carcinoma 679 U/mL High <= 38.0 2 Ag(Ca27.29) Pathologist Review (SEE NOTE) 3 Comp Metabolic Panel 11/19/2018 [facility] Sodium 134 mmol/L Low 135-145 Potassium 4.1 [...] Egfr 31.9 >60 4 Hepatitis Acute PNL ([facility]) 11/19/2018 [facility] Hepatitis A AB Igm Negative Negative 5 Hepatitis B Core AB Igm Nonreactive Nonreactive 6 Hepatitis B Surface Ag Negative Negative 7 Hepatitis C Antibody 11/19/2018 [facility] HCV Index 0.05 s/c Hepatitis C Antibody Negative Negative Laboratory test finding 11/19/2018 [facility] Hepatitis B Core AB Negative Negative 8 Total Anti Nuclear Antibody 0.2 U 9 Mitochondrial AB AMA M2 Igg 0.1 U Abnormal 10 Iron & Iron Binding Capacity 11/19/2018 [facility] Iron 89 g/dL N 50-212 Unsaturated Iron Binding < 286 g/dL Total Iron Binding Capacity 301 g/dL N 250-450 Transferrin 215 mg/dL N 203-362 % Iron Saturation 30 % N 15-55 Laboratory test 11/19/2018 [facility] Hepatitis B Not Immune Abnormal Immune 11 finding Eber AB Titer Laboratory test 10/14/2018 [facility] CA 27-29 <pending> finding CBC Auto Diff 10/29/2017 [facility] White Blood 2.1 10^3/uL Low 3.5-10.8 Count [...] Blood Cells % 0.2 Laboratory test 10/29/2017 [facility] Breast Carcinoma 189 U/mL High <=38.0 13 finding Ag(Ca27.29) Comp Metabolic Panel 10/29/2017 [facility] Sodium 140 mmol/L N 135-145 Potassium 4.3 [...] 93.5 >60 14 Lipid Profile (Trig/Chol/HDL) 10/29/2017 [facility] Triglycerides 71 mg/dL 15 Cholesterol 154 mg/dL 16 HDL Cholesterol 54.5 mg/dL 17 LDL Cholesterol 85 mg/dL 18 Urinalysis Profile 10/29/2017 [facility] Urine Color Yellow Urine Appearance Cloudy Urine Specific Kirby 1.011 N 1.010-1.030 Urine pH 6.0 N [...] Present Abnormal Absent Laboratory test finding 10/29/2017 [facility] Iron 93 g/dL N 50-212 TSH (Thyroid Stim Horm) 3.74 mcIU/mL N 0.34-5.60 Urine Culture And 10/29/2017 [facility] Urine Culture SEE RESULT 19 Sensitivities BELOW Laboratory test 07/17/2017 [facility] Occult Blood <pending> finding Stool Xray 07/14/2017 [facility] Radiology Chest Ap <pending> Portable Laboratory test 07/13/2017 [facility] Surgical SEE RESULT 20 finding Interface BELOW Order Xray 07/12/2017 [facility] Radiology Cta Chest <pending> Laboratory test 07/12/2017 [facility] Occult Blood <pending> finding Stool Laboratory test 10/16/2016 [facility](!) 3.9 High finding [address] [place], [place] [id number] [phone] CBC W/Auto 10/16/2016 [facility] White Blood 6.2 3/UL 4.8- Differential(!) [address] [facility] Count Ser 10.8 [place] [address] Auto CNT [phone] RBC Red Blood Count 4.14 X106/UL Low 4.20-6.20 Hemoglobin Blood 12.4 g/dL 12.0-18.0 Hematocrit 37.8 % 35-52 MCV (Corpuscular Volume) 91.3 FL 79-97 MCH (Corpuscular Hemoglobin) 30.0 pg 27-31 MCHC (Corpuscular Hemog Conc) 32.9 g/dL 32.0-36.0 RDW 17.0 % High 10.5-15.0 Platelet Count Blood Auto CNT 184 X103/UL 150-450 MPV 7.7 FL 7.4-10.4 Lymph% 31.5 % 20.0-45.0 [place]% 8.8 % 1.0-9.0 Neutrophil % 59.7 % 38.0-83.0 Absolute Lymphocytes 2.0 X103/UL 1.0-4.8 Absolute Monocytes 8.8 X103/UL High 0.0-0.8 Absolute Neutrophils 59.7 X103/UL High 1.5-7.7 CBC W/Auto 09/21/2016 [facility] White 12.7 High 4.8- 10.8 Differential(!) [address] [address] Blood 3/[place] [address] Count Ser [phone] Auto CNT RBC Red Blood Count 4.38 X106/UL 4.20-6.20 Hemoglobin Blood 12.8 g/dL 12.0-18.0 Hematocrit 41.2 % 35-52 MCV (Corpuscular Volume) 94.0 FL 79-97 MCH (Corpuscular Hemoglobin) 29.1 pg 27-31 MCHC (Corpuscular Hemog Conc) 31.0 g/dL Low 32.0-36.0 RDW 17.6 % High 10.5-15.0 Platelet Count Blood Auto CNT 192 X103/UL 150-450 MPV 7.8 FL 7.4-10.4 Lymph% 15.3 % Low 20.0-45.0 [place]% 9.8 % High 1.0-9.0 Neutrophil % 74.9 % 38.0-83.0 Absolute Lymphocytes 1.9 X103/UL 1.0-4.8 Absolute Monocytes 1.2 X103/UL High 0.0-0.8 Absolute Neutrophils 9.5 X103/UL High 1.5-7.7 Laboratory test finding 09/20/2016 [facility] Inr(!) <pending> CMP(!) 09/20/2016 [facility] Sodium(!) <pending> Potassium(!) <pending> Chloride Serum/Plasma(!) <pending> Carbon Dioxide Ser/Plasm(!) <pending> BUN - Urea Nitrogen(!) <pending> Calcium Ser/Plasma Mass/Vol(!) <pending> Creatinine Serum Mass/Vol(!) <pending> Glucose Serum(!) <pending> Uric Acid Ser/Plas Mass/Vol(!) <pending> BUN/Creatinine Ratio(!) <pending> Albumin Serum/Plasma(!) <pending> Alkaline Phosphatase(!) <pending> Bilirubin Total Mass/Vol(!) <pending> Ast - Sgot <pending> Alt - SGPT <pending> Protein Total <pending> CBC W/Auto 09/20/2016 [facility] White Blood <pending> Differential(!) Count Ser Auto CNT RBC Red Blood Count <pending> Hemoglobin Blood <pending> Hematocrit <pending> MCV (Corpuscular Volume) <pending> MCH (Corpuscular Hemoglobin) <pending> MCHC (Corpuscular Hemog Conc) <pending> RDW <pending> Platelet Count Blood Auto CNT <pending> MPV <pending> Lymph% <pending> [place]% <pending> Neutrophil % <pending> Absolute Lymphocytes <pending> Absolute Monocytes <pending> Absolute Neutrophils <pending> Xray 08/23/2016 [facility] Radiology PET Skull-Thigh W/CT-Subsequen <pending> Xray 06/01/2016 [facility] Radiology CT Chest Abd/Pel W <pending> Xray 01/04/2016 [facility] Radiology CT Chest Abd/Pel W <pending> Xray 09/01/2015 [facility] Radiology CT Chest Abd/Pel W <pending> Xray 03/17/2015 [facility] Radiology CT Chest Abd/Pel W <pending> Xray 09/22/2014 [facility] Radiology CT Chest Abd/Pel W <pending> 1 [...] manufactured by [employer] and performed on the [employer]. Values obtained with different assay methods or kits may be different and cannot be used interchangeably. Test results cannot be interpreted as absolute evidence for the presence or absence of malignant disease. Test Performed by: [place] [id number] Macrocytic anemia with reactive-appearing lymphocytes. Reviewed [...] 5 Kidney failure <15 (or dialysis) 5 [id number] 6 [id number] 7 [id number] Test Performed by: [facility] [address] 9 REFERENCE VALUE <=1.0 (Negative) Test Performed by: [address] [address] 10 Interpretation: Borderline (0.1-0.3) REFERENCE VALUE <0.1 (Negative) Test Performed by: [facility] [address] [place] [address] 11 [id number] Consistent with Previous Results Reported on 10/04/17 13 ADDITIONAL INFORMATION The testing method is a chemiluminometric immunoassay manufactured by [employer] and performed on the [employer]. Values obtained with different assay methods or kits may be different and cannot be used interchangeably. Test results cannot be interpreted as absolute evidence for the presence or absence of malignant disease. Test Performed by: [facility] [address] [place] [address] 14 Because ethnic data is not always [...] [address]: Adiel Perry MD Acct: [id number] Unit: [id number] AGE: 76 Location: [facility] Re10/29/17 SEX: F Status: REG REF SPEC: [id number] KEE: 10/29/17-[address]: Sushil Brooks MD REQ: [id number] RECD: 10/29/17 STATUS: COMP JOSE CRUZHR DR: Rommel Perry MD _ SOURCE: URINE SPDESC: ORDERED: Urine Culture Procedure Result Reported Site Urine Culture Final 10/30/17- 1419 ML No growth of clinically significant organisms * - [facility] . END OF REPORT DEPARTMENT OF PATHOLOGY, [address] [place] [address] Nathan Bender M.D. Director [facility] # [id number] 20 SEE RESULT BELOW Name: MARIANNE MCKINNEY : [address]: Adiel Perry MD Acct: [id number] Unit: [id number] AGE: 76 Location: [facility] 408-01 Re07/12/17 SEX: F Status: ADM IN SPEC: [id number] KEE: 07/13/17-1053 [facility] DR: Niyah Grady DO REQ: [id number] RECD: 07/13/174709 STATUS: MELISSA PRICE DR: Wilman Hutchinson MD [...] positive and CK20 negative. Staning for ER, NE, and Her2/kee is non-contributory as the metastatic [...] CONTINUED ON NEXT PAGE DEPARTMENT OF PATHOLOGY, [address] [place] [address] Nathan Bender M.D. Director [facility] # [id number] RUN DATE: 07/16/17 [facility] LAB LIVE PAGE 2 Patient: YONGMARIANNE Huntley [id number] (Continued) POST-OPERATIVE DIAGNOSIS (Continued) POST-OPERATIVE DIAGNOSIS Normal [...] 1615 END OF REPORT DEPARTMENT OF PATHOLOGY, [address] [place] [address] Nathan Bender M.D. Director [facility] # [id number] Procedures Date Code Description Status 09/30/2017 49031 Capsule Endoscopy Completed Encounters Type Date Location Provider Dx Diagnosis Office Visit 11/19/2018 [facility] Douglas K74.69 Other cirrhosis 1:00p [facility] of liver Office Visit 11/06/2017 Maribell Douglas D50.9 Iron deficiency 3:45p [facility] anemia, unspecified Office Visit 08/22/2017 Maribell Douglas D64.9 Anemia, 2:45p [facility] MD unspecified D50.9 Iron deficiency anemia, unspecified Office Visit 11/05/2016 Maribell Amador K60.2 Anal fissure, 10:00a [facility] Stafford, unspecified [employer] STRATEGIST-C K60.0 Acute anal fissure Office Visit 10/16/2016 Maribell Campa60.2 Anal fissure, 11:15a [facility] Stafford unspecified [employer] 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
--- OUTSIDE RECORDS SUMMARY | 2018-12-08 17:38 | XMS REPORT | Continuity of Care Document ---
:1940 External Reference #:[id number] Author Name Rosario Dsouza Care Team Providers Name Role Phone Sushil Brooks MD Primary Care Physician Unavailable Payers Date Identification Numbers Payment Provider Subscriber Effective: 2004 Policy Number: [id number] Medicare Marianne Mckinney PayID: [id number] [address] [place] [address] Policy Number: [id number] [facility] Marianne Mckinney PayID: [id number] [address] [place] [address] Problems Active Problems Provider Date Obstructive sleep apnea syndrome Wilman Pierre M.D. Onset: 02/18/2012 Secondary malignant neoplasm of bone Wilman Pierre M.D. Onset: 2011 Arthroplasty of knee Wilman Pierre M.D. Onset: 02/18/2012 Tricuspid valve disorder, Wilman Pierre M.D. Onset: 02/18/2012 non-rheumatic Mixed hyperlipidemia Wilman Pierre M.D. Onset: 07/03/2012 Mitral valve disorder Wilman Pierre M.D. Onset: 07/03/2012 Hypertrophic Obstructive Wilman Pierre M.D. Onset: 07/03/2012 Cardiomyopathy Asthma without status asthmaticus Misti Moon MD Onset: 07/06/2015 Chronic pulmonary heart disease Misti Moon MD Onset: 07/06/2015 Pulmonary embolism Misti Moon MD Onset: 07/06/2015 Obesity Misti Moon MD Onset: 07/06/2015 Mild intermittent asthma Misti Moon MD Onset: 05/28/2016 Mild intermittent asthma Nikole Child DNP, RN, Onset: 11/20/2017 [facility]- Family History Date Family Member(s) Observation Comments : (age 65 Father due to Stroke hx cad, [place] @ 58, smoker Years) : (age 88 Mother due to CHF hx hypercholesterolemia, Years) htn Siblings None Social History Type Date Description Comments Sex Unknown Marital Status Lives With Spouse Occupation Retired ETOH Use Denies alcohol use As of 11/19/18 Tobacco Use Start: Unknown Patient has never smoked Recreational Drug Use Denies Drug Use Smoking Status Reviewed: 11/20/18 Patient has never smoked Exercise Type/Frequency Exercises sporadically Allergies, Adverse Reactions, Alerts Active Allergies Reaction Severity Comments Date Sulfa rash 12/08/2004 Compazine dystonia 12/08/2004 Adhesives rash bandaids/tapes 08/06/2011 Erythromycin 07/03/2012 Latex adhesive 10/01/2013 Medications Active Medications SIG Qnty Indications Ordering Date Provider Torsemide 2 tab by mouth 90tabs R06.02 Wilman Wilson 11/05/2018 10mg Tablets every day (Starting Julian Pierre 11/21/18 decreasing to 1 tablet daily) Spiriva Respimat 2 puff one time per 4gm Misti Moon, 10/08/2018 day 1.25mcg/Act Aerosol Oxygen 2 l nc at bedtime 1units G47.33 Nikole 01/08/2018 [facility] [place]ap 7 send OTTO Child, RN, to [facility] Oxygen 2 l nc o2 with 1units R09.02 Misti Moon, 01/08/2018 [facility] [place] exertion, pls provide with portable oxygen concentrator Metronidazole apply at night as Unknown 07/05/2015 0.75% Gel directed Fish Oil Double 1 tablet by mouth Unknown Strength nightly 1200mg Capsules Calcium With Vitamin 600 mg 1 tablet by Unknown D mouth every other day: alternating with iron Ferrousul 1 tab by mouth in Unknown 325(65Fe) mg the evening every Tablets other day Spironolactone 1 by mouth every Unknown 100mg day (Starting Tablets 11/21/18 decreasing to 50 mg daily) Dulcolax Stool 1 tablet by mouth Unknown Softener twice daily 100mg Capsules Betaxolol HCL 1 drop in each eye Unknown 0.5% twice daily Solution Ibrance 1 capsule by mouth Unknown 125mg Capsules 21 days on 7 days off Zolpidem Tartrate 1 every night at Unknown 10mg bedtime as needed Tablets Latanoprost Instill 1 Drop In Unknown 0.005% The Right Eye Every Solution Night Oxycodone-Acetaminoph 1 tabs by mouth Unknown en every 4-6 hours as 5-325mg Tablets needed for pain Xanax 1 tablet by mouth Unknown 0.5mg Tablets in the evening Lexapro 1 po qd 90tabs Unknown 20mg Tablets Ared Vitamin 1 po qd Unknown Oxycontin 1 po bid 28tabs Unknown 10mg Tablets ER 12HR Mirtazapine take one tab po qhs 90tabs Unknown 45mg Tablets Zometa every 12 weeks Unknown Concentrate Proair HFA 2 puffs po q4h prn 1units Unknown 108(90Base) mcg/Act Aerosol Omeprazole 1 cap po daily Sushil Brooks, 20mg MD Capsules DR Fluticasone [place] Two Sprays In 32units Misti Moon, Propionate Each Nostril Every 50mcg/Act Day Suspension Faslodex once per 4 weeks Unknown 250mg/5ML Solution Symbicort 1 puff twice a day Unknown 80-4.5mcg/Act Aerosol Soolantra topical to cheeks Unknown 1% Cream every day History Medications Prednisone 30mg daily for 3 22tabs J20.9 Misti Moon, 08/29/2018 - 10mg days 20mg daily for 11/04/2018 Tablets 3 days 10 mg daily for 1 week Nebulizer 1 unit nebulization 1units J45.901 Misti Moon, 08/29/2018 - Kit/Tubing/Mouthpi every 4- 6 hours as 09/11/2018 seble needed Kit Nebulizer 1 unit nebulization 1units J45.901 Misti Moon, 08/29/2018 - Device with albuterol 09/11/2018 every 6 hours and as needed Incruse Ellipta inhale one puff by 30units Misti Moon, 08/19/2018 - mouth every day 11/04/2018 62.5mcg/Inh Aerosol Spiriva Respimat 1 puff one time per 4gm Misti Moon, 08/18/2018 - day 09/11/2018 1.25mcg/Act Aerosol Oxygen 2 l nc at bedtime 1units R06.02 Nikole Child, 01/08/2018 - Misc with Cpap send to OTTO, RN, [employer]- 01/08/2018 [facility] Flovent HFA 1 puff twice a day 24gm Misti Moon, 05/31/2017 - 11/19/2017 110mcg/Act Aerosol Santyl apply to affected 30gm L89.890 Grayson Suazo, 12/27/2016 - 250Unit/GM area once a day , AMY 03/06/2017 Ointment Warfarin Sodium as directed Unknown 06/27/2016 - Unknown 5mg Tablets Clindamycin apply to affected Unknown 07/05/2015 - Phosphate areas as directed Unknown 1% Lotion Tretinoin apply on affected Unknown 07/05/2015 - 0.05% area daily as 11/19/2018 Cream needed Alprazolam one by mouth as Unknown 07/05/2015 - 0.25mg needed/directed 07/05/2015 Tablets Anastrozole 1 by mouth every Unknown 11/19/2014 - 1mg day Unknown Tablets Nexium 1 by mouth every 30caps Wilman Wilson 09/02/2014 - 40mg day Julian Pierre 09/20/[address] Alba 1 by mouth every Wilman Wilson 09/02/2014 - Tablets day Julian Pierre 09/02/2014 DR Alba 1 by mouth every 30tabs Wilman Wilson 08/24/2014 - 40mg day Julian Pierre 09/02/[address] Ramos one puffs both 1units Other Ordering 01/08/2013 - 0.6% sides once a day Provider 05/22/2015 Solution Asmanex Twisthaler Wilman Wilson 08/21/2005 - Julian Pierre 08/06/2011 200mcg Inhaler Saige bid Wilman Wilson 08/14/2005 - 30mg MaJulian frye 08/06/2011 Tablets Lipitor 1 po qd 30tabs Wilman Wilson 02/05/2005 - 20mg Julian Pierre 08/06/2011 Tablets Lipitor 1 po qd 30tabs Wilman Wilson 01/12/2005 - 20mg Julian Pierre 02/05/2005 Tablets Prevacid 1 po qd 30caps Wilman Wilson 01/02/2005 - 30mg Julian Pierre 02/05/2005 Capsules Toprol XL 1 po qod then Wilman Wilson 01/02/2005 - 25mg discontinue on Julian Pierre 02/05/2005 Tablets 01/14/05 Toprol XL 1 po qd 30tabs Wilman Wilson 12/08/2004 - 25mg Julian Pierre 01/02/2005 Tablets Aspirin 1 po qd 90units Wilman Wilson 12/08/2004 - 325mg Julian Pierre 01/02/2005 Gelcaps Cosopt 1 GTT OS bid Wilman Wilson 12/08/2004 - 2%;0.5 % Julian Pierre 08/06/2011 Solution Nitrostat one sl q5min up to 25tabs Wilman Wilson 12/08/2004 - 0.3mg 3 doses prn Julian Pierre 02/05/2005 Tablets Mirtazapine Wilman Wilson 12/08/2004 - 15gm Julian Pierre 08/06/2011 Tablets Prozac 1 po qd 30caps Wilman Wilson 12/08/2004 - 20mg Julian Pierre 08/22/2005 Capsules Saige bid prn 30tabs Wilman Wilson 12/08/2004 - 30mg Julian Pierre 08/22/2005 Tablets Nasonex Intranasal 2 sprays each Wilman Wilson 12/08/2004 - [place] nostril prn Indigo Pierre.D. 08/06/2011 50mcg Suspension Coq10 1 by mouth every Unknown - 200mg day 03/06/2017 Capsules Qvar 2 puff twice a day 8.700gm Misit Red, - 80mcg/Act 11/19/2017 Aerosol Enoxaparin Sodium 1 injection daily ( Unknown - started 01/2015) 05/01/2016 150mg/ml Solution Minocycline HCL take 1 tab po daily Unknown - for acne 11/19/2014 50mg Capsules Ambien 1 by mouth every Unknown - 10mg night at bedtime as 01/04/2015 Tablets needed sleep insomnia Xanax one by mouth up to Unknown - 0.25mg three times daily 07/05/2015 Tablets as needed for anxiety Saige Allergy 1 by mouth every Unknown - day only takes in 05/10/2015 180mg Tablets the fall Vitamin B-12 1 po qd Unknown - 01/04/2015 Tablets Vitamin D3 1 by mouth every Unknown - day 05/22/2015 2000Unit Capsules Ducodyl 1-2 po qd Unknown - 5mg 05/01/2016 Tablets Dulcolaaamir 200 mg. 1 tab po Unknown - Tablets twice daily 11/04/2018 DR Beth Gutierres, [place], - 15mg [employer] Unknown Tablets Ibrance 1 tab by mouth Unknown - 125mg every morning (21 09/11/2018 Capsules days on, 7 days off) Lovenox 150 mg sc once a Unknown - 150mg/ml day as directed 11/19/2017 Solution Soolantra to face daily Unknown - 1% 05/13/2017 Cream Clindamycin apply in the Unknown - morning (Topical) 11/19/2017 Cream Ferrous Sulfate 1 by mouth every Unknown - other day 09/11/2018 325mg Tablets Levaquin 1 every day for 2 Unknown - weeks 09/11/2018 Prednisone 40MG for 5 days Unknown - (done on 08-31-18) 08/29/2018 Lasix 1 by mouth daily Unknown - 40mg 11/05/2018 Tablets Xanax as needed at night Unknown - 0.25mg by mouth (0.5mg) 01/08/2018 Tablets Temazepam 1 capsule every 20caps Unknown - 15mg night as needed for 02/18/2012 Capsules sleep Alprazolam 1/2-1 tab three 20tabs Unknown - 0.25mg times daily as 02/18/2012 Tablets needed Nasonex 2 sprays to each 1units Unknown - 50mcg/Act nostril once daily 03/06/2017 Suspension Remeron 1 tabs po q hs Unknown - 30mg 02/18/2012 Tablets Ventolin HFA 2 puffs po qid prn 1units Unknown - 01/08/2013 108(90Base) mcg/ac Aerosol Simvastatin 1 po qd hold as of Wilman Wilson - 20mg 4.28.15 Julian Pierre 05/22/2015 Saige 1 po qd Unknown - 180mg Unknown Tablets Betoptic-S 1 drop in each eye Unknown - 0.25% bid 11/04/2018 Suspension Arimidex 1 po qd 30tabs Unknown - 1mg 05/22/2015 Tablets Fish Oil 1 po daily Unknown - 1200mg 09/11/2018 Capsules Lutein po qd Unknown - 20mg Unknown Capsules Calcium 1 po bid Unknown - 600mg 08/22/2014 Tablets Oxycodone/Acetamin 2 po qd prn 60tabs Unknown - ophen 02/18/2012 5-325mg Tablets Xanax one by mouth at hs 30tabs Unknown - 0.25mg 08/22/2014 Tablets Ambien 1 po qhs prn sleep 30tabs Unknown - 10mg insomnia 08/22/2014 Tablets Asmanex 7 Metered am and pm Unknown - Doses 05/23/2015 160mcg Aerosol Rozerem use as needed sleep Unknown - 8mg 08/23/2014 Tablets Lorazepam 1 every 6 hours as Unknown - 1mg needed 08/23/2014 Tablets Retin-A apply topically Unknown - .050 Gel every day 05/13/2017 Caltrate 600+D 2 po qd Unknown - Plus 09/11/2018 [id number] Chewtabs Vital Signs Date Vital Result Comment 11/20/2018 3:34pm Height 65.5 inches 5'5.50" Weight 205.38 lb with shoes Heart Rate 72 /min regular BP Systolic Sitting 116 mmHg Lue (regular cuff) BP Diastolic Sitting 64 mmHg Lue (regular cuff) BP Systolic Standing 114 mmHg Lue (regular cuff) BP Diastolic Standing 62 mmHg Lue (regular cuff) BMI (Body Mass Index) 33.7 kg/m2 Ejection Fraction >65% Echocardiogram 06/23/2018 11/05/2018 2:02pm Height 65.5 inches 5'5.50" Weight 213.00 lb with shoes Heart Rate 76 /min BP Systolic Sitting 128 mmHg ule reg cuff BP Diastolic Sitting 72 mmHg ule reg cuff BP Systolic Standing 126 mmHg ule reg cuff BP Diastolic Standing 68 mmHg ule reg cuff O2 % BldC Oximetry 93 % BMI (Body Mass Index) 34.9 kg/m2 Ejection Fraction 65-70% Echocardiogram 06/23/2018 09/12/2018 10:35am Height 65.5 inches 5'5.50" Weight 205.00 lb Heart Rate 76 /min BP Systolic Sitting 112 mmHg Lue large cuff BP Diastolic Sitting 64 mmHg Lue large cuff Respiratory Rate 20 /min O2 % BldC Oximetry 94 % On Ra BMI (Body Mass Index) 33.6 kg/m2 08/29/2018 12:31pm Height 65.5 inches 5'5.50" Weight 212.25 lb Heart Rate 70 /min BP Systolic Sitting 116 mmHg Lue large cuff BP Diastolic Sitting 70 mmHg Lue large cuff Respiratory Rate 20 /min O2 % BldC Oximetry 93 % BMI (Body Mass Index) 34.8 kg/m2 07/21/2018 10:51am Height 65.5 inches 5'5.50" Weight 206.50 lb Heart Rate 72 /min BP Systolic Sitting 108 mmHg Lue large cuff BP Diastolic Sitting 58 mmHg Lue large cuff Respiratory Rate 24 /min O2 % BldC Oximetry 92 % On Ra BMI (Body Mass Index) 33.8 kg/m2 01/24/2018 2:08pm Height 65.5 inches 5'5.50" Weight 213.00 lb Heart Rate 60 /min BP Systolic Sitting 106 mmHg Lue, reg cuff BP Diastolic Sitting 70 mmHg Lue, reg cuff Respiratory Rate 16 /min BMI (Body Mass Index) 34.9 kg/m2 Ejection Fraction 60-65% as of 06/25/17 echo 01/16/2018 10:06am Height 65.5 inches 5'5.50" Weight 206.00 lb Heart Rate 64 /min BP Systolic Sitting 118 mmHg BP Diastolic Sitting 72 mmHg Respiratory Rate 14 /min O2 % BldC Oximetry 93 % BMI (Body Mass Index) 33.8 kg/m2 01/08/2018 1:28pm Height 65.5 inches 5'5.50" Weight 212.38 lb Heart Rate 70 /min BP Systolic Sitting 106 mmHg Lue large cuff BP Diastolic Sitting 68 mmHg Lue large cuff Respiratory Rate 22 /min O2 % BldC Oximetry 92 % On Ra BMI (Body Mass Index) 34.8 kg/m2 11/20/2017 3:10pm Height 65.5 inches 5'5.50" Weight 214.00 lb Heart Rate 56 /min BP Systolic Sitting 102 mmHg BP Diastolic Sitting 62 mmHg Respiratory Rate 14 /min O2 % BldC Oximetry 93 % BMI (Body Mass Index) 35.1 kg/m2 05/14/2017 1:12pm Height 65.5 inches 5'5.50" Weight 213.75 lb with shoes Heart Rate 66 /min BP Systolic Sitting 118 mmHg LA, l cuff BP Diastolic Sitting 66 mmHg LA, l cuff BMI (Body Mass Index) 35.0 kg/m2 Ejection Fraction 60%-65% echo 05/14/16 03/06/2017 9:58am Height 65.5 inches 5'5.50" Weight 213.50 lb with shoes Heart Rate 72 /min BP Systolic Sitting 102 mmHg Lue large cuff BP Diastolic Sitting 58 mmHg Lue large cuff Respiratory Rate 20 /min O2 % BldC Oximetry 95 % On Ra BMI (Body Mass Index) 35.0 kg/m2 02/04/2017 9:34am Heart Rate 72 /min BP Systolic 132 mmHg BP Diastolic 80 mmHg Respiratory Rate 20 /min Body Temperature 98.5 F 12/27/2016 2:28pm Height 66 inches 5'6" Weight 210.00 lb Heart Rate 60 /min BP Systolic 98 mmHg BP Diastolic 62 mmHg Respiratory Rate 16 /min Body Temperature 98.5 F BMI (Body Mass Index) 33.9 kg/m2 12/20/2016 11:22am Height 66 inches 5'6" Weight 210.00 lb Heart Rate 67 /min BP Systolic 102 mmHg BP Diastolic 64 mmHg Respiratory Rate 14 /min Pain Level 3 BMI (Body Mass Index) 33.9 kg/m2 06/28/2016 11:46am Height 66 inches 5'6" Weight 216.00 lb Heart Rate 66 /min BP Systolic 118 mmHg BP Diastolic 86 mmHg Respiratory Rate 14 /min O2 % BldC Oximetry 93 % BMI (Body Mass Index) 34.9 kg/m2 05/28/2016 1:47pm Height 66 inches 5'6" Weight 216.00 lb Heart Rate 63 /min BP Systolic 112 mmHg BP Diastolic 84 mmHg Respiratory Rate 14 /min O2 % BldC Oximetry 95 % BMI (Body Mass Index) 34.9 kg/m2 05/02/2016 1:18pm Height 66 inches 5'6" Weight 216.25 lb with shoes Heart Rate 70 /min BP Systolic Sitting 122 mmHg LA lrg cuff BP Diastolic Sitting 86 mmHg LA lrg cuff BMI (Body Mass Index) 34.9 kg/m2 Ejection Fraction 60% - 65% echo 05/26/15 07/06/2015 10:31am Height 66 inches 5'6" Weight 212.00 lb Heart Rate 76 /min BP Systolic Sitting 122 mmHg BP Diastolic Sitting 66 mmHg Respiratory Rate 18 /min O2 % BldC Oximetry 95 % BMI (Body Mass Index) 34.2 kg/m2 05/23/2015 11:33am Height 66 inches 5'6" Weight 212.00 lb with shoes Heart Rate 70 /min BP Systolic Sitting 110 mmHg LA reg cuff BP Diastolic Sitting 70 mmHg LA reg cuff Respiratory Rate 17 /min BMI (Body Mass Index) 34.2 kg/m2 Ejection Fraction 60-65% date 09/08/14 ECHO 01/05/2015 10:21am Height 66 inches 5'6" Weight 216.00 lb Heart Rate 96 /min BP Systolic 120 mmHg BP Diastolic 80 mmHg Respiratory Rate 14 /min O2 % BldC Oximetry 98 % BMI (Body Mass Index) 34.9 kg/m2 11/22/2014 10:42am Height 66 inches 5'6" Weight 216.00 lb Heart Rate 91 /min BP Systolic 110 mmHg BP Diastolic 78 mmHg Respiratory Rate 14 /min O2 % BldC Oximetry 94 % BMI (Body Mass Index) 34.9 kg/m2 Neck Circumference in inches 15 09/21/2014 1:26pm Height 66 inches 5'6" Weight 225.25 lb w/ shoes Heart Rate 74 /min BP Systolic Sitting 108 mmHg LA, reg BP Diastolic Sitting 72 mmHg LA, reg BMI (Body Mass Index) 36.4 kg/m2 Ejection Fraction 60-65% 09/08/14 ECHO 08/24/2014 2:53pm Height 66 inches 5'6" Weight 226.75 lb Heart Rate 70 /min BP Systolic Sitting 120 mmHg LA reg BP Diastolic Sitting 84 mmHg LA reg BP Systolic Standing 110 mmHg LA reg BP Diastolic Standing 78 mmHg LA reg BMI (Body Mass Index) 36.6 kg/m2 Ejection Fraction 55-60% echo 01/22/14 10/22/2013 12:56pm Height 66 inches 5'6" Weight 215.00 lb Heart Rate 67 /min BP Systolic 127 mmHg BP Diastolic 70 mmHg BMI (Body Mass Index) 34.7 kg/m2 10/01/2013 1:59pm Height 66 inches 5'6" Weight 216.00 lb Heart Rate 64 /min BMI (Body Mass Index) 34.9 kg/m2 07/08/2013 10:35am Height 66 inches 5'6" Weight 218.00 lb Heart Rate 72 /min BP Systolic Sitting 116 mmHg BP Diastolic Sitting 80 mmHg BMI (Body Mass Index) 35.2 kg/m2 01/08/2013 11:32am Height 66 inches 5'6" Weight 217.00 lb Heart Rate 75 /min BP Systolic 120 mmHg BP Diastolic 80 mmHg Respiratory Rate 16 /min BMI (Body Mass Index) 35.0 kg/m2 07/03/2012 2:25pm Height 66 inches 5'6" Weight 206.00 lb Heart Rate 72 /min BP Systolic Sitting 114 mmHg BP Diastolic Sitting 80 mmHg Respiratory Rate 20 /min BMI (Body Mass Index) 33.2 kg/m2 02/18/2012 3:28pm Height 66 inches 5'6" Weight 204.00 lb Heart Rate 74 /min BP Systolic 100 mmHg BP Diastolic 60 mmHg Respiratory Rate 18 /min BMI (Body Mass Index) 32.9 kg/m2 08/06/2011 2:05pm Height 66 inches 5'6" Weight 202.00 lb Heart Rate 70 /min BP Systolic Sitting 98 mmHg BP Diastolic Sitting 68 mmHg BP Systolic Standing 108 mmHg BP Diastolic Standing 72 mmHg BMI (Body Mass Index) 32.6 kg/m2 08/22/2005 2:26pm Height 66 inches 5'6" Weight 200.00 lb Heart Rate 66 /min BP Systolic Sitting 120 mmHg L BP Diastolic Sitting 70 mmHg L BP Systolic Standing 110 mmHg L BP Diastolic Standing 60 mmHg L BMI (Body Mass Index) 32.3 kg/m2 02/05/2005 2:04pm Height 66 inches 5'6" Weight 197.00 lb Heart Rate 76 /min reg BP Systolic Sitting 120 mmHg BP Diastolic Sitting 80 mmHg BMI (Body Mass Index) 31.8 kg/m2 01/02/2005 3:15pm Height 66 inches 5'6" Weight 196.00 lb Heart Rate 56 /min BP Systolic Sitting 104 mmHg BP Diastolic Sitting 80 mmHg BP Systolic Standing 110 mmHg BP Diastolic Standing 84 mmHg O2 % BldC Oximetry 97 % BMI (Body Mass Index) 31.6 kg/m2 Results Test Date Facility Test Result H/L Range Note Laboratory test 11/11/2018 [facility] B-Type 169 pg/mL High <= [address] [address] Peptide BNP [phone] Cortisol <pending> Comp Metabolic Panel 11/11/2018 [facility] Sodium 131 mmol/L Low 135-[address] [place] [address] [phone] Potassium 4.0 mmol/L N 3.5-5.0 Chloride 94 mmol/L Low 101-111 Co2 Carbon Dioxide 29 mmol/L N 22-32 Anion Gap 8 mmol/L N 2-11 Glucose 166 mg/dL High 70-100 Blood Urea Nitrogen 47 mg/dL High 6-24 Creatinine 1.62 mg/dL High 0.51-0.95 BUN/Creatinine Ratio 29.0 High 8-20 Calcium 9.3 mg/dL N 8.6-10.3 Total Protein 7.0 g/dL N 6.4-8.9 Albumin 3.6 g/dL N 3.2-5.2 Globulin 3.4 g/dL N 2-4 Albumin/Globulin Ratio 1.1 N 1-3 Total Bilirubin 0.80 mg/dL N 0.2-1.0 Alkaline Phosphatase 118 U/L High 34-104 Alt 17 U/L N 7-52 Ast 34 U/L N 13-39 Egfr Non- 30.7 >60 Egfr 37.2 >60 1 CBC Auto 11/11/2018 [facility] White Blood 2.6 10^3/uL Low 3.5 -10.[address] [place] [address] [phone] Red Blood Count 2.67 10^6/uL Low 3.70-4.87 Hemoglobin 10.3 g/dL Low 12.0-16.0 Hematocrit 30 % Low 35-47 Mean Corpuscular Volume 113 fL High 80-97 Mean Corpuscular Hemoglobin 39 pg High 27-31 Mean Corpuscular HGB Conc 34 g/dL N 31-36 Red Cell Distribution Width 18 % High 10-15 2 Platelet Count 94 10^3/uL Low 150-450 Mean Platelet Volume 9.3 fL N 7.4-10.4 Abs Neutrophils 1.6 10^3/uL N 1.5-7.7 Abs Lymphocytes 0.5 10^3/uL Low 1.0-4.8 Abs Monocytes 0.4 10^3/uL N 0-0.8 Abs Eosinophils 0.0 10^3/uL N 0-0.6 Abs Basophils 0.0 10^3/uL N 0-0.2 Abs Nucleated RBC 0.0 10^3/uL Granulocyte % 62.3 % Lymphocyte % 20.2 % Monocyte % 16.2 % Eosinophil % 0.6 % Basophil % 0.7 % Nucleated Red Blood Cells % 0.1 Manual Differential 11/11/2018 [facility] Neutrophil % 54.0 % [address] [place] [address] [phone] Lymphocytes % 29.0 % Monocytes % 16.0 % Basophil % 1.0 % RBC Morphology Normal Normal Laboratory test 11/11/2018 [facility] Pathologist Review (SEE NOTE) [address] [place] [address] [phone] Breast Carcinoma Ag(Ca27.29) 629 U/mL High <=38.0 4 Laboratory test 07/13/2017 [facility] Surgical SEE RESULT [address] Interface [place] [address] [phone] CBC No Diff 03/26/2016 [facility] White Blood 5.0 10^3/uL N 3.5-[address] Count .8 [place] [address] [phone] Red Blood Count 4.70 10^6/uL N 4.0-5.4 Hemoglobin 13.4 g/dL N 12.0-16.0 Hematocrit 41 % N 35-47 Mean Corpuscular Volume 86 fL N 80-97 Mean Corpuscular Hemoglobin 29 pg N 27-31 Mean Corpuscular HGB Conc 33 g/dL N 31-36 Red Cell Distribution Width 17 % High 10.5-15 Platelet Count 214 10^3/uL N 150-450 Mean Platelet Volume 9 um3 N 7.4-10.4 Laboratory test 03/26/2016 [facility] CA 27-29 47.16 U/mL High 3.5-38.[address] [place] [address] [phone] Inr/Protime 03/26/2016 [facility] Inr 2.25 High 0.89-1.[address] [place] [address] [phone] Comp Metabolic 03/26/2016 [facility] Sodium 138 mmol/L N 133- [address] [place] [address] [phone] Potassium 4.0 mmol/L N 3.5-5.0 Chloride 103 mmol/L N 101-111 Co2 Carbon Dioxide 30 mmol/L N 22-32 Anion Gap 5 mmol/L N 2-11 Glucose 89 mg/dL N 70-100 Blood Urea Nitrogen 20 mg/dL N 6-24 Creatinine 0.87 mg/dL N 0.51-0.95 BUN/Creatinine Ratio 23.0 High 8-20 Calcium 8.8 mg/dL N 8.6-10.3 Total Protein 6.2 g/dL Low 6.4-8.9 Albumin 3.6 g/dL N 3.2-5.2 Globulin 2.6 g/dL N 2-4 Albumin/Globulin Ratio 1.4 N 1-3 Total Bilirubin 0.50 mg/dL N 0.2-1.0 Alkaline Phosphatase 51 U/L N 34-104 Alt 40 U/L N 7-52 Ast 30 U/L N 13-39 Egfr Non- 63.3 N >60 Egfr 81.4 N >60 7 Laboratory 03/26/2016 [facility] TSH (Thyroid Stim 5.23 N 0.34 -5.60 test finding [address] Horm) mcIU/[place] [address] [phone] Lipid Profile 03/26/2016 [facility] Triglycerides 116 mg/dL N 8 (Trig/Chol/HDL [address] ) [place] [address] [phone] Cholesterol 186 mg/dL N 9 HDL Cholesterol 48.9 mg/dL N 10 LDL Cholesterol 114 mg/dL N 11 Comp Metabolic Panel 08/21/2012 [facility] Sodium 139 mmol/L 133-[address] [place] [address] [phone] Potassium 4.2 mmol/L 3.5-5.0 Chloride 103 mmol/L 101-111 Co2 Carbon Dioxide 30.0 mmol/L 22-32 Anion Gap 6.0 mmol/L 2-11 Glucose 96 mg/dL 70-100 Blood Urea Nitrogen 13 mg/dL 6-24 Creatinine 0.70 mg/dL 0.50-1.40 BUN/Creatinine Ratio 18.6 8-20 Calcium 9.1 mg/dL 8.1-9.9 Total Protein 6.6 g/dL 6.2-8.1 Albumin 3.6 g/dL 3.2-5.2 Globulin 3.0 g/dL 2-4 Albumin/Globulin Ratio 1.2 1-3 Total Bilirubin 0.6 mg/dL 0.4-1.5 Alkaline Phosphatase 55 U/L 30-110 Alt 24 U/L 14-54 Ast 21 U/L 12-42 Egfr Non- 82.3 >60 Egfr 105.8 >60 12 CBC Auto Diff 08/21/2012 [facility] White Blood 5.8 10^3/uL 4.8-10.[address] [place] [address] [phone] Red Blood Count 4.47 10^6/uL 4.0-5.4 Hemoglobin 13.9 g/dL 12.0-16.0 Hematocrit 43 % 35-47 Mean Corpuscular Volume 95 fL 80-97 Mean Corpuscular Hemoglobin 31 pg 27-31 Mean Corpuscular HGB Conc 33 g/dL 31-36 Red Cell Distribution Width 14 % 10.5-15 Platelet Count 209 10^3/uL 150-450 Mean Platelet Volume 9 um3 7.4-10.4 Abs Neutrophils 3.4 10^3/uL 1.5-7.7 Abs Lymphocytes 1.8 10^3/uL 1.0-4.8 Abs Monocytes 0.5 10^3/uL 0-0.8 Abs Eosinophils 0.2 10^3/uL 0-0.6 Abs Basophils 0 10^3/uL 0-0.2 Abs Nucleated RBC 0 10^3/uL Granulocyte % 57.5 % 38-83 Lymphocyte % 30.1 % 25-47 Monocyte % 9.0 % 1-9 Eosinophil % 2.8 % 0-6 Basophil % 0.6 % 0-2 Nucleated Red Blood Cells % 0 Laboratory test 08/21/2012 [facility] TSH (Thyroid 3.62 0.34- 5.[address] Stimulating miu/[place] [address] Horm) [phone] Laboratory test 08/21/2012 [facility] Creatine Kinase 45 U/L 0-[address] [place] [address] [phone] B Type Natriuretic Peptide 44.0 pg/mL 0-100 13 Laboratory test 08/21/2012 [facility] LDH 160 U/L 95-[address] [place], [place] [id number] [phone] Laboratory test 08/21/2012 [facility] CA 27-29 32.84 3.5- 38.6 [address] U/[place] [address] [phone] Lipid Profile 08/21/2012 [facility] Triglycerides 113 mg/dL 40-200 (Trig/Chol/HDL) [address] [place], [place] [id number] [phone] Cholesterol 177 mg/dL Less than 200 HDL Cholesterol 56 mg/dL 40-60 15 Cholesterol/HDL Ratio 3.2 Average 1-4.44 LDL Cholesterol 98.4 mg/dL Less Than 100 16 Laboratory test 08/21/2012 [facility] T4 7.7 g/mL 5.0-12.0 finding [address] [place] [address] [phone] Comp Metabolic Panel 02/18/2012 [facility] Sodium 136 mmol/L 133-145 [address] [place] [address] [phone] Potassium 4.2 mmol/L 3.5-5.0 Chloride 104 mmol/L 101-111 Co2 Carbon Dioxide 25.0 mmol/L 22-32 Anion Gap 7.0 mmol/L 2-11 Glucose 136 mg/dL High 70-100 Blood Urea Nitrogen 16 mg/dL 6-24 Creatinine 0.70 mg/dL 0.50-1.40 BUN/Creatinine Ratio 22.9 High 8-20 Calcium 8.9 mg/dL 8.1-9.9 Total Protein 6.2 GM/DL 6.2-8.1 Albumin 3.6 GM/DL 3.2-5.2 Globulin 2.6 GM/DL 2-4 Albumin/Globulin Ratio 1.4 1-3 Total Bilirubin 0.6 mg/dL 0.1-1.0 17 Alkaline Phosphatase 95 U/L 30-110 Alt 22 U/L 14-54 Ast 22 U/L 12-42 Egfr Non- 82.3 >60 Egfr 105.8 >60 18 Lipid Profile 02/18/2012 [facility] Triglycerides 109 mg/dL 40-200 (Trig/Chol/HDL) [address] [place] [address] [phone] Cholesterol 150 mg/dL Less than 200 19 HDL Cholesterol 48 mg/dL 40-60 20 Cholesterol/HDL Ratio 3.1 AVERAGE 1-4.44 LDL Cholesterol 80.2 mg/dL Less Than 100 1 Because ethnic data is not always [...] 5 Kidney failure <15 (or dialysis) 2 Consistent with Previous Results Reported on 10/14/18 3 Macrocytic anemia. Mild thrombocytopenia. No evidence of a hemolytic process. Reviewed by La Guevara MD 4 ADDITIONAL INFORMATION The testing method is a chemiluminometric immunoassay manufactured by [employer] and performed on the [employer]. Values obtained with different assay methods or kits may be different and cannot be used interchangeably. Test results cannot be interpreted as absolute evidence for the presence or absence of malignant disease. Test Performed by: [address] [address] 5 SEE RESULT BELOW Name: MARIANNE MCKINNEY : [address]: Adiel Perry MD Acct: [id number] Unit: [id number] AGE: 76 Location: [place] [address]- Re07/12/17 SEX: F Status: ADM IN SPEC: [id number] KEE: 07/13/17-[address] [facility] [address]: Niyah Grady DO REQ: [id number] RECD: 07/13/17-1159 STATUS: MELISSA DEE DR: Wilman Hutchinson MD _ ORDERED: LEVEL [...] positive and CK20 negative. Staning for ER, ID, and Her2/kee is non-contributory as the metastatic [...] CONTINUED ON NEXT PAGE DEPARTMENT OF PATHOLOGY, [address] [place] [address] Nathan Bender M.D. Director CLIA # [id number] RUN DATE: 07/16/17 [facility] LAB LIVE PAGE 2 Patient: MARIANNE MCKINNEY [id number] (Continued) POST-OPERATIVE DIAGNOSIS (Continued) POST-OPERATIVE DIAGNOSIS Normal [...] 1615 END OF REPORT DEPARTMENT OF PATHOLOGY, [address] [place] [address] Nathan Bender M.D. Director [facility] # [id number] 6 Assay by Chemiluminescence microparticle immunoassay on the [employer]. Values obtained with different methods or kits cannot be used interchangeably for patient monitoring. Results cannot be interpreted as absolute evidence of the presence or absence of malignancy. The test is not interpretable in . 7 Because ethnic data is not always readily [...] 15-29 5 Kidney failure <15 (or dialysis) 8 Desirable <150 Borderline high 150-199 High 200-499 Very High >500 9 Desirable <200 Borderline high 200-239 High >239 10 Low <40 Desirable: 40-60 High: >60 11 Desirable: <100 mg/dL Near Optimal: 100-129 mg/dL Borderline High: 130-159 mg/dL High: 160-189 mg/dL Very High: >189 mg/dL 12 Because ethnic data is not always readily [...] 15-29 5 Kidney failure <15 (or dialysis) 13 PT IS FASTING 14 Assay by Chemiluminescence microparticle immunoassay on the [employer]. Values obtained with different methods or kits cannot be used interchangeably for patient monitoring. Results cannot be interpreted as absolute evidence of the presence or absence of malignancy. The test is not interpretable in . 15 HDL Interpretation: Undesirable: High Risk: Less than 40 MG/DL Desirable: Low Risk: Greater than 60 MG/DL 16 LDL Interpretation: Low Risk Optimal Level: LDL Less than 100 MG/DL Near or Above Optimal: LDL 100-129 MG/DL Borderline High Risk: LDL 130-159 MG/DL High Risk: LDL 160-189 MG/DL Very High Risk: LDL Greater than 189 MG/DL 17 A metabolite of Naproxen, O-desmethylnaproxen, has been shown to interfere with the Jendrassik-Hoople method for measuring total bilirubin. Samples from patients who have taken Naproxen have shown spurious elevation in total bilirubin levels. 18 Because ethnic data is not always readily [...] 15-29 5 Kidney failure <15 (or dialysis) 19 Desirable: Less than 200 MG/DL Borderline-High Risk: 200-239 MG/DL High-Risk: 240 MG/DL and over 20 HDL Interpretation: Undesirable: High Risk: Less than 40 MG/DL Desirable: Low Risk: Greater than 60 MG/DL Procedures Date Code Description Status 11/05/2018 48025 EKG Tracing & Interpretation Completed 06/23/2018 49313 ECHO Transthorasic Realtime 2D W Doppler & Color Flow Completed Hosp 02/23/2018 49177 Holter Monitor Review (24 hr)dr review & interp only Completed 02/19/2018 07502 ECG Monitor/Recording W/Visual Superimposition Scanning Completed 02/19/2018 22673 ECG Monitor/Recording W/Visual Superimposition Scanning Completed 01/24/2018 12462 EKG Tracing & Interpretation Completed 01/14/2018 61103 Diffusing Capacity Completed 01/14/2018 01097 Diffusing Capacity Completed 01/14/2018 31253 Plethysmography Determination Lung Volumes & Per Airway Completed Resist 01/14/2018 67468 Plethysmography Determination Lung Volumes & Per Airway Completed Resist 01/14/2018 87519 Pulmonary Function><Bronchodil Completed 01/14/2018 44965 Pulmonary Function><Bronchodil Completed 07/23/2017 31195 Moderate Sedation Services; Same Phys Intl 15 Mins; PT Completed >=5 Years 07/23/2017 80148 Insertion Intravasular Vena Cava Filter,Endovascular Completed Approach 07/18/2017 [id number] Colonoscopy Completed 07/18/2017 38011 Colonoscopy Flexible Diagnostic Completed 06/25/2017 85352 ECHO Transthoracic, Real-Time 2D With Doppler And Color Completed Flow 06/25/2017 61797 ECHO Transthoracic, Real-Time 2D With Doppler And Color Completed Flow 05/14/2017 21210 EKG Tracing & Interpretation Completed 01/25/2017 47732 Removal Devitalization Tissue Wound Less Than Equal 20 Completed Square CM 01/11/2017 11887 Removal Devitalization Tissue Wound Less Than Equal 20 Completed Square CM 08/15/2016 90784 Pulmonary Function><Bronchodil Completed 08/15/2016 84612 Diffusing Capacity Completed 08/15/2016 89854 Plethysmography Determination Lung Volumes & Per Airway Completed Resist 06/19/2016 46074 Polysomnography Sleep Staging 4+ Parameters Completed 05/14/2016 97820 ECHO Transthoracic, Real-Time 2D With Doppler And Color Completed Flow 05/02/2016 65638 EKG Tracing & Interpretation Completed 05/26/2015 93398 ECHO Transthoracic, Real-Time 2D With Doppler And Color Completed Flow 05/23/2015 83614 EKG Tracing & Interpretation Completed 12/05/2014 45989 Polysomnography Sleep Staging 4+ Parameters Completed 11/23/2014 72632 Diffusing Capacity Completed 11/23/2014 58492 Plethysmography Determination Lung Volumes & Per Airway Completed Resist 11/23/2014 47208 Pulmonary Function><Bronchodil Completed 09/08/2014 26908 ECHO Transthoracic, Real-Time 2D With Doppler And Color Completed Flow 08/24/2014 20235 EKG Tracing & Interpretation Completed 10/01/2013 80827 Rad Exam; Foot Comp Completed 07/08/2013 47927 EKG Tracing & Interpretation Completed 01/22/2013 29125 ECHO Transthoracic, Real-Time 2D With Doppler And Color Completed Flow 01/08/2013 92689 EKG Tracing & Interpretation Completed 07/25/2012 96991 ECHO Transthoracic, Real-Time 2D With Doppler And Color Completed Flow 07/04/2012 68584 Rad Exam; Foot Comp Completed 07/04/2012 49626 Rad Exam; Foot Comp Completed 07/03/2012 09449 EKG Tracing & Interpretation Completed 02/25/2012 36758 ECHO Transthoracic, Real-Time 2D With Doppler And Color Completed Flow 02/18/2012 14848 EKG Tracing & Interpretation Completed 08/16/2011 72298 ECHO Transthoracic, Real-Time 2D With Doppler And Color Completed Flow 08/14/2011 71123 Treadmill Interp/Report Only Completed 08/14/2011 45086 Stress Test Supervsn W/Out I/R Completed 08/06/2011 44163 EKG Tracing & Interpretation Completed 08/22/2005 21864 EKG Tracing & Interpretation Completed 08/22/2005 38051 EKG Tracing & Interpretation Completed 01/02/2005 14140 EKG Tracing & Interpretation Completed 12/18/2004 30744 Comb RT & LFT HT Cath No LV Completed 12/18/2004 42168 Selective Coronary Angiography Completed 12/18/2004 50969 S/I/R Inj Proc Vent &/Or Atrial Completed 12/18/2004 46119 Coronary Angiography Completed 12/18/2004 35636 Aortic Root Inj Proc Completed 12/18/2004 75085 Inj Proc LFT Vent/LFT Atrl Angio Completed 12/12/2004 21141 Color Doppler Completed 12/12/2004 07004 Pulse Doppler & Continuous Wave Completed 12/12/2004 33958 Echocardiogram Completed 12/08/2004 06844 ECHO/Stress Completed 12/08/2004 50348 Stress Test Completed Encounters Type Date Location Provider Dx Diagnosis Office Visit 11/05/2018 2:00p [facility] Wilman Pierre, R09.02 Hypoxemia M.D. 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 Administrator J45.901 Unspecified asthma with (acute) exacerbation G47.33 Obstructive sleep apnea (adult) (pediatric) Office Visit 07/21/2018 [facility] Misti J45.909 Unspecified asthma , 10:45a [facility] uncomplicated 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 Relations Administrator R09.02 Hypoxemia G47.33 Obstructive sleep apnea (adult) (pediatric) Office Visit 01/24/2018 2:20p [facility] Wilman Wilson R06.02 Hanyness of Julian Pierre breath R00.2 Palpitations I27.20 Pulmonary hypertension, unspecified J44.9 Chronic obstructive pulmonary disease, unspecified Office Visit 01/16/2018 [facility] And Misti J45.20 Mild intermittent 10:15a [facility] asthma, [facility] uncomplicated R09.02 Hypoxemia G47.33 Obstructive sleep apnea (adult) (pediatric) Office Visit 01/08/2018 Pulmonology And Nikole G47.33 Obstructive sleep 1:30p [facility]O Child RN, apnea (adult) [facility]- (pediatric) R09.02 Hypoxemia R06.02 Shortness of breath J45.20 Mild intermittent asthma, uncomplicated Z68.34 Body mass index (BMI) 34.0-34.9, adult Office Visit 11/20/2017 [facility] And Nikole G47.33 Obstructive sleep 3:00p [facility] Child RN, apnea (adult) [facility]- (pediatric) R09.02 Hypoxemia J45.20 Mild intermittent asthma, uncomplicated Office Visit 07/17/2017 [facility] Gastroenterology Niyah D64.9 Anemia, 7:00a MD Miguel A unspecified K92.1 Melena Office Visit 05/14/2017 1:20p [facility] Wilman Wilson G47.33 Obstructive sleep Julian Pierre apnea (adult) (pediatric) I26.99 Other pulmonary embolism without acute cor pulmonale I80.202 Phlbts and thombophlb of unsp deep vessels of l low extrem I34.0 Nonrheumatic mitral (valve) insufficiency I27.20 Pulmonary hypertension, unspecified R00.2 Palpitations Office Visit 03/06/2017 9:45a Pulmonology And Misti G47.33 Obstructive sleep [facility] apnea (adult) [facility] (pediatric) J45.909 Unspecified asthma, uncomplicated I26.99 Other pulmonary embolism without acute cor pulmonale Office Visit 02/04/2017 9:30a Surgical Grayson P. L89.893 Pressure ulcer of [facility] Suazo MD, other site, stage FACS 3 Office Visit 01/18/2017 10:00a [facility] Grayson Jones L89.95 Pressure ulcer of AT [facility] MD Gabriele, unspecified site, FACS unstageable I80.202 Phlbts and thombophlb of unsp deep vessels of l low extrem C50.919 Malignant neoplasm of unsp site of unspecified female breast Office Visit 01/04/2017 9:30a Wound Care Grayson Jones L89.95 Pressure ulcer of Center AT [facility] MD Gabriele, unspecified site, FACS unstageable I80.202 Phlbts and thombophlb of unsp deep vessels of l low extrem C50.919 Malignant neoplasm of unsp site of unspecified female breast Office Visit 12/27/2016 Surgical Grayson Jones L89.890 Pressure ulcer of 2:45p [facility] Suazo MD, other site, FACS unstageable Office Visit 12/20/2016 Orthopedic Saleem F S92.511A Disp fx of 11:00a Services Of MD Christopher proximal phalanx C.M.A. of right lesser toe(s), init Office Visit 09/03/2016 Pulmonology And Misti J45.909 Unspecified 2:00p [facility] asthma, Employee Relations Administrator uncomplicated G47.33 Obstructive sleep apnea (adult) (pediatric) I26.99 Other pulmonary embolism without acute cor pulmonale Office Visit 06/28/2016 11:45a Pulmonology And Misti G47.33 Obstructive sleep [facility] apnea (adult) [facility] (pediatric) I26.99 Other pulmonary embolism without acute cor pulmonale J45.909 Unspecified asthma, uncomplicated I27.2 Other secondary pulmonary hypertension Office Visit 05/28/2016 1:45p Pulmonology And Misti I27.9 Pulmonary heart [facility] disease, [facility] unspecified G47.33 Obstructive sleep apnea (adult) (pediatric) J45.20 Mild intermittent asthma, uncomplicated Office Visit 05/02/2016 1:30p [facility] Wilman Wilson I27.9 Pulmonary heart Julian Pierre disease, unspecified G47.33 Obstructive sleep apnea (adult) (pediatric) I26.99 Other pulmonary embolism without acute cor pulmonale E66.09 Other obesity due to excess calories J45.909 Unspecified asthma, uncomplicated Office Visit 07/06/2015 Pulmonology And Misti J45.909 Unspecified asthma , 10:45a [facility] uncomplicated [facility] I27.9 Pulmonary heart disease, unspecified G47.33 Obstructive sleep apnea (adult) (pediatric) I26.99 Other pulmonary embolism without acute cor pulmonale E66.09 Other obesity due to excess calories Office Visit 05/23/2015 11:20a [facility] Wilman Wilson G47.33 Obstructive sleep Julian Pierre apnea (adult) (pediatric) I26.99 Other pulmonary embolism without acute cor pulmonale R06.00 Dyspnea, unspecified I27.9 Pulmonary heart disease, unspecified Office Visit 02/16/2015 10:19a [facility] Bridger Baker, I26.99 Other pulmonary Assoc,pc Julian embolism Hospitalists without acute cor pulmonale C50.919 Malignant neoplasm of [facility] site of unspecified female breast G47.33 Obstructive sleep apnea (adult) (pediatric) Office Visit 01/05/2015 10:30a Pulmonology Maria D Honeycutt, 327.23 Obstructive Sleep [facility] Apnea Adult & [facility] Pediatric 493.10 Asthma Intrinsic Unspecified Office Visit 11/22/2014 11:00a Pulmonology Maria D Honeycutt, 786.05 Shortness Of [facility] Breath [facility] 327.23 Obstructive Sleep Apnea Adult & Pediatric Office Visit 09/21/2014 1:30p [facility] COLLINS Garcia 424.0 Mitral Valve Disorder 416.9 Pulmonary Heart Disease Unspec Chronic 425.11 Hypertrophic Obstructive Cardiomyopathy 307.49 Sleep Disorder Other 436 Cerebrovascular Disease Acute Ill-Defined 780.57 Unspecified Sleep Apnea Office Visit 08/24/2014 2:40p [facility] Wilman Wilson 424.0 Mitral Valve Julian Pierre Disorder 425.11 Hypertrophic Obstructive Cardiomyopathy 416.9 Pulmonary Heart Disease Unspec Chronic 272.2 Hyperlipidemia Mixed 436 Cerebrovascular Disease Acute Ill-Defined 786.50 Pain Chest Unspec 307.49 Sleep Disorder Other Office Visit 10/22/2013 Orthopedic Morgan 726.79 Entheosopathy Ankle 1:00p Services Of Julian Escalera & Tarsus Other C.M.A. Office Visit 10/01/2013 Orthopedic Morgan 726.79 Entheosopathy Ankle 1:30p Services Of Julian Escalera & Tars Other C.M.A. Office Visit 07/08/2013 Spencer Wilson 424.0 Mitral Valve 10:20a Cardiology Julian Pierre Disorder 425.11 Hypertrophic Obstructive Cardiomyopathy 416.9 Pulmonary Heart Disease Unspec Chronic 785.1 Palpitations Office Visit 01/08/2013 Spencer Wilson 425.11 Hypertrophic 11:20a Cardiology Julian Pierre Obstructive Cardiomyopathy 424.0 Mitral Valve Disorder 416.9 Pulmonary Heart Disease Unspec Chronic Office Visit 10/15/2012 2:00p [facility] Morgan 719.47 Pain Joint Ankle & Services Of Julian Escalera Foot C.M.A. Office Visit 07/04/2012 2:15p [facility] Morgan 728.71 Fibromatosis Services Of Julian Escalera Plantar Fascia C.M.A. 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 Replacement By Other Means 424.2 Tricuspid Valve Disorder Spec as Nonrheumatic Office Visit 01/04/2012 10:20a Heidy Mora 327.23 Obstructive Sleep Disorder Center Julian Moody Apnea Adult & Pediatric Office Visit 08/06/2011 2:20p Spencer Wilson 424.0 Mitral Valve Cardiology Julian Pierre Disorder 272.0 Hypercholesterolemia Pure 794.31 Electrocardiogram (ECG) (EKG) Abnormal 780.4 Dizziness & Giddiness Office Visit 08/22/2005 2:00p Spencer Wilson 786.50 Pain Chest Julian Pierre Unspec 424.0 Mitral Valve Disorder Office Visit 02/05/2005 2:00p [facility] Wilman Wilson 786.50 Pain Chest Julian Pierre Unspec 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 Unspec 785.2 Murmur Cardiac Undiagnosed 272.0 Hypercholesterolemia Pure 786.09 Dyspnea & Respiratory Abnormalities Other Office Visit 12/08/2004 11:00a [facility] Wilman Wilson 786.50 Pain Black Pierre M.D. Unspec 794.31 Electrocardiogram (ECG) (EKG) Abnormal 786.09 Dyspnea & Respiratory Abnormalities Other 414.01 Coronary Atherosclerosis [place] Plan of Treatment Future Appointment(s):03/19/2019 1:20 pm - Wilman Pierre M.D. at [facility]12/16/2018 11:00 am - Gladys Kunz NP at [facility]01/23/2019 10:30 am - Misti Moon MD at [facility]11/20/2018 - Jessy Hoffman NPN17.9 Acute kidney failure, unspecified
--- OUTSIDE RECORDS SUMMARY | 2018-12-08 17:38 | XMS REPORT | Continuity of Care Document ---
:1940 External Reference #:[id number] Author Name Rommel Chowdhury MD Address [facility] [place] [address] Care Team Providers Name Role Phone Adiel Perry MD Care Team Information Erisa Attorney Unavailable Sushil Brooks MD Primary Care Physician Unavailable Payers Date Identification Numbers Payment Provider Subscriber Policy Number: [id number] Medicare Marianne Mckinney PayID: [id number] [facility] [address] [place] [address] Policy Number: [id number] [facility] Care Option Marianne Mckinney PayID: [id number] Claims, [address] [place] [address] Problems Active Problems Provider Date Cirrhosis - [...] Marjorie Stafford, 09/21/2016 - Potassium mouth twice EDGER SAW OPERATOR-C 10/16/2016 500-125mg Tablets daily for 10 days [...] Date Facility Test Result H/L Range Note Comp Metabolic Panel 11/19/2018 [facility] Sodium 134 mmol/L Low 135-145 Potassium 4.1 [...] Egfr Non- 26.4 >60 Egfr 31.9 >60 1 Hepatitis Acute [place]/19/2018 [facility] Hepatitis A AB Igm Negative Negative 2 Hepatitis B Core AB Igm Nonreactive Nonreactive 3 Hepatitis B Surface Ag Negative Negative 4 Hepatitis C Antibody 11/19/2018 [facility] HCV Index 0.05 s/c Hepatitis C Antibody Negative Negative Iron & Iron Binding Capacity 11/19/2018 [facility] Iron 89 g/dL N 50-212 Unsaturated Iron Binding < 286 g/dL Total Iron Binding Capacity 301 g/dL N 250-450 Transferrin 215 mg/dL N 203-362 % Iron Saturation 30 % N 15-55 Laboratory test 11/19/2018 [facility] [place]atitis B Not Immune Abnormal Immune 5 finding Eber AB Titer Laboratory test 10/14/2018 [facility] CA 27-29 <pending> finding Urine Culture And 10/29/2017 [facility] Urine Culture SEE RESULT 6 Sensitivities BELOW Laboratory test 10/29/2017 [facility] Iron 93 g/dL N 50-212 finding TSH (Thyroid Stim Horm) 3.74 mcIU/mL N 0.34-5.60 Urinalysis Profile 10/29/2017 [facility] Urine Color Yellow Urine Appearance Cloudy Urine Specific [place]att 1.011 N 1.010-1.030 Urine pH 6.0 N [...] Urine Squamous Epithelial Cell Present Abnormal Absent Lipid Profile (Trig/Chol/HDL) 10/29/2017 [facility] Triglycerides 71 mg/dL 7 Cholesterol 154 mg/dL 8 HDL Cholesterol 54.5 mg/dL 9 LDL Cholesterol 85 mg/dL 10 Comp Metabolic Panel 10/29/2017 [facility] Sodium 140 mmol/L N 135-145 Potassium 4.3 [...] Egfr Non- 77.3 >60 Egfr 93.5 >60 11 Laboratory test 10/29/2017 [facility] Breast Carcinoma 189 U/mL High <=38.0 12 finding Ag(Ca27.29) CBC Auto Diff 10/29/2017 [facility] White Blood Count 2.1 10^3/uL Low 3.5-10.8 Red Blood Count 2.81 10^6/uL Low 4.00-5.40 Hemoglobin 11.3 g/dL Low 12.0-16.0 Hematocrit 33 % Low 35-47 Mean Corpuscular Volume 116 fL High 80-97 13 Mean Corpuscular Hemoglobin 40 pg High 27-31 [...] Red Blood Cells % 0.2 Laboratory test 07/17/2017 [facility] Occult Blood <pending> finding Stool Xray 07/14/2017 [facility] Radiology Chest Ap <pending> Portable Laboratory test 07/13/2017 [facility] Surgical SEE RESULT 14 finding Interface BELOW Order Laboratory test 07/12/2017 [facility] Occult Blood <pending> finding Stool Xray 07/12/2017 [facility] Radiology Cta Chest <pending> Laboratory test 10/16/2016 [facility] Inr(!) 3.9 High finding [address] [place] [address] [phone] CBC W/Auto 10/16/2016 [facility] White Blood 6.2 3/UL 4.8- Differential(!) [address] [address] Count Ser 10.8 [place] [address] Auto CNT [phone] RBC Red Blood Count 4.14 X106/UL Low 4.20-6.20 Hemoglobin Blood 12.4 g/dL 12.0-18.0 Hematocrit 37.8 % 35-52 MCV (Corpuscular Volume) 91.3 FL 79-97 MCH (Corpuscular Hemoglobin) 30.0 pg 27-31 MCHC (Corpuscular Hemog Conc) 32.9 g/dL 32.0-36.0 RDW 17.0 % High 10.5-15.0 Platelet Count Blood Auto CNT 184 X103/UL 150-450 MPV 7.7 FL 7.4-10.4 Lymph% 31.5 % 20.0-45.0 [place]% 8.8 % 1.0-9.0 Neutrophil % 59.7 % 38.0-83.0 Absolute Lymphocytes 2.0 X103/UL 1.0-4.8 Absolute Monocytes 8.8 X103/UL High 0.0-0.8 Absolute Neutrophils 59.7 X103/UL High 1.5-7.7 CBC W/Auto 09/21/2016 [facility] White 12.7 High 4.8- 10.8 Differential(!) [address] [facility] Blood 3/[place] [address] Count Ser [phone] Auto CNT RBC Red Blood Count 4.38 X106/UL 4.20-6.20 Hemoglobin Blood 12.8 g/dL 12.0-18.0 Hematocrit 41.2 % 35-52 MCV (Corpuscular Volume) 94.0 FL 79-97 MCH (Corpuscular Hemoglobin) 29.1 pg 27-31 MCHC (Corpuscular Hemog Conc) 31.0 g/dL Low 32.0-36.0 RDW 17.6 % High 10.5-15.0 Platelet Count Blood Auto CNT 192 X103/UL 150-450 MPV 7.8 FL 7.4-10.4 Lymph% 15.3 % Low 20.0-45.0 [place]% 9.8 % High 1.0-9.0 Neutrophil % 74.9 [...] Auto CNT <pending> MPV <pending> Lymph% <pending> [place]% <pending> Neutrophil % <pending> Absolute Lymphocytes <pending> [...] [facility] Inr(!) <pending> finding Xray 08/23/2016 [facility] Radiology PET Skull-Thigh <pending> W/CT-Subsequen Xray 06/01/2016 [facility] [place] Chest Abd/Pel W <pending> Xray 01/04/2016 [facility] [place] Chest Abd/Pel W <pending> Xray 09/01/2015 [facility] [place] CT Chest Abd/Pel W <pending> Xray 03/17/2015 [facility] [place] CT Chest Abd/Pel W <pending> Xray 09/22/2014 [facility] [place] Chest Abd/Pel W <pending> 1 [...] 5 Kidney failure <15 (or dialysis) 2 [id number] 3 [id number] 4 [id number] 5 [id number] 6 SEE RESULT BELOW Name: MARIANNE MCKINNEY : [address]: Adiel Perry MD Acct: [id number] Unit: [id number] AGE: 76 Location: [facility] Re10/29/17 SEX: F Status: REG REF SPEC: [id number] KEE: 10/29/17 [facility] DR: Sushil Brooks MD REQ: [id number] RECD: 10/29/17 STATUS: NICHOLE PRICE DR: Rommel Perry MD _ SOURCE: URINE SPDESC: ORDERED: Urine Culture Procedure Result Reported Site Urine Culture Final 10/30/17- 1415 ML No growth of clinically significant organisms * ML - Main Lab . END OF REPORT DEPARTMENT OF PATHOLOGY, [address] [place] [address] Nathan Bender M.D. Director [facility] # [id number] Desirable: <150 Borderline High: 150-199 High: 200-499 Very High: >500 8 Desirable: <200 Borderline High: 200-239 High: >239 9 Low: <40 Desirable: 40-60 High: >60 10 Desirable: <100 Near Optimal: 100-129 Borderline High: 130-159 High: 160-189 Very High: >189 11 Because ethnic data is not always readily [...] 15-29 5 Kidney failure <15 (or dialysis) 12 ADDITIONAL INFORMATION The testing method is a chemiluminometric immunoassay manufactured by Siemens and performed on the [employer]'s Advia Stazoo.comaur. Values obtained with different assay methods or kits may be different and cannot be used interchangeably. Test results cannot be interpreted as absolute evidence for the presence or absence of malignant disease. Test Performed by: [address] [address] 13 Consistent with Previous Results Reported on 10/04/17 14 SEE RESULT BELOW Name: MARIANNE MCKINNEY : [address]: Adiel Perry MD Acct: [id number] Unit: [id number] AGE: 76 Location: [place] [address]- Re07/12/17 SEX: F Status: ADM IN SPEC: [id number] KEE: 07/13/17-[address]: Niyah Grady DO REQ: [id number] RECD: 07/13/17-1158 STATUS: MELISSA PRICE DR: Wilman Hutchinson MD [...] positive and CK20 negative. Staning for ER, [place], and Her2/kee is non-contributory as the metastatic [...] CONTINUED ON NEXT PAGE DEPARTMENT OF PATHOLOGY, [address] [place] [address] Nathan Bender M.D. Director [facility] # [id number] RUN DATE: 07/16/17 [facility] LAB LIVE PAGE 2 Patient: MARIANNE MCKINNEY Audi [id number] (Continued) POST-OPERATIVE DIAGNOSIS (Continued) POST-OPERATIVE DIAGNOSIS Normal [...] 1615 END OF REPORT DEPARTMENT OF PATHOLOGY, [address] [place] [address] Nathan Bender M.D. Director [facility] # [id number] Procedures Date Code Description Status 09/30/2017 73486 Capsule Endoscopy Completed Encounters Type Date Location Provider Dx Diagnosis Office Visit 11/06/2017 Maribell Douglas D50.9 Iron deficiency 3:45p [facility] anemia, unspecified Office Visit 08/22/2017 Maribell Douglas D64.9 Anemia, 2:45p [facility] unspecified D50.9 Iron deficiency anemia, unspecified Office Visit 11/05/2016 [facility] K60.2 Anal fissure, 10:00a [facility] [place] [facility], unspecified EDGER SAW OPERATOR-C K60.0 Acute anal fissure [facility] fissure, 11:15a [facility], unspecified EDGER SAW OPERATOR-C K60.0 Acute anal fissure K62.5 Hemorrhage of anus and rectum Z79.01 [facility] (current) use of anticoagulants Office Visit 09/21/2016 [facility] K62.5 Hemorrhage of 8:30a [facility] [place], anus and rectum EDGER SAW OPERATOR-C R10.30 Lower abdominal pain, unspecified R10.84 Generalized abdominal pain Plan of Treatment Future Appointment(s):02/19/2019 2:30 pm - Rommel Chowdhury MD at [facility]11/19/2018 - Rommel Chowdhury MDK74.69 Other cirrhosis of liverComments:I had a very [...] work today she has follow-up with her track man tomorrow and that her oncologist on Saturday I would like to see her back in approximately 2 months from now
--- OUTSIDE RECORDS SUMMARY | 2018-12-08 17:38 | XMS REPORT | Continuity of Care Document ---
:1940 External Reference #:[id number] Author Name Rommel Chowdhury MD Address [facility] [place] [address] Care Team Providers Name Role Phone Adiel Perry MD Care Team Information [employer] Unavailable Sushil Brooks MD Primary Care Physician Unavailable Payers Date Identification Numbers Payment Provider Subscriber Policy Number: [id number] Medicare Marianne Mckinney PayID: [id number] [facility] [address] [place] [address] Policy Number: [id number] [facility] Care Option Marianne Mckinney PayID: [id number] Claims, [address] [place] [address] Problems Active Problems Provider Date Cirrhosis - [...] Marjorie Stafford, 09/21/2016 - Potassium mouth twice 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 10/16/2016 500-125mg Tablets daily for 10 days [...] Date Facility Test Result H/L Range Note Hepatitis Acute PNL 11/19/2018 [facility] [place] A AB Igm <pending> [place] Hepatitis B Core AB Igm <pending> Hepatitis B Surface Ag <pending> Hepatitis C Antibody <pending> Laboratory test finding 11/19/2018 [facility] Hepatitis B Core AB Total <pending> Anti Nuclear Antibody <pending> Mitochondrial AB AMA M2 Igg <pending> Laboratory test 11/19/2018 [facility] Hepatitis B Eber <pending> finding AB Titer Laboratory test 10/14/2018 [facility] CA 27-29 <pending> finding Urine Culture And 10/29/2017 [facility] Urine Culture SEE RESULT 1 Sensitivities BELOW Laboratory test 10/29/2017 [facility] Iron 93 g/dL N 50-212 finding TSH (Thyroid Stim Horm) 3.74 mcIU/mL N 0.34-5.60 Urinalysis Profile 10/29/2017 [facility] Urine Color Yellow Urine Appearance Cloudy Urine Specific [place] 1.011 N 1.010-1.030 Urine pH 6.0 N [...] Present Abnormal Absent Lipid Profile (Trig/Chol/HDL) 10/29/2017 [facility] Triglycerides 71 mg/dL 2 Cholesterol 154 mg/dL 3 HDL Cholesterol 54.5 mg/dL 4 LDL Cholesterol 85 mg/dL 5 Comp Metabolic Panel 10/29/2017 [facility] Sodium 140 mmol/L N 135-145 Potassium 4.3 [...] Egfr Non- 77.3 >60 Egfr 93.5 >60 6 Laboratory test 10/29/2017 [facility] Breast Carcinoma 189 U/mL High <=38.0 7 finding Ag(Ca27.29) CBC Auto Diff 10/29/2017 [facility] White Blood Count 2.1 10^3/uL Low 3.5-10.8 Red Blood Count 2.81 10^6/uL Low 4.00-5.40 Hemoglobin 11.3 g/dL Low 12.0-16.0 Hematocrit 33 % Low 35-47 Mean Corpuscular Volume 116 fL High 80-97 8 Mean Corpuscular Hemoglobin 40 pg High 27-31 [...] Occult Blood <pending> finding Stool Xray 07/14/2017 [facility] Radiology Chest Ap <pending> Portable Laboratory test 07/13/2017 [facility] Surgical SEE RESULT 9 finding Interface BELOW Order Laboratory test 07/12/2017 [facility] Occult Blood <pending> finding Stool Xray 07/12/2017 [facility] Radiology Cta Chest <pending> Laboratory test 10/16/2016 [facility] Inr(!) 3.9 High finding [address] [place] [address] [phone] CBC W/Auto 10/16/2016 [facility] White Blood 6.2 3/UL 4.8- Differential(!) [facility] Count Ser Auto 10.8 [place] [address] CNT [phone] RBC Red Blood Count 4.14 X106/UL Low 4.20-6.20 Hemoglobin Blood 12.4 g/dL 12.0-18.0 Hematocrit 37.8 % 35-52 MCV (Corpuscular Volume) 91.3 FL 79-97 MCH (Corpuscular Hemoglobin) 30.0 pg 27-31 MCHC (Corpuscular Hemog Conc) 32.9 g/dL 32.0-36.0 RDW 17.0 % High 10.5-15.0 Platelet Count Blood Auto CNT 184 X103/UL 150-450 MPV 7.7 FL 7.4-10.4 Lymph% 31.5 % 20.0-45.0 [place]% 8.8 % 1.0-9.0 Neutrophil % 59.7 % 38.0-83.0 Absolute Lymphocytes 2.0 X103/UL 1.0-4.8 Absolute Monocytes 8.8 X103/UL High 0.0-0.8 Absolute Neutrophils 59.7 X103/UL High 1.5-7.7 CBC W/Auto 09/21/2016 [facility] White 12.7 High 4.8- 10.8 Differential(!) [facility] 3/[place] [address] Count Ser [phone] Auto CNT RBC Red Blood Count 4.38 X106/UL 4.20-6.20 Hemoglobin Blood 12.8 g/dL 12.0-18.0 Hematocrit 41.2 % 35-52 MCV (Corpuscular Volume) 94.0 FL 79-97 MCH (Corpuscular Hemoglobin) 29.1 pg 27-31 MCHC (Corpuscular Hemog Conc) 31.0 g/dL Low 32.0-36.0 RDW 17.6 % High 10.5-15.0 Platelet Count Blood Auto CNT 192 X103/UL 150-450 MPV 7.8 FL 7.4-10.4 Lymph% 15.3 % Low 20.0-45.0 [place]% 9.8 % High 1.0-9.0 Neutrophil % 74.9 [...] Auto CNT <pending> MPV <pending> Lymph% <pending> [place]% <pending> Neutrophil % <pending> Absolute Lymphocytes <pending> [...] [facility] In[facility](!) <pending> finding Xray 08/23/2016 [facility] Radiology PET Skull-Thigh <pending> W/CT-Subsequen Xray 06/01/2016 [facility] [place] Chest Abd/Pel W <pending> Xray 01/04/2016 [facility] [place] Chest Abd/Pel W <pending> Xray 09/01/2015 [facility] [place] Chest Abd/Pel W <pending> Xray 03/17/2015 [facility] [place] CT Chest Abd/Pel W <pending> Xray 09/22/2014 [facility] [place] Chest Abd/Pel W <pending> 1 SEE RESULT BELOW Name: MARIANNE MCKINNEY : [address]: Adiel Perry MD Acct: [id number] Unit: [id number] AGE: 76 Location: [facility] Re10/29/17 SEX: F Status: REG REF SPEC: [id number] KEE: 10/29/[address] [facility] [address]: Sushil Brooks MD REQ: [id number] RECD: 10/29/17 STATUS: NICHOLE PRICE DR: Rommel Perry MD _ SOURCE: URINE SPDESC: ORDERED: Urine Culture Procedure Result Reported Site Urine Culture Final 10/30/17- 1419 ML No growth of clinically significant organisms * ML - Main Lab . END OF REPORT DEPARTMENT OF PATHOLOGY, [address] [place] [address] Nathan Bender M.D. Director [facility] # [id number] Desirable: <150 Borderline High: 150-199 High: 200-499 Very High: >500 3 Desirable: <200 Borderline High: 200-239 High: >239 4 Low: <40 Desirable: 40-60 High: >60 5 Desirable: <100 Near Optimal: 100-129 Borderline High: 130-159 High: 160-189 Very High: >189 6 Because ethnic data is not always readily [...] 15-29 5 Kidney failure <15 (or dialysis) 7 ADDITIONAL INFORMATION The testing method is a chemiluminometric immunoassay manufactured by Siemens and performed on the [employer]'s [employer] BioSurplusaur. Values obtained with different assay methods or kits may be different and cannot be used interchangeably. Test results cannot be interpreted as absolute evidence for the presence or absence of malignant disease. Test Performed by: [address] [id number] 8 Consistent with Previous Results Reported on 10/04/17 9 SEE RESULT BELOW Name: MARIANNE MCKINNEY : [address]: Adiel Perry MD Acct: [id number] Unit: [id number] AGE: 76 Location: [place] [address]- Re07/12/17 SEX: F Status: ADM IN SPEC: [id number] KEE: 07/13/17-[address]: Niyah Grady DO REQ: [id number] RECD: 07/13/17-1158 STATUS: MELISSA PRICE DR: Wilman [...] positive and CK20 negative. Staning for ER, [place], and Her2/kee is non-contributory as the metastatic [...] CONTINUED ON NEXT PAGE DEPARTMENT OF PATHOLOGY, [address] [place] [address] Nathan Bender M.D. Director [facility] # [id number] RUN DATE: 07/16/17 [facility] LAB LIVE PAGE 2 Patient: MARIANNE MCKINNEY Audi [id number] (Continued) POST-OPERATIVE DIAGNOSIS (Continued) POST-OPERATIVE DIAGNOSIS Normal [...] 1615 END OF REPORT DEPARTMENT OF PATHOLOGY, [address] [place] [address] Nathan Bender M.D. Director [facility] # [id number] Procedures Date Code Description Status 09/30/2017 82574 Capsule Endoscopy Completed Encounters Type Date Location Provider Dx Diagnosis Office Visit 11/06/2017 Maribell Douglas D50.9 Iron deficiency 3:45p [facility] anemia, unspecified Office Visit 08/22/2017 Maribell Douglas D64.9 Anemia, 2:45p [facility] MD unspecified D50.9 Iron deficiency anemia, unspecified Office Visit 11/05/2016 [facility] K60.2 Anal fissure, 10:00a [facility] 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 K60.0 Acute anal fissure [facility] K60.2 Anal fissure, 11:15a [facility] [place] [facility], unspecified 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 K60.0 Acute anal fissure K62.5 Hemorrhage of anus and rectum Z79.01 prison (current) use of anticoagulants Office Visit 09/21/2016 [facility] Marjorie K62.5 Hemorrhage of 8:30a [facility], anus and rectum 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 R10.30 Lower abdominal pain, unspecified R10.84 Generalized abdominal pain Plan of Treatment Future Appointment(s):02/19/2019 2:30 pm [facility]2018 - Rommel Chowdhury MDK74.69 Other cirrhosis of [...] work today she has follow-up with her hand rounder tomorrow and that her oncologist on Saturday I would like to see her back in approximately 2 months from now
--- NOTE | 2018-12-08 17:46 | ED ---
Dizziness - HPI Summary HPI Summary: Pt is a 77 y/o F presenting to the ED with a chief complaint of weakness onset 3 days ago. The pt has stage IV breast CA with metastasis to the lungs and bones , and currently receives chemotherapy transfusions q12 wks under Dr. Perry. At home, she is on 3L O2, and she also notes hx of liver failure and kidney failure , and has been through paracentesis in the past. She reports nausea, vomiting, and rib pain. Her reports confusion. She denies fevers, chills, and abd pain. - History Of Current Complaint Chief Complaint: EDWeakness Stated Complaint: CANCER PER EMS Time Seen by Provider: 12/08/18 17:17 Hx Obtained From: Patient Onset/Duration: Still Present, Gradually Timing: Days Severity Initially: Moderate Severity Currently: Moderate Character: Weak Aggravating Factor(s): Nothing Alleviating Factor(s): Nothing Associated Signs And Symptoms: Positive: Nausea, Vomiting, Other: - rib pain - Allergies/Home Medications Allergies/Adverse Reactions: Allergies Allergy/AdvReac Type Severity Reaction Status Date / Time Adhesive Tape Allergy Unknown ITCHY RASH Verified 09/01/18 10:52 erythromycin base Allergy GI Upset Verified 09/01/18 10:52 latex Allergy Rash Verified 09/01/18 10:52 ondansetron Allergy Headache Verified 09/01/18 10:52 prochlorperazine Allergy Swelling Verified 09/01/18 10:52 Of Face,Lips,& Throat Sulfa (Sulfonamide Allergy Rash Verified 09/01/18 10:52 Antibiotics) PMH/Surg Hx/FS Hx/Imm Hx Previously Healthy: No Endocrine/Hematology History: Denies: Hx Diabetes, Hx Systemic Lupus Erythematosus, Hx Thyroid Disease Cardiovascular History: Reports: Hx Valvular Heart Disease - MV regurge, Other Cardiovascular Problems/Disorders - mitral valve regur Denies: Hx Congestive Heart Failure, Hx Hypertension, Hx Pacemaker/ICD Respiratory History: Reports: Hx Asthma, Hx Chronic Obstructive Pulmonary Disease (COPD) - pt claims she has a "little" copd, Hx Sleep Apnea - NO MACHINES GI History: Reports: Hx Gastroesophageal Reflux Disease, Other GI Disorders - DIVERTIC History: Reports: Hx Chronic Renal Failure Denies: Hx Dialysis, Hx Renal Disease Musculoskeletal History: Reports: Hx Arthritis, Other Musculoskeletal History - osteo arthritis Denies: Hx Rheumatoid Arthritis, Hx Gout Sensory History: Reports: Hx Cataracts, Hx Contacts or Glasses, Hx Glaucoma - BOTH EYES Denies: Hx Hearing Aid Opthamlomology History: Reports: Hx Cataracts, Hx Contacts or Glasses, Hx Glaucoma - BOTH EYES Psychiatric History: Reports: Hx Anxiety - ON MEDS, Hx Depression - ON MEDS Denies: Hx Panic Disorder - Cancer History Cancer Type, Location and Year: Breast CA WITH BONE METS Hx Chemotherapy: Yes - 1998 per pt Hx Radiation Therapy: No - Surgical History Surgery Procedure, Year, and Place: bilaterally knee replacement-07/2011, 01/2012 , right masectomy-1997, gall bladder removed-1984, rt shoulder-1999, lap for mekels diverticulum-1991, tubal ligation-1974, bunion repair-2003, bilateral, rt toes, bilateral cataract surgeries August 2014, D&C-2003 Hx Anesthesia Reactions: No Infectious Disease History: No Infectious Disease History: Denies: Hx Clostridium Difficile, Hx Hepatitis, Hx Human Immunodeficiency Virus (HIV), Hx of Known/Suspected MRSA, Hx Shingles, Hx Tuberculosis, Hx Known/ Suspected VRE, Hx Known/Suspected VRSA, History Other Infectious Disease, Traveled Outside the [place] in Last 30 Days - Family History Known Family History: Negative: Diabetes - Social History Alcohol Use: Daily Alcohol Amount: 4 glasses of wine and sebastian per day. Hx Substance Use: No Substance Use Type: Reports: None Hx Tobacco Use: No Smoking Status (MU): Never Smoked Tobacco Review of Systems Negative: Fever, Chills Positive: Other - rib pain Positive: Vomiting, Nausea. Negative: Abdominal Pain Positive: Other - confusion All Other Systems Reviewed And Are Negative: Yes Physical Exam - Summary Physical Exam Summary: GENERAL: Patient is a well-developed and nourished F who is lying comfortable in the stretcher. Patient is not in any acute respiratory distress. HEAD AND FACE: Normocephalic EYES: PERRLA, EOMI x 2, conjunctiva pale EARS: Hearing grossly intact. MOUTH: Oropharynx within normal limits. NECK: Supple, trachea is midline, no adenopathy, no JVD, no carotid bruit. CHEST: Symmetric, no tenderness at palpation LUNGS: Crackles in her bases bilaterally CVS: Regular rate and rhythm, S1 and S2 present, no murmurs or gallops appreciated. ABDOMEN: Distended, non-tender. Bowel sounds are normal. No abnormal abdominal pulsations. EXTREMITIES: Full 5/5 ROM in all major joints, no edema, no cyanosis or clubbing. NEURO: Alert and oriented x 3. No acute neurological deficits. Speech is normal and follows commands. 5/5 motor of lower extremities SKIN: Dry and warm Triage Information Reviewed: Yes Vital Signs On Initial Exam: Initial Vitals Temp Pulse Resp BP Pulse Ox 97.8 F 82 17 144/62 93 12/08/18 17:01 12/08/18 17:01 12/08/18 17:01 12/08/18 17:01 12/08/18 17:01 Vital Signs Reviewed: Yes - Shane Coma Scale Best Eye Response: 4 - Spontaneous Best Motor Response: 6 - Obeys Commands Best Verbal Response: 4 - Confused Coma Scale Total: 14 Diagnostics - Vital Signs Vital Signs Temp Pulse Resp BP Pulse Ox 12/08/18 17:01 97.8 F 82 17 144/62 93 - Laboratory Result Diagrams: 12/08/18 17:36 12/08/18 17:36 Lab Statement: Any lab studies that have been ordered have been reviewed, and results considered in the medical decision making process. - Radiology CXR Radiology Interpretation Completed By: ED Physician Summary of Radiographic Findings: There is no pneumonia, but there are chronic changes present in comparison with the last CXR. Pending official radiology report. Dizzy Course/Dx - Course Course Of Treatment: Pt is a 77 y/o F presenting to the ED with a chief complaint of weakness onset 3 days ago. The pt has stage IV breast CA with metastasis to the lungs and bones, and currently receives chemotherapy transfusions q12 wks under Dr. Perry. At home, she is on 3L O2, and she also notes hx of liver failure and kidney failure, and has been through paracentesis in the past. She reports nausea, vomiting, and rib pain. Her reports confusion. She denies fevers, chills, and abd pain. Her physical exam reveals pale conjunctiva, crackles in the bases of her lungs bilaterally, and a distended abdomen. CXR shows that there is no pneumonia, but there are chronic changes present in comparison with the last CXR, pending official radiology report. The pts hematology shows RBC of 2.05, Hgb of 8.1, Hct of 23, MCV of 114, MCH of 40, RDW of 20, and plt count of 92. Her INR is 1.21. The pts has a Sodium of 123, Chloride of 93, BUN of 88, Creatinine of 2.21, BUN/Creatinine ratio of 39.8, Magnesium of 2.9, AST of 51, Alkaline Phosphate of 163, and Ammonia of 71. The pts Potassium is 6.5. In the ED course, the pt was given Calcium Gluconate 2gm, 25ml of Dextrose, 5 units of Insulin, 30ml Lactulose, 8.4gm Veltassa powder, and fluids. 1799 - I spoke with Dr. Munoz who advised speaking with Dr. Perry before admitting the patient. 1830 - I spoke with Dr. Perry who stated the patient should be admitted to the hospitalist. The pt will also have a barrow catheter placed, as she has urine in her bladder but is unable to urinate. She states this is not new. The pt also has full 5/5 ROM in her bilateral legs. - Diagnoses Provider Diagnoses: Hyperkalemia, Hyponatremia, Hepatic encephalopathy - Provider Notifications Discussed Care Of Patient With: Adiel Perry Time Discussed With Above Provider: 18:30 Instructed by Provider To: Admit As Inpatient - Critical Care Time Critical Care Time: 30-74 min - 30min Discharge - Sign-Out/Discharge Documenting (check all that apply): Patient Departure - Discharge Plan Condition: Stable Disposition: ADMITTED TO [facility] Referrals: Sushil Brooks MD [Primary Care Provider] - - Billing Disposition and Condition Condition: STABLE Disposition: Admitted to [facility] - Attestation Statements Document Initiated by Scribe: Yes Documenting Scribe: Koki Aguilar Provider For Whom Tal is Documenting (Include Credential): Natalie Pyle MD. Scribe Attestation: Koki Garner, scribed for Natalie Pyle MD. on 12/08/18 at 1843. Scribe Documentation Reviewed: Yes Provider Attestation: The documentation as recorded by the [place] accurately reflects the service I personally performed and the decisions made by , Hiro Pyle MD. Status of Scribe Document: Viewed Consult Consult: 1799 - I spoke with Dr. Munoz who advised speaking with Dr. Perry before admitting the patient. 1830 - I spoke with Dr. Perry who stated the patient should be admitted to the hospitalist.
[2018-12-08 17:50] LABS: ABS Lymphocytes 0.4 10^3/ul (1.0-4.8); ABS Monocytes 0.4 10^3/ul (0-0.8); ABS Neutrophils 2.8 10^3/ul (1.5-7.7); Eosinophil % 0.6 %; Hematocrit 23 % (35-47); Hemoglobin 8.1 g/dL (12.0-16.0); Lymphocyte % 11.3 %; Mean Corpuscular HGB Conc 35 g/dL (31-36); Mean Corpuscular Hemoglobin 40 pg (27-31); Mean Corpuscular Volume 114 fL (80-97); Mean Platelet Volume 9.4 fL (7.4-10.4); Nucleated Red Blood Cells % 0.3; Platelet Count 92 10^3/uL (150-450); Red Blood Count 2.05 10^6 /uL (3.70-4.87); Red Cell Distribution Width 20 % (10-15); White Blood Count 3.7 10^3/uL (3.5-10.8)
[2018-12-08 17:56] LABS: Activated Partial Thrombo Time 33.8 seconds (26.0-38.0); INR 1.21 (0.82-1.09)
[2018-12-08 18:05] LABS: Albumin 3.4 g/dL (3.2-5.2); Albumin/Globulin Ratio 1.1 (1-3); BUN/Creatinine Ratio 39.8 (8-20); Calcium 9.6 mg/dL (8.6-10.3); EGFR Non-African American 21.5 (>60); Globulin 3.2 g/dL (2-4); Magnesium 2.9 mg/dL (1.9-2.7); Total Bilirubin 0.8 mg/dL (0.2-1.0); Total Protein 6.6 g/dL (6.4-8.9)
[2018-12-08 18:08] LABS: Potassium 6.5 mmol/L (3.5-5.0)
[2018-12-08] MEDS ORDERED: Dextrose 50% VIAL 50 ml IV ONE (18:11)
[2018-12-08] MEDS ORDERED: Calcium Gluconate INJ* 2 GM in NS 0.9% 100 ML* 100 ML IVPB ONE (18:11)
[2018-12-08] MEDS ORDERED: Insulin REGULAR(*) 1 UNITS UNIT IV PUSH ONE (18:11)
[2018-12-08] MEDS ORDERED: NS 0.9% 1000 ML** 1,000 ML IV ONE (18:13)
[2018-12-08 18:45] LABS: TSH (Thyroid Stimulating Horm) 2.51 mcIU/mL (0.34-5.60)
[2018-12-08 18:47] LABS: Urine Appearance Clear; Urine Bilirubin Negative (Negative); Urine Blood Negative (Negative); Urine Color Yellow; Urine Glucose Negative (Negative); Urine Ketones Negative (Negative); Urine Nitrite Negative (Negative); Urine Protein Negative (Negative); Urine Specific Gravity 1.015 (1.010-1.030); Urine Urobilinogen Negative (Negative)
[2018-12-08 18:47] LABS: Free T4 1.07 ng/dL (0.61-1.12)
[2018-12-08] MEDS ORDERED: NS 0.9% 100 ML* 100 ML ONE (18:50)
[2018-12-08] MEDS: Patiromer POWDER* 8.4 GM PAK PO SCH (19:44)
[2018-12-08] MEDS ORDERED: ALPRAZolam TAB* 0.25 MG PO PRN (20:21)
[2018-12-08] MEDS ORDERED: Albuterol/Ipratropium NEB.SOL* Albuterol 2.5 MG/Ipratropium 0.5 MG 3 ML INH PRN (20:21)
[2018-12-08] MEDS ORDERED: oxyCODONE/Acetamin 5/325 MG* TAB PO PRN (20:21)
--- NOTE | 2018-12-08 21:48 | HP ---
CC: Dr. Adiel Perry ADMISSION HISTORY AND PHYSICAL: DATE OF ADMISSION: 12/08/18 CHIEF COMPLAINT: Generalized weakness. 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 The patient stated that for the last 3 days, she has been having progressive weakness, unabl e to get out of bed, unable to walk which is accompanied by some nausea, vomiting and some rib pain a nd there was some intermittent confusion according to the . There is no other fever, chills. She does have abdominal distention due to fluid overload but no other pain. No chest pain, no breat maximus difficulty. The patient has no other fever as mentioned. PAST MEDICAL HISTORY: 1. She has breast cancer initially diagnosed in 1997 on the right breast, status post mastectomy and chemotherapy which was in remission until it was rediscovered in 2010 at which point she was again s tarted on some chemo and right now she is being modulated with some aromatase inhibitors. 2. She also had history of DVT and PE in 2014. She was started on Lovenox, but then later transitio carlos to Coumadin and further later transitioned further to Xarelto and she has been stopped on any blo od thinners after she received an IVC filter placement due to her anemia and chemo. 3. History of COPD secondary to secondhand smoking with pulmonary hypertension, on 3 L nasal cannula at home. 4. History of liver cirrhosis secondary to alcohol use. 5. History of insomnia. 6. History of depression. 7. History of anxiety. 8. History of CKD stage 4 which she states is secondary to torsemide overdose due to some miscommuni cation to the pharmacy which developed about 2 months ago. 9. History of glaucoma and macular degeneration of the eye. 10. Bony metastasis of the breast cancer. PAST SURGICAL HISTORY: 1. Cataract in 2014. 2. Right total knee replacement in 2011. 3. Foot surgery in 2008. 4. Bunion repair surgery in 2003. D and C in 2003. 5. Right mastectomy in 1997. 6. Cholecystectomy in 1984. 7. Tubal ligation in 1974. 8. IVC filter placement about 2 years ago. ALLERGIES: The patient has allergies to ADHESIVE TAPE, ERYTHROMYCIN BASE, LATEX, ONDANSETRON, PROCHL ORPERAZINE, and SULFA ANTIBIOTICS. FAMILY HISTORY: Noncontributory at her age of 77, but there is family history of brain cancer in her grandmother and stomach cancer in her uncle. SOCIAL HISTORY: She is , lives with her . Denies any smoking, but was exposed to seco ndhand smoking and consumes more than 3 to 5 drinks a day ever since it was found out about the recur rence of her malignancy and developed cirrhosis. She is still a full code at this point. Both the h usband and the patient confirmed this. REVIEW OF SYSTEMS: A 14-point review of systems did not reveal any new information, other than what is stated in the HPI. PHYSICAL EXAMINATION GENERAL: The patient is awake, alert, and oriented x3, did not appear to be in any acute respiratory distress. VITAL SIGNS: In the ER, BP was noted to be 117/63, heart rate 74, respiration rate 17, saturating 96 % on 3 L nasal canula, temperature documented at 97.8. HEAD AND NECK: Atraumatic, normocephalic. Bilateral pupils are reactive. Oral mucosa was moist. N cody: Supple. No jugular venous distention. LUNGS: Clear to auscultation bilaterally. No wheezing, rhonchi, or rales. HEART: S1, S2. Regular rate and rhythm. ABDOMEN: Distended without shifting dullness with fluid wave present. EXTREMITIES: The patient had minimal lower extremity edema. DIAGNOSTIC STUDIES/LAB DATA: Labs: CBC showed anemia with hemoglobin of 8.1, hematocrit of 23. Wh en compared to her hemoglobin about a month ago, it was noted to have a 2 g drop. Platelet counts we re also dropped minimally from 162/92. Coagulation profile shows INR elevated at 1.21. Comprehensive metabolic panel shows sodium of 123, potassium elevated at 6.5, chloride 93, BUN elevated at 88, cre atinine 2.21. Lactic acid normal. Magnesium elevated at 2.9. AST elevated at 51, ALT 31, alkaline phosphatase elevated at 163, ammonia minimally elevated at 71. BNP normal at 68. Rest of the LFTs we re within normal limits. Urinalysis was negative for any leuk esterase or nitrite. Portable chest x-ray did not reveal any obvious changes. CT brain was performed. I discussed the mei e with radiologist who suggested there was no acute changes. Some cerebral atrophy likely secondary t o her malignancy and alcohol use, but otherwise, nothing acute. Official report is still pending. E KG showed sinus rhythm at 79 beats per minute without any ST elevation. When compared to her older E KG from 2015, there was no significant change in the EKG. IMPRESSION: This is a 77-year-old female with breast cancer with metastasis to the bone, liver cirrh osis, deep venous thrombosis, chronic obstructive pulmonary disease, here due to worsening weakness, likely debility and noted to have acute on chronic kidney disease, elevated ammonia, mild anemia, and elevated potassium. ASSESSMENT AND PLAN: 1. Generalized debility likely secondary to progressive weakness from her malignancy versus ascites related weakness. We will get Physical Therapy evaluation and see if the patient would benefit from any rehabilitation. 2. Elevated potassium. The patient already received the medication with Patiromer powder and I will repeat potassium in the morning. 3. Elevated ammonia. Restart home lactulose therapy. 4. Anemia, unclear etiology. We will get stool occult to rule out any GI losses, although the trell nt does not have any GI loss according to her. 5. History of chronic obstructive pulmonary disease. Restart home medication. 6. History of deep venous thrombosis and pulmonary embolism, status post IVC filter placement. 7. History of breast cancer. Dr. Perry's cancer team will take over the patient's care in the [facility]. 8. Hyponatremia. Likely chronic secondary to cirrhosis. Continue salt tablets. 9. Code status. I have discussed extensively regarding the patient's poor prognosis, but the jessica ramírez and her are stating that the patient is full code and they do not have any other advance di rectives at this point. [id number]/[facility] #: [id number]
[2018-12-08] MEDS: Mirtazapine TAB* 15 MG PO SCH (23:33)
[2018-12-08] MEDS: Docusate CAP* 100 MG PO SCH (23:33)
[2018-12-08] MEDS: Betaxolol-S 0.25%* 10 ML BTL BOTH EYES SCH (23:33)
[2018-12-08] MEDS: CMCS:OMEGA-3 FATTY ACIDS (NF) 1,000 MG CAP PO SCH (23:33)
[2018-12-08] MEDS: oxyCODONE SR TAB(*) 10 MG TAB.SR PO SCH (23:33)
[2018-12-08] MEDS: Mometasone/Formoter 100/5 MDI INH SCH (23:49)
[2018-12-09] MEDS: Mometasone/Formoter 100/5 MDI INH SCH ×2 (07:59→19:43)
[2018-12-09 08:16] LABS: Hematocrit 24 % (35-47); Hemoglobin 7.9 g/dL (12.0-16.0); Mean Corpuscular HGB Conc 34 g/dL (31-36); Mean Corpuscular Hemoglobin 39 pg (27-31); Mean Corpuscular Volume 117 fL (80-97); Mean Platelet Volume 10.5 fL (7.4-10.4); Platelet Count 92 10^3/uL (150-450); Red Blood Count 2.02 10^6 /uL (3.70-4.87); Red Cell Distribution Width 21 % (10-15); White Blood Count 3.9 10^3/uL (3.5-10.8)
[2018-12-09 08:34] LABS: Albumin 3.2 g/dL (3.2-5.2); BUN/Creatinine Ratio 42.9 (8-20); Calcium 10.1 mg/dL (8.6-10.3); EGFR African American 29.5 (>60); EGFR Non-African American 24.4 (>60); Globulin 3.2 g/dL (2-4); Indirect Bilirubin 0.5 mg/dL (0.3-1.0); Total Bilirubin 0.8 mg/dL (0.2-1.0); Total Protein 6.4 g/dL (6.4-8.9)
[2018-12-09 08:44] LABS: Potassium 5.9 mmol/L (3.5-5.0)
[2018-12-09] MEDS: Pantoprazole TAB * 40 MG TAB PO SCH (09:29)
[2018-12-09] MEDS: Sodium Chloride TAB* 1 GM PO SCH (09:29)
[2018-12-09] MEDS: Docusate CAP* 100 MG PO SCH ×2 (09:29→20:57)
[2018-12-09] MEDS: Multivitamins/Minerals TAB PO SCH (09:30)
[2018-12-09] MEDS: oxyCODONE SR TAB(*) 10 MG TAB.SR PO SCH ×2 (09:30→20:57)
[2018-12-09] MEDS: Fluticasone NASAL SPRAY 50MCG* 16 gm SPRAY BTL BOTH NARES SCH (09:31)
[2018-12-09] MEDS: Betaxolol-S 0.25%* 10 ML BTL BOTH EYES SCH ×2 (09:31→21:03)
[2018-12-09] MEDS: Patiromer POWDER* 8.4 GM PAK PO SCH (10:15)
[2018-12-09] MEDS: Escitalopram * 20 MG TABLET PO SCH (10:15)
[2018-12-09 13:31] LABS: ABS Eosinophils 0.1 10^3/ul (0-0.6); ABS Lymphocytes 0.6 10^3/ul (1.0-4.8); ABS Monocytes 0.5 10^3/ul (0-0.8); ABS Neutrophils 2.6 10^3/ul (1.5-7.7); Eosinophil % 2.1 %; Lymphocyte % 16.5 %; Nucleated Red Blood Cells % 0.6
[2018-12-09 13:32] LABS: Polychromasia 1+
--- NOTE | 2018-12-09 16:33 | PN ---
Subjective Date of Service: 12/09/18 Interval History: Ms. Mckinney is feeling well today. She would like to go home today. Denies CP, SOB, N/V. reports cirrhosis was diagnosed in August and the patient has had multiple paracenteses since that time, most recently on during which time 6L of fluid was removed. He reports that she stopped drinking 3 weeks ago when she was told to do so by her doctor. No concerns from nursing. Family History: Unchanged from Admission Social History: Unchanged from Admission Past Medical History: Unchanged from Admission Objective Active Medications: Albuterol/Ipratropium (Duoneb (Albuterol 2.5 Mg/Ipratropium 0.5 Mg)) 1 neb INH Q4H PRN SOB/WHEEZING Alprazolam (Xanax Tab*) 0.25 mg PO BID PRN ANXIETY Betaxolol HCl (Betoptic-S 0.25%*) 1 drop BOTH EYES BID SARAH Docusate Sodium (Colace Cap*) 100 mg PO BID SARAH Escitalopram Oxalate (Lexapro *) 20 mg PO DAILY SARAH Ferrous Sulfate (Ferrous Sulfate Tab*) 325 mg PO EVERY OTHER DAY SARAH Fish Oil (Fish Oil (Nf)) 1,000 mg PO BEDTIME SARAH Fluticasone Propionate (Flonase Nasal [place] 50mcg*) 1 spray BOTH NARES DAILY SARAH Lactulose (Lactulose*) 30 ml PO BID SARAH Mirtazapine (Remeron Tab*) 30 mg PO BEDTIME SARAH Mometasone Furoate/Formoterol Fumar (Dulera 100/5 Mdi*) 2 puff INH BID SARAH Multivitamins/Minerals (Theragran/Minerals Tab*) 1 tab PO DAILY SARAH Oxycodone HCl (Oxycontin(*)) 10 mg PO BID SARAH Oxycodone/Acetaminophen (Percocet 5/325 Tab*) 1 tab PO Q6H PRN PAIN Pantoprazole Sodium (Protonix Tab*) 40 mg PO DAILY SARAH Patiromer (Veltassa Powder*) 8.4 gm PO DAILY SARAH Sodium Chloride (Sodium Chloride Tab*) 1 gm PO DAILY SARAH Vital Signs - 8 hr 12/09/18 12/09/18 12/09/18 09:30 13:06 15:17 Temperature 97.8 F 98.2 F Pulse Rate 79 77 Respiratory 18 16 20 Rate Blood Pressure 132/41 133/51 (mmHg) O2 Sat by Pulse 93 97 Oximetry Oxygen Devices in Use Now: Nasal Cannula - 2L, CPAP Appearance: Elderly female laying in bed in NAD Eyes: No Scleral Icterus Ears/Nose/Mouth/Throat: Mucous Membranes Moist Neck: NL Appearance and Movements; NL JVP, Trachea Midline Respiratory: Symmetrical Chest Expansion and Respiratory Effort, Clear to Auscultation Cardiovascular: NL Sounds; No Murmurs; No JVD, RRR Abdominal: - - Ascites Extremities: - - Moderate nonpitting BLE Neurological: - - Oriented to self and place, drowsy Lines/Tubes/Other Access: Clean, Dry and Intact Peripheral IV Nutrition: Taking PO's Result Diagrams: 12/09/18 07:52 12/09/18 07:52 Assess/Plan/Problems-Billing Assessment: Ms. Mckinney is a 77 yo F with PMH of metastatic breast cancer, DVT/PE, COPD, chronic hypoxic respiratory failure on 3L, cirrhosis, and CKD stage 4; who presented to the ED with c/o weakness and was found to have an elevated ammonia and multiple other lab abnormalities. - Patient Problems (1) Decompensation of cirrhosis of liver Code(s): K72.90 - HEPATIC FAILURE, UNSPECIFIED WITHOUT COMA Comment: - Alcoholic cirrhosis - Requiring frequent paracenteses, most recently 12/04/18 when 6L was drained - MELD-Na is 24 indicating 15% 90-day mortality rate - May require para in the next few days depending on symptoms - Palliative care consult (2) Hepatic encephalopathy Code(s): K72.90 - HEPATIC FAILURE, UNSPECIFIED WITHOUT COMA Comment: - Ammonia 71 on admission with confusion - Continue lactulose; start rifaximin (3) Hyperkalemia Code(s): E87.5 - HYPERKALEMIA Comment: - Continue Patiromer (4) Hyponatremia Code(s): E87.1 - HYPO-OSMOLALITY AND HYPONATREMIA Comment: - Suspect secondary to cirrhosis - Continue sodium tabs (5) Macrocytic anemia Code(s): D53.9 - NUTRITIONAL ANEMIA, UNSPECIFIED Comment: - Chronic, stable - Pending B12 and folate levels - Will transfuse for Hgb <7 (6) Thrombocytopenia Code(s): D69.6 - THROMBOCYTOPENIA, UNSPECIFIED Comment: - Stable - Secondary to cirrhosis (7) Metastatic breast cancer Code(s): C50.919 - MALIGNANT NEOPLASM OF UNSP SITE OF UNSPECIFIED FEMALE BREAST Comment: - Mets to bone - Recent PET scan shows increasing mets - Follows with Dr. Perry - Continue Oxycontin, Percocet (8) COPD (chronic obstructive pulmonary disease) Code(s): J44.9 - CHRONIC OBSTRUCTIVE PULMONARY DISEASE, UNSPECIFIED Comment: - Not in exacerbation - With chronic hypoxic respiratory failure on 3L oxygen - Continue Dulera, albuterol (9) CKD (chronic kidney disease) stage 4, GFR 15-29 ml/min Code(s): N18.4 - CHRONIC KIDNEY DISEASE, STAGE 4 (SEVERE) Comment: - Secondary to accidental torsemide overdose; likely worsened by cirrhosis - Creatinine elevated on admission, now back to baseline (10) History of pulmonary embolism Code(s): Z86.711 - PERSONAL HISTORY OF PULMONARY EMBOLISM Comment: - IVC filter in place (11) Anxiety and depression Code(s): F41.9 - ANXIETY DISORDER, UNSPECIFIED; F32.9 - MAJOR DEPRESSIVE DISORDER, SINGLE EPISODE, UNSPECIFIED Comment: - Continue escitalopram, mirtazapine, alprazolam (12) DVT prophylaxis Code(s): Z29.9 - ENCOUNTER FOR PROPHYLACTIC MEASURES, UNSPECIFIED Comment: - SCDs only; chemical prophylaxis contraindicated in the setting of thrombocytopenia and anemia (13) Full code status Code(s): Z78.9 - OTHER SPECIFIED HEALTH STATUS Comment: Status and Disposition: Inpatient. D/c plan not clear. Pending palliative consult, but will certainly need JOSÉ if she does not go hospice. Attending: Leatha Munoz
[2018-12-09] MEDS ORDERED: Spironolactone TAB* 25 MG PO SCH (18:30)
[2018-12-09] MEDS ORDERED: Metoclopramide IV* 5 MG/ML 2 ML VIAL IV PRN (18:56)
[2018-12-09] MEDS ORDERED: Furosemide IV* 10 MG/ML 2 ML VIAL (20 MG) IV ONE (19:29)
[2018-12-09] MEDS: Mirtazapine TAB* 15 MG PO SCH (20:57)
[2018-12-09] MEDS: CMCS:OMEGA-3 FATTY ACIDS (NF) 1,000 MG CAP PO SCH (20:57)
[2018-12-09] MEDS: RiFAXimin* 550 MG TAB PO SCH (20:57)
[2018-12-09] MEDS: Latanoprost 0.005%* 2.5 ml BTL RIGHT EYE SCH (21:02)
[2018-12-09 21:03] LABS: BUN/Creatinine Ratio 42.7 (8-20); Calcium 10.4 mg/dL (8.6-10.3); EGFR African American 28.2 (>60); EGFR Non-African American 23.3 (>60)
[2018-12-09 21:05] LABS: Potassium 6.3 mmol/L (3.5-5.0)
[2018-12-09] MEDS: Sodium Bicarbonate (ANTACID)* 650 MG TAB PO SCH (21:30)
[2018-12-09] MEDS ORDERED: Sodium Polystyrene ORAL.SOL* 15 GM/60 ML BTL PO ONE (21:30)
[2018-12-09] MEDS ORDERED: Patiromer POWDER* 8.4 GM PAK PO SCH (22:00)
[2018-12-10 00:54] LABS: Calcium 10.2 mg/dL (8.6-10.3)
[2018-12-10 00:58] LABS: Potassium 6.3 mmol/L (3.5-5.0)
[2018-12-10 01:00] LABS: BUN/Creatinine Ratio 42.3 (8-20); EGFR African American 27.9 (>60)
[2018-12-10] MEDS ORDERED: Sodium Polystyrene ORAL.SOL* 15 GM/60 ML BTL PO ONE (01:30)
[2018-12-10] MEDS ORDERED: Furosemide IV* 10 MG/ML VIAL (40 MG) IV ONE (01:45)
[2018-12-10] MEDS ORDERED: Glycerin ADULT SUPP PR SCH (04:00)
[2018-12-10] MEDS ORDERED: Glycerin ADULT SUPP PR PRN (04:00)
[2018-12-10] MEDS: Mometasone/Formoter 100/5 MDI INH SCH ×2 (07:43→19:54)
[2018-12-10] MEDS: Docusate CAP* 100 MG PO SCH ×2 (09:01→20:44)
[2018-12-10] MEDS: Multivitamins/Minerals TAB PO SCH (09:01)
[2018-12-10] MEDS: Sodium Chloride TAB* 1 GM PO SCH (09:02)
[2018-12-10] MEDS: oxyCODONE SR TAB(*) 10 MG TAB.SR PO SCH ×2 (09:02→20:45)
[2018-12-10] MEDS: Sodium Bicarbonate (ANTACID)* 650 MG TAB PO SCH ×3 (09:02→17:33)
[2018-12-10 09:03] LABS: INR 1.24 (0.82-1.09)
[2018-12-10] MEDS: Ferrous Sulfate TAB* 325 MG PO SCH (09:03)
[2018-12-10] MEDS: RiFAXimin* 550 MG TAB PO SCH ×2 (09:03→20:50)
[2018-12-10] MEDS: Pantoprazole TAB * 40 MG TAB PO SCH (09:03)
[2018-12-10] MEDS: Patiromer POWDER* 8.4 GM PAK PO SCH (09:04)
[2018-12-10 09:05] LABS: Hematocrit 21 % (35-47); Hemoglobin 7.3 g/dL (12.0-16.0); Mean Corpuscular HGB Conc 35 g/dL (31-36); Mean Corpuscular Hemoglobin 40 pg (27-31); Mean Corpuscular Volume 115 fL (80-97); Mean Platelet Volume 10.8 fL (7.4-10.4); Platelet Count 98 10^3/uL (150-450); Red Blood Count 1.83 10^6 /uL (3.70-4.87); Red Cell Distribution Width 21 % (10-15); White Blood Count 3.3 10^3/uL (3.5-10.8)
[2018-12-10] MEDS: Escitalopram * 20 MG TABLET PO SCH (09:05)
[2018-12-10 09:15] LABS: Albumin 3.2 g/dL (3.2-5.2); BUN/Creatinine Ratio 42.2 (8-20); EGFR African American 28.2 (>60); EGFR Non-African American 23.3 (>60); Globulin 3.1 g/dL (2-4); Magnesium 3.1 mg/dL (1.9-2.7); Total Protein 6.3 g/dL (6.4-8.9)
[2018-12-10 09:19] LABS: Potassium 5.5 mmol/L (3.5-5.0)
[2018-12-10 09:37] LABS: ABS Lymphocytes 0.6 10^3/ul (1.0-4.8); ABS Monocytes 0.5 10^3/ul (0-0.8); ABS Neutrophils 2.2 10^3/ul (1.5-7.7); Eosinophil % 0.5 %; Nucleated Red Blood Cells % 0.5
[2018-12-10 09:44] LABS: Polychromasia 1+
[2018-12-10] MEDS: Betaxolol-S 0.25%* 10 ML BTL BOTH EYES SCH ×2 (10:32→20:43)
[2018-12-10] MEDS: Fluticasone NASAL SPRAY 50MCG* 16 gm SPRAY BTL BOTH NARES SCH (10:32)
--- NOTE | 2018-12-10 12:50 | PN ---
Progress Note - Progress Note Date of Service: 12/10/18 SOAP: Subjective: [Admitted with hepatic encephalopathy and metabolic derangement. She reports feeling slightly better today. She and her are anxious to learn about her recent PET scan results. Denies pain. Lethargic.] Objective: [ Vital Signs: Temp Pulse Resp BP Pulse Ox 97.3 F 80 17 146/51 93 12/10/18 03:37 12/10/18 07:46 12/10/18 09:02 12/10/18 03:37 12/10/18 07:46 Albuterol/Ipratropium (Duoneb (Albuterol 2.5 Mg/Ipratropium 0.5 Mg)) 1 neb INH Q4H PRN PRN Reason: SOB/WHEEZING Alprazolam (Xanax Tab*) 0.25 mg PO BID PRN PRN Reason: ANXIETY Betaxolol HCl (Betoptic-S 0.25%*) 1 drop BOTH EYES BID [facility] Last Admin: 12/10/18 10:32 Dose: 1 drop Docusate Sodium (Colace Cap*) 100 mg PO BID [facility] Last Admin: 12/10/18 09:01 Dose: 100 mg Escitalopram Oxalate (Lexapro *) 20 mg PO DAILY [facility] Last Admin: 12/10/18 09:05 Dose: 20 mg Ferrous Sulfate (Ferrous Sulfate Tab*) 325 mg PO EVERY OTHER DAY [facility] Last Admin: 12/10/18 09:03 Dose: 325 mg Fish Oil (Fish Oil (Nf)) 1,000 mg PO BEDTIME [facility] Last Admin: 12/09/18 20:57 Dose: 1,000 mg Fluticasone Propionate (Flonase Nasal [place] 50mcg*) 1 spray BOTH NARES DAILY [facility] Last Admin: 12/10/18 10:32 Dose: 1 spray Glycerin (Glycerin Adult Supp*) 1 supp [place] DAILY PRN PRN Reason: CONSTIPATION Last Admin: 12/10/18 04:05 Dose: 1 supp Lactulose (Lactulose*) 30 ml PO TID [facility] Latanoprost (Xalatan 0.005%*) 1 drop RIGHT EYE QPM [facility] Last Admin: 12/09/18 21:02 Dose: 1 drop Metoclopramide HCl (Reglan Iv*) 5 mg IV Q6H PRN PRN Reason: NAUSEA Last Admin: 12/09/18 22:20 Dose: 5 mg Mirtazapine (Remeron Tab*) 30 mg PO BEDTIME [facility] Last Admin: 12/09/18 20:57 Dose: 30 mg Mometasone Furoate/Formoterol Fumar (Dulera 100/5 Mdi*) 2 puff INH BID [facility] Last Admin: 12/10/18 07:43 Dose: 2 puff Multivitamins/Minerals (Theragran/Minerals Tab*) 1 tab PO DAILY [facility] Last Admin: 12/10/18 09:01 Dose: 1 tab Oxycodone HCl (Oxycontin(*)) 10 mg PO BID [facility] Last Admin: 12/10/18 09:02 Dose: 10 mg Oxycodone/Acetaminophen (Percocet 5/325 Tab*) 1 tab PO Q6H PRN PRN Reason: PAIN Pantoprazole Sodium (Protonix Tab*) 40 mg PO DAILY [facility] Last Admin: 12/10/18 09:03 Dose: 40 mg Patiromer (Veltassa Powder*) 8.4 gm PO DAILY [facility] Last Admin: 12/10/18 09:04 Dose: 8.4 gm Patiromer (Veltassa Powder*) 8.4 gm PO ONCE ONE Stop: 12/11/18 09:09 Rifaximin (Xifaxan*) 550 mg PO BID [facility] Last Admin: 12/10/18 09:03 Dose: 550 mg Sodium Bicarbonate (Sodium Bicarbonate (Antacid)*) 650 mg PO AC [facility] Last Admin: 12/10/18 09:02 Dose: 650 mg Sodium Chloride (Sodium Chloride Tab*) 1 gm PO DAILY [facility] Last Admin: 12/10/18 09:02 Dose: 1 gm Laboratory Results - last 24 hr 12/09/18 12/09/18 12/10/18 07:52 20:37 00:37 WBC 3.9 RBC 2.02 L Hgb 7.9 L Hct 24 L MCV 117 H MCH 39 H MCHC 34 RDW 21 H Plt Count 92 L MPV 10.5 H Neut % (Auto) 68.1 Lymph % (Auto) 16.5 [place]icks[place] % (Auto) 12.7 Eos % (Auto) 2.1 Baso % (Auto) 0.6 Absolute Neuts (auto) 2.6 Absolute Lymphs (auto) 0.6 L Absolute Monos (auto) 0.5 Absolute Eos (auto) 0.1 Absolute Basos (auto) 0.0 Absolute Nucleated RBC 0.0 Neutrophils % 72.0 Lymphocytes % 18.0 Monocytes % 5.0 Eosinophils % 2.0 Basophils % 3.0 Nucleated RBC % 0.6 Nucleated RBCs/100 WBC 1.0 H Normal RBC Morphology Not Reportable Polychromasia 1+ Hypochromasia Anisocytosis 2+ Macrocytosis 3+ Hem Pathologist Commnt INR (Anticoag Therapy) Sodium 122 L 122 L Potassium 6.3 H* 6.3 H* Chloride 93 L 93 L Carbon Dioxide 21 L 18 L Anion Gap 8 11 BUN 88 H 88 H Creatinine 2.06 H 2.08 H Est GFR ( Amer) 28.2 27.9 Est GFR (Non-Af Amer) 23.3 23.0 BUN/Creatinine Ratio 42.7 H 42.3 H Glucose 130 H 133 H Calcium 10.4 H 10.2 Magnesium Total Bilirubin AST ALT Alkaline Phosphatase Ammonia Total Protein Albumin Globulin Albumin/Globulin Ratio Vitamin B12 964 H Cortisol Cancelled 12/10/18 12/10/18 12/10/18 08:40 08:40 08:40 WBC 3.3 L RBC 1.83 L Hgb 7.3 L Hct 21 L MCV 115 H MCH 40 H MCHC 35 RDW 21 H Plt Count 98 L MPV 10.8 H Neut % (Auto) 66.5 Lymph % (Auto) 17.0 Dickson % (Auto) 15.4 Eos % (Auto) 0.5 Baso % (Auto) 0.6 Absolute Neuts (auto) 2.2 Absolute Lymphs (auto) 0.6 L Absolute Monos (auto) 0.5 Absolute Eos (auto) 0.0 Absolute Basos (auto) 0.0 Absolute Nucleated RBC 0.0 Neutrophils % 75.0 Lymphocytes % 13.0 Monocytes % 11.0 Eosinophils % Basophils % Nucleated RBC % 0.5 Nucleated RBCs/100 WBC 1.0 H Normal RBC Morphology Not Reportable Polychromasia 1+ Hypochromasia 2+ Anisocytosis Macrocytosis Hem Pathologist Commnt INR (Anticoag Therapy) 1.24 H Sodium 122 L Potassium 5.5 H Chloride 92 L Carbon Dioxide 22 Anion Gap 8 BUN 87 H Creatinine 2.06 H Est GFR ( Amer) 28.2 Est GFR (Non-Af Amer) 23.3 BUN/Creatinine Ratio 42.2 H Glucose 116 H Calcium 10.0 Magnesium 3.1 H Total Bilirubin 1.00 AST 60 H ALT 34 Alkaline Phosphatase 164 H Ammonia Total Protein 6.3 L Albumin 3.2 Globulin 3.1 Albumin/Globulin Ratio 1.0 Vitamin B12 Cortisol 22.50 12/10/ 08:40 WBC RBC Hgb Hct MCV MCH MCHC RDW Plt Count MPV Neut % (Auto) Lymph % (Auto) [place]icks[place] % (Auto) Eos % (Auto) Baso % (Auto) Absolute Neuts (auto) Absolute Lymphs (auto) Absolute Monos (auto) Absolute Eos (auto) Absolute Basos (auto) Absolute Nucleated RBC Neutrophils % Lymphocytes % Monocytes % Eosinophils % Basophils % Nucleated RBC % Nucleated RBCs/100 WBC Normal RBC Morphology Polychromasia Hypochromasia Anisocytosis Macrocytosis Hem Pathologist Commnt INR (Anticoag Therapy) Sodium Potassium Chloride Carbon Dioxide Anion Gap BUN Creatinine Est GFR ( Amer) Est GFR (Non-Af Amer) BUN/Creatinine Ratio Glucose Calcium Magnesium Total Bilirubin AST ALT Alkaline Phosphatase Ammonia 68 H Total Protein Albumin Globulin Albumin/Globulin Ratio Vitamin B12 Cortisol Exam: Gen: Lethargic, and ill appearing. Accompanied by her HEENT: MMM CV: 2/6 murmur noted, RRR Resp: CTA, no w/c/r Abd: distended, nonTTP, active BS Ext: 1+ LE edema] Assessment: [77 yo female with metastatic BCA with relatively recent dx of liver cirrhosis requiring freq paracentesis who presented with lethargy. Found to have hyponatremia, hyperkalemia and elevated ammonia. Her mental status has improved slightly, but her metabolic derangements have not improved. She had a PET scan just prior to this admission which unfortunately shows progression of her bony metastases, but no evidence of new organ involvement.] Plan: [1. Hepatic encephalopathy - mental status improved slightly, but still lethargic - agree with lactulose/rifaximin, could increase lactulose as she is only stooling 1-2 times per day 2. Hyperkalemia - she does not appear to be responding to typical interventions - consider a broader ddx as renal dysfunction does not appear significant enough to impair potassium excretion including adrenal insufficiency given her associated hyponatremia, or hemolysis as her Hgb has decreased rather significantly over the last couple of weeks --check am cortisol, LDH, haptoglobin, and reticulocyte count - cont loop diuretics and potassium binder 3. Cirrhosis, alcoholic - no acute hepatitis - followed by Dr Chowdhury - requires freq paracentesis, currently asx from her ascites, but can repeat paracentesis during hospital stay when she becomes symptomatic 4. Metastatic breast CA - PET scan unfortunately shows progression of bony disease, but no solid organ involvement - hold Ibrance, further treatment options will hinge on the status of her liver disease and recovery from this acute event Dispo: oncology will cont to follow along]
[2018-12-10 12:52] LABS: Corrected Retic Count 1.4 % (0.5-1.5); Hematocrit for Retic CNT 21 % (35-47); Immature Retic Fraction 0.71; RBC Retic Count 1.85 10^6/uL (3.70-4.87)
--- NOTE | 2018-12-10 13:48 | CONS ---
CONSULTATION REPORT: ADDENDUM: IMPRESSION AND PLAN: 1. Acute renal injury, probably secondary to the intravenous volume depletion secondary to diuretics. 2. Metastatic breast cancer. 3. Cirrhosis with ascites. 4. Hyperkalemia. 5. Hyponatremia. Ordinarily in cirrhosis with ascites, we would see a secondary hyperaldosteronism which would be associated with hypokalemia, not hyperkalemia. She has been off of spironolactone now for little over 2 weeks, so the spironolactone is probably not contributing. She has had evidence of blood in her stool and perhaps blood breakdown could be somewhat of a contributor here. Her renal function may also be compromised because of the possibility of some hepatorenal physiology. We should see a urinary sodium and potassium as well as fractional excretion of sodium. I would restrict her water intake to approximately 1 L per day. At the present time, she has been taking in a great deal of water over the past couple of days. I have discussed the case at length with Lila Farfan NP. [id number]/[facility] #: [id number] PILY
--- NOTE | 2018-12-10 13:55 | CONSULT ---
Palliative / Hospice Consult Ordering Provider: Lila Farfan - PCP-Vicky Brooks Referal Reason: Goals of care discussion and aftercare - Subjective Code Status: Full Code Advance Directives Location: With Family - History or Present Illness History or Present Illness: 77yo female with metastatic breast cancer presents with weakness. PMH is significant for breast cnacer since 1997 treated with chemo went into remission in 2010 recurrence treated with chemo and AI now with bony mets, DVT and PE now with IVC, liver cirrhosis with ascites secondary to ETOH which started in October 2018 and has had 6 paracentesis, COPD and pulm HTN on 3 liters O2, insomnia, depression, and anemia secondary to colonic petchiae/angiodysplasias and CKD stage 4. Pt is with 2 children retired from [employer], nonsmoker, + etoh use and no drug use. Studies ekg-nsr, brain CT no acute process, age related atrophy and mild small vessel white matter change, CXR-neg, showed hiatal hernia , ECHO-65-70% trace AI otherwise no change since last study in September, H/H 7.9/24 , plt 92, Na 122, K 6.3, BUN/Cr 88/2.06, egfr 23.1, Ca 10.4, NH4 71, tprot 6.4, alb 3.2 and bili 0.8. Pt admitted with weakness secondary to hepatic encephalopathy, hyponatremia, hyperkalemia, ELMER and anemia. All history is from pt, her family and medical record. Lab Values: Abnormal Lab Results 12/09/18 12/09/18 12/10/18 07:52 20:37 00:37 WBC RBC RBC (Retic) Hgb Hct HCT (Retic) MCV MCH MCHC RDW Plt Count MPV Neut % (Auto) Lymph % (Auto) Ross % (Auto) Eos % (Auto) Baso % (Auto) Absolute Neuts (auto) Absolute Lymphs (auto) Absolute Monos (auto) Absolute Eos (auto) Absolute Basos (auto) Absolute Nucleated RBC Neutrophils % Lymphocytes % Monocytes % Nucleated RBC % Nucleated RBCs/100 WBC Normal RBC Morphology Polychromasia Hypochromasia Retic Count, Calc Corrected Retic Count Retic Shift Factor Retic Production Index Immature Retic Fraction Mean Retic Volume Hem Pathologist Commnt INR (Anticoag Therapy) Sodium 122 L 122 L Potassium 6.3 H* 6.3 H* Chloride 93 L 93 L Carbon Dioxide 21 L 18 L Anion Gap 8 11 BUN 88 H 88 H Creatinine 2.06 H 2.08 H Est GFR ( Amer) 28.2 27.9 Est GFR (Non-Af Amer) 23.3 23.0 BUN/Creatinine Ratio 42.7 H 42.3 H Glucose 130 H 133 H Calcium 10.4 H 10.2 Magnesium Total Bilirubin AST ALT Alkaline Phosphatase Ammonia Total Protein Albumin Globulin Albumin/Globulin Ratio Prealbumin Vitamin B12 964 H Cortisol Cancelled 12/10/18 12/10/18 12/10/18 08:40 08:40 08:40 WBC 3.3 L RBC 1.83 L RBC (Retic) 1.85 L Hgb 7.3 L Hct 21 L HCT (Retic) 21 L MCV 115 H MCH 40 H MCHC 35 RDW 21 H Plt Count 98 L MPV 10.8 H Neut % (Auto) 66.5 Lymph % (Auto) 17.0 Ross % (Auto) 15.4 Eos % (Auto) 0.5 Baso % (Auto) 0.6 Absolute Neuts (auto) 2.2 Absolute Lymphs (auto) 0.6 L Absolute Monos (auto) 0.5 Absolute Eos (auto) 0.0 Absolute Basos (auto) 0.0 Absolute Nucleated RBC 0.0 Neutrophils % 75.0 Lymphocytes % 13.0 Monocytes % 11.0 Nucleated RBC % 0.5 Nucleated RBCs/100 WBC 1.0 H Normal RBC Morphology Not Reportable Polychromasia 1+ Hypochromasia 2+ Retic Count, Calc 3.1 H Corrected Retic Count 1.4 Retic Shift Factor 2.0 Retic Production Index 0.70 Immature Retic Fraction 0.71 Mean Retic Volume 188.4 Hem Pathologist Commnt INR (Anticoag Therapy) 1.24 H Sodium 122 L Potassium 5.5 H Chloride 92 L Carbon Dioxide 22 Anion Gap 8 BUN 87 H Creatinine 2.06 H Est GFR ( Amer) 28.2 Est GFR (Non-Af Amer) 23.3 BUN/Creatinine Ratio 42.2 H Glucose 116 H Calcium 10.0 Magnesium 3.1 H Total Bilirubin 1.00 AST 60 H ALT 34 Alkaline Phosphatase 164 H Ammonia Total Protein 6.3 L Albumin 3.2 Globulin 3.1 Albumin/Globulin Ratio 1.0 Prealbumin Vitamin B12 Cortisol 22.50 12/10/18 12/10/18 08:40 08:40 WBC RBC RBC (Retic) Hgb Hct HCT (Retic) MCV MCH MCHC RDW Plt Count MPV Neut % (Auto) Lymph % (Auto) Ross % (Auto) Eos % (Auto) Baso % (Auto) Absolute Neuts (auto) Absolute Lymphs (auto) Absolute Monos (auto) Absolute Eos (auto) Absolute Basos (auto) Absolute Nucleated RBC Neutrophils % Lymphocytes % Monocytes % Nucleated RBC % Nucleated RBCs/100 WBC Normal RBC Morphology Polychromasia Hypochromasia Retic Count, Calc Corrected Retic Count Retic Shift Factor Retic Production Index Immature Retic Fraction Mean Retic Volume Hem Pathologist Commnt INR (Anticoag Therapy) Sodium Potassium Chloride Carbon Dioxide Anion Gap BUN Creatinine Est GFR ( Amer) Est GFR (Non-Af Amer) BUN/Creatinine Ratio Glucose Calcium Magnesium Total Bilirubin AST ALT Alkaline Phosphatase Ammonia 68 H Total Protein Albumin Globulin Albumin/Globulin Ratio Prealbumin 8 L Vitamin B12 Cortisol Laboratory Last Values WBC 3.3 10^3/uL (3.5-10.8) L 12/10/18 08:40 RBC 1.83 10^6 /uL (3.70-4.87) L 12/10/18 08:40 RBC (Retic) 1.85 10^6/uL (3.70-4.87) L 12/10/18 08:40 Hgb 7.3 g/dL (12.0-16.0) L 12/10/18 08:40 Hct 21 % (35-47) L 12/10/18 08:40 HCT (Retic) 21 % (35-47) L 12/10/18 08:40 MCV 115 fL (80-97) H 12/10/18 08:40 MCH 40 pg (27-31) H 12/10/18 08:40 MCHC 35 g/dL (31-36) 12/10/18 08:40 RDW 21 % (10-15) H 12/10/18 08:40 Plt Count 98 10^3/uL (150-450) L 12/10/18 08:40 MPV 10.8 fL (7.4-10.4) H 12/10/18 08:40 Neut % (Auto) 66.5 % 12/10/18 08:40 Lymph % (Auto) 17.0 % 12/10/18 08:40 Ross % (Auto) 15.4 % 12/10/18 08:40 Eos % (Auto) 0.5 % 12/10/18 08:40 Baso % (Auto) 0.6 % 12/10/18 08:40 Absolute Neuts (auto) 2.2 10^3/ul (1.5-7.7) 12/10/18 08:40 Absolute Lymphs (auto) 0.6 10^3/ul (1.0-4.8) L 12/10/18 08:40 Absolute Monos (auto) 0.5 10^3/ul (0-0.8) 12/10/18 08:40 Absolute Eos (auto) 0.0 10^3/ul (0-0.6) 12/10/18 08:40 Absolute Basos (auto) 0.0 10^3/ul (0-0.2) 12/10/18 08:40 Absolute Nucleated RBC 0.0 10^3/ul 12/10/18 08:40 Neutrophils % 75.0 % 12/10/18 08:40 Lymphocytes % 13.0 % 12/10/18 08:40 Monocytes % 11.0 % 12/10/18 08:40 Eosinophils % 2.0 % 12/09/18 07:52 Basophils % 3.0 % 12/09/18 07:52 Nucleated RBC % 0.5 12/10/18 08:40 Nucleated RBCs/100 WBC 1.0 (0-0) H 12/10/18 08:40 Normal RBC Morphology Not Reportable 12/10/18 08:40 Polychromasia 1+ 12/10/18 08:40 Hypochromasia 2+ 12/10/18 08:40 Anisocytosis 2+ 12/09/18 07:52 Macrocytosis 3+ 12/09/18 07:52 Retic Count, Calc 3.1 % (0.5-1.5) H 12/10/18 08:40 Corrected Retic Count 1.4 % (0.5-1.5) 12/10/18 08:40 Retic Shift Factor 2.0 12/10/18 08:40 Retic Production Index 0.70 12/10/18 08:40 Immature Retic Fraction 0.71 12/10/18 08:40 Mean Retic Volume 188.4 12/10/18 08:40 Hem Pathologist Commnt 12/09/18 07:52 INR (Anticoag Therapy) 1.24 (0.82-1.09) H 12/10/18 08:40 APTT 33.8 seconds (26.0-38.0) 12/08/18 17:36 Sodium 122 mmol/L (135-145) L 12/10/18 08:40 Potassium 5.5 mmol/L (3.5-5.0) H 12/10/18 08:40 Chloride 92 mmol/L (101-111) L 12/10/18 08:40 Carbon Dioxide 22 mmol/L (22-32) 12/10/18 08:40 Anion Gap 8 mmol/L (2-11) 12/10/18 08:40 BUN 87 mg/dL (6-24) H 12/10/18 08:40 Creatinine 2.06 mg/dL (0.51-0.95) H 12/10/18 08:40 Est GFR ( Amer) 28.2 (>60) 12/10/18 08:40 Est GFR (Non-Af Amer) 23.3 (>60) 12/10/18 08:40 BUN/Creatinine Ratio 42.2 (8-20) H 12/10/18 08:40 Glucose 116 mg/dL (70-100) H 12/10/18 08:40 Lactic Acid 1.3 mmol/L (0.5-2.0) 12/08/18 17:36 Calcium 10.0 mg/dL (8.6-10.3) 12/10/18 08:40 Magnesium 3.1 mg/dL (1.9-2.7) H 12/10/18 08:40 Total Bilirubin 1.00 mg/dL (0.2-1.0) 12/10/18 08:40 Direct Bilirubin 0.30 mg/dL (0.03-0.18) H 12/09/18 07:52 Indirect Bilirubin 0.5 mg/dL (0.3-1.0) 12/09/18 07:52 AST 60 U/L (13-39) H 12/10/18 08:40 ALT 34 U/L (7-52) 12/10/18 08:40 Alkaline Phosphatase 164 U/L (34-104) H 12/10/18 08:40 Ammonia 68 mcmol/L (16-53) H 12/10/18 08:40 B-Natriuretic Peptide 68 pg/mL (<=100) 12/08/18 17:36 Total Protein 6.3 g/dL (6.4-8.9) L 12/10/18 08:40 Albumin 3.2 g/dL (3.2-5.2) 12/10/18 08:40 Globulin 3.1 g/dL (2-4) 12/10/18 08:40 Albumin/Globulin Ratio 1.0 (1-3) 12/10/18 08:40 Prealbumin 8 mg/dL (18-38) L 12/10/18 08:40 Lipase 35 U/L (11.0-82.0) 12/08/18 17:36 Vitamin B12 964 pg/mL (180-914) H 12/09/18 20:37 TSH 2.51 mcIU/mL (0.34-5.60) 12/08/18 17:36 Free T4 1.07 ng/dL (0.61-1.12) 12/08/18 17:36 Cortisol 22.50 mcg/dL 12/10/18 08:40 Urine Color Yellow 12/08/18 18:40 Urine Appearance Clear 12/08/18 18:40 Urine pH 5.0 (5-9) 12/08/18 18:40 Ur Specific [place] 1.015 (1.010-1.030) 12/08/18 18:40 Urine Protein Negative (Negative) 12/08/18 18:40 Urine Ketones Negative (Negative) 12/08/18 18:40 Urine Blood Negative (Negative) 12/08/18 18:40 Urine Nitrate Negative (Negative) 12/08/18 18:40 Urine Bilirubin Negative (Negative) 12/08/18 18:40 Urine Urobilinogen Negative (Negative) 12/08/18 18:40 Ur Leukocyte Esterase Negative (Negative) 12/08/18 18:40 Urine Glucose Negative (Negative) 12/08/18 18:40 - Objective Active Medications: Albuterol/Ipratropium (Duoneb (Albuterol 2.5 Mg/Ipratropium 0.5 Mg)) 1 neb INH Q4H PRN PRN Reason: SOB/WHEEZING Alprazolam (Xanax Tab*) 0.25 mg PO BID PRN PRN Reason: ANXIETY Betaxolol HCl (Betoptic-S 0.25%*) 1 drop BOTH EYES BID [facility] Last Admin: 12/10/18 10:32 Dose: 1 drop Docusate Sodium (Colace Cap*) 100 mg PO BID [facility] Last Admin: 12/10/18 09:01 Dose: 100 mg Escitalopram Oxalate (Lexapro *) 20 mg PO DAILY [facility] Last Admin: 12/10/18 09:05 Dose: 20 mg Ferrous Sulfate (Ferrous Sulfate Tab*) 325 mg PO EVERY OTHER DAY [facility] Last Admin: 12/10/18 09:03 Dose: 325 mg Fish Oil (Fish Oil (Nf)) 1,000 mg PO BEDTIME [facility] Last Admin: 12/09/18 20:57 Dose: 1,000 mg Fluticasone Propionate (Flonase Nasal [place] 50mcg*) 1 spray BOTH NARES DAILY [facility] Last Admin: 12/10/18 10:32 Dose: 1 spray Glycerin (Glycerin Adult Supp*) 1 supp [place] DAILY PRN PRN Reason: CONSTIPATION Last Admin: 12/10/18 04:05 Dose: 1 supp Pantoprazole Sodium (Protonix Iv Bag*) 80 mg in 250 mls @ 25 mls/hr IV Q10H [facility] Lactulose (Lactulose*) 30 ml PO TID [facility] Last Admin: 12/10/18 12:56 Dose: 30 ml Latanoprost (Xalatan 0.005%*) 1 drop RIGHT EYE QPM [facility] Last Admin: 12/09/18 21:02 Dose: 1 drop Metoclopramide HCl (Reglan Iv*) 5 mg IV Q6H PRN PRN Reason: NAUSEA Last Admin: 12/09/18 22:20 Dose: 5 mg Mirtazapine (Remeron Tab*) 30 mg PO BEDTIME [facility] Last Admin: 12/09/18 20:57 Dose: 30 mg Mometasone Furoate/Formoterol Fumar (Dulera 100/5 Mdi*) 2 puff INH BID [facility] Last Admin: 12/10/18 07:43 Dose: 2 puff Multivitamins/Minerals (Theragran/Minerals Tab*) 1 tab PO DAILY [facility] Last Admin: 12/10/18 09:01 Dose: 1 tab Oxycodone HCl (Oxycontin(*)) 10 mg PO BID [facility] Last Admin: 12/10/18 09:02 Dose: 10 mg Oxycodone/Acetaminophen (Percocet 5/325 Tab*) 1 tab PO Q6H PRN PRN Reason: PAIN Patiromer (Veltassa Powder*) 8.4 gm PO DAILY [facility] Last Admin: 12/10/18 09:04 Dose: 8.4 gm Patiromer (Veltassa Powder*) 8.4 gm PO ONCE ONE Stop: 12/11/18 09:09 Rifaximin (Xifaxan*) 550 mg PO BID [facility] Last Admin: 12/10/18 09:03 Dose: 550 mg Sodium Bicarbonate (Sodium Bicarbonate (Antacid)*) 650 mg PO AC [facility] Last Admin: 12/10/18 12:56 Dose: 650 mg Sodium Chloride (Sodium Chloride Tab*) 1 gm PO DAILY [facility] Last Admin: 12/10/18 09:02 Dose: 1 gm Vital Signs: Vital Signs: Temp Pulse Resp BP Pulse Ox 97.3 F 80 18 146/51 93 12/10/18 03:37 12/10/18 07:46 12/10/18 12:33 12/10/18 03:37 12/10/18 07:46 Patient Weight: Weight 94.03 kg Intake and Output: Intake & Output 12/08/18 12/09/18 12/10/18 12/11/18 06:59 06:59 06:59 06:59 Intake Total 620 1920 0 Output Total 700 850 Balance -80 1070 0 Weight 94.03 kg Intake: IV Fluids 620 Calcium Gluconate 120 Oral 0 1920 0 Output: Urine 0 400 Fleming 200 450 Residual 500 Fleming 16 Fr 500 Other: # Bowel Movements 1 Estimated Stool Amount Small ADLs: Meal Record Start: 12/08/18 21: 55 Freq: DAILY@0900,1400,1800 Status: Active Protocol: Created 12/08/18 21:55 System (Rec: 12/08/18 21:55 System [facility]- [id number]) Document 12/09/18 09:00 [id number] (Rec: 12/09/18 09:24 [id number]) Document 12/09/18 14:00 [id number] (Rec: 12/09/18 15:18 [id number]) Document 12/09/18 18:00 [id number] (Rec: 12/09/18 18:21 [id number]) Document 12/10/18 09:00 [id number] (Rec: 12/10/18 09:49 [id number]) Intake and Output Start: 12/08/18 17: 05 Freq: Status: Active Protocol: Created 12/08/18 17:05 System (Rec: 12/08/18 17:05 System [id number]) Intake and Output Start: 12/08/18 21: 55 Freq: DAILY@0600,1400,2200 Status: Active Protocol: Created 12/08/18 21:55 System (Rec: 12/08/18 21:55 System [facility]- [id number]) Document 12/08/18 22:00 [id number] (Rec: 12/09/18 02:43 [id number]) Document 12/09/18 06:00 [id number] (Rec: 12/09/18 06:39 [id number]) Document 12/09/18 14:00 [id number] (Rec: 12/09/18 15:18 [id number] [id number]) Document 12/09/18 22:00 [id number] (Rec: 12/09/18 22:05 [id number] [id number]) Document 12/10/18 06:00 [id number] (Rec: 12/10/18 06:03 [id number] [id number]) Eyes: No Scleral Icterus Ears/Nose/Mouth/Throat: Mucous Membranes Moist Neck: NL Appearance and Movements; NL JVP, Trachea Midline Cardiovascular: NL Sounds; No Murmurs; No JVD, RRR Respiratory: Clear to Auscultation Abdominal: - - Ascites Extremities: - - Moderate nonpitting BLE Neurological: - - Oriented to self and place, drowsy - Assessment Assessment: 77 yo female with metastatic breast cancer presents with hepatic encephalopathy , electrolyte disturbances and ELMER - Plan Consult Plan (MU): Palliative Plan: Long discussion with pt, son and daughter Tamia. Pt may benefit from rehab either at a facility or outpatient with [facility] depending on PT evaluation. She would also benefit from outpatient palliative care. Information/brochure given for [facility] and [facility]. Also discussed hospice but pt is not eligible currently. Information/brochure given and they can self refer at anytime. We also discussed [facility]OLST form and copy given. They are having a family meeting this weekend and will make some decisions. I can complete the MOLST on Saturday if she is still here or she can complete with [facility] or her PCP. We spent time discussing disease process and her liver disease and COPD will be more problematic going forward than her breast cancer. As of now she wants to go home is good with that but he did note that if she is confused at home he would not be able to care for her. Informed pillowcase cleaner and hospitalist about discharge preference. KPS 60%, PPS 50% - Time On Unit Date of Evaluation: 12/10/18 Hospice Consult Time in: 13:30 Hospice Consult Time Out: 15:00 Hospice Consult Time Total: 90 > 50% of Time Spend In Counseling or Coordinating Care: Yes
--- NOTE | 2018-12-10 14:05 | CONS ---
ADDENDUM NOW INCLUDED ON THIS REPORT CC: Dr. Perry * NEPHROLOGY CONSULTATION: DATE OF CONSULT: 12/10/18 HISTORY OF PRESENT ILLNESS: Mrs. Mckinney is a 77-year-old female with a history of metastatic breast cancer. She has also had a history of deep venous thrombosis and had previously been anticoagulated until the time that she has had a venocaval filter placed. She has been developing ascites over the past few months, which has required paracentesis. 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 She according to her was drinking 1 to 2 glasses of wine per night until the diagnosis of metastatic breast cancer and then she has increased her wine intake to approximately 4 glasses per day. She presented because of some generalized weakness. She has been having some nausea and vomiting. She has been having some rib pain. She has been having some confusion and delayed mentation. She has had no chest pain, no shortness of breath. PAST MEDICAL HISTORY: Previous medical history is significant for COPD. She has a history of pulmonary hypertension; however, there was no mention of this on her echocardiogram that was performed in May of this year. She has a history of depression and anxiety. The notes states she has stage 4 chronic renal disease; however, her renal function was actually pretty appropriate for her age up until some time between the middle of September and the middle of October. During that interval, apparently there was an error made in her diuretic dosing. She had been on spironolactone and torsemide and apparently she was dispensed 100 mg of torsemide instead of 10 mg of torsemide and it was during this interval that there was a deterioration in her renal function. PAST SURGICAL HISTORY: She has a history of glaucoma and macular degeneration and cataracts. She is status post right total knee replacement. She has had a bunion repair in 2003. She has had a right mastectomy. She has had a cholecystectomy in 1984 and a tubal ligation in 1974. She does not use tobacco , although she has had a history of exposure to secondary smoke. FAMILY HISTORY: Significant that her grandfather had brain cancer and her uncle had stomach cancer. REVIEW OF SYSTEMS: Her review of systems while grossly positive is briefly related to present and past medical history. PHYSICAL EXAM: She is a seems fairly weak to me. Blood pressure 146/51 with a pulse of 83. She is anicteric. Her extraocular muscles are intact. Her mucous membranes are surprisingly dry. She apparently has been drinking water all day long. She has jugular venous distention to approximately 12 cm, most notable on the right neck. She has very prominent carotid pulsations behind the jugular pressure waves. The chest reveals scattered rhonchi. There was slight decrease in breath sounds on the left base. The heart revealed a regular rhythm. I did not hear any murmurs. The abdomen is distended. There were dilated veins on the anterior wall of the abdomen. I could not feel her liver margin. There was a positive fluid wave. Bones, joints, extremities reveal no cyanosis, clubbing, or edema. Specifically, there was no palmar erythema. Her neurologic is significant that she moves all extremities and other than being slow to mentation, she seems fairly appropriate in her responses to questions. DIAGNOSTIC STUDIES/LAB DATA: A review of her laboratory values revealed a white count of 3.3, hemoglobin of 7.3, hematocrit of 21, platelet count of 98, 000. INR of 1.24. Sodium 122, potassium 5.5. Of significance, a cortisol has just come back which is normal at 22.5. Chloride of 92, total CO2 of 22, BUN 87 , creatinine 2.06. Her creatinine in September was 0.73 and on 11/11/18 was 1.62. Glucose is 116, calcium of 10, albumin of 3.2, ammonia 68. Urinalysis revealed a specific gravity of 1.015. Urine dipstick for blood was negative. There were 0 to 2 rbc's, 0 to 2 wbc's[address] a [address] scan in the past on 09/01/18, which showed the ascites and the question came as to whether or not this was secondary to cirrhosis or peritoneal metastasis. A paracentesis done around that time did not show any evidence of malignant cells on cytology. IMPRESSION AND PLAN: 1. Acute renal insufficiency. I think this is clearly closely related in time to the error in her diuretic dosing. She perhaps became significantly intravascularly volume depleted at a time when she already was having the increased intravascular potential volume, which is associated with cirrhosis. There could be a component of hepatorenal physiology associated with this and I think we have to see a urinary sodium and potassium as well as urinary creatinine. ADDENDUM: IMPRESSION AND PLAN: 1. Acute renal injury, probably secondary to the intravenous volume depletion secondary to diuretics. 2. Metastatic breast cancer. 3. Cirrhosis with ascites. 4. Hyperkalemia. 5. Hyponatremia. Ordinarily in cirrhosis with ascites, we would see a secondary hyperaldosteronism which would be associated with hypokalemia, not hyperkalemia. She has been off of spironolactone now for little over 2 weeks, so the spironolactone is probably not contributing. She has had evidence of blood in her stool and perhaps blood breakdown could be somewhat of a contributor here. Her renal function may also be compromised because of the possibility of some hepatorenal physiology. We should see a urinary sodium and potassium as well as fractional excretion of sodium. I would restrict her water intake to approximately 1 L per day. At the present time, she has been taking in a great deal of water over the past couple of days. I have discussed the case at length with Lila Farfan NP. /[id number]/CPS #: [id number] Jovana- [id number]/CPS #: [id number] PILY
--- NOTE | 2018-12-10 15:25 | PN ---
Progress Note - Progress Note Date of Service: 12/10/18 Note: Met with pt and about goals of care interrupted several times will finish conversation tomorrow at 11am per request.
[2018-12-10] MEDS: Pantoprazole* 80 mg IN NS 80 MG/250 ML BAG IV SCH (15:40)
--- NOTE | 2018-12-10 16:45 | ECHO ---
*[facility]* [place] [address] Fax #: [phone] Transthoracic Echocardiogram Patient: Marianne Mckinney : 1940 Study Date: 12/10/2018 Age: 77 Gender: F HR: 84 bpm Height: 65 in /165.1 cm BSA: 2.01 m^2 Weight: 206.6 lb /93.9 kg BMI: 34.4 kg/m^2 *Personnel Analyst: * Petrona Bowens RDCS RN *Referring Physician: * Lila Farfan *Reading Physician: * Ginger Morales MD Indications: Edema. History: Metastatic breast cancer with mastectomy and chemotherapy. COPD. Asthma. DVT. Pulmonary Embolism. Inferior vena cava filter. Pleual effusion. CKD. Liver cirrhosis. Hiatal hernia. Conclusions Summary: - Left ventricle: Systolic function is hyperdynamic. The estimated ejection fraction is 65-70%. There is turbulence and increased velocities in the left ventricular outflow tract associated with the hyperdynamic state. Doppler parameters are consistent with abnormal left ventricular relaxation (grade 1 diastolic dysfunction). - Right ventricle: Systolic function is normal. - Mitral valve: There is mild regurgitation, posterior lateral jet. - Aortic valve: The valve is trileaflet. The leaflets are mildly thickened. There is trace regurgitation. - Tricuspid valve: There is mild regurgitation directed toward the free wall. - Pulmonary arteries: Systolic pressure is moderately increased, estimated to be 53 mm Hg. - Compared with prior echocardiogram of 06/23/18, ejection fraction stable, trace AI newly noted, mitral regurgitation is stable, tricuspid regurgitation is stable, pulmonary artery pressure previously estimated at 60 mmHg. Study data: Transthoracic echocardiogram. Procedure: Transthoracic echocardiography was performed. Image quality was fair. The study was technically limited due to body habitus and COPD. Complete 2D, spectral Doppler, and color flow Doppler. Location: Bedside. Patient status: Inpatient. Patient room number: 453. Rhythm: Normal sinus rhythm with PVC's. Findings Left ventricle: The cavity size is normal. Wall thickness is mildly increased. Systolic function is hyperdynamic. The estimated ejection fraction is 65-70%. There is turbulence and increased velocities in the left ventricular outflow tract associated with the hyperdynamic state. Wall motion is normal; there are no regional wall motion abnormalities. Doppler parameters are consistent with abnormal left ventricular relaxation (grade 1 diastolic dysfunction). Right ventricle: The cavity size is normal. Systolic function is normal. Left atrium: The atrium is moderately to severely dilated. Right atrium: The atrium is mildly dilated. Mitral valve: The leaflets are mildly thickened. There is no evidence of stenosis. There is mild regurgitation, posterior lateral jet. Aortic valve: The valve is trileaflet. The leaflets are mildly thickened. There is no evidence of stenosis. There is trace regurgitation. Tricuspid valve: The valve is structurally normal. There is no evidence of stenosis. There is mild regurgitation directed toward the free wall. Pulmonic valve: The valve is structurally normal. There is no evidence of stenosis. There is no regurgitation. Aorta: Aortic root: The aortic root is not dilated. Ascending aorta: The ascending aorta is not dilated. Aortic arch: The aortic arch is not dilated. Pericardium: A prominent pericardial fat pad is present. There is no pericardial effusion. Pulmonary arteries: The main pulmonary artery is normal-sized. Systolic pressure is moderately increased, estimated to be 53 mm Hg. Systemic veins: Inferior vena cava: Not visualized. Measurements Left ventricle Value Ref Aortic valve Value Ref UMESH, LAX 4.9 cm 3.8 - Ada diam, ED 1.9 cm ---- 5.2 Ada diam/bsa, ED 1.0 cm/m^2 ---- ESD, LAX 2.6 cm 2.2 - Peak v, S 2.52 m/sec ---- 3.5 VTI, S 48.8 cm ---- FS, LAX (H) 47 % 27 - 45 Mean grad, S 15.0 mm Hg ---- PW, ED (H) 1.2 cm 0.6 - Peak grad, S 25.0 mm Hg ---- 0.9 LVOT/AV, VTI ratio 0.67 ---- IVS/PW, ED 0.98 -------- E', lat ada, TDI 11.1 cm/sec >=10.0 Mitral valve Value Re f E/e', lat ada, TDI 9 -------- Peak E 1.04 m/sec ---- E', med ada, TDI (L) 6.7 cm/sec >=7.0 Peak A 0.92 m/sec -- -- E/e', med ada, TDI 16 -------- Decel time 299 ms ---- E', avg, TDI 8.9 cm/sec -------- Peak grad, D 4.3 mm Hg ---- E/e', avg, TDI 12 <=14 Peak E/A ratio 1.1 -- -- LVOT Value Ref Pulmonic valve Value Ref Peak jordin, S 1.74 m/sec -------- Peak v, S 1.1 m/sec ---- VTI, S 32.5 cm -------- Peak grad, S 12 mm Hg -------- Tricuspid valve Value Ref Mean grad, S 6 mm Hg -------- Peak RV-RA grad, S 45 mm Hg ---- Max TR jordin 3.35 m/sec ---- Ventricular septum Value Ref IVS, ED (H) 1.2 cm 0.6 - Aortic root Value Ref 0.9 Root diam 2.7 cm <4.1 Right ventricle Value Ref Ascending aorta Value Ref UMESH minor ax, A4C (H) 3.8 cm 1.9 - AAo AP diam, S 3.3 cm ---- mid 3.5 Pressure, S 53 mm Hg -------- Aortic arch Value Ref Arch diam 2.9 cm ---- Left atrium Value Ref ML dim, A4C 5.6 cm -------- Decending aorta Value Ref SI dim, A4C 6.7 cm -------- Shannan peak jordin 1.1 m/sec ---- Vol/bsa, ES, 1-p (H) 61 ml/m^2 11 - 40 A4C Pulmonary artery Value Ref Vol/bsa, ES, A/L (H) 58 ml/m^2 16 - 34 Pressure, S 53.0 mm Hg ---- Right atrium Value Ref ML dim, ES, A4C 3.8 cm 2.6 - 4.4 SI dim, ES, A4C (H) 5.5 cm 3.4 - 5.3 Estimated RAP 8 mm Hg -------- Legend: (L) and (H) josh values outside specified reference range. Prepared and electronically signed by Ginger Morales MD 12/10/2018 16:44
--- NOTE | 2018-12-10 18:34 | PN ---
Subjective Date of Service: 12/10/18 Interval History: Ms. Mckinney is feeling well this morning. She offers no complaints. Denies SOB and does not feel as though she needs a paracentesis at this point. Denies CP, SOB, N/V. seems understanding that prognosis is poor. No concerns from nursing. Family History: Unchanged from Admission Social History: Unchanged from Admission Past Medical History: Unchanged from Admission Objective Active Medications: Albuterol/Ipratropium (Duoneb (Albuterol 2.5 Mg/Ipratropium 0.5 Mg)) 1 neb INH Q4H PRN SOB/WHEEZING Alprazolam (Xanax Tab*) 0.25 mg PO BID PRN ANXIETY Betaxolol HCl (Betoptic-S 0.25%*) 1 drop BOTH EYES BID SARAH Docusate Sodium (Colace Cap*) 100 mg PO BID SARAH Escitalopram Oxalate (Lexapro *) 20 mg PO DAILY SARAH Ferrous Sulfate (Ferrous Sulfate Tab*) 325 mg PO EVERY OTHER DAY SARAH Fish Oil (Fish Oil (Nf)) 1,000 mg PO BEDTIME SARAH Fluticasone Propionate (Flonase Nasal [place] 50mcg*) 1 spray BOTH NARES DAILY SARAH Glycerin (Glycerin Adult Supp*) 1 supp VT DAILY PRN CONSTIPATION Pantoprazole Sodium (Protonix Iv Bag*) 80 mg in 250 mls @ 25 mls/hr IV Q10H SARAH Lactulose (Lactulose*) 30 ml PO TID SARAH Latanoprost (Xalatan 0.005%*) 1 drop RIGHT EYE QPM SARAH Metoclopramide HCl (Reglan Iv*) 5 mg IV Q6H PRN NAUSEA Mirtazapine (Remeron Tab*) 30 mg PO BEDTIME SARAH Mometasone Furoate/Formoterol Fumar (Dulera 100/5 Mdi*) 2 puff INH BID SARAH Multivitamins/Minerals (Theragran/Minerals Tab*) 1 tab PO DAILY SARAH Oxycodone HCl (Oxycontin(*)) 10 mg PO BID SARAH Oxycodone/Acetaminophen (Percocet 5/325 Tab*) 1 tab PO Q6H PRN PAIN Patiromer (Veltassa Powder*) 8.4 gm PO DAILY SARAH Patiromer (Veltassa Powder*) 8.4 gm PO ONCE ONE Rifaximin (Xifaxan*) 550 mg PO BID SARAH Sodium Bicarbonate (Sodium Bicarbonate (Antacid)*) 650 mg PO AC SARAH Sodium Chloride (Sodium Chloride Tab*) 1 gm PO DAILY [facility] Vital Signs - 8 hr 12/10/18 12/10/18 12/10/18 11:22 12:33 15:27 Temperature 98.1 F 97.3 F Pulse Rate 74 76 Respiratory 20 18 18 Rate Blood Pressure 123/50 123/60 (mmHg) O2 Sat by Pulse 99 99 Oximetry Oxygen Devices in Use Now: Nasal Cannula - 3L Appearance: Elderly female sitting in bed in NAD Eyes: No Scleral Icterus Ears/Nose/Mouth/Throat: Mucous Membranes Moist Neck: NL Appearance and Movements; NL JVP, Trachea Midline Respiratory: Symmetrical Chest Expansion and Respiratory Effort, Clear to Auscultation Cardiovascular: NL Sounds; No Murmurs; No JVD, RRR, - - + JVD Abdominal: - - Ascites Extremities: - - Moderate nonpitting BLE Neurological: - - Oriented to self and place Lines/Tubes/Other Access: Clean, Dry and Intact Peripheral IV Nutrition: Taking PO's Result Diagrams: 12/10/18 08:40 12/10/18 08:40 Assess/Plan/Problems-Billing Assessment: Ms. Mckinney is a 77 yo F with PMH of metastatic breast cancer, DVT/PE, COPD, chronic hypoxic respiratory failure on 3L, cirrhosis, and CKD stage 4; who presented to the ED with c/o weakness and was found to have an elevated ammonia and multiple other lab abnormalities. - Patient Problems (1) Decompensation of cirrhosis of liver Code(s): K72.90 - HEPATIC FAILURE, UNSPECIFIED WITHOUT COMA Comment: - Alcoholic cirrhosis - Requiring frequent paracenteses, most recently 12/04/18 when 6L was drained - MELD-Na is 24 indicating 15% 90-day mortality rate - May require para in the next few days depending on symptoms - Appreciate Palliative consult (2) Hepatic encephalopathy Code(s): K72.90 - HEPATIC FAILURE, UNSPECIFIED WITHOUT COMA Comment: - Ammonia 71 on admission with confusion and not improved today - Continue rifaximin; increase lactulose (3) Hyperkalemia Code(s): E87.5 - HYPERKALEMIA Comment: - Up again today - Appreciate Nephrology consult; recommends urine studies, 1L fluid restriction - Urine potassium, Na, Na excretion pending - Continue Patiromer (4) GI bleed Code(s): K92.2 - GASTROINTESTINAL HEMORRHAGE, UNSPECIFIED Comment: - Positive stool occult - Appreciate GI consult - Will transfuse for Hgb <7 (5) Hyponatremia Code(s): E87.1 - HYPO-OSMOLALITY AND HYPONATREMIA Comment: - Suspect secondary to cirrhosis - Continue sodium tabs (6) Macrocytic anemia Code(s): D53.9 - NUTRITIONAL ANEMIA, UNSPECIFIED Comment: - Chronic, stable - Pending B12 and folate levels - Will transfuse for Hgb <7 (7) Thrombocytopenia Code(s): D69.6 - THROMBOCYTOPENIA, UNSPECIFIED Comment: - Stable - Secondary to cirrhosis (8) Metastatic breast cancer Code(s): C50.919 - MALIGNANT NEOPLASM OF UNSP SITE OF UNSPECIFIED FEMALE BREAST Comment: - Mets to bone - Recent PET scan shows increasing mets - Appreciate Oncology consult - Continue Oxycontin, Percocet (9) COPD (chronic obstructive pulmonary disease) Code(s): J44.9 - CHRONIC OBSTRUCTIVE PULMONARY DISEASE, UNSPECIFIED Comment: - Not in exacerbation - With chronic hypoxic respiratory failure on 3L oxygen - Continue Dulera, albuterol (10) CKD (chronic kidney disease) stage 4, GFR 15-29 ml/min Code(s): N18.4 - CHRONIC KIDNEY DISEASE, STAGE 4 (SEVERE) Comment: - Secondary to accidental torsemide overdose; likely worsened by cirrhosis - Creatinine elevated on admission, now back to baseline (11) History of pulmonary embolism Code(s): Z86.711 - PERSONAL HISTORY OF PULMONARY EMBOLISM Comment: - IVC filter in place (12) Anxiety and depression Code(s): F41.9 - ANXIETY DISORDER, UNSPECIFIED; F32.9 - MAJOR DEPRESSIVE DISORDER, SINGLE EPISODE, UNSPECIFIED Comment: - Continue escitalopram, mirtazapine, alprazolam (13) DVT prophylaxis Code(s): Z29.9 - ENCOUNTER FOR PROPHYLACTIC MEASURES, UNSPECIFIED Comment: - SCDs only; chemical prophylaxis contraindicated in the setting of GI bleed (14) Full code status Code(s): Z78.9 - OTHER SPECIFIED HEALTH STATUS Comment: Status and Disposition: Inpatient. D/c plan not clear. Prognosis guarded. Will certainly need JOSÉ if she does not go hospice/comfort care. Attending: Leatha Munoz
[2018-12-10 19:11] LABS: Urine Potassium Concentration 23.2 mmol/L
[2018-12-10 19:19] LABS: Renal Sodium Excretion 0.48 %; Urine Creatinine Concentration 62.15 mg/dL; Urine Sodium Concentration < 18 mmol/L
[2018-12-10] MEDS: Latanoprost 0.005%* 2.5 ml BTL RIGHT EYE SCH (20:41)
[2018-12-10] MEDS: Furosemide IV* 10 MG/ML VIAL (40 MG) IV ONE ×2 (20:42→21:04)
[2018-12-10] MEDS: Mirtazapine TAB* 15 MG PO SCH (20:44)
[2018-12-10] MEDS: CMCS:OMEGA-3 FATTY ACIDS (NF) 1,000 MG CAP PO SCH (20:45)
[2018-12-10 20:49] LABS: Creatinine, Serum 2.06 mg/dL (0.51-0.95)
[2018-12-10 20:54] LABS: Urine Sodium Concentration < 18 mmol/L
--- NOTE | 2018-12-10 21:36 | CONS ---
GASTROENTEROLOGY CONSULT REPORT: DATE OF CONSULT: 12/10/18 REQUESTING PROVIDER: Lila Farfan NP REASON FOR CONSULT: Anemia. HISTORY OF PRESENT ILLNESS: Ms. Mckinney is a 77-year-old woman with multiple medical comorbidities, including breast cancer with metastatic disease to bone, cirrhosis secondary to alcohol use complicated by ascites; history of DVT and PE status post IVC filter, history of COPD on chronic oxygen, and history of CKD stage 4, who is admitted with progressive weakness. Ms. Mckinney is unable to provide history as she is altered and quite somnolent. Reviewed the admission H&P and discussed case with patient's over the phone. The patient was having significant weakness at home over the days preceding the hospitalization. She also had some nausea and vomiting. Emesis was dark brown. She was intermittently confused per her . He thinks she may have had a small amount of blood when wiping, although he is not sure if that was from her rectum or vagina. She was also having significant abdominal distention due to ascites. Since admission, Ms. Mckinney has been encephalopathic. Hemoglobin has decreased as compared to end of October when her hemoglobin was 10.2. Hemoglobin in the hospital started at 8.1 and is now 7.3. No overt GI bleeding noted. GI asked to consult. Of note, the patient was recently seen by Dr. Chowdhury in clinic to discuss her new diagnosis of cirrhosis. She has a history of anemia in the past. An EGD in June 2017 demonstrated hiatal hernia and mild antral erythema. A colonoscopy in June 2017 was notable for poor prep. There were small hemorrhoids noted. A small bowel capsule study demonstrated numerous small bowel petechiae/angiodysplasias. It was felt that these were most likely the source of bleeding. Recommendation was to monitor blood counts and provide supportive care. PAST MEDICAL HISTORY: 1. Breast cancer status post mastectomy and chemotherapy with recurrence in 2010. She was started on chemo and is now on aromatase inhibitor. She has metastatic disease to bone. Recent PET scan has shown progression of this disease, per her . 2. History of DVT and PE. Previously on anticoagulation. No longer on anticoagulation due to anemia. She had an IVC filter placed. 3. COPD with pulmonary hypertension. On 3 L nasal cannula at home. 4. History of cirrhosis attributed to alcohol use in the past. Complicated by ascites and encephalopathy. 5. Insomnia. 6. Depression. 7. Anxiety. 8. History of CKD, stage 4. 9. History of glaucoma and macular degeneration. PAST SURGICAL HISTORY: 1. Cataracts. 2. Right total knee replacement. 3. Foot surgery. 4. Bunion repair surgery. 5. Right mastectomy. 6. Cholecystectomy. 7. Tubal ligation. 8. IVC filter placement. ALLERGIES: ADHESIVE TAPE, ERYTHROMYCIN, LATEX, ONDANSETRON, PROCHLORPERAZINE, and SULFA. FAMILY HISTORY: History of stomach cancer in uncle. SOCIAL HISTORY: , lives with . Secondhand smoke exposure in the past. Previous heavy alcohol use, unclear if she is still drinking. REVIEW OF SYSTEMS: Unable to be obtained as the patient is altered. PHYSICAL EXAM: Vital Signs: Afebrile, heart rate 70s, blood pressure 120s/60s, 99% on 3 L. General: Chronically ill appearing woman. Resting in bed. Closes her eyes. Answers that [place] [facility] [place] She knows that it is November. Unable to define the year. She falls back to sleep and indicates that she is not interested in answering any additional questions. HEENT: Mildly dry mucous membranes. Cardiovascular: Regular rate and rhythm. Pulmonary: Breathing comfortably. Abdomen: Distended with ascites. Nontender. Extremities: Positive for edema. Skin: No jaundice. Neuro: Unable to assess fully as the patient is somnolent, although she is at least partially oriented. DIAGNOSTIC STUDIES/LAB DATA: Labs reviewed. White count 3.3, hemoglobin 7.3 with a hematocrit of 21, MCV of 115, platelet count is 98,000. INR is 1.24. Sodium is 122, potassium is 5.5, creatinine is 2.06 with a BUN of 87. Glucose is 116. AST 60, ALT 34, alk phos 154, bili is 0.8, albumin 3.2. Vitamin B12 elevated. Imaging: No cross-sectional abdominal imaging this admission. Endoscopy: EGD, colonoscopy and video capsule endoscopy from 2018 are summarized in the HPI. IMPRESSION AND RECOMMENDATION: Ms. Mckinney is a 77-year-old woman with multiple medical comorbidities including metastatic breast cancer; chronic kidney disease stage 4; chronic obstructive pulmonary disease on chronic oxygen ; history of deep venous thrombosis and pulmonary embolism s/p IVC filter; and recent diagnosis of alcohol-related cirrhosis complicated by ascites and encephalopathy, who is admitted with weakness. GI consulted as the patient has been noted to have acute on chronic anemia. No overt bleeding noted per inpatient team, although the patient's wonders that there might have been a small amount of rectal or vaginal bleeding over the last few days. The patient has not had a bowel movement in the last day or so per nursing. I reviewed the patient's history and discussed in detail with her . Unfortunately, the patient is ill with multiple active medical issues. It appears that a prior video capsule endoscopy demonstrated multiple angiodysplasias, which are possibly contributing to her anemia. Given the absence of acute severe GI bleeding, I recommend close monitoring of her anemia. She is certainly not an ideal candidate for endoscopic evaluation with moderate sedation given her multiple medical issues. I would consider EGD only if acute clinical change or evidence of active bleeding (and it is felt to be within goals of care). For now, I recommend IV PPI BID and monitoring CBC every 12 hours. If the patient's mentation improves, then she can have a clear diet for now. Continue lactulose and increase dosing until the patient is having 3 to 4 bowel movements per day. Continue Xifaxan 550 mg b.i.d. Thank you for this consult. GI will continue to follow along. Please contact GI with any acute clinical change. [id number]/CPS #: [id number] PILY
[2018-12-11] MEDS: Pantoprazole* 80 mg IN NS 80 MG/250 ML BAG IV SCH ×3 (02:27→19:13)
[2018-12-11] MEDS: Mometasone/Formoter 100/5 MDI INH SCH ×2 (08:07→19:53)
[2018-12-11] MEDS ORDERED: Patiromer POWDER* 8.4 GM PAK PO ONE (09:08)
[2018-12-11 09:09] LABS: INR 1.27 (0.82-1.09)
[2018-12-11 09:17] LABS: ALT 37 U/L (7-52); AST 65 U/L (13-39); Albumin 3.2 g/dL (3.2-5.2); Alkaline Phosphatase 186 U/L (34-104); Anion Gap 7 mmol/L (2-11); BUN/Creatinine Ratio 42.8 (8-20); Blood Urea Nitrogen 86 mg/dL (6-24); CO2 Carbon Dioxide 26 mmol/L (22-32); Calcium 9.3 mg/dL (8.6-10.3); Chloride 89 mmol/L (101-111); Globulin 3.1 g/dL (2-4); Glucose 105 mg/dL (70-100); Potassium 4.7 mmol/L (3.5-5.0); Sodium 122 mmol/L (135-145); Total Protein 6.3 g/dL (6.4-8.9)
[2018-12-11 09:42] LABS: Hematocrit 22 % (35-47); Hemoglobin 7.5 g/dL (12.0-16.0); Mean Corpuscular HGB Conc 34 g/dL (31-36); Mean Corpuscular Hemoglobin 39 pg (27-31); Mean Corpuscular Volume 114 fL (80-97); Mean Platelet Volume 9.7 fL (7.4-10.4); Platelet Count 92 10^3/uL (150-450); Red Blood Count 1.92 10^6 /uL (3.70-4.87); Red Cell Distribution Width 21 % (10-15); White Blood Count 3.7 10^3/uL (3.5-10.8)
[2018-12-11] MEDS: Sodium Bicarbonate (ANTACID)* 650 MG TAB PO SCH ×3 (10:00→19:02)
[2018-12-11] MEDS: Multivitamins/Minerals TAB PO SCH (10:00)
[2018-12-11] MEDS: Sodium Chloride TAB* 1 GM PO SCH (10:00)
[2018-12-11] MEDS: Docusate CAP* 100 MG PO SCH ×2 (10:00→20:26)
[2018-12-11] MEDS: oxyCODONE SR TAB(*) 10 MG TAB.SR PO SCH ×2 (10:01→20:26)
[2018-12-11] MEDS: Escitalopram * 20 MG TABLET PO SCH (10:02)
[2018-12-11] MEDS: Betaxolol-S 0.25%* 10 ML BTL BOTH EYES SCH ×2 (10:02→20:26)
[2018-12-11] MEDS: Fluticasone NASAL SPRAY 50MCG* 16 gm SPRAY BTL BOTH NARES SCH (10:02)
[2018-12-11] MEDS: RiFAXimin* 550 MG TAB PO SCH ×2 (10:02→20:26)
[2018-12-11] MEDS: Patiromer POWDER* 8.4 GM PAK PO SCH (10:08)
[2018-12-11 10:27] LABS: ABS Eosinophils 0.1 10^3/ul (0-0.6); ABS Lymphocytes 0.8 10^3/ul (1.0-4.8); ABS Monocytes 0.7 10^3/ul (0-0.8); Eosinophil % 1.4 %; Lymphocyte % 22.1 %; Nucleated Red Blood Cells % 1.2
[2018-12-11 10:31] LABS: Polychromasia 1+
[2018-12-11 10:39] LABS: % Iron Saturation 20 % (15-55); Iron 54 ug/dL (50-212); Total Iron Binding Capacity 272 mcg/dL (250-450); Transferrin 194 mg/dL (203-362)
[2018-12-11 10:55] LABS: Ferritin 379.8 ng/mL (11-307)
--- NOTE | 2018-12-11 13:06 | PN ---
Progress Note - Progress Note Date of Service: 12/11/18 SOAP: Subjective: [Dramatic improvement in the last 24 hours. Lactulose was increased and she has been stooling more frequently. Mentation is more clear and she feels very good.] Objective: [ Vital Signs: Temp Pulse Resp BP Pulse Ox 97.8 F 63 18 136/57 97 12/11/18 07:36 12/11/18 08:10 12/11/18 12:36 12/11/18 07:36 12/11/18 08:10 Albuterol/Ipratropium (Duoneb (Albuterol 2.5 Mg/Ipratropium 0.5 Mg)) 1 neb INH Q4H PRN PRN Reason: SOB/WHEEZING Alprazolam (Xanax Tab*) 0.25 mg PO BID PRN PRN Reason: ANXIETY Betaxolol HCl (Betoptic-S 0.25%*) 1 drop BOTH EYES BID [facility] Last Admin: 12/11/18 10:02 Dose: 1 drop Docusate Sodium (Colace Cap*) 100 mg PO BID [facility] Last Admin: 12/11/18 10:00 Dose: 100 mg Escitalopram Oxalate (Lexapro *) 20 mg PO DAILY [facility] Last Admin: 12/11/18 10:02 Dose: 20 mg Ferrous Sulfate (Ferrous Sulfate Tab*) 325 mg PO EVERY OTHER DAY [facility] Last Admin: 12/10/18 09:03 Dose: 325 mg Fish Oil (Fish Oil (Nf)) 1,000 mg PO BEDTIME [facility] Last Admin: 12/10/18 20:45 Dose: 1,000 mg Fluticasone Propionate (Flonase Nasal [place] 50mcg*) 1 spray BOTH NARES DAILY [facility] Last Admin: 12/11/18 10:02 Dose: 1 spray Glycerin (Glycerin Adult Supp*) 1 supp HI DAILY PRN PRN Reason: CONSTIPATION Last Admin: 12/10/18 04:05 Dose: 1 supp Pantoprazole Sodium (Protonix Iv Bag*) 80 mg in 250 mls @ 25 mls/hr IV Q10H [facility] Last Admin: 12/11/18 02:27 Dose: 25 mls/hr Lactulose (Lactulose*) 30 ml PO TID [facility] Last Admin: 12/11/18 10:03 Dose: 30 ml Latanoprost (Xalatan 0.005%*) 1 drop RIGHT EYE QPM [facility] Last Admin: 12/10/18 20:41 Dose: 1 drop Metoclopramide HCl (Reglan Iv*) 5 mg IV Q6H PRN PRN Reason: NAUSEA Last Admin: 12/09/18 22:20 Dose: 5 mg Mirtazapine (Remeron Tab*) 30 mg PO BEDTIME [facility] Last Admin: 12/10/18 20:44 Dose: 30 mg Mometasone Furoate/Formoterol Fumar (Dulera 100/5 Mdi*) 2 puff INH BID [facility] Last Admin: 12/11/18 08:07 Dose: 2 puff Multivitamins/Minerals (Theragran/Minerals Tab*) 1 tab PO DAILY [facility] Last Admin: 12/11/18 10:00 Dose: 1 tab Oxycodone HCl (Oxycontin(*)) 10 mg PO BID [facility] Last Admin: 12/11/18 10:01 Dose: 10 mg Oxycodone/Acetaminophen (Percocet 5/325 Tab*) 1 tab PO Q6H PRN PRN Reason: PAIN Patiromer (Veltassa Powder*) 8.4 gm PO DAILY [facility] Last Admin: 12/11/18 10:08 Dose: Not Given Rifaximin (Xifaxan*) 550 mg PO BID [facility] Last Admin: 12/11/18 10:02 Dose: 550 mg Sodium Bicarbonate (Sodium Bicarbonate (Antacid)*) 650 mg PO AC [facility] Last Admin: 12/11/18 10:00 Dose: 650 mg Sodium Chloride (Sodium Chloride Tab*) 1 gm PO DAILY [facility] Last Admin: 12/11/18 10:00 Dose: 1 gm Laboratory Results - last 24 hr 12/10/18 12/10/18 12/10/18 08:40 08:40 18:18 WBC RBC Hgb Hct MCV MCH MCHC RDW Plt Count MPV Neut % (Auto) Lymph % (Auto) [place] % (Auto) Eos % (Auto) Baso % (Auto) Absolute Neuts (auto) Absolute Lymphs (auto) Absolute Monos (auto) Absolute Eos (auto) Absolute Basos (auto) Absolute Nucleated RBC Neutrophils % Lymphocytes % Monocytes % Eosinophils % Basophils % Nucleated RBC % Nucleated RBCs/100 WBC Normal RBC Morphology Polychromasia Anisocytosis Macrocytosis Hem Pathologist Commnt INR (Anticoag Therapy) Sodium Potassium Chloride Carbon Dioxide Anion Gap BUN Creatinine Est GFR ( Amer) Est GFR (Non-Af Amer) BUN/Creatinine Ratio Glucose Serum Osmolality Calcium Magnesium Iron TIBC % Saturation Unsat Iron Binding Transferrin Ferritin Total Bilirubin AST ALT Alkaline Phosphatase Ammonia Lactate Dehydrogenase 242 Total Protein Albumin Globulin Albumin/Globulin Ratio Urine Osmolality Ur Creatinine Concen 61.71 U Sodium Concentration Renal Sodium Excretion Urine Potassium 12/10/18 12/10/18 12/10/18 18:18 18:18 18:18 WBC RBC Hgb Hct MCV MCH MCHC RDW Plt Count MPV Neut % (Auto) Lymph % (Auto) [place] % (Auto) Eos % (Auto) Baso % (Auto) Absolute Neuts (auto) Absolute Lymphs (auto) Absolute Monos (auto) Absolute Eos (auto) Absolute Basos (auto) Absolute Nucleated RBC Neutrophils % Lymphocytes % Monocytes % Eosinophils % Basophils % Nucleated RBC % Nucleated RBCs/100 WBC Normal RBC Morphology Polychromasia Anisocytosis Macrocytosis Hem Pathologist Commnt INR (Anticoag Therapy) Sodium 122 L Potassium Chloride Carbon Dioxide Anion Gap BUN Creatinine 2.06 H Est GFR ( Amer) Est GFR (Non-Af Amer) BUN/Creatinine Ratio Glucose Serum Osmolality Calcium Magnesium Iron TIBC % Saturation Unsat Iron Binding Transferrin Ferritin Total Bilirubin AST ALT Alkaline Phosphatase Ammonia Lactate Dehydrogenase Total Protein Albumin Globulin Albumin/Globulin Ratio Urine Osmolality 290 Ur Creatinine Concen 62.15 U Sodium Concentration < 18 < 18 Renal Sodium Excretion 0.48 Urine Potassium 23.2 12/11/18 12/11/18 12/11/18 08:40 08:40 08:40 WBC 3.7 RBC 1.92 L Hgb 7.5 L Hct 22 L MCV 114 H MCH 39 H MCHC 34 RDW 21 H Plt Count 92 L MPV 9.7 Neut % (Auto) 55.5 Lymph % (Auto) 22.1 [place] % (Auto) 20.2 Eos % (Auto) 1.4 Baso % (Auto) 0.8 Absolute Neuts (auto) 2.0 Absolute Lymphs (auto) 0.8 L Absolute Monos (auto) 0.7 Absolute Eos (auto) 0.1 Absolute Basos (auto) 0.0 Absolute Nucleated RBC 0.0 Neutrophils % 64.0 Lymphocytes % 14.0 Monocytes % 20.0 Eosinophils % 1.0 Basophils % 1.0 Nucleated RBC % 1.2 Nucleated RBCs/100 WBC 2.0 H Normal RBC Morphology Not Reportable Polychromasia 1+ Anisocytosis 2+ Macrocytosis 2+ Hem Pathologist Commnt INR (Anticoag Therapy) 1.27 H Sodium 122 L Potassium 4.7 Chloride 89 L Carbon Dioxide 26 Anion Gap 7 BUN 86 H Creatinine 2.01 H Est GFR ( Amer) 29.0 Est GFR (Non-Af Amer) 24.0 BUN/Creatinine Ratio 42.8 H Glucose 105 H Serum Osmolality Calcium 9.3 Magnesium 3.0 H Iron 54 TIBC 272 % Saturation 20 Unsat Iron Binding < 257 Transferrin 194 L Ferritin 379.8 H Total Bilirubin 1.20 H AST 65 H ALT 37 Alkaline Phosphatase 186 H Ammonia Lactate Dehydrogenase Total Protein 6.3 L Albumin 3.2 Globulin 3.1 Albumin/Globulin Ratio 1.0 Urine Osmolality Ur Creatinine Concen U Sodium Concentration Renal Sodium Excretion Urine Potassium 12/11/18 12/11/18 08:40 08:40 WBC RBC Hgb Hct MCV MCH MCHC RDW Plt Count MPV Neut % (Auto) Lymph % (Auto) [place] % (Auto) Eos % (Auto) Baso % (Auto) Absolute Neuts (auto) Absolute Lymphs (auto) Absolute Monos (auto) Absolute Eos (auto) Absolute Basos (auto) Absolute Nucleated RBC Neutrophils % Lymphocytes % Monocytes % Eosinophils % Basophils % Nucleated RBC % Nucleated RBCs/100 WBC Normal RBC Morphology Polychromasia Anisocytosis Macrocytosis Hem Pathologist Commnt INR (Anticoag Therapy) Sodium Potassium Chloride Carbon Dioxide Anion Gap BUN Creatinine Est GFR ( Amer) Est GFR (Non-Af Amer) BUN/Creatinine Ratio Glucose Serum Osmolality 287 Calcium Magnesium Iron TIBC % Saturation Unsat Iron Binding Transferrin Ferritin Total Bilirubin AST ALT Alkaline Phosphatase Ammonia 46 Lactate Dehydrogenase Total Protein Albumin Globulin Albumin/Globulin Ratio Urine Osmolality Ur Creatinine Concen U Sodium Concentration Renal Sodium Excretion Urine Potassium Exam: Gen: Chronically ill appearing, markedly improved appearing. Accompanied by her HEENT: MMM CV: 2/6 murmur noted, RRR Resp: CTA, no w/c/r Abd: distended, nonTTP, active BS Ext: 1+ LE edema] Assessment: [77 yo female with metastatic BCA with relatively recent dx of liver cirrhosis requiring freq paracentesis who presented with lethargy. Found to have hyponatremia, hyperkalemia and elevated ammonia. Her mental status has improved slightly, but her metabolic derangements have not improved. She had a PET scan just prior to this admission which unfortunately shows progression of her bony metastases, but no evidence of new organ involvement.] Plan: [1. Hepatic encephalopathy - greatly improved - cont lactulose/rifaximin 2. Hyperkalemia - now improved - no evidence for hemolysis or adrenal insufficiency - cont loop diuretics and potassium binder per hospitalist provider 3. Cirrhosis, alcoholic - no acute hepatitis - followed by Dr Chowdhury - requires freq paracentesis, currently asx from her ascites, but can repeat paracentesis during hospital stay when she becomes symptomatic 4. Metastatic breast CA - PET scan unfortunately shows progression of bony disease, but no solid organ involvement - hold Ibrance, further treatment options will hinge on the status of her liver disease and recovery from this acute event 5. GIB - presumed bleeding from known AVMs, Hgb stable over last 24 hours - recommend transfusion of 1U PRBCs as this will likely help with her overall strength/performance status and increase the likelihood she can return home Dispo: oncology will cont to follow along]
[2018-12-11] MEDS ORDERED: Sodium Bicarbonate (ANTACID)* 650 MG TAB ONE (13:29)
--- NOTE | 2018-12-11 18:23 | PN ---
Progress Note - Progress Note Date of Service: 12/11/18 Note: on commode, denies pain, sx alert, feels better today VS: 99, 112/45 nad, alert mild asterixis hgb stable at 7.5, inr 1.27, plts 95 EtOH cirrhosis.....enceph improving with increased lactulose; titrate to 3- 4loose bms per day; anemia: hgb is stable will follow Rommel Chowdhury MD [facility]
--- NOTE | 2018-12-11 18:38 | PN ---
Subjective Date of Service: 12/11/18 Interval History: Per nursing, patient is much improved today compared to yesterday. On assessment patient and both report improvement. Patient reports she feels well today. She denies sob, cp, palpitations. Family History: Unchanged from Admission Social History: Unchanged from Admission Past Medical History: Unchanged from Admission Objective Active Medications: Albuterol/Ipratropium (Duoneb (Albuterol 2.5 Mg/Ipratropium 0.5 Mg)) 1 neb INH Q4H PRN PRN Reason: SOB/WHEEZING Alprazolam (Xanax Tab*) 0.25 mg PO BID PRN PRN Reason: ANXIETY Betaxolol HCl (Betoptic-S 0.25%*) 1 drop BOTH EYES BID [facility] Last Admin: 12/11/18 10:02 Dose: 1 drop Docusate Sodium (Colace Cap*) 100 mg PO BID [facility] Last Admin: 12/11/18 10:00 Dose: 100 mg Escitalopram Oxalate (Lexapro *) 20 mg PO DAILY [facility] Last Admin: 12/11/18 10:02 Dose: 20 mg Ferrous Sulfate (Ferrous Sulfate Tab*) 325 mg PO EVERY OTHER DAY [facility] Last Admin: 12/10/18 09:03 Dose: 325 mg Fish Oil (Fish Oil (Nf)) 1,000 mg PO BEDTIME [facility] Last Admin: 12/10/18 20:45 Dose: 1,000 mg Fluticasone Propionate (Flonase Nasal [place] 50mcg*) 1 spray BOTH NARES DAILY [facility] Last Admin: 12/11/18 10:02 Dose: 1 spray Glycerin (Glycerin Adult Supp*) 1 supp [place] DAILY PRN PRN Reason: CONSTIPATION Last Admin: 12/10/18 04:05 Dose: 1 supp Pantoprazole Sodium (Protonix Iv Bag*) 80 mg in 250 mls @ 25 mls/hr IV Q10H [facility] Lactulose (Lactulose*) 30 ml PO TID [facility] Last Admin: 12/11/18 14:52 Dose: 30 ml Latanoprost (Xalatan 0.005%*) 1 drop RIGHT EYE QPM [facility] Last Admin: 12/10/18 20:41 Dose: 1 drop Metoclopramide HCl (Reglan Iv*) 5 mg IV Q6H PRN PRN Reason: NAUSEA Last Admin: 12/09/18 22:20 Dose: 5 mg Mirtazapine (Remeron Tab*) 30 mg PO BEDTIME [facility] Last Admin: 12/10/18 20:44 Dose: 30 mg Mometasone Furoate/Formoterol Fumar (Dulera 100/5 Mdi*) 2 puff INH BID [facility] Last Admin: 12/11/18 08:07 Dose: 2 puff Multivitamins/Minerals (Theragran/Minerals Tab*) 1 tab PO DAILY [facility] Last Admin: 12/11/18 10:00 Dose: 1 tab Oxycodone HCl (Oxycontin(*)) 10 mg PO BID [facility] Last Admin: 12/11/18 10:01 Dose: 10 mg Oxycodone/Acetaminophen (Percocet 5/325 Tab*) 1 tab PO Q6H PRN PRN Reason: PAIN Patiromer (Veltassa Powder*) 8.4 gm PO DAILY [facility] Last Admin: 12/11/18 10:08 Dose: Not Given Rifaximin (Xifaxan*) 550 mg PO BID [facility] Last Admin: 12/11/18 10:02 Dose: 550 mg Sodium Bicarbonate (Sodium Bicarbonate (Antacid)*) 650 mg PO AC [facility] Last Admin: 12/11/18 13:32 Dose: 650 mg Sodium Chloride (Sodium Chloride Tab*) 1 gm PO DAILY [facility] Last Admin: 12/11/18 10:00 Dose: 1 gm Vital Signs - 8 hr 12/11/18 12/11/18 12/11/18 11:15 12:36 14:15 Temperature 97.7 F 97.9 F Pulse Rate 77 77 Respiratory 16 18 20 Rate Blood Pressure 116/44 110/44 (mmHg) O2 Sat by Pulse 96 98 Oximetry 12/11/18 14:32 Temperature 99 F Pulse Rate 78 Respiratory 18 Rate Blood Pressure 112/45 (mmHg) O2 Sat by Pulse 99 Oximetry Oxygen Devices in Use Now: Nasal Cannula Appearance: Comfortable, NAD Eyes: No Scleral Icterus Ears/Nose/Mouth/Throat: Clear Oropharnyx, Mucous Membranes Moist Neck: NL Appearance and Movements; NL JVP Respiratory: Symmetrical Chest Expansion and Respiratory Effort, Clear to Auscultation Cardiovascular: NL Sounds; No Murmurs; No JVD, RRR - Soft, distended. BS+. Not tender, No Edema Lymphatic: No Cervical Adenopathy Extremities: No Edema Skin: No Rash or Ulcers Neurological: Alert and Oriented x 3 Result Diagrams: 12/11/18 08:40 12/11/18 08:40 Additional Lab and Data: Laboratory Results - last 24 hr 12/10/18 12/10/18 12/10/18 08:40 18:18 18:18 WBC RBC Hgb Hct MCV MCH MCHC RDW Plt Count MPV Neut % (Auto) Lymph % (Auto) [place] % (Auto) Eos % (Auto) Baso % (Auto) Absolute Neuts (auto) Absolute Lymphs (auto) Absolute Monos (auto) Absolute Eos (auto) Absolute Basos (auto) Absolute Nucleated RBC Neutrophils % Lymphocytes % Monocytes % Eosinophils % Basophils % Nucleated RBC % Nucleated RBCs/100 WBC Normal RBC Morphology Polychromasia Anisocytosis Macrocytosis Hem Pathologist Commnt INR (Anticoag Therapy) Sodium 122 L Potassium Chloride Carbon Dioxide Anion Gap BUN Creatinine 2.06 H Est GFR ( Amer) Est GFR (Non-Af Amer) BUN/Creatinine Ratio Glucose Serum Osmolality Calcium Magnesium Iron TIBC % Saturation Unsat Iron Binding Transferrin Ferritin Total Bilirubin AST ALT Alkaline Phosphatase Ammonia Total Protein Albumin Globulin Albumin/Globulin Ratio Urine Osmolality Ur Creatinine Concen 61.71 62.15 U Sodium Concentration < 18 Renal Sodium Excretion 0.48 Urine Potassium Blood Type Antibody Screen Crossmatch 12/10/18 12/10/18 12/11/18 18:18 18:18 08:40 WBC 3.7 RBC 1.92 L Hgb 7.5 L Hct 22 L MCV 114 H MCH 39 H MCHC 34 RDW 21 H Plt Count 92 L MPV 9.7 Neut % (Auto) 55.5 Lymph % (Auto) 22.1 [place] % (Auto) 20.2 Eos % (Auto) 1.4 Baso % (Auto) 0.8 Absolute Neuts (auto) 2.0 Absolute Lymphs (auto) 0.8 L Absolute Monos (auto) 0.7 Absolute Eos (auto) 0.1 Absolute Basos (auto) 0.0 Absolute Nucleated RBC 0.0 Neutrophils % 64.0 Lymphocytes % 14.0 Monocytes % 20.0 Eosinophils % 1.0 Basophils % 1.0 Nucleated RBC % 1.2 Nucleated RBCs/100 WBC 2.0 H Normal RBC Morphology Not Reportable Polychromasia 1+ Anisocytosis 2+ Macrocytosis 2+ Hem Pathologist Commnt INR (Anticoag Therapy) Sodium Potassium Chloride Carbon Dioxide Anion Gap BUN Creatinine Est GFR ( Amer) Est GFR (Non-Af Amer) BUN/Creatinine Ratio Glucose Serum Osmolality Calcium Magnesium Iron TIBC % Saturation Unsat Iron Binding Transferrin Ferritin Total Bilirubin AST ALT Alkaline Phosphatase Ammonia Total Protein Albumin Globulin Albumin/Globulin Ratio Urine Osmolality 290 Ur Creatinine Concen U Sodium Concentration < 18 Renal Sodium Excretion Urine Potassium 23.2 Blood Type Antibody Screen Crossmatch 12/11/18 12/11/18 12/11/18 08:40 08:40 08:40 WBC RBC Hgb Hct MCV MCH MCHC RDW Plt Count MPV Neut % (Auto) Lymph % (Auto) [place] % (Auto) Eos % (Auto) Baso % (Auto) Absolute Neuts (auto) Absolute Lymphs (auto) Absolute Monos (auto) Absolute Eos (auto) Absolute Basos (auto) Absolute Nucleated RBC Neutrophils % Lymphocytes % Monocytes % Eosinophils % Basophils % Nucleated RBC % Nucleated RBCs/100 WBC Normal RBC Morphology Polychromasia Anisocytosis Macrocytosis Hem Pathologist Commnt INR (Anticoag Therapy) 1.27 H Sodium 122 L Potassium 4.7 Chloride 89 L Carbon Dioxide 26 Anion Gap 7 BUN 86 H Creatinine 2.01 H Est GFR ( Amer) 29.0 Est GFR (Non-Af Amer) 24.0 BUN/Creatinine Ratio 42.8 H Glucose 105 H Serum Osmolality Calcium 9.3 Magnesium 3.0 H Iron 54 TIBC 272 % Saturation 20 Unsat Iron Binding < 257 Transferrin 194 L Ferritin 379.8 H Total Bilirubin 1.20 H AST 65 H ALT 37 Alkaline Phosphatase 186 H Ammonia 46 Total Protein 6.3 L Albumin 3.2 Globulin 3.1 Albumin/Globulin Ratio 1.0 Urine Osmolality Ur Creatinine Concen U Sodium Concentration Renal Sodium Excretion Urine Potassium Blood Type Antibody Screen Crossmatch 12/11/18 12/11/18 08:40 08:40 WBC RBC Hgb Hct MCV MCH MCHC RDW Plt Count MPV Neut % (Auto) Lymph % (Auto) [place] % (Auto) Eos % (Auto) Baso % (Auto) Absolute Neuts (auto) Absolute Lymphs (auto) Absolute Monos (auto) Absolute Eos (auto) Absolute Basos (auto) Absolute Nucleated RBC Neutrophils % Lymphocytes % Monocytes % Eosinophils % Basophils % Nucleated RBC % Nucleated RBCs/100 WBC Normal RBC Morphology Polychromasia Anisocytosis Macrocytosis Hem Pathologist Commnt INR (Anticoag Therapy) Sodium Potassium Chloride Carbon Dioxide Anion Gap BUN Creatinine Est GFR ( Amer) Est GFR (Non-Af Amer) BUN/Creatinine Ratio Glucose Serum Osmolality 287 Calcium Magnesium Iron TIBC % Saturation Unsat Iron Binding Transferrin Ferritin Total Bilirubin AST ALT Alkaline Phosphatase Ammonia Total Protein Albumin Globulin Albumin/Globulin Ratio Urine Osmolality Ur Creatinine Concen U Sodium Concentration Renal Sodium Excretion Urine Potassium Blood Type A Positive Antibody Screen Negative Crossmatch See Detail Microbiology and Other Data: Microbiology 12/08/18 17:36 Aerobic Blood Culture - Preliminary Blood Venous No Growth Day 3 Anaerobic Blood Culture - Preliminary No Growth Day 3 12/08/18 17:36 Aerobic Blood Culture - Preliminary Blood Venous No Growth Day 3 Anaerobic Blood Culture - Preliminary No Growth Day 3 12/10/18 05:31 Stool Occult Blood (CORTES) - Final Stool Assess/Plan/Problems-Billing Assessment: Ms. Mckinney is a 77 yo F with PMH of metastatic breast cancer, DVT/PE, COPD, chronic hypoxic respiratory failure on 3L, cirrhosis, and CKD stage 4; who presented to the ED with c/o weakness and was found to have an elevated ammonia and multiple other lab abnormalities. - Patient Problems (1) Decompensation of cirrhosis of liver Comment: - Alcoholic cirrhosis - Requiring frequent paracenteses, most recently 12/04/18 when 6L was drained - MELD-Na is 24 indicating 15% 90-day mortality rate - May require para in the next few days depending on symptoms - Oncology and GI consulting (2) Anxiety and depression Comment: - Continue escitalopram, mirtazapine, alprazolam (3) CKD (chronic kidney disease) stage 4, GFR 15-29 ml/min Comment: - Secondary to accidental torsemide overdose; likely worsened by cirrhosis - Dr Arenas consulting - Continue to monitor (4) COPD (chronic obstructive pulmonary disease) Comment: - Not in exacerbation - With chronic hypoxic respiratory failure on 3L oxygen - Continue Dulera, albuterol (5) Hepatic encephalopathy Comment: - Ammonia 46 today and confusion improved. Increased lactulose and saw improvement in mentation - Ammonia 71 on admission with confusion - Continue rifaximin (6) Hyperkalemia Comment: - WNL today - Appreciate Nephrology consult; - Urine studies obtained - 1L fluid restriction - Continue Patiromer, but consider stopping due to K wnl today (7) Hyponatremia Comment: - Suspect secondary to cirrhosis - Continue sodium tabs (8) Macrocytic anemia Comment: - Acute on chronic - Transfused today - B12 wnl (9) Metastatic breast cancer Comment: - Mets to bone - Recent PET scan shows increasing mets - Appreciate Oncology consult - Continue Oxycontin, Percocet - Palliative care consulting (10) Thrombocytopenia Comment: - Stable - Secondary to cirrhosis (11) GI bleed Comment: - Positive stool occult - Appreciate GI consult - Transfused today (12) History of pulmonary embolism Comment: - IVC filter in place (13) DVT prophylaxis Comment: - SCDs only; chemical prophylaxis contraindicated in the setting of GI bleed (14) Full code status Comment: Status and Disposition: Inpatient. Attending: Ely Clemente
[2018-12-11] MEDS: Latanoprost 0.005%* 2.5 ml BTL RIGHT EYE SCH (19:02)
[2018-12-11] MEDS: CMCS:OMEGA-3 FATTY ACIDS (NF) 1,000 MG CAP PO SCH (20:25)
[2018-12-11] MEDS: Mirtazapine TAB* 15 MG PO SCH (20:26)
[2018-12-12] MEDS: Pantoprazole* 80 mg IN NS 80 MG/250 ML BAG IV SCH ×2 (05:26→17:35)
[2018-12-12] MEDS: Betaxolol-S 0.25%* 10 ML BTL BOTH EYES SCH ×2 (07:37→19:27)
[2018-12-12] MEDS: Sodium Bicarbonate (ANTACID)* 650 MG TAB PO SCH ×3 (07:37→16:56)
[2018-12-12] MEDS: Escitalopram * 20 MG TABLET PO SCH (07:39)
[2018-12-12] MEDS: Docusate CAP* 100 MG PO SCH ×2 (07:39→19:28)
[2018-12-12] MEDS: Ferrous Sulfate TAB* 325 MG PO SCH (07:39)
[2018-12-12] MEDS: Multivitamins/Minerals TAB PO SCH (07:40)
[2018-12-12] MEDS: Sodium Chloride TAB* 1 GM PO SCH (07:40)
[2018-12-12] MEDS: RiFAXimin* 550 MG TAB PO SCH ×2 (07:40→19:32)
[2018-12-12] MEDS: Fluticasone NASAL SPRAY 50MCG* 16 gm SPRAY BTL BOTH NARES SCH (07:41)
[2018-12-12] MEDS: Patiromer POWDER* 8.4 GM PAK PO SCH (07:44)
[2018-12-12] MEDS: Mometasone/Formoter 100/5 MDI INH SCH ×2 (08:26→19:35)
[2018-12-12] MEDS: oxyCODONE SR TAB(*) 10 MG TAB.SR PO SCH ×2 (09:32→19:29)
--- NOTE | 2018-12-12 11:50 | PN ---
Progress Note - Progress Note Date of Service: 12/12/18 SOAP: Subjective: [Not feeling as good today as she did yesterday. She worked with PT yesterday afternoon and became quite weak sitting up, she was unable to stand. She feels a little "foggy" this morning, but able to get up to a chair. ] Objective: [ Vital Signs: Temp Pulse Resp BP Pulse Ox 97.8 F 80 20 107/44 97 12/12/18 08:00 12/12/18 08:27 12/12/18 11:28 12/12/18 08:00 12/12/18 08:27 Albuterol/Ipratropium (Duoneb (Albuterol 2.5 Mg/Ipratropium 0.5 Mg)) 1 neb INH Q4H PRN PRN Reason: SOB/WHEEZING Alprazolam (Xanax Tab*) 0.25 mg PO BID PRN PRN Reason: ANXIETY Betaxolol HCl (Betoptic-S 0.25%*) 1 drop BOTH EYES BID COUNTS INCLUDE 234 BEDS AT THE [facility] Last Admin: 12/12/18 07:37 Dose: 1 drop Docusate Sodium (Colace Cap*) 100 mg PO BID COUNTS INCLUDE 234 BEDS AT THE [facility] Last Admin: 12/12/18 07:39 Dose: Not Given Escitalopram Oxalate (Lexapro *) 20 mg PO DAILY COUNTS INCLUDE 234 BEDS AT THE [facility] Last Admin: 12/12/18 07:39 Dose: 20 mg Ferrous Sulfate (Ferrous Sulfate Tab*) 325 mg PO EVERY OTHER DAY [facility] Last Admin: 12/12/18 07:39 Dose: 325 mg Fish Oil (Fish Oil (Nf)) 1,000 mg PO BEDTIME COUNTS INCLUDE 234 BEDS AT THE [facility] Last Admin: 12/11/18 20:25 Dose: 1,000 mg Fluticasone Propionate (Flonase Nasal [place] 50mcg*) 1 spray BOTH NARES DAILY COUNTS INCLUDE 234 BEDS AT THE [facility] Last Admin: 12/12/18 07:41 Dose: 1 spray Glycerin (Glycerin Adult Supp*) 1 supp LA DAILY PRN PRN Reason: CONSTIPATION Last Admin: 12/10/18 04:05 Dose: 1 supp Pantoprazole Sodium (Protonix Iv Bag*) 80 mg in 250 mls @ 25 mls/hr IV Q10H COUNTS INCLUDE 234 BEDS AT THE [facility] Last Admin: 12/12/18 05:26 Dose: 25 mls/hr Lactulose (Lactulose*) 45 ml PO TID COUNTS INCLUDE 234 BEDS AT THE [facility] Latanoprost (Xalatan 0.005%*) 1 drop RIGHT EYE QPM COUNTS INCLUDE 234 BEDS AT THE [facility] Last Admin: 12/11/18 19:02 Dose: 1 drop Metoclopramide HCl (Reglan Iv*) 5 mg IV Q6H PRN PRN Reason: NAUSEA Last Admin: 12/09/18 22:20 Dose: 5 mg Mirtazapine (Remeron Tab*) 30 mg PO BEDTIME COUNTS INCLUDE 234 BEDS AT THE [facility] Last Admin: 12/11/18 20:26 Dose: 30 mg Mometasone Furoate/Formoterol Fumar (Dulera 100/5 Mdi*) 2 puff INH BID COUNTS INCLUDE 234 BEDS AT THE [facility] Last Admin: 12/12/18 08:26 Dose: 2 puff Multivitamins/Minerals (Theragran/Minerals Tab*) 1 tab PO DAILY COUNTS INCLUDE 234 BEDS AT THE [facility] Last Admin: 12/12/18 07:40 Dose: 1 tab Oxycodone HCl (Oxycontin(*)) 10 mg PO BID COUNTS INCLUDE 234 BEDS AT THE [facility] Last Admin: 12/12/18 09:32 Dose: 10 mg Oxycodone/Acetaminophen (Percocet 5/325 Tab*) 1 tab PO Q6H PRN PRN Reason: PAIN Patiromer (Veltassa Powder*) 8.4 gm PO DAILY COUNTS INCLUDE 234 BEDS AT THE [facility] Last Admin: 12/12/18 07:44 Dose: Not Given Rifaximin (Xifaxan*) 550 mg PO BID COUNTS INCLUDE 234 BEDS AT THE [facility] Last Admin: 12/12/18 07:40 Dose: 550 mg Sodium Bicarbonate (Sodium Bicarbonate (Antacid)*) 650 mg PO AC COUNTS INCLUDE 234 BEDS AT THE [facility] Last Admin: 12/12/18 11:25 Dose: 650 mg Sodium Chloride (Sodium Chloride Tab*) 1 gm PO DAILY COUNTS INCLUDE 234 BEDS AT THE [facility] Last Admin: 12/12/18 07:40 Dose: 1 gm Laboratory Results - last 24 hr 12/10/18 12/11/18 12/11/18 18:18 08:40 08:40 Hem Pathologist Commnt Serum Osmolality 287 Urine Osmolality 290 Blood Type Antibody Screen Crossmatch 12/11/18 08:40 Hem Pathologist Commnt Serum Osmolality Urine Osmolality Blood Type A Positive Antibody Screen Negative Crossmatch See Detail Exam: Gen: Chronically ill appearing, sitting up in a chair. Accompanied by her daughter. Appears mentally slower today HEENT: MMM CV: 2/6 murmur noted, RRR Resp: CTA, no w/c/r Abd: distended, nonTTP, active BS Ext: 1+ LE edema] Assessment: [77 yo female with metastatic BCA with relatively recent dx of liver cirrhosis requiring freq paracentesis who presented with lethargy. Found to have hyponatremia, hyperkalemia and elevated ammonia. Her mental status has improved slightly, but her metabolic derangements have not improved. She had a PET scan just prior to this admission which unfortunately shows progression of her bony metastases, but no evidence of new organ involvement.] Plan: [1. Hepatic encephalopathy - greatly improved yesterday, a little worse today - cont lactulose/rifaximin, up titrate lactulose to 3-4 loose BMs daily 2. Hyperkalemia - now improved, labs pending from today - no evidence for hemolysis or adrenal insufficiency - cont loop diuretics and potassium binder per hospitalist provider 3. Cirrhosis, alcoholic - no acute hepatitis - followed by Dr Chowdhury - requires freq paracentesis, currently asx from her ascites, but can repeat paracentesis during hospital stay when she becomes symptomatic 4. Metastatic breast CA - PET scan unfortunately shows progression of bony disease, but no solid organ involvement - hold Ibrance, further treatment options will hinge on the status of her liver disease and recovery from this acute event 5. GIB - presumed bleeding from known AVMs, Hgb stable over last 24 hours - iron stores are WNL which may represent more acute bleeding or alternate etiology for the anemia, will check erythropoetin today - recommend transfusion of 1U PRBCs as this will likely help with her overall strength/performance status and increase the likelihood she can return home Dispo: oncology will be available as needed, but will plan to follow up as an outpatient to reassess BCA therapy pending recovery from this acute event.
[2018-12-12 12:11] LABS: BUN/Creatinine Ratio 42.9 (8-20); EGFR African American 31.1 (>60); EGFR Non-African American 25.7 (>60); Globulin 3.1 g/dL (2-4); Hematocrit 25 % (35-47); Hemoglobin 8.4 g/dL (12.0-16.0); Mean Corpuscular HGB Conc 34 g/dL (31-36); Mean Corpuscular Hemoglobin 38 pg (27-31); Mean Corpuscular Volume 112 fL (80-97); Mean Platelet Volume 10.8 fL (7.4-10.4); Platelet Count 93 10^3/uL (150-450); Potassium 4.3 mmol/L (3.5-5.0); Red Cell Distribution Width 24 % (10-15); Total Bilirubin 1.3 mg/dL (0.2-1.0); Total Protein 6.1 g/dL (6.4-8.9); White Blood Count 3.8 10^3/uL (3.5-10.8)
[2018-12-12 13:12] LABS: Polychromasia 1+
[2018-12-12 13:13] LABS: ABS Eosinophils 0.1 10^3/ul (0-0.6); ABS Lymphocytes 0.7 10^3/ul (1.0-4.8); ABS Monocytes 0.7 10^3/ul (0-0.8); ABS Neutrophils 2.4 10^3/ul (1.5-7.7); ABS Nucleated RBC 0.1 10^3/ul; Eosinophil % 1.4 %; Lymphocyte % 17.3 %; Nucleated Red Blood Cells % 1.6
[2018-12-12] MEDS ORDERED: Furosemide TAB* 20 MG PO ONE (17:35)
--- NOTE | 2018-12-12 17:45 | PN ---
Subjective Date of Service: 12/12/18 Interval History: Discussed patient with Medardo GUADALUPE from Oncology. Plan to increase Lactolose and stop Patiromer. Patient initially was not feeling well this morning, but on assessment by this senior grant writer she reports she feels improved. Denies sob, cp, palpitations, abd pain, fever, chills, palpitations Family History: Unchanged from Admission Social History: Unchanged from Admission Past Medical History: Unchanged from Admission Objective Active Medications: Albuterol/Ipratropium (Duoneb (Albuterol 2.5 Mg/Ipratropium 0.5 Mg)) 1 neb INH Q4H PRN PRN Reason: SOB/WHEEZING Alprazolam (Xanax Tab*) 0.25 mg PO BID PRN PRN Reason: ANXIETY Betaxolol HCl (Betoptic-S 0.25%*) 1 drop BOTH EYES BID [facility] Last Admin: 12/12/18 07:37 Dose: 1 drop Docusate Sodium (Colace Cap*) 100 mg PO BID [facility] Last Admin: 12/12/18 07:39 Dose: Not Given Escitalopram Oxalate (Lexapro *) 20 mg PO DAILY [facility] Last Admin: 12/12/18 07:39 Dose: 20 mg Ferrous Sulfate (Ferrous Sulfate Tab*) 325 mg PO EVERY OTHER DAY [facility] Last Admin: 12/12/18 07:39 Dose: 325 mg Fish Oil (Fish Oil (Nf)) 1,000 mg PO BEDTIME [facility] Last Admin: 12/11/18 20:25 Dose: 1,000 mg Fluticasone Propionate (Flonase Nasal [place] 50mcg*) 1 spray BOTH NARES DAILY [facility] Last Admin: 12/12/18 07:41 Dose: 1 spray Glycerin (Glycerin Adult Supp*) 1 supp HI DAILY PRN PRN Reason: CONSTIPATION Last Admin: 12/10/18 04:05 Dose: 1 supp Pantoprazole Sodium (Protonix Iv Bag*) 80 mg in 250 mls @ 25 mls/hr IV Q10H [facility] Last Admin: 12/12/18 17:35 Dose: 25 mls/hr Lactulose (Lactulose*) 45 ml PO TID [facility] Last Admin: 12/12/18 14:44 Dose: 45 ml Latanoprost (Xalatan 0.005%*) 1 drop RIGHT EYE QPM [facility] Last Admin: 12/11/18 19:02 Dose: 1 drop Metoclopramide HCl (Reglan Iv*) 5 mg IV Q6H PRN PRN Reason: NAUSEA Last Admin: 12/09/18 22:20 Dose: 5 mg Mirtazapine (Remeron Tab*) 30 mg PO BEDTIME [facility] Last Admin: 12/11/18 20:26 Dose: 30 mg Mometasone Furoate/Formoterol Fumar (Dulera 100/5 Mdi*) 2 puff INH BID [facility] Last Admin: 12/12/18 08:26 Dose: 2 puff Multivitamins/Minerals (Theragran/Minerals Tab*) 1 tab PO DAILY [facility] Last Admin: 12/12/18 07:40 Dose: 1 tab Oxycodone HCl (Oxycontin(*)) 10 mg PO BID [facility] Last Admin: 12/12/18 09:32 Dose: 10 mg Oxycodone/Acetaminophen (Percocet 5/325 Tab*) 1 tab PO Q6H PRN PRN Reason: PAIN Rifaximin (Xifaxan*) 550 mg PO BID [facility] Last Admin: 12/12/18 07:40 Dose: 550 mg Sodium Bicarbonate (Sodium Bicarbonate (Antacid)*) 650 mg PO AC [facility] Last Admin: 12/12/18 16:56 Dose: 650 mg Sodium Chloride (Sodium Chloride Tab*) 1 gm PO DAILY [facility] Last Admin: 12/12/18 07:40 Dose: 1 gm Vital Signs - 8 hr 12/12/18 12/12/18 11:14 11:28 Temperature 97.4 F Pulse Rate 76 Respiratory 16 20 Rate Blood Pressure 120/56 (mmHg) O2 Sat by Pulse 100 Oximetry Oxygen Devices in Use Now: Nasal Cannula Appearance: Comfortable, NAD Eyes: No Scleral Icterus Ears/Nose/Mouth/Throat: Clear Oropharnyx, Mucous Membranes Moist Neck: NL Appearance and Movements; NL JVP Respiratory: Symmetrical Chest Expansion and Respiratory Effort, Clear to Auscultation Cardiovascular: NL Sounds; No Murmurs; No JVD, RRR, No Edema Abdominal: - - Soft. Distended. Nontender. BS+ Lymphatic: No Cervical Adenopathy Extremities: No Edema Skin: No Rash or Ulcers Neurological: Alert and Oriented x 3, NL Muscle Strength and Tone Nutrition: Taking PO's Result Diagrams: 12/12/18 11:40 12/12/18 11:40 Additional Lab and Data: Laboratory Results - last 24 hr 12/11/18 12/12/18 12/12/18 08:40 11:40 11:40 WBC 3.8 RBC 2.20 L Hgb 8.4 L Hct 25 L MCV 112 H MCH 38 H MCHC 34 RDW 24 H Plt Count 93 L MPV 10.8 H Neut % (Auto) 62.9 Lymph % (Auto) 17.3 [place] % (Auto) 17.8 Eos % (Auto) 1.4 Baso % (Auto) 0.6 Absolute Neuts (auto) 2.4 Absolute Lymphs (auto) 0.7 L Absolute Monos (auto) 0.7 Absolute Eos (auto) 0.1 Absolute Basos (auto) 0.0 Absolute Nucleated RBC 0.1 Neutrophils % 61.0 Lymphocytes % 17.0 Monocytes % 17.0 Eosinophils % 3.0 Basophils % 2.0 Nucleated RBC % 1.6 Nucleated RBCs/100 WBC 5.0 H Normal RBC Morphology Not Reportable Polychromasia 1+ Macrocytosis 3+ Hem Pathologist Commnt Sodium 129 L Potassium 4.3 Chloride 96 L Carbon Dioxide 24 Anion Gap 9 BUN 81 H Creatinine 1.89 H Est GFR ( Amer) 31.1 Est GFR (Non-Af Amer) 25.7 BUN/Creatinine Ratio 42.9 H Glucose 132 H Calcium 9.0 Total Bilirubin 1.30 H AST 65 H ALT 41 Alkaline Phosphatase 186 H Total Protein 6.1 L Albumin 3.0 L Globulin 3.1 Albumin/Globulin Ratio 1.0 Microbiology and Other Data: Microbiology 12/08/18 17:36 Aerobic Blood Culture - Preliminary Blood Venous No Growth Day 4 Anaerobic Blood Culture - Preliminary No Growth Day 4 12/08/18 17:36 Aerobic Blood Culture - Preliminary Blood Venous No Growth Day 3 Anaerobic Blood Culture - Preliminary No Growth Day 3 12/10/18 05:31 Stool Occult Blood (CORTES) - Final Stool Assess/Plan/Problems-Billing Assessment: Ms. Mckinney is a 77 yo F with PMH of metastatic breast cancer, DVT/PE, COPD, chronic hypoxic respiratory failure on 3L, cirrhosis, and CKD stage 4; who presented to the ED with c/o weakness and was found to have an elevated ammonia and multiple other lab abnormalities. - Patient Problems (1) Macrocytic anemia Comment: - .09/17 yesterday then received one unit of PRBC and today - B12 wnl - Acute on chronic - Repeat CBC tomorrow (2) Decompensation of cirrhosis of liver Comment: - Low dose Lasix will be added due to ascitis. Monitor electrolytes carefully. - Lactolose increased by Medardo GUADALUPE due to only one stool yesterday and no stool yet this morning. Discussed increase with patient and who state understanding - Alcoholic cirrhosis - Requiring frequent paracenteses, most recently 12/04/18 when 6L was drained - MELD-Na is 24 indicating 15% 90-day mortality rate - Oncology and GI consulting (3) Anxiety and depression Comment: - Continue escitalopram, mirtazapine, alprazolam (4) CKD (chronic kidney disease) stage 4, GFR 15-29 ml/min Comment: - Creatinine improving - Secondary to accidental torsemide overdose; likely worsened by cirrhosis - Dr Arenas consulted - Continue to monitor (5) COPD (chronic obstructive pulmonary disease) Comment: - Not in exacerbation - With chronic hypoxic respiratory failure on 3L oxygen - Continue Dulera, albuterol (6) Hepatic encephalopathy Comment: - Increased Lactulose as mentioned above - Ammonia 46 yesterday and confusion she presented with to ED had improved. - Ammonia 71 on admission with confusion - Continue rifaximin (7) Hyperkalemia Comment: - WNL today - Appreciate Nephrology consult - Urine studies suggest prerenal - Cont 1L fluid restriction - Stop Patiromer (8) Hyponatremia Comment: - Suspect secondary to cirrhosis - Continue sodium tabs (9) Metastatic breast cancer Comment: - Mets to bone - Recent PET scan shows increasing mets - Appreciate Oncology consult - Continue Oxycontin, Percocet - Palliative care consulting (10) Thrombocytopenia Comment: - Stable - Secondary to cirrhosis (11) GI bleed Comment: - Positive stool occult - Appreciate GI consult - Transfused yesterday (12) History of pulmonary embolism Comment: - IVC filter in place (13) DVT prophylaxis Comment: - SCDs only; chemical prophylaxis contraindicated in the setting of GI bleed (14) Full code status Comment: Status and Disposition: Inpatient.
[2018-12-12] MEDS: Latanoprost 0.005%* 2.5 ml BTL RIGHT EYE SCH (18:09)
[2018-12-12] MEDS: Mirtazapine TAB* 15 MG PO SCH (19:28)
[2018-12-12] MEDS: CMCS:OMEGA-3 FATTY ACIDS (NF) 1,000 MG CAP PO SCH (19:36)
[2018-12-13] MEDS: Pantoprazole* 80 mg IN NS 80 MG/250 ML BAG IV SCH (04:14)
[2018-12-13 06:23] LABS: ABS Eosinophils 0.1 10^3/ul (0-0.6); ABS Lymphocytes 0.6 10^3/ul (1.0-4.8); ABS Monocytes 0.8 10^3/ul (0-0.8); ABS Neutrophils 2.3 10^3/ul (1.5-7.7); ABS Nucleated RBC 0.1 10^3/ul; Eosinophil % 2.4 %; Hematocrit 25 % (35-47); Hemoglobin 8.4 g/dL (12.0-16.0); Lymphocyte % 14.7 %; Mean Corpuscular HGB Conc 34 g/dL (31-36); Mean Corpuscular Hemoglobin 38 pg (27-31); Mean Corpuscular Volume 113 fL (80-97); Mean Platelet Volume 10.7 fL (7.4-10.4); Platelet Count 86 10^3/uL (150-450); Red Cell Distribution Width 24 % (10-15); White Blood Count 3.8 10^3/uL (3.5-10.8)
[2018-12-13 06:26] LABS: Albumin 2.7 g/dL (3.2-5.2); BUN/Creatinine Ratio 47.8 (8-20); Calcium 7.8 mg/dL (8.6-10.3); EGFR Non-African American 31.4 (>60); Globulin 2.6 g/dL (2-4); Potassium 3.8 mmol/L (3.5-5.0); Total Bilirubin 0.9 mg/dL (0.2-1.0); Total Protein 5.3 g/dL (6.4-8.9)
[2018-12-13 06:49] LABS: Polychromasia 2+
[2018-12-13] MEDS: Mometasone/Formoter 100/5 MDI INH SCH (07:50)
[2018-12-13] MEDS: Sodium Bicarbonate (ANTACID)* 650 MG TAB PO SCH (08:28)
[2018-12-13] MEDS: Multivitamins/Minerals TAB PO SCH (09:44)
[2018-12-13] MEDS: Escitalopram * 20 MG TABLET PO SCH (09:44)
[2018-12-13] MEDS: Sodium Chloride TAB* 1 GM PO SCH (09:44)
[2018-12-13] MEDS: RiFAXimin* 550 MG TAB PO SCH (09:44)
[2018-12-13] MEDS: Fluticasone NASAL SPRAY 50MCG* 16 gm SPRAY BTL BOTH NARES SCH (09:44)
[2018-12-13] MEDS: oxyCODONE SR TAB(*) 10 MG TAB.SR PO SCH (09:45)
[2018-12-13] MEDS: Docusate CAP* 100 MG PO SCH (09:45)
[2018-12-13] MEDS: Betaxolol-S 0.25%* 10 ML BTL BOTH EYES SCH (09:47)
[2018-12-13 11:44] VITALS: BP 118/52
--- NOTE | 2018-12-13 15:57 | DS ---
CC: Dr. Brooks* DISCHARGE SUMMARY: DATE OF ADMISSION: 12/08/18 DATE OF DISCHARGE: 12/13/18 ATTENDING PHYSICIAN: Dr. Clemente* (dictated by Norma Richards NP). PRIMARY CARE PROVIDER: Dr. Brooks. OTHER OUTSIDE PROVIDERS: Dr. Adiel Perry, Oncology; COLLINS Barriga, Oncology. CONSULTATIONS WHILE IN THE HOSPITAL: 1. Dr. Esquivel, Nephrology. 2. Dr. Alix Ortiz, GI. 3. Dr. Rommel Chowdhury, GI. 4. COLLINS Barriga, Oncology. STUDIES WHILE IN THE HOSPITAL: 1. Brain CT: Impression: No acute intracranial findings. Age-related atrophy and mild small vessel white matter change. 2. Chest x-ray: Impression: No evidence for acute disease. Hiatal hernia. 3. Transthoracic echo: Impression: Left ventricle: Systolic function is hyperdynamic. The estimated ejection fraction is 65% to 70%. There is turbulence and increased velocities in the left ventricle outflow tract associated with hyperdynamic state. Doppler parameters are consistent with abnormal left ventricular relaxation (grade 1 diastolic dysfunction). Right ventricle: Systolic function is normal. Mitral valve: There is mild regurgitation, posterior lateral jet. Aortic valve: The valve it trileaflet. Leaflets are mildly thickened. There is trace regurgitation. Tricuspid valve: There is mild regurgitation directed towards the free wall. Pulmonary arteries : Systolic pressure is moderately increased, estimated to be 53 mmHg. Compared with prior echocardiogram on 06/23/18, ejection fraction is stable, trace AI newly noted, mitral regurgitation is stable, tricuspid regurgitation is stable, pulmonary artery pressure previously estimated at 60 mmHg. 4. EKG: Normal sinus rhythm. Multiform ventricular premature complexes. DISCHARGE HOME MEDICATIONS: Continued home medications: 1. Xalatan 0.005% 1 drop right eye q.p.m. 2. Lexapro 20 mg p.o. daily. 3. Sodium chloride tab 1 g p.o. daily. 4. Percocet 5/325 one tab p.o. q.6 hours p.r.n. 5. OxyContin 10 mg p.o. b.i.d. 6. Ibrance 125 mg p.o., hold until seen by Dr. Perry. 7. Omeprazole 20 mg p.o. daily. 8. [place]-3 fatty acid 1 cap p.o. at bedtime. 9. Multivitamin 1 tab p.o. daily. 10. Remeron 30 mg p.o. at bedtime. 11. Faslodex 125 mg IM monthly. 12. Flonase 1 spray both nares daily. 13. Ferrous sulfate 325 mg p.o. every other day. 14. Colace 100 mg p.o. b.i.d. 15. Cleocin 1 application topical daily. 16. Calcium carb, citrate, vitamin D3 one tab p.o. b.i.d. 17. Symbicort 80/4.5 two puffs inhalation b.i.d. 18. Betoptic 1 drop both eyes b.i.d. 19. Albuterol nebulizer 1 neb inhalation q.4 hours p.r.n. 20. Albuterol inhaler 2 puffs inhalation q.4 hours p.r.n. 21. Xanax 0.25 mg p.o. b.i.d. p.r.n. Changed home medications: Lactulose increased from 30 mL p.o. b.i.d. to 45 mL p.o. t.i.d. New home medications: 1. Rifaximin 550 mg p.o. b.i.d. 2. Sodium bicarbonate 650 mg p.o. a.c. 3. Lasix 20 mg p.o. daily. Discontinued home medications: Aldactone. HISTORY OF PRESENT ILLNESS/HOSPITAL COURSE: Mrs. 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 Please see history and physical dictated by Dr Patrick Christian for complete summary of the events leading up the hospitalization, but in short, the patient was reporting worsening weakness over the past 3 days. While in the emergency room , the patient was noted to have an elevated potassium, elevated ammonia, anemia , hyponatremia, this in combination with her generalized and progressive weakness. It should be noted that recently patient received the wrong dose of Aldactone from her pharmacy, therefore, she was taking more than prescribed. She was admitted to the telemetry floor. During her hospital stay, she was also noted to have an elevated creatinine. Given her hyperkalemia at 6.5 in combination with elevated creatinine at 2.2, Dr. Alli Esquivel was consulted. He evaluated the patient and he had a low suspicion that the patient's hyperkalemia was secondary to a recent overdose of spironolactone as she had been off this medication for a little over 2 weeks. He thought possibly blood breakdown could be contributing as she did have some blood in her stool. He also suspected that her renal function could be compromised because of hepatorenal physiology. He placed the patient on a fluid restriction to 1 L per day. The patient was also started on patiromer given the high potassium. The patient was also consulted by Gastroenterology given her ascites, history of cirrhosis, positive stool occult. The patient was evaluated by Dr. Parvez Garcia, who recommended close monitoring of her anemia as she did not have a severe acute GI bleed and the patient is ill with multiple medical issues, therefore, she was not an ideal candidate for endoscopic evaluation. Dr. Parvez Garcia recommended a PPI and CBC monitoring. Continue lactulose and continue rifaximin. The patient was also evaluated by COLLINS Barriga from Hematology/Oncology as her office is familiar with this patient given her history of breast cancer with metastases. Given the patient was slightly encephalopathic on admission and this had greatly improved with the continuation of increased lactulose and the addition of rifaximin, Medardo Pacheco recommended continuing these 2 medications. The patient's hyperkalemia had improved and there was no evidence of hemolysis or adrenal insufficiency, therefore she recommended continuing loop diuretics and discontinuing potassium binder. Also, Medardo discussed that the patient's PET scan unfortunately showed progression of bony disease. Finally, as for GI bleed, it was presumed the bleeding was from AVM as the patient has known AVMs. The patient was transfused 1 unit of packed red blood cells. The patient has been monitored routinely on telemetry and has been in sinus rhythm with the exception of occasional atrial bigeminy. She has had routine vitals and remained afebrile, not tachycardic, not tachypneic, oxygenating well on 3 L nasal cannula (which is her baseline oxygen supplementation), and BP has remained stable. She has had repeat labs during this admission. Her CBC revealed macrocytic anemia with the lowest H and H being 7.3 and 21 respectively. The patient received 1 unit of packed red blood cells on and since that time, the patient's H and H has been 8.4 and 25 respectively. The patient does note to have a low platelet count, but this is chronic for her given her liver disease. The patient has also had repeat CMPs to monitor her hypercalcemia, electrolytes, and liver functions. The patient's potassium initially was 6.5 but with patiromer and supportive care, it is now 3.8. The patient also has been hyponatremic which is chronic for her. Her lowest being during this hospitalization was 122, but it is currently 132. The patient's creatinine has also improved since admission as on admission date, it was 2.21 and is currently 1.59. The patient's ammonia was slightly elevated on admission and she was mildly encephalopathic. The patient's lactulose has been adjusted per her bowel movements, and her ammonia is 46 on 12/11/18. Finally, the patient was also evaluated by Physical Therapy, who recommended subacute rehab given her impaired functional endurance. The patient and family refused. The patient is stable for discharge home. Vital Signs: Temp 97.9, HR 79, RR 20, O2 saturation 99% on 3 L, BP 123/49. REVIEW OF SYSTEMS: The patient denies shortness of breath. The patient denies abdominal pain and denies the feeling that she needs paracentesis. The patient denies chest pain, shortness of breath, nausea, vomiting, diarrhea, weakness, dizziness, fever, or chills. A 14-point review of systems was completed and all negative. PHYSICAL EXAMINATION: General: Mrs. Mckinney is a 77-year-old female who is sitting in bed, appears to be in no acute distress. Appears stated age. HEENT: EOMs intact. PERRLA. Oral mucosa is moist without lesions. Posterior pharynx is clear. Neck: Supple. No lymphadenopathy. Cardiac: S1 and S2 present. Regular rate and rhythm. No murmurs, rubs, or gallops. Respiratory: Lungs are clear. Good aeration. No accessory muscle use. No wheezes, rhonchi, or rubs. Abdomen: Abdomen is softly distended. Nontender. Bowel sounds normoactive. Extremities: No edema. No clubbing or cyanosis. Pedal pulses 2+ bilaterally. Musculoskeletal: No pain or deformities. Skin: Grossly intact. Neuro: Neuro exam is grossly intact. No focal deficits or weakness. DIAGNOSTIC STUDIES/LABORATORY DATA: WBC 3.8, hemoglobin 8.4, hematocrit 25, platelets 86. Sodium 132, potassium 3.8, chloride 101, carbon-dioxide 20, BUN 76, creatinine 1.59, glucose 150, total bilirubin 0.90, AST 53, ALT 33, alk phos 172, vitamin B12 of 964. DISCHARGE PLAN/FOLLOWUP: 1. Macrocytic anemia: This is chronic for the patient, but she was mildly lower than her baseline during this admission at 7.5 and 22. The patient did receive 1 unit of packed red blood cells and her H and H responded nicely at 8.4 and 25. The patient's B12 was within normal limits. The patient should follow with Dr. Perry. 2. Decompensated cirrhosis of liver: The patient reports she does not feel like she needs paracentesis currently and she is very familiar with this feeling as she has frequent paracenteses since August 2018. The patient should continue increased dose of lactulose. Lactulose is increased from 30 mL b.i.d. to 45 mL t.i.d. The patient should continue Lasix 20 mg p.o. daily. Given her previous issue with spironolactone overdose, her family is reluctant to continue diuretic but we discussed risks and benefits and they are agreeable. I would recommend close followup with Dr. Perry or primary care. The patient should continue to follow up with Dr. Perry as scheduled. As for followup with GI, I will defer this to Dr. Perry. 3. Anxiety and depression: The patient should continue her Lexapro and mirtazapine and alprazolam. 4. Chronic kidney disease: The patient has chronic kidney disease but came in with an elevated creatinine above her baseline. Dr. Esquivel was consulted. The patient's creatinine is improving and is at her baseline today. I would continue to avoid nephrotoxic medications. I will continue the 1 L fluid restriction until she follows up with Dr. Perry and she is instructed otherwise. 5. Chronic obstructive pulmonary disease: She is not currently in exacerbation. She chronically has hypoxic respiratory failure and is on 3 L of oxygen. The patient should continue this at home. The patient should continue her Dulera and albuterol. 6. Traumatic encephalopathy: As mentioned above, the patient was somewhat encephalopathic on admission. Her lactulose was increased. The patient should continue this increase in lactulose and continue her rifaximin. 7. Hyperkalemia: The patient's potassium is within normal limits. We have stopped the patiromer. I will continue the fluid restriction as recommended by Dr. Esquivel. I would recommend follow up with Dr. Perry as scheduled on 12/17/18 and have a repeat CMP. 8. Hyponatremia: The patient has chronic hyponatremia and is on sodium tabs. It was mildly worsened during this hospital stay, but has now improved. The patient should continue her sodium tabs and follow up with Dr. Perry for a CMP. 9. Metastatic breast cancer: The patient should follow up with Oncology. The patient should continue her OxyContin and Percocet. 10. Thrombocytopenia: This is currently stable. This was chronic. This is secondary to her cirrhosis. 11. GI bleed: The patient did have a positive stool occult and was evaluated by GI. It was deemed that she was not a candidate for an EGD, therefore she received PPI IV therapy and we monitored her H and H. The patient did receive a transfusion as mentioned above. The patient's H and H is currently stable. The patient should continue her home PPI and followup for a repeat CBC with Dr. Perry on 12/17/18. 12. History of pulmonary embolism: There is an IVC filter in place. 13. Followup: The patient should follow up with Dr. Perry on 12/17/18 as already scheduled. The patient should call her primary care and follow up Saturday or Saturday of next week. As for followups with GI and Dr. Esquivel, Nephrology, I will defer this to Dr. Perry and her primary care if they deem necessary. 14. Education: The patient was educated on signs and symptoms of new or worsening condition and when to return to the emergency department. The patient stated understanding. This is a summarized report of a complex medical history and hospital stay. For further details, please see entire medical record. TIME SPENT: Approximately 45 minutes was spent on this discharge, greater than half that time was spent [id number] with the patient discussing discharge plans and instructions. This plan was discussed with my attending, Dr. Clemente, who is in agreement with my plan of care. Received by NORMA RICHARDS NP 12/28/18 @ 1845 [id number]/[facility] #: [id number] PILY
== END 2018-12-13 13:10 | disposition home health service (06) | DRG 432 ==
LOC: ED 16:58 → MEDTELE 19:51
PROVIDERS: ADMIT Internal Medicine; ATTEND Internal Medicine Hematology & Oncology
PROC: 30233N1 Transfusion of Nonautologous Red Blood Cells into Peripheral Vein, Percutaneous Approach (ICD-10-PCS; principal; 2018-12-11)
DX: K70.31 Alcoholic cirrhosis of liver with ascites (principal); K55.21 Angiodysplasia of colon with hemorrhage; C79.51 Secondary malignant neoplasm of bone; N18.4 Chronic kidney disease, stage 4 (severe); N17.9 Acute kidney failure, unspecified; E87.1 Hypo-osmolality and hyponatremia; J96.11 Chronic respiratory failure with hypoxia; K72.90 Hepatic failure, unspecified without coma; C50.919 Malignant neoplasm of unspecified site of unspecified female breast; J44.9 Chronic obstructive pulmonary disease, unspecified; I27.20 Pulmonary hypertension, unspecified; E87.5 Hyperkalemia; D53.9 Nutritional anemia, unspecified; D69.6 Thrombocytopenia, unspecified; F32.9 Major depressive disorder, single episode, unspecified; F41.9 Anxiety disorder, unspecified; E86.1 Hypovolemia; I08.1 Rheumatic disorders of both mitral and tricuspid valves; G47.00 Insomnia, unspecified; H40.9 Unspecified glaucoma; H35.30 Unspecified macular degeneration; K44.9 Diaphragmatic hernia without obstruction or gangrene; Z96.651 Presence of right artificial knee joint; Z77.22 Contact with and (suspected) exposure to environmental tobacco smoke (acute) (chronic); Z99.81 Dependence on supplemental oxygen; Z86.711 Personal history of pulmonary embolism; Z86.718 Personal history of other venous thrombosis and embolism; Z90.11 Acquired absence of right breast and nipple; Z88.1 Allergy status to other antibiotic agents; Z91.040 Latex allergy status; Z88.2 Allergy status to sulfonamides; Z88.8 Allergy status to other drugs, medicaments and biological substances; Z91.048 Other nonmedicinal substance allergy status; Z80.0 Family history of malignant neoplasm of digestive organs; Z80.8 Family history of malignant neoplasm of other organs or systems
CPT/HCPCS: 36415; 70450; 71045; 80048; 80053; 80076; 81003; 82140; 82272; 82533; 82570; 82607; 82668; 82728; 83010; 83540; 83550; 83605; 83615; 83690; 83735; 83880; 83930; 83935; 84133; 84134; 84300; 84439; 84443; 85025; 85045; 85060; 85610; 85730; 86850; 86900; 86901; 86922; 87040; 93005; 93306; 94640; 94660; 99232; 99283; A9270-GY; G8978-GP-CK; G8979-GP-CI; G8979-GP-CJ; G8980-GP-CJ; J0610; J1940; J2765; P9040

== ENCOUNTER 2018-12-17 14:15 | Inpatient (IN) | payer MEDICARE ==
--- OUTSIDE RECORDS SUMMARY | 2018-12-17 14:21 | XMS REPORT | Continuity of Care Document ---
:1940 External Reference #:[id number] Author Care Team Providers Name Role Phone Sushil Brooks MD - Family Medicine Care Team Information [employer] [phone] Adiel Perry MD - Care Team Information [employer] Associate [phone] Oncology/Phys/Osteo Problems Active Problems Provider Date Cirrhosis - [...] Both Eyes Two Suspension Times A Day Betaxolol HCL Instill One Drop Unknown 0.5% In Each Eye Twice Solution A Day Alprazolam Sushil Brooks MD 0.5mg Tablets Mirtazapine Sushil Brooks MD 45mg Tablets Fluticasone Propionate Sushil Brooks MD 50mcg/Act Suspension Soolantra CaroKanu 1% Cream MD fabian Escitalopram Oxalate Sushil Brooks MD 20mg Tablets Omeprazole Sushil Brooks MD 20mg Capsules Oxycodone HCL ER Take One Tablet By Unknown 10mg Tab Mouth Every 12 ER 12H Abuse-Det Hours Maximum Daily Dose Two Table Oxycodone-Acetaminophe Adiel Perry MD n 5-325mg Tablets Anastrozole Page Gutierres NP 1mg Tablets Immunizations Description No Information Available Vital Signs Date Vital Result Comment 11/19/2018 1:02pm Height 65.5 inches 5'5.50" Weight 205.00 lb BP Systolic 130 mmHg BP Diastolic 74 mmHg Heart Rate 74 /min BMI (Body Mass Index) 33.6 kg/m2 11/06/2017 3:49pm Height 65.5 inches 5'5.50" Weight 214.00 lb BMI (Body Mass Index) 35.1 kg/m2 Results Test Date Facility Test Result H/L Range Note Comp Metabolic Panel 12/01/2018 [facility] Sodium 130 mmol/L Low 135-145 Potassium 4.1 mmol/L Normal 3.5-5.0 Chloride 97 mmol/L Low 101-111 Co2 Carbon Dioxide 22 mmol/L Normal 22-32 Anion Gap 11 mmol/L Normal 2-11 Glucose 128 mg/dL High 70-100 Blood Urea Nitrogen 47 mg/dL High 6-24 Creatinine 1.76 mg/dL High 0.51-0.95 BUN/Creatinine Ratio 26.7 High 8-20 Calcium 8.8 mg/dL Normal 8.6-10.3 Total Protein 6.9 g/dL Normal 6.4-8.9 Albumin 3.3 g/dL Normal 3.2-5.2 Globulin 3.6 g/dL Normal 2-4 Albumin/Globulin Ratio 0.9 Low 1-3 Total Bilirubin 0.90 mg/dL Normal 0.2-1.0 Alkaline Phosphatase 158 U/L High 34-104 Alt 25 U/L Normal 7-52 Ast 45 U/L High 13-39 Egfr Non- 27.9 >60 Egfr 33.8 >60 1 CBC Auto Diff 11/25/2018 [facility] [place] Blood Count 3.4 10^3/uL Low 3.5-10.8 Red Blood Count 2.60 10^6/uL Low 3.70-4.87 Hemoglobin 10.2 g/dL Low 12.0-16.0 Hematocrit 29 % Low 35-47 Mean Corpuscular Volume 112 fL High 80-97 Mean Corpuscular Hemoglobin 39 pg High 27-31 Mean Corpuscular HGB Conc 35 g/dL Normal 31-36 Red Cell Distribution Width 19 % High 10-15 Platelet Count 160 10^3/uL Normal 150-450 Mean Platelet Volume 9.0 fL Normal 7.4-10.4 Abs Neutrophils 2.5 10^3/uL Normal 1.5-7.7 Abs Lymphocytes 0.5 10^3/uL Low 1.0-4.8 Abs Monocytes 0.3 10^3/uL Normal 0-0.8 Abs Eosinophils 0.1 10^3/uL Normal 0-0.6 Abs Basophils 0.0 10^3/uL Normal 0-0.2 Abs Nucleated RBC 0.0 10^3/uL Granulocyte % 74.3 % Lymphocyte % 14.7 % Monocyte % 7.8 % Eosinophil % 1.7 % Basophil % 1.5 % Nucleated Red Blood Cells % 0.1 Comp Metabolic Panel 11/25/2018 [facility] Sodium 128 mmol/L Low 135-145 Potassium 4.6 mmol/L Normal 3.5-5.0 Chloride 92 mmol/L Low 101-111 Co2 Carbon Dioxide 27 mmol/L Normal 22-32 Anion Gap 9 mmol/L Normal 2-11 Glucose 132 mg/dL High 70-100 Blood Urea Nitrogen 47 mg/dL High 6-24 Creatinine 1.77 mg/dL High 0.51-0.95 BUN/Creatinine Ratio 26.6 High 8-20 Calcium 9.3 mg/dL Normal 8.6-10.3 Total Protein 7.1 g/dL Normal 6.4-8.9 Albumin 3.4 g/dL Normal 3.2-5.2 Globulin 3.7 g/dL Normal 2-4 Albumin/Globulin Ratio 0.9 Low 1-3 Total Bilirubin 0.90 mg/dL Normal 0.2-1.0 Alkaline Phosphatase 134 U/L High 34-104 Alt 19 U/L Normal 7-52 Ast 39 U/L Normal 13-39 Egfr Non- 27.7 >60 Egfr 33.6 >60 2 Laboratory test 11/25/2018 [facility] Magnesium 2.6 mg/dL Normal 1.9-2.7 finding Manual Differential 11/25/2018 [facility] Immature Granulocytes 1.0 % Normal 0- 9 Neutrophil % 70.0 % Band % 1.0 % Normal 0-8 Lymphocytes % 17.0 % Monocytes % 8.0 % Eosinophils % 2.0 % Basophil % 2.0 % Macrocytosis 2+ Anisocytosis 2+ Laboratory test finding 11/25/2018 [facility] Breast Carcinoma 679 U/mL High <= 38.0 3 Ag(Ca27.29) Pathologist Review (SEE NOTE) 4 Comp Metabolic Panel 11/19/2018 [facility] Sodium 134 mmol/L Low 135-145 Potassium 4.1 mmol/L Normal 3.5-5.0 Chloride 94 mmol/L Low 101-111 Co2 Carbon Dioxide 30 mmol/L Normal 22-32 Anion Gap 10 mmol/L Normal 2-11 Glucose 139 mg/dL High 70-100 Blood Urea Nitrogen 59 mg/dL High 6-24 Creatinine 1.85 mg/dL High 0.51-0.95 BUN/Creatinine Ratio 31.9 High 8-20 Calcium 9.4 mg/dL Normal 8.6-10.3 Total Protein 7.1 g/dL Normal 6.4-8.9 Albumin 3.6 g/dL Normal 3.2-5.2 Globulin 3.5 g/dL Normal 2-4 Albumin/Globulin Ratio 1.0 Normal 1-3 Total Bilirubin 0.90 mg/dL Normal 0.2-1.0 Alkaline Phosphatase 142 U/L High 34-104 Alt 19 U/L Normal 7-52 Ast 38 U/L Normal 13-39 Egfr Non- 26.4 >60 Egfr 31.9 >60 5 Hepatitis Acute PNL [place] 11/19/2018 [facility] Hepatitis A AB Igm Negative Negative 6 Hepatitis B Core AB Igm Nonreactive Nonreactive 7 Hepatitis B Surface Ag Negative Negative 8 Hepatitis C Antibody 11/19/2018 [facility] HCV Index 0.05 s/c Hepatitis C Antibody Negative Negative Laboratory test finding 11/19/2018 [facility] Hepatitis B Core AB Negative Negative 9 Total Anti Nuclear Antibody 0.2 U 10 Mitochondrial AB AMA M2 Igg 0.1 U Abnormal 11 Iron & Iron Binding Capacity 11/19/2018 [facility] Iron 89 g/dL Normal 50-212 Unsaturated Iron Binding < 286 g/dL Total Iron Binding Capacity 301 g/dL Normal 250-450 Transferrin 215 mg/dL Normal 203-362 % Iron Saturation 30 % Normal 15-55 Laboratory test 11/19/2018 [facility] Hepatitis B Eber Not Immune Abnormal Immune 12 finding AB Titer Laboratory test 10/14/2018 [facility] [place] 27-29 <pending> finding 1 Because ethnic data is not always [...] 5 Kidney failure <15 (or dialysis) 2 Because ethnic data is not always readily [...] 15-29 5 Kidney failure <15 (or dialysis) 3 ADDITIONAL INFORMATION The testing method is a chemiluminometric immunoassay manufactured by [employer] and performed on the [employer]. Values obtained with different assay methods or kits may be different and cannot be used interchangeably. Test results cannot be interpreted as absolute evidence for the presence or absence of malignant disease. Test Performed by: [place] [id number] Macrocytic anemia with reactive-appearing lymphocytes. Reviewed by La Guevara MD 5 Because ethnic data is not always readily [...] 15-29 5 Kidney failure <15 (or dialysis) 6 [id number] Test Performed by: [facility] [address] [place] [address] 10 REFERENCE VALUE <=1.0 (Negative) Test Performed by: [facility] [place] [address] 11 Interpretation: Borderline (0.1-0.3) REFERENCE VALUE <0.1 (Negative) Test Performed by: [facility] [address] [place] [address] 12 [id number] Procedures Description No Information Available Medical Devices Description No Information Available Encounters Type Date Location Provider Dx Diagnosis Office Visit 11/19/2018 [facility] Rommel Douglas K74.69 Other cirrhosis 1:[facility] MD of liver Assessments Date Code Description Provider 11/19/2018 K74.69 Other cirrhosis of liver Rommel Chowdhury MD Plan of Treatment 11/19/2018 - Rommel Chowdhury MDK74.69 Other cirrhosis of [...] work today 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
--- NOTE | 2018-12-17 15:13 | ED ---
Complex/Multi-Sys Presentation - HPI Summary HPI Summary: This patient is a 78 year old F presenting to [facility] accompanied by her with a chief complaint of generalized weakness since 2 days ago. Pt state she could not get up last night and never had these symptoms. Pt was in [facility] several days ago with similar symptoms as well as confusion per . The patient rates the pain 0/10 in severity. Symptoms aggravated by nothing. Symptoms alleviated by nothing. Patient denies fever, incontinence, hematuria. 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 Pt no longer drinks alcohol. - History Of Current Complaint Chief Complaint: EDWeakness Time Seen by Provider: 12/17/18 15:00 Hx Obtained From: Patient, Family/Chisel Grinder - Onset/Duration: Sudden Onset, Lasting Days - 2, Still Present Timing: Constant, Days - 2 Severity Currently: Moderate Severity Initially: Moderate Aggravating Factor(s): nothing Alleviating Factor(s): nothing Associated Signs And Symptoms: Positive: Weakness, Other - negative - fever, incontinence, hematuria - Allergies/Home Medications Allergies/Adverse Reactions: Allergies Allergy/AdvReac Type Severity Reaction Status Date / Time Adhesive Tape Allergy Unknown ITCHY RASH Verified 09/01/18 10:52 latex Allergy Rash Verified 09/01/18 10:52 prochlorperazine Allergy Swelling Verified 09/01/18 10:52 Of Face,Lips,& Throat Sulfa (Sulfonamide Allergy Rash Verified 09/01/18 10:52 Antibiotics) erythromycin base AdvReac GI Upset Verified 12/09/18 18:00 ondansetron AdvReac Headache Verified 12/09/18 18:00 PMH/Surg Hx/FS Hx/Imm Hx Previously Healthy: No Endocrine/Hematology History: Denies: Hx Diabetes, Hx Systemic Lupus Erythematosus, Hx Thyroid Disease Cardiovascular History: Reports: Hx Valvular Heart Disease - MV regurge, Other Cardiovascular Problems/Disorders - mitral valve regur Denies: Hx Congestive Heart Failure, Hx Hypertension, Hx Pacemaker/ICD Respiratory History: Reports: Hx Asthma, Hx Chronic Obstructive Pulmonary Disease (COPD) - pt claims she has a "little" copd, Hx Sleep Apnea - NO MACHINES GI History: Reports: Hx Gastroesophageal Reflux Disease, Other GI Disorders - DIVERTIC History: Reports: Hx Chronic Renal Failure Denies: Hx Dialysis, Hx Renal Disease Musculoskeletal History: Reports: Hx Arthritis, Other Musculoskeletal History - osteo arthritis Denies: Hx Rheumatoid Arthritis, Hx Gout Sensory History: Reports: Hx Cataracts, Hx Contacts or Glasses, Hx Glaucoma - BOTH EYES Denies: Hx Hearing Aid Opthamlomology History: Reports: Hx Cataracts, Hx Contacts or Glasses, Hx Glaucoma - BOTH EYES Psychiatric History: Reports: Hx Anxiety - ON MEDS, Hx Depression - ON MEDS Denies: Hx Panic Disorder - Cancer History Cancer Type, Location and Year: Breast CA WITH BONE METS Hx Chemotherapy: Yes - 1998 per pt Hx Radiation Therapy: No - Surgical History Surgical History: Yes Surgery Procedure, Year, and Place: bilaterally knee replacement-07/2011, 01/2012 , right masectomy-1997, gall bladder removed-1984, rt shoulder-1999, lap for mekels diverticulum-1991, tubal ligation-1974, bunion repair-2003, bilateral, rt toes, bilateral cataract surgeries August 2014, D&C-2003 Hx Anesthesia Reactions: No Infectious Disease History: No Infectious Disease History: Denies: Hx Clostridium Difficile, Hx Hepatitis, Hx Human Immunodeficiency Virus (HIV), Hx of Known/Suspected MRSA, Hx Shingles, Hx Tuberculosis, Hx Known/ Suspected VRE, Hx Known/Suspected VRSA, History Other Infectious Disease, Traveled Outside the [place] in Last 30 Days - Family History Known Family History: Negative: Diabetes - Social History Alcohol Use: None Alcohol Amount: 4 glasses of wine and sebastian per day. Hx Substance Use: No Substance Use Type: Reports: None Hx Tobacco Use: No Smoking Status (MU): Never Smoked Tobacco Review of Systems Negative: Fever Negative: hematuria, incontinence Positive: Weakness All Other Systems Reviewed And Are Negative: Yes Physical Exam - Summary Physical Exam Summary: Constitutional: Well-developed, Well-nourished, Alert. (-) Distressed Skin: Warm, Dry HENT: Normocephalic; Atraumatic Eyes: Conjunctiva normal Neck: Musculoskeletal ROM normal neck. (-) JVD, (-) Stridor, (-) Tracheal deviation Cardio: Rhythm regular, rate normal, Heart sounds normal; Intact distal pulses; The pedal pulses are 2+ and symmetric. Radial pulses are 2+ and symmetric. (-) Murmur Pulmonary/Chest wall: Mild wheezing bilaterally, Decreased lung sounds at bases , (-) Rales Abd: Soft, (-) tenderness, (-) Distension, (-) Guarding, (-) Rebound Musculoskeletal: (-) Edema Lymph: (-) Cervical adenopathy Neuro: Alert, Oriented x3 Psych: Mood and affect Normal Triage Information Reviewed: Yes Vital Signs On Initial Exam: Initial Vitals Temp Pulse Resp BP Pulse Ox 97.5 F 79 18 124/74 97 12/17/18 14:17 12/17/18 14:17 12/17/18 14:17 12/17/18 14:17 12/17/18 14:17 Vital Signs Reviewed: Yes Diagnostics - Vital Signs Vital Signs Temp Pulse Resp BP Pulse Ox 12/17/18 15:00 74 98 12/17/18 14:34 79 145/68 96 12/17/18 14:17 97.5 F 79 18 124/74 97 - Laboratory Result Diagrams: 12/17/18 17:09 12/17/18 17:09 Lab Statement: Any lab studies that have been ordered have been reviewed, and results considered in the medical decision making process. - EKG 1521 Cardiac Rate: NL - 75 BPM EKG Rhythm: Sinus Rhythm Summary of EKG Findings: EKG at 1521 shows sinus rhythm, 75 BPM, normal intervals, no ST segment changes Complex Multi-Symp Course/Dx Course Of Treatment: Patient is here with generalized weakness. Patient was discharged on Saturday with similar symptoms. Patient has no focal deficits consistent with a neurologic syndrome. Patient had blood performed which showed hemoglobin and sodium at her baseline. Patient's creatinine has doubled since Saturday. Family was not comfortable with discharge. Patient's oncologist was called and recommended admission to the hospitalist service believe is related to her cirrhosis. - Diagnoses Differential Diagnoses/HQI/PQRI: Metabolic Abnormality, Urinary Tract Infection , Other - Cirrhosis, not SBP, a care Provider Diagnoses: ELMER (acute kidney injury), Weakness, Cirrhosis, Anemia, Hyponatremia - Physician Notifications Discussed Care Of Patient With: Adiel Perry Time Discussed With Above Provider: 17:49 Instructed by Provider To: Other - Dr. Perry says her symptoms are not related to her cancer. She had an apt with him this morning but missed it for the ED visit. He thinks her symptoms are cirrhosis related. Discharge ED - Sign-Out/Discharge Documenting (check all that apply): Patient Departure - Discharge Plan Condition: Stable Disposition: ADMITTED TO [facility] Referrals: Sushil Brooks MD [Primary Care Provider] - - Billing Disposition and Condition Condition: STABLE Disposition: Admitted to [facility] - Attestation Statements Document Initiated by Tal: Yes Documenting Scribe: Daniel Griffin Provider For Whom Tal is Documenting (Include Credential): Dr. Leighton Cho Attestation: Daniel Garner, scribed for Dr. Manzanares on 12/17/18 at 1916. Scribe Documentation Reviewed: Yes Provider Attestation: The documentation as recorded by the Daniel cho accurately reflects the service I personally performed and the decisions made by , Dr. Manzanares Status of Scribboom Document: Viewed
[2018-12-17 17:40] LABS: ABS Eosinophils 0.1 10^3/ul (0-0.6); ABS Lymphocytes 0.6 10^3/ul (1.0-4.8); ABS Monocytes 1.2 10^3/ul (0-0.8); ABS Neutrophils 4.4 10^3/ul (1.5-7.7); Eosinophil % 1.2 %; Hematocrit 25 % (35-47); Hemoglobin 8.2 g/dL (12.0-16.0); Mean Corpuscular HGB Conc 33 g/dL (31-36); Mean Corpuscular Hemoglobin 38 pg (27-31); Mean Corpuscular Volume 114 fL (80-97); Nucleated Red Blood Cells % 0.5; Platelet Count 134 10^3/uL (150-450); Red Blood Count 2.17 10^6 /uL (3.70-4.87); Red Cell Distribution Width 23 % (10-15); White Blood Count 6.3 10^3/uL (3.5-10.8)
[2018-12-17 17:41] LABS: Albumin 3.1 g/dL (3.2-5.2); BUN/Creatinine Ratio 27.2 (8-20); EGFR African American 17.9 (>60); EGFR Non-African American 14.8 (>60); Potassium 3.9 mmol/L (3.5-5.0); Total Bilirubin 0.8 mg/dL (0.2-1.0); Total Protein 6.1 g/dL (6.4-8.9); Troponin I 0.03 ng/mL (<0.04)
[2018-12-17 17:59] LABS: TSH (Thyroid Stimulating Horm) 4.06 mcIU/mL (0.34-5.60)
[2018-12-17] MEDS ORDERED: NS 0.9% 1000 ML** 1,000 ML IV SCH (18:30)
[2018-12-17] MEDS ORDERED: NS 0.9% 500 ML* 500 ML IV SCH (19:00)
[2018-12-17] MEDS ORDERED: Acetaminophen TAB* 325 MG PO PRN (20:01)
[2018-12-17] MEDS ORDERED: oxyCODONE/Acetamin 5/325 MG* TAB PO PRN (20:24)
[2018-12-17] MEDS ORDERED: Albuterol/Ipratropium NEB.SOL* Albuterol 2.5 MG/Ipratropium 0.5 MG 3 ML INH PRN (20:24)
[2018-12-17] MEDS ORDERED: ALPRAZolam TAB* 0.25 MG PO PRN (20:24)
[2018-12-17] MEDS ORDERED: Albuterol HFA INHALER* 8 gm MDI INH PRN (20:24)
[2018-12-17 20:25] LABS: INR 1.27 (0.82-1.09)
[2018-12-17] MEDS: Mirtazapine TAB* 15 MG PO SCH (23:51)
[2018-12-17] MEDS: Docusate CAP* 100 MG PO SCH (23:51)
[2018-12-17] MEDS: oxyCODONE SR TAB(*) 10 MG TAB.SR PO SCH (23:51)
[2018-12-17] MEDS: RiFAXimin* 550 MG TAB PO SCH (23:52)
[2018-12-18] MEDS: Betaxolol-S 0.25%* 10 ML BTL BOTH EYES SCH ×3 (00:30→21:28)
[2018-12-18] MEDS: Mometasone/Formoter 100/5 MDI INH SCH ×3 (00:34→19:47)
[2018-12-18 05:54] LABS: ABS Basophils 0.1 10^3/ul (0-0.2); ABS Eosinophils 0.1 10^3/ul (0-0.6); ABS Lymphocytes 0.8 10^3/ul (1.0-4.8); ABS Monocytes 1.2 10^3/ul (0-0.8); ABS Neutrophils 4.1 10^3/ul (1.5-7.7); Eosinophil % 2.3 %; Hematocrit 23 % (35-47); Hemoglobin 7.6 g/dL (12.0-16.0); Lymphocyte % 12.4 %; Mean Corpuscular HGB Conc 34 g/dL (31-36); Mean Corpuscular Hemoglobin 38 pg (27-31); Mean Corpuscular Volume 111 fL (80-97); Mean Platelet Volume 9.3 fL (7.4-10.4); Nucleated Red Blood Cells % 0.6; Platelet Count 127 10^3/uL (150-450); Red Blood Count 2.02 10^6 /uL (3.70-4.87); Red Cell Distribution Width 22 % (10-15); White Blood Count 6.2 10^3/uL (3.5-10.8)
[2018-12-18 06:10] LABS: BUN/Creatinine Ratio 27.4 (8-20); Calcium 8.4 mg/dL (8.6-10.3); EGFR African American 17.7 (>60); EGFR Non-African American 14.7 (>60); Potassium 4.2 mmol/L (3.5-5.0)
--- NOTE | 2018-12-18 06:20 | HP ---
CC: Dr. Brooks; Dr. Perry * HISTORY AND PHYSICAL: DATE OF ADMISSION: 12/17/18 PROVIDER: Noemí Taylor NP PRIMARY CARE PROVIDER: Dr. Brooks. ATTENDING PHYSICIAN WHILE IN THE HOSPITAL: Dr. Patrick Christian * (dictated by Noemí Taylor NP). CHIEF COMPLAINT: Weakness. HISTORY OF PRESENT ILLNESS: Ms. Mckinney is a 78-year-old female with past medical history significant for metastatic breast cancer, history of DVT, liver cirrhosis secondary to alcohol use with ascites, who presented to the emergency room with complaints of worsening weakness. The patient was recently admitted to [facility] on 12/08/18 to 12/13/18 for weakness at that time. The patient reports that her weakness has gotten progressively worse. She woke during the night and was unable to get out of bed due to the weakness, so her brought her to the emergency room for further evaluation. The reports that the patient has also had some mild increase in confusion. The patient reports that she has had increased left leg swelling that started approximately 2 days ago and loose stools that are dark in color, but denies any daniella red blood from the rectum. She denies any fever or chills. She denies any chest pain. She denies any cough or congestion. She denies any abdominal pain. She does report abdominal bloating that has progressively worsened for the past 2 weeks. She does report that her last paracentesis was approximately 2 weeks ago. She does report that she now has some shortness of breath with exertion. Due to these symptoms, the patient presented to the emergency room for further evaluation due to progressive weakness and Hospital Medicine was asked to consult for admission. PAST MEDICAL HISTORY: Significant for: 1. Metastatic breast cancer to the bone. 2. History of left leg DVT and PE, now with IVC filter. 3. COPD. 4. History of liver cirrhosis secondary to alcohol use. 5. Insomnia. 6. Depression. 7. Anxiety. 8. Chronic kidney disease, stage 4. 9. History of glaucoma and macular degeneration. PAST SURGICAL HISTORY: 1. Cataract surgery in 2014. 2. Right total knee arthroplasty in 2011. 3. Right foot surgery in 2008. 4. Bunion surgery in 2003. 5. D and C in 2003. 6. Right mastectomy in 1997. 7. Cholecystectomy in 1994. 8. Tubal ligation. 9. IVC filter placement approximately 2 years ago. MEDICATIONS: Home medications include: 1. Xalatan eye drop 0.005%, 1 drop to the right eye q.p.m. 2. Lexapro 20 mg p.o. daily. 3. Sodium chloride 1 tablet 1 g p.o. daily. 4. Percocet 5/325 one tablet p.o. q.6 hours as needed. 5. OxyContin 10 mg p.o. b.i.d. 6. Ibrance 125 mg p.o. on hold. 7. Omeprazole 20 mg p.o. daily. 8. John Day-3 fatty acid 1 cap p.o. at bedtime. 9. Multivitamin 1 tab p.o. daily. 10. Remeron 30 mg at bedtime. 11. Faslodex 125 mg IM monthly. 12. Flonase 1 spray to both nares daily. 13. Ferrous sulfate 325 mg p.o. every other day. 14. Colace 100 mg p.o. b.i.d. 15. Cleocin 1 application topically daily. 16. Calcium carbonate with vitamin D 1 tab p.o. b.i.d. 17. Symbicort 80/4.5 two puffs b.i.d. 18. Betoptic 1 drop to both eyes b.i.d. 19. Albuterol neb q.4 hours as needed. 20. Albuterol inhaler 2 puffs q.4 hours as needed for shortness of breath. 21. Xanax 0.25 mg p.o. b.i.d. 22. Lactulose 45 mL p.o. t.i.d. 23. Rifaximin 550 mg p.o. b.i.d. 24. Sodium bicarbonate 650 mg p.o. a.c. 25. Lasix 20 mg p.o. daily. ALLERGIES: ADHESIVE TAPE, LATEX, PROCHLORPERAZINE, SULFA, ERYTHROMYCIN, and ZOFRAN. FAMILY HISTORY: Grandmother with history of brain cancer, father with history of stroke. No reported history of diabetes. SOCIAL HISTORY: She is . She lives with her . She denies any smoking but does report secondhand smoke. She denies any alcohol use x4 weeks. She is a full code. Surrogate decision maker in the event she is unable to make her own decisions is her . REVIEW OF SYSTEMS: A 14-point review of systems was completed, all pertinent positives are mentioned in the HPI, otherwise were negative. PHYSICAL EXAMINATION GENERAL: At this time, Ms. Mckinney is alert and oriented x3, resting on the stretcher in the emergency room. Her color is pale. VITAL SIGNS: Blood pressure 129/59, heart rate 83, respirations are 18, O2 saturation 95%, temperature was 98.0. HEENT: Head is atraumatic, normocephalic. Eyes: EOMs are intact. Sclerae are anicteric and not pale. Oral mucosa appeared to be moist. NECK: Supple. LUNGS: Clear to auscultation bilaterally. No wheezes, rales, or rhonchi. CARDIAC: S1, S2. Regular rate and rhythm. ABDOMEN: Distended, firm to the touch. Bowel sounds are present x4. EXTREMITIES: She is able to move all 4 extremities. She does have edema and swelling noted to her left leg, left is greater than right. Pedal pulses are + 2 bilaterally. NEUROLOGIC: She is awake, alert, oriented x3. Speech is clear. Thought process is intact. There are no gross focal deficits. SKIN: Intact. DIAGNOSTIC STUDIES/LAB DATA: WBCs are 6.3, RBCs 2.17, hemoglobin 8.2, hematocrit was 25, platelet count 134. INR 1.27. Sodium 128, potassium 3.9, chloride 96, carbon dioxide 22, anion gap was 10, BUN was 83, creatinine 3.05, lactic acid was 1.8, calcium 9.0. ASTs are 65, ALTs are 47, alkaline phosphatase is 208. Ammonia was 42. CK 42. Troponin was 0.03. TSH was 4.06. She had a chest x-ray, radiologist's impression: Trace linear airspace opacification in the left lower lung zone, could represent atelectasis. No pleural effusion is identified. She had an electrocardiogram, which showed sinus rhythm at a rate of 75. ASSESSMENT AND PLAN: Ms. Mckinney is a 78-year-old female with past medical history significant for metastatic breast cancer, history of liver cirrhosis with ascites due to alcohol use, chronic obstructive pulmonary disease, depression, insomnia, anxiety, and chronic kidney disease, stage 4, who presented to the emergency room with complaints of progressively worsening weakness and progressively worsening abdominal distention. She will be admitted inpatient for: 1. Weakness: I suspect her weakness is related to her underlying chronic medical condition of metastatic breast cancer and cirrhosis of the liver as well as deconditioning from her recent hospitalization. I will order PT evaluation. 2. Metastatic breast cancer: I did contact Dr. Perry from Oncology who will see the patient in the a.m. 3. Cirrhosis of the liver with ascites due to alcohol abuse. I did again speak to Dr. Perry, who will perform paracentesis tomorrow as this has been currently been performed in his office every couple of weeks. 4. History of chronic obstructive pulmonary disease. The patient should continue on albuterol nebs and albuterol inhaler, Symbicort as previously prescribed. She should continue O2, 3 L of oxygen. 5. Hyponatremia. The patient does have chronic hyponatremia. We will continue her on sodium tabs. 6. Thrombocytopenia. The patient has had chronic thrombocytopenia. Her platelet count is higher than her normal baseline of 134. Previous admission, her platelet count was 86. 7. Reports of dark stools. The patient does report dark stools. I will get heme. We will send stool for occult. 8. History of deep venous thrombosis and pulmonary embolism. The patient does have an inferior vena cava filter in place. The patient does report increased swelling to her left leg. I will get venous ultrasound of the left lower leg. 9. Anxiety and depression. The patient should continue on Lexapro and Remeron , alprazolam as previously prescribed. 10. Chronic kidney disease. The patient's BUN and creatinine are elevated above her baseline. This could be related to hepato-renal syndrome. I would recommend a consultation to Nephrology. 11. Anemia. The patient does have chronic anemia. I suspect this could be related to her underlying chronic liver disease and kidney disease. The patient does report that she has had dark stool. I will send stool for occult and continue to monitor. She will not be placed on any anticoagulation due to possible gastrointestinal bleeding. 12. FEN. She can have a heart healthy diet. 13. Code status. She is a full code. 14. DVT prophylaxis. Chemical DVT prophylaxis is contraindicated due to the patient reporting dark stools and anemia. Need for paracentesis tomorrow. SCDs are contraindicated as the patient does have a history of deep venous thrombosis. The patient is complaining of increased swelling to her lower extremities and does have edema to her bilateral lower extremities. TIME SPENT: Time spent on this admission was 60 minutes, greater than half that time was spent at the bedside reviewing the events leading thus far to her hospitalization, performing physical exam, and reviewing my plan of care. I have discussed this with my attending Dr. Patrick Christian; he is in agreement with my plan. NOEMÍ TAYLOR NP [id number]/CPS #: [id number] PILY
[2018-12-18] MEDS ORDERED: Sodium Chloride TAB* 1 GM PO SCH (09:00)
--- NOTE | 2018-12-18 09:09 | PN ---
Subjective Date of Service: 12/18/18 Interval History: Per RN had large clot and then bright red blood on wiping. Marianne says has been on/off for a few weeks. Cramping prior to BMs (3x a day), otherwise soft on the lactulose. Abdominal distention worse since the discharge. EEG TECH stable at 3.0 (from 1.6-2.1 last admission; baseline had been 0.7 in September) left leg swelling x 2 days no pain - Objective Active Medications: Acetaminophen (Tylenol Tab*) 650 mg PO Q6H PRN PRN Reason: MILD PAIN or TEMP > 100.4 Albuterol (Ventolin Hfa Inhaler*) 2 puff INH Q4H PRN PRN Reason: SOB/WHEEZING Albuterol/Ipratropium (Duoneb (Albuterol 2.5 Mg/Ipratropium 0.5 Mg)) 1 neb INH Q4H PRN PRN Reason: SOB/WHEEZING Alprazolam (Xanax Tab*) 0.25 mg PO BID PRN PRN Reason: ANXIETY Betaxolol HCl (Betoptic-S 0.25%*) 1 drop BOTH EYES BID [facility] Last Admin: 12/18/18 00:30 Dose: 1 drop Docusate Sodium (Colace Cap*) 100 mg PO BID [facility] Last Admin: 12/17/18 23:51 Dose: 100 mg Escitalopram Oxalate (Lexapro *) 20 mg PO DAILY [facility] Ferrous Sulfate (Ferrous Sulfate Tab*) 325 mg PO EVERY OTHER DAY [facility] Fluticasone Propionate (Flonase Nasal [place] 50mcg*) 1 spray BOTH NARES DAILY [facility] Sodium Chloride (Ns 0.9% 1000 Ml) 1,000 mls @ 125 mls/hr IV PER RATE [facility] Last Admin: 12/17/18 19:08 Dose: 125 mls/hr Lactulose (Lactulose*) 45 ml PO TID [facility] Last Admin: 12/18/18 00:27 Dose: 45 ml Latanoprost (Xalatan 0.005%*) 1 drop RIGHT EYE QPM [facility] Mirtazapine (Remeron Tab*) 30 mg PO BEDTIME [facility] Last Admin: 12/17/18 23:51 Dose: 30 mg Mometasone Furoate/Formoterol Fumar (Dulera 100/5 Mdi*) 2 puff INH BID [facility] Last Admin: 12/18/18 07:37 Dose: 2 puff Multivitamins/Minerals (Theragran/Minerals Tab*) 1 tab PO DAILY [facility] Oxycodone HCl (Oxycontin(*)) 10 mg PO BID [facility] Last Admin: 12/17/18 23:51 Dose: 10 mg Oxycodone/Acetaminophen (Percocet 5/325 Tab*) 1 tab PO Q6H PRN PRN Reason: PAIN Pantoprazole Sodium (Protonix Tab*) 40 mg PO DAILY [facility] Rifaximin (Xifaxan*) 550 mg PO BID [facility] Last Admin: 12/17/18 23:52 Dose: 550 mg Sodium Bicarbonate (Sodium Bicarbonate (Antacid)*) 650 mg PO AC [facility] Sodium Chloride (Sodium Chloride Tab*) 1 gm PO DAILY [facility] Vital Signs - 8 hr 12/18/18 12/18/18 12/18/18 01:36 02:46 07:32 Temperature 97.5 F 97.7 F Pulse Rate 73 71 Respiratory 18 20 18 Rate Blood Pressure 118/62 113/53 (mmHg) O2 Sat by Pulse 96 96 Oximetry 12/18/18 08:16 Temperature Pulse Rate 76 Respiratory 16 Rate Blood Pressure (mmHg) O2 Sat by Pulse 96 Oximetry Oxygen Devices in Use Now: None Appearance: NAD, lying in bed. Respiratory: - - rales at right base. no wheezing, rhonchi Cardiovascular: NL Sounds; No Murmurs; No JVD, - - 1+ edema bilaterally. Abdominal: - - shifting dullness to percussion. moderately distended. nontender. Skin: No Rash or Ulcers Neurological: Alert and Oriented x 3 Nutrition: Taking PO's Result Diagrams: 12/18/18 05:11 12/18/18 05:11 Additional Lab and Data: Laboratory Results - last 24 hr 12/17/18 12/17/18 12/17/18 17:09 17:09 17:09 WBC 6.3 RBC 2.17 L Hgb 8.2 L Hct 25 L MCV 114 H MCH 38 H MCHC 33 RDW 23 H Plt Count 134 L MPV 10.0 Neut % (Auto) 70.8 Lymph % (Auto) 9.0 [place] % (Auto) 19.0 Eos % (Auto) 1.2 Baso % (Auto) 0.0 Absolute Neuts (auto) 4.4 Absolute Lymphs (auto) 0.6 L Absolute Monos (auto) 1.2 H Absolute Eos (auto) 0.1 Absolute Basos (auto) 0.0 Absolute Nucleated RBC 0.0 Nucleated RBC % 0.5 INR (Anticoag Therapy) Sodium 128 L Potassium 3.9 Chloride 96 L Carbon Dioxide 22 Anion Gap 10 BUN 83 H Creatinine 3.05 H Est GFR ( Amer) 17.9 Est GFR (Non-Af Amer) 14.8 BUN/Creatinine Ratio 27.2 H Glucose 128 H Lactic Acid Calcium 9.0 Total Bilirubin 0.80 AST 65 H ALT 47 Alkaline Phosphatase 208 H Ammonia 42 Total Creatine Kinase 42 Troponin I 0.03 Total Protein 6.1 L Albumin 3.1 L Globulin 3.0 Albumin/Globulin Ratio 1.0 Lipase 52 TSH 4.06 12/17/18 12/17/18 12/18/18 17:09 17:09 05:11 WBC 6.2 RBC 2.02 L Hgb 7.6 L Hct 23 L MCV 111 H MCH 38 H MCHC 34 RDW 22 H Plt Count 127 L MPV 9.3 Neut % (Auto) 65.2 Lymph % (Auto) 12.4 [place] % (Auto) 18.9 Eos % (Auto) 2.3 Baso % (Auto) 1.2 Absolute Neuts (auto) 4.1 Absolute Lymphs (auto) 0.8 L Absolute Monos (auto) 1.2 H Absolute Eos (auto) 0.1 Absolute Basos (auto) 0.1 Absolute Nucleated RBC 0.0 Nucleated RBC % 0.6 INR (Anticoag Therapy) 1.27 H Sodium Potassium Chloride Carbon Dioxide Anion Gap BUN Creatinine Est GFR ( Amer) Est GFR (Non-Af Amer) BUN/Creatinine Ratio Glucose Lactic Acid 1.8 Calcium Total Bilirubin AST ALT Alkaline Phosphatase Ammonia Total Creatine Kinase Troponin I Total Protein Albumin Globulin Albumin/Globulin Ratio Lipase TSH 12/18/18 05:11 WBC RBC Hgb Hct MCV MCH MCHC RDW Plt Count MPV Neut % (Auto) Lymph % (Auto) [place] % (Auto) Eos % (Auto) Baso % (Auto) Absolute Neuts (auto) Absolute Lymphs (auto) Absolute Monos (auto) Absolute Eos (auto) Absolute Basos (auto) Absolute Nucleated RBC Nucleated RBC % INR (Anticoag Therapy) Sodium 130 L Potassium 4.2 Chloride 98 L Carbon Dioxide 23 Anion Gap 9 BUN 84 H Creatinine 3.07 H Est GFR ( Amer) 17.7 Est GFR (Non-Af Amer) 14.7 BUN/Creatinine Ratio 27.4 H Glucose 108 H Lactic Acid Calcium 8.4 L Total Bilirubin AST ALT Alkaline Phosphatase Ammonia Total Creatine Kinase Troponin I Total Protein Albumin Globulin Albumin/Globulin Ratio Lipase TSH Assess/Plan/Problems-Billing Assessment: 78 yo female PMH metastatic breast cancer (recent progression on PET in bones), EtOH cirrhosis, worsening renal function (recent admission 12/08-12/13), anemia with hx of internal hemorrhoids and small bowels AVM, COPD, anxiety/depression. Returns with progressive weakness, abdominal distention and EEG TECH up to 3.1 (1.6- 2.1 had been 0.7 in September and at some point had pharmacy mix up getting 10x torsemide dose prescribed). - Patient Problems (1) CKD (chronic kidney disease) stage 4, GFR 15-29 ml/min Current Visit: No Status: Acute Code(s): N18.4 - CHRONIC KIDNEY DISEASE, STAGE 4 (SEVERE) SNOMED Code(s): 799017898 Comment: - ELMER on admission, EEG TECH up to 3.0, GFR 14. - waiting on UA (?hepatorenal), Bhargavi, UCrt, Uurea, UPotassium - plan to reconsult Dr Arenas - in setting of anemia, GIB, ascites. - lasix 20mg held, getting IVF. - add on BNP, pEF on recent ECHO (2) Ascites Current Visit: Yes Status: Acute Code(s): R18.8 - OTHER ASCITES SNOMED Code(s): 113993758 Comment: Planned diagnostic/therapeutic paracentesis by Page of heme/onc today. - held home lasix 20 - continue midodrine 550 BID. - ELMER etiology includes hepatorenal (need UA to help clarify), SBP (though no pain), others. (3) Anxiety and depression Current Visit: No Status: Acute Code(s): F41.9 - ANXIETY DISORDER, UNSPECIFIED; F32.9 - MAJOR DEPRESSIVE DISORDER, SINGLE EPISODE, UNSPECIFIED SNOMED Code(s): 418322872 Comment: - Continue escitalopram 20mg daily, mirtazapine 30mg qhs, alprazolam 0.25mg po BID (4) COPD (chronic obstructive pulmonary disease) Current Visit: No Status: Acute Code(s): J44.9 - CHRONIC OBSTRUCTIVE PULMONARY DISEASE, UNSPECIFIED SNOMED Code(s): 45877515 Comment: - Not in exacerbation - chronic hypoxic respiratory failure on 3L oxygen - Continue Dulera, albuterol (5) Decompensation of cirrhosis of liver Current Visit: No Status: Acute Code(s): K72.90 - HEPATIC FAILURE, UNSPECIFIED WITHOUT COMA SNOMED Code(s): 465037723 Comment: - held home Lasix 20mg which was added 12/12. - continue Lactolose - Alcoholic cirrhosis - Requiring frequent paracenteses, most recently 12/04/18 when 6L was drained. Planned diagnostic today. - MELD-Na is 25 indicating 19.6% 90-day mortality rate - appreciate oncology assistance - last drink 4 weeks ago (6) GI bleed Current Visit: No Status: Acute Code(s): K92.2 - GASTROINTESTINAL HEMORRHAGE , UNSPECIFIED SNOMED Code(s): 58230078 Comment: - hgb 7.6 from 8.2. recently 7.3-8.4 last week. - bright red blood per rectum on tissue wiping. - history of internal hemorrhoids and small bowel AVMs and cirrhosis (INR 1.27) - CBC q12 - GI consulted last week and deferred on EGD at that time. - transfuse for symptoms or hgb <7. - continue PPI. - last EGD June 2017 - last poor prep colonoscopy June 2017 - small bowel capsule study September 2017 (7) History of pulmonary embolism Current Visit: No Status: Acute Code(s): Z86.711 - PERSONAL HISTORY OF PULMONARY EMBOLISM SNOMED Code(s): 505681586 Comment: - IVC filter in place (8) Hyponatremia Current Visit: No Status: Acute Code(s): E87.1 - HYPO-OSMOLALITY AND HYPONATREMIA SNOMED Code(s): 50444084 Comment: - Suspect secondary to cirrhosis - should be on sodium restriction given decompensated cirrhosis requiring intermittent paracentesis - stop sodium tabs. (9) Metastatic breast cancer Current Visit: No Status: Acute Code(s): C50.919 - MALIGNANT NEOPLASM OF UNSP SITE OF UNSPECIFIED FEMALE BREAST SNOMED Code(s): 348913519 Comment: - Mets to bone - Recent PET scan shows increasing mets - Appreciate Oncology consult - Continue Oxycontin, Percocet - Currently FULL code. Did have a palliative care consult last week and was given information on PATH. - Palliative care consulting (10) Thrombocytopenia Current Visit: No Status: Acute Code(s): D69.6 - THROMBOCYTOPENIA, UNSPECIFIED SNOMED Code(s): 618960971 Comment: - Stable - Secondary to cirrhosis Status and Disposition: medicine, will gayathri need to switch to inpatient given renal failure.
[2018-12-18] MEDS: RiFAXimin* 550 MG TAB PO SCH ×2 (09:14→21:33)
[2018-12-18] MEDS: Pantoprazole TAB * 40 MG TAB PO SCH (09:14)
[2018-12-18] MEDS: oxyCODONE SR TAB(*) 10 MG TAB.SR PO SCH ×2 (09:14→21:32)
[2018-12-18] MEDS: Docusate CAP* 100 MG PO SCH ×2 (09:14→21:32)
[2018-12-18] MEDS: Multivitamins/Minerals TAB PO SCH (09:14)
[2018-12-18] MEDS: Fluticasone NASAL SPRAY 50MCG* 16 gm SPRAY BTL BOTH NARES SCH (09:14)
[2018-12-18] MEDS: Escitalopram * 20 MG TABLET PO SCH (09:14)
[2018-12-18] MEDS: Sodium Bicarbonate (ANTACID)* 650 MG TAB PO SCH ×3 (09:15→17:32)
--- NOTE | 2018-12-18 10:37 | BRIEFOPN ---
Brief Operative Note - Operation Details Pre-Op Diagnosis: Ascites secondary to cirrhosis Post-Op Diagnosis: Ascites secondary to cirrhosis Procedures: Therapeutic and diagnostic paracentesis, left lower quadrant Surgeon(s)/Proceduralists: JANELLE Adams Anesthesia: Lidocaine 1%, approx. 1 mL Estimated Blood Loss: none Findings: clear, straw colored fluid Specimen(s)/Culture(s) Description: Cell count and culture Complications: Tolerated very well. No obvious complications.
[2018-12-18 11:04] LABS: Body Fluid Source Peritonial Fluid
[2018-12-18 13:14] LABS: Body Fluid Mono 69 %; Body Fluid Other Cells 4
[2018-12-18] MEDS: Albumin Human 25%* 25 GM/100 ML BTL IV SCH ×2 (15:15→21:11)
[2018-12-18] MEDS: CMCS: Midodrine 5 MG TAB PO SCH ×2 (15:16→21:33)
[2018-12-18] MEDS: Octreotide Acetate* 100 MCG/ML 1 ML VIAL SUBCUT SCH ×3 (15:18→21:34)
--- NOTE | 2018-12-18 15:52 | CONSULT ---
Palliative / Hospice Consult Ordering Provider: Noemí Taylor - PCP-Todd/Vicky Referal Reason: Goals of care - Subjective Code Status: Full Code Advance Directives Location: No Advance Directives - History or Present Illness History or Present Illness: 78yo female with metastatic breast cancer, cirrhosis with ascites and renal insufficiency presents with weakness. Pt was recently discharged on SaturdayDecember 13. PMH is significant for breast cancer(1997) treated with chemo went into remission reoccurred received chemo and aromatase inhibitors now with bony mets, h/o DVT and PE with IVC filter, liver cirrhosis with ascites, COPD and pulmonary HTN on 3 liters O2, insomnia, depression, anxiety, CKD stage 4 secondary to medication error and chronic anemia secondary to petechiae and angiodysplasia. Pt is a nonsmoker, + etoh use, with 2 children. Studies CXR-atelectasis, ekg-nsr, venous doppler no dvt, H/H 8.2/25, Na 128, BUN/Cr 83/3.05, egfr 14.8, tprot 6.6, alb 3.1, t bili .8, ast 65, alt 47, INR 1.27 and NH4-42(MELD 26). Pt was well at discharge but became weak on Saturday and was brought to ER on Saturday. Admitted with weakness, hyponatremia and worsening kidney disease. Lab Values: Abnormal Lab Results 12/17/18 12/17/18 12/17/18 17:09 17:09 17:09 WBC 6.3 RBC 2.17 L Hgb 8.2 L Hct 25 L MCV 114 H MCH 38 H MCHC 33 RDW 23 H Plt Count 134 L MPV 10.0 Neut % (Auto) 70.8 Lymph % (Auto) 9.0 [place] % (Auto) 19.0 Eos % (Auto) 1.2 Baso % (Auto) 0.0 Absolute Neuts (auto) 4.4 Absolute Lymphs (auto) 0.6 L Absolute Monos (auto) 1.2 H Absolute Eos (auto) 0.1 Absolute Basos (auto) 0.0 Absolute Nucleated RBC 0.0 Nucleated RBC % 0.5 INR (Anticoag Therapy) Sodium 128 L Potassium 3.9 Chloride 96 L Carbon Dioxide 22 Anion Gap 10 BUN 83 H Creatinine 3.05 H Est GFR ( Amer) 17.9 Est GFR (Non-Af Amer) 14.8 BUN/Creatinine Ratio 27.2 H Glucose 128 H Lactic Acid Calcium 9.0 Total Bilirubin 0.80 AST 65 H ALT 47 Alkaline Phosphatase 208 H Ammonia 42 Total Creatine Kinase 42 Troponin I 0.03 Total Protein 6.1 L Albumin 3.1 L Globulin 3.0 Albumin/Globulin Ratio 1.0 Lipase 52 TSH 4.06 Fluid Source Fluid Volume Fluid Color Fluid Appearance Fluid WBC Fluid RBC Fluid Tot Cell Count Fluid Neutrophils Fluid Lymphocytes Fluid Monocytes Fluid Other Cells 12/17/18 12/17/18 12/18/18 17:09 17:09 05:11 WBC 6.2 RBC 2.02 L Hgb 7.6 L Hct 23 L MCV 111 H MCH 38 H MCHC 34 RDW 22 H Plt Count 127 L MPV 9.3 Neut % (Auto) 65.2 Lymph % (Auto) 12.4 [place] % (Auto) 18.9 Eos % (Auto) 2.3 Baso % (Auto) 1.2 Absolute Neuts (auto) 4.1 Absolute Lymphs (auto) 0.8 L Absolute Monos (auto) 1.2 H Absolute Eos (auto) 0.1 Absolute Basos (auto) 0.1 Absolute Nucleated RBC 0.0 Nucleated RBC % 0.6 INR (Anticoag Therapy) 1.27 H Sodium Potassium Chloride Carbon Dioxide Anion Gap BUN Creatinine Est GFR ( Amer) Est GFR (Non-Af Amer) BUN/Creatinine Ratio Glucose Lactic Acid 1.8 Calcium Total Bilirubin AST ALT Alkaline Phosphatase Ammonia Total Creatine Kinase Troponin I Total Protein Albumin Globulin Albumin/Globulin Ratio Lipase TSH Fluid Source Fluid Volume Fluid Color Fluid Appearance Fluid WBC Fluid RBC Fluid Tot Cell Count Fluid Neutrophils Fluid Lymphocytes Fluid Monocytes Fluid Other Cells 12/18/18 12/18/18 05:11 10:00 WBC RBC Hgb Hct MCV MCH MCHC RDW Plt Count MPV Neut % (Auto) Lymph % (Auto) [place] % (Auto) Eos % (Auto) Baso % (Auto) Absolute Neuts (auto) Absolute Lymphs (auto) Absolute Monos (auto) Absolute Eos (auto) Absolute Basos (auto) Absolute Nucleated RBC Nucleated RBC % INR (Anticoag Therapy) Sodium 130 L Potassium 4.2 Chloride 98 L Carbon Dioxide 23 Anion Gap 9 BUN 84 H Creatinine 3.07 H Est GFR ( Amer) 17.7 Est GFR (Non-Af Amer) 14.7 BUN/Creatinine Ratio 27.4 H Glucose 108 H Lactic Acid Calcium 8.4 L Total Bilirubin AST ALT Alkaline Phosphatase Ammonia Total Creatine Kinase Troponin I Total Protein Albumin Globulin Albumin/Globulin Ratio Lipase TSH Fluid Source Peritonial fluid Fluid Volume 12 Fluid Color Colorless Fluid Appearance Clear Fluid WBC 47 Fluid RBC 16 Fluid Tot Cell Count 100 Fluid Neutrophils 7 Fluid Lymphocytes 24 Fluid Monocytes 69 Fluid Other Cells 4 Laboratory Last Values WBC 6.2 10^3/uL (3.5-10.8) 12/18/18 05:11 RBC 2.02 10^6 /uL (3.70-4.87) L 12/18/18 05:11 Hgb 7.6 g/dL (12.0-16.0) L 12/18/18 05:11 Hct 23 % (35-47) L 12/18/18 05:11 MCV 111 fL (80-97) H 12/18/18 05:11 MCH 38 pg (27-31) H 12/18/18 05:11 MCHC 34 g/dL (31-36) 12/18/18 05:11 RDW 22 % (10-15) H 12/18/18 05:11 Plt Count 127 10^3/uL (150-450) L 12/18/18 05:11 MPV 9.3 fL (7.4-10.4) 12/18/18 05:11 Neut % (Auto) 65.2 % 12/18/18 05:11 Lymph % (Auto) 12.4 % 12/18/18 05:11 [place] % (Auto) 18.9 % 12/18/18 05:11 Eos % (Auto) 2.3 % 12/18/18 05:11 Baso % (Auto) 1.2 % 12/18/18 05:11 Absolute Neuts (auto) 4.1 10^3/ul (1.5-7.7) 12/18/18 05:11 Absolute Lymphs (auto) 0.8 10^3/ul (1.0-4.8) L 12/18/18 05:11 Absolute Monos (auto) 1.2 10^3/ul (0-0.8) H 12/18/18 05:11 Absolute Eos (auto) 0.1 10^3/ul (0-0.6) 12/18/18 05:11 Absolute Basos (auto) 0.1 10^3/ul (0-0.2) 12/18/18 05:11 Absolute Nucleated RBC 0.0 10^3/ul 12/18/18 05:11 Nucleated RBC % 0.6 12/18/18 05:11 INR (Anticoag Therapy) 1.27 (0.82-1.09) H 12/17/18 17:09 Sodium 130 mmol/L (135-145) L 12/18/18 05:11 Potassium 4.2 mmol/L (3.5-5.0) 12/18/18 05:11 Chloride 98 mmol/L (101-111) L 12/18/18 05:11 Carbon Dioxide 23 mmol/L (22-32) 12/18/18 05:11 Anion Gap 9 mmol/L (2-11) 12/18/18 05:11 BUN 84 mg/dL (6-24) H 12/18/18 05:11 Creatinine 3.07 mg/dL (0.51-0.95) H 12/18/18 05:11 Est GFR ( Amer) 17.7 (>60) 12/18/18 05:11 Est GFR (Non-Af Amer) 14.7 (>60) 12/18/18 05:11 BUN/Creatinine Ratio 27.4 (8-20) H 12/18/18 05:11 Glucose 108 mg/dL (70-100) H 12/18/18 05:11 Lactic Acid 1.8 mmol/L (0.5-2.0) 12/17/18 17:09 Calcium 8.4 mg/dL (8.6-10.3) L 12/18/18 05:11 Total Bilirubin 0.80 mg/dL (0.2-1.0) 12/17/18 17:09 AST 65 U/L (13-39) H 12/17/18 17:09 ALT 47 U/L (7-52) 12/17/18 17:09 Alkaline Phosphatase 208 U/L (34-104) H 12/17/18 17:09 Ammonia 42 mcmol/L (16-53) 12/17/18 17:09 Total Creatine Kinase 42 U/L (10-223) 12/17/18 17:09 Troponin I 0.03 ng/mL (<0.04) 12/17/18 17:09 Total Protein 6.1 g/dL (6.4-8.9) L 12/17/18 17:09 Albumin 3.1 g/dL (3.2-5.2) L 12/17/18 17:09 Globulin 3.0 g/dL (2-4) 12/17/18 17:09 Albumin/Globulin Ratio 1.0 (1-3) 12/17/18 17:09 Lipase 52 U/L (11.0-82.0) 12/17/18 17:09 TSH 4.06 mcIU/mL (0.34-5.60) 12/17/18 17:09 Fluid Source Peritonial fluid 12/18/18 10:00 Fluid Volume 12 mL 12/18/18 10:00 Fluid Color Colorless 12/18/18 10:00 Fluid Appearance Clear 12/18/18 10:00 Fluid WBC 47 /mcL (0-993060) 12/18/18 10:00 Fluid RBC 16 /mcL 12/18/18 10:00 Fluid Tot Cell Count 100 12/18/18 10:00 Fluid Neutrophils 7 % 12/18/18 10:00 Fluid Lymphocytes 24 % 12/18/18 10:00 Fluid Monocytes 69 % 12/18/18 10:00 Fluid Other Cells 4 12/18/18 10:00 - Objective Active Medications: Acetaminophen (Tylenol Tab*) 650 mg PO Q6H PRN PRN Reason: MILD PAIN or TEMP > 100.4 Albuterol (Ventolin Hfa Inhaler*) 2 puff INH Q4H PRN PRN Reason: SOB/WHEEZING Albuterol/Ipratropium (Duoneb (Albuterol 2.5 Mg/Ipratropium 0.5 Mg)) 1 neb INH Q4H PRN PRN Reason: SOB/WHEEZING Alprazolam (Xanax Tab*) 0.25 mg PO BID PRN PRN Reason: ANXIETY Betaxolol HCl (Betoptic-S 0.25%*) 1 drop BOTH EYES BID [facility] Last Admin: 12/18/18 09:14 Dose: 1 drop Docusate Sodium (Colace Cap*) 100 mg PO BID [facility] Last Admin: 12/18/18 09:14 Dose: 100 mg Escitalopram Oxalate (Lexapro *) 20 mg PO DAILY [facility] Last Admin: 12/18/18 09:14 Dose: 20 mg Ferrous Sulfate (Ferrous Sulfate Tab*) 325 mg PO EVERY OTHER DAY [facility] Fluticasone Propionate (Flonase Nasal [place] 50mcg*) 1 spray BOTH NARES DAILY [facility] Last Admin: 12/18/18 09:14 Dose: 1 spray Sodium Chloride (Ns 0.9% 1000 Ml) 1,000 mls @ 125 mls/hr IV PER RATE [facility] Last Admin: 12/17/18 19:08 Dose: 125 mls/hr Albumin Human (Albumin Human 25%*) 25 gm in 100 mls @ 100 mls/hr IV TID [facility] Stop: 12/19/18 09:59 Last Admin: 12/18/18 15:15 Dose: 100 mls/hr Lactulose (Lactulose*) 45 ml PO TID [facility] Last Admin: 12/18/18 15:17 Dose: 45 ml Latanoprost (Xalatan 0.005%*) 1 drop RIGHT EYE QPM [facility] Midodrine (Midodrine) 7.5 mg PO TID [facility]; Protocol Last Admin: 12/18/18 15:16 Dose: 7.5 mg Mirtazapine (Remeron Tab*) 30 mg PO BEDTIME [facility] Last Admin: 12/17/18 23:51 Dose: 30 mg Mometasone Furoate/Formoterol Fumar (Dulera 100/5 Mdi*) 2 puff INH BID [facility] Last Admin: 12/18/18 07:37 Dose: 2 puff Multivitamins/Minerals (Theragran/Minerals Tab*) 1 tab PO DAILY [facility] Last Admin: 12/18/18 09:14 Dose: 1 tab Octreotide Acetate (Octreotide Acetate*) 100 mcg SUBCUT TID [facility] Oxycodone HCl (Oxycontin(*)) 10 mg PO BID [facility] Last Admin: 12/18/18 09:14 Dose: 10 mg Oxycodone/Acetaminophen (Percocet 5/325 Tab*) 1 tab PO Q6H PRN PRN Reason: PAIN Pantoprazole Sodium (Protonix Tab*) 40 mg PO DAILY [facility] Last Admin: 12/18/18 09:14 Dose: 40 mg Rifaximin (Xifaxan*) 550 mg PO BID [facility] Last Admin: 08/22/19 09:14 Dose: 550 mg Sodium Bicarbonate (Sodium Bicarbonate (Antacid)*) 650 mg PO AC [facility] Last Admin: 12/18/18 15:18 Dose: Not Given Vital Signs: Vital Signs: Temp Pulse Resp BP Pulse Ox 97.4 F 79 20 118/52 95 12/18/18 11:58 12/18/18 11:58 12/18/18 11:58 12/18/18 11:58 12/18/18 11:58 Patient Weight: Weight 102.739 kg Intake and Output: Intake & Output 12/16/18 12/17/18 12/18/18 12/19/18 06:59 06:59 06:59 06:59 Intake Total 1145 240 Output Total 6000 Balance 1145 -5760 Weight 102.739 kg Intake: IV Fluids 665 Oral 480 240 Output: Other 6000 Other: Estimated Void Small # Bowel Movements 1 1 Estimated Stool Amount Medium Small Other Amount Description Paracentesis drainage # Voids 1 ADLs: Meal Record Start: 12/17/18 23: 21 Freq: DAILY@0900,1400,1800 Status: Active Protocol: Created 12/17/18 23:21 System (Rec: 12/17/18 23:21 System MED-C03) Document 12/18/18 08:43 [id number] (Rec: 12/18/18 08:43 [id number] MED-C11) Document 12/18/18 14:00 [id number] (Rec: 12/18/18 14:01 [id number] MED-C11) Intake and Output Start: 12/17/18 14: 21 Freq: Status: Active Protocol: Created 12/17/18 14:21 System (Rec: 12/17/18 14:21 System [id number]) Intake and Output Start: 12/17/18 23: 21 Freq: DAILY@0600,1400,2200 Status: Active Protocol: Created 12/17/18 23:21 System (Rec: 12/17/18 23:21 System MED-C03) Document 12/18/18 06:00 [id number] (Rec: 12/18/18 06:40 [id number] MED-C12) Document 12/18/18 11:30 [id number] (Rec: 12/18/18 13:55 [id number] MED-C04) Document 12/18/18 12:45 [id number] (Rec: 12/18/18 12:45 [id number] MED-C04) Document 12/18/18 13:53 [id number] (Rec: 12/18/18 13:53 [id number] MED-C04) Head: Normal Ears/Nose/Mouth/Throat: NL Teeth, Lips, Gums Neck: NL Appearance and Movements; NL JVP Cardiovascular: NL Sounds; No Murmurs; No JVD, - - 1+ edema bilaterally. Respiratory: Symmetrical Chest Expansion and Respiratory Effort Abdominal: - - shifting dullness to percussion. moderately distended. nontender. Neurological: Alert and Oriented x 3 - Assessment Assessment: 78yo female with metastatic breast ca, cirrhosis with ascites and renal insufficiency presents with weakness, hyponatremia and worsening renal disease. - Plan Consult Plan (MU): Palliative Plan: Long discussion with pt and her . Pt was discharged on Saturday and started to feel weak on Sat/ especially at night she feels like a "zombie". Wed was going to ER but had to turn around because of cramping later they called [facility] and went to ER. [facility] had come on Saturday to set up PT and RN visits. They are still interested in [facility] through [facility]. At this time pt is interested in dialysis because she feels if she doesn't do it she will . She wants to stay home as long as possible. I mentioned that her will need help from home health aides in the near future to help with bathing. They are not interested in hospice as of yet especially if she wants to pursue dialysis. I stressed this may be her new baseline and her liver issues will be more problematic. A copy of her labs was given to pt and her MELD score which is 26(20% chance of dying in 3 months). KPS 50%, PPS 50%. - Time On Unit Date of Evaluation: 12/18/18 Hospice Consult Time in: 15:00 Hospice Consult Time Out: 16:30 Hospice Consult Time Total: 90
[2018-12-18] MEDS: Latanoprost 0.005%* 2.5 ml BTL RIGHT EYE SCH (18:21)
[2018-12-18] MEDS: Mirtazapine TAB* 15 MG PO SCH (21:32)
[2018-12-19 07:23] LABS: BUN/Creatinine Ratio 26.3 (8-20); EGFR Non-African American 13.3 (>60); Potassium 4.6 mmol/L (3.5-5.0)
[2018-12-19 07:25] LABS: ABS Basophils 0.1 10^3/ul (0-0.2); ABS Eosinophils 0.1 10^3/ul (0-0.6); ABS Lymphocytes 0.5 10^3/ul (1.0-4.8); ABS Monocytes 1.2 10^3/ul (0-0.8); ABS Neutrophils 4.9 10^3/ul (1.5-7.7); Eosinophil % 1.1 %; Hematocrit 24 % (35-47); Hemoglobin 7.9 g/dL (12.0-16.0); Mean Corpuscular HGB Conc 34 g/dL (31-36); Mean Corpuscular Hemoglobin 38 pg (27-31); Mean Corpuscular Volume 113 fL (80-97); Mean Platelet Volume 9.5 fL (7.4-10.4); Nucleated Red Blood Cells % 0.5; Platelet Count 148 10^3/uL (150-450); Red Blood Count 2.08 10^6 /uL (3.70-4.87); Red Cell Distribution Width 22 % (10-15); White Blood Count 6.8 10^3/uL (3.5-10.8)
[2018-12-19] MEDS: Mometasone/Formoter 100/5 MDI INH SCH ×2 (07:26→19:27)
[2018-12-19] MEDS: Docusate CAP* 100 MG PO SCH ×2 (10:16→21:50)
[2018-12-19] MEDS: oxyCODONE SR TAB(*) 10 MG TAB.SR PO SCH ×2 (10:24→21:49)
[2018-12-19] MEDS: Pantoprazole TAB * 40 MG TAB PO SCH (10:24)
[2018-12-19] MEDS: Multivitamins/Minerals TAB PO SCH (10:24)
[2018-12-19] MEDS: RiFAXimin* 550 MG TAB PO SCH ×2 (10:24→21:50)
[2018-12-19] MEDS: Escitalopram * 20 MG TABLET PO SCH (10:24)
[2018-12-19] MEDS: Ferrous Sulfate TAB* 325 MG PO SCH (10:24)
[2018-12-19] MEDS: Fluticasone NASAL SPRAY 50MCG* 16 gm SPRAY BTL BOTH NARES SCH (10:26)
[2018-12-19] MEDS: Betaxolol-S 0.25%* 10 ML BTL BOTH EYES SCH ×2 (10:26→21:50)
[2018-12-19] MEDS: Albumin Human 25%* 25 GM/100 ML BTL IV SCH ×3 (10:33→21:31)
[2018-12-19] MEDS: Sodium Bicarbonate (ANTACID)* 650 MG TAB PO SCH ×3 (10:38→15:19)
[2018-12-19] MEDS: Octreotide Acetate* 100 MCG/ML 1 ML VIAL SUBCUT SCH ×3 (10:45→22:35)
--- NOTE | 2018-12-19 10:52 | PN ---
Progress Note - Progress Note Date of Service: 12/19/18 SOAP: Subjective: [Patient underwent large volume paracentesis yesterday. Reports she has less abd discomfort today. She was seen by nephrology and palliative physician. She would like to continue to pursue maximal medical options at this time.] Objective: [ Vital Signs: Temp Pulse Resp BP Pulse Ox 98.4 F 75 18 102/48 91 12/19/18 03:01 12/19/18 07:32 12/19/18 10:24 12/19/18 03:01 12/19/18 07:32 Acetaminophen (Tylenol Tab*) 650 mg PO Q6H PRN PRN Reason: MILD PAIN or TEMP > 100.4 Albuterol (Ventolin Hfa Inhaler*) 2 puff INH Q4H PRN PRN Reason: SOB/WHEEZING Albuterol/Ipratropium (Duoneb (Albuterol 2.5 Mg/Ipratropium 0.5 Mg)) 1 neb INH Q4H PRN PRN Reason: SOB/WHEEZING Alprazolam (Xanax Tab*) 0.25 mg PO BID PRN PRN Reason: ANXIETY Betaxolol HCl (Betoptic-S 0.25%*) 1 drop BOTH EYES BID [facility] Last Admin: 12/19/18 10:26 Dose: 1 drop Docusate Sodium (Colace Cap*) 100 mg PO BID [facility] Last Admin: 12/19/18 10:16 Dose: Not Given Escitalopram Oxalate (Lexapro *) 20 mg PO DAILY [facility] Last Admin: 12/19/18 10:24 Dose: 20 mg Ferrous Sulfate (Ferrous Sulfate Tab*) 325 mg PO EVERY OTHER DAY [facility] Last Admin: 12/19/18 10:24 Dose: 325 mg Fluticasone Propionate (Flonase Nasal [place] 50mcg*) 1 spray BOTH NARES DAILY [facility] Last Admin: 12/19/18 10:26 Dose: 1 spray Sodium Chloride (Ns 0.9% 1000 Ml) 1,000 mls @ 125 mls/hr IV PER RATE [facility] Last Admin: 12/17/18 19:08 Dose: 125 mls/hr Albumin Human (Albumin Human 25%*) 25 gm in 100 mls @ 100 mls/hr IV TID [facility] Stop: 12/20/18 09:59 Last Admin: 12/19/18 10:33 Dose: 100 mls/hr Lactulose (Lactulose*) 45 ml PO TID [facility] Last Admin: 12/19/18 10:31 Dose: 45 ml Latanoprost (Xalatan 0.005%*) 1 drop RIGHT EYE QPM [facility] Last Admin: 12/18/18 18:21 Dose: 1 drop Midodrine (Midodrine) 12.5 mg PO TID [facility]; Protocol Last Admin: 12/19/18 10:30 Dose: 12.5 mg Mirtazapine (Remeron Tab*) 30 mg PO BEDTIME [facility] Last Admin: 12/18/18 21:32 Dose: 30 mg Mometasone Furoate/Formoterol Fumar (Dulera 100/5 Mdi*) 2 puff INH BID [facility] Last Admin: 12/19/18 07:26 Dose: 2 puff Multivitamins/Minerals (Theragran/Minerals Tab*) 1 tab PO DAILY [facility] Last Admin: 12/19/18 10:24 Dose: 1 tab Octreotide Acetate (Octreotide Acetate*) 100 mcg SUBCUT TID [facility] Last Admin: 12/18/18 21:34 Dose: 100 mcg Oxycodone HCl (Oxycontin(*)) 10 mg PO BID [facility] Last Admin: 12/19/18 10:24 Dose: 10 mg Oxycodone/Acetaminophen (Percocet 5/325 Tab*) 1 tab PO Q6H PRN PRN Reason: PAIN Pantoprazole Sodium (Protonix Tab*) 40 mg PO DAILY [facility] Last Admin: 12/19/18 10:24 Dose: 40 mg Rifaximin (Xifaxan*) 550 mg PO BID [facility] Last Admin: 12/19/18 10:24 Dose: 550 mg Sodium Bicarbonate (Sodium Bicarbonate (Antacid)*) 650 mg PO AC [facility] Last Admin: 12/19/18 10:38 Dose: 650 mg Laboratory Results - last 24 hr 12/18/18 12/19/18 12/19/18 10:00 06:46 06:46 WBC 6.8 RBC 2.08 L Hgb 7.9 L Hct 24 L MCV 113 H MCH 38 H MCHC 34 RDW 22 H Plt Count 148 L MPV 9.5 Neut % (Auto) 72.1 Lymph % (Auto) 8.0 [place] % (Auto) 17.6 Eos % (Auto) 1.1 Baso % (Auto) 1.2 Absolute Neuts (auto) 4.9 Absolute Lymphs (auto) 0.5 L Absolute Monos (auto) 1.2 H Absolute Eos (auto) 0.1 Absolute Basos (auto) 0.1 Absolute Nucleated RBC 0.0 Nucleated RBC % 0.5 Sodium 130 L Potassium 4.6 Chloride 98 L Carbon Dioxide 23 Anion Gap 9 BUN 88 H Creatinine 3.35 H Est GFR ( Amer) 16.0 Est GFR (Non-Af Amer) 13.3 BUN/Creatinine Ratio 26.3 H Glucose 157 H Calcium 8.0 L Fluid Source Peritonial fluid Fluid Volume 12 Fluid Color Colorless Fluid Appearance Clear Fluid WBC 47 Fluid RBC 16 Fluid Tot Cell Count 100 Fluid Neutrophils 7 Fluid Lymphocytes 24 Fluid Monocytes 69 Fluid Other Cells 4 Exam: Gen: chronically ill appearing female, who was initially sleeping with nasal CPAP mask, but easily awakened HEENT: MMM CV: RRR, no m/r/g Resp: CTA, no w/c/r Abd: soft, mildly distended, nonTTP Ext: 2+ nonpitting edema Skin: no jaundice noted or other rashes] Assessment: [78 yo female with metastatic breast cancer with a relatively new diagnosis of liver cirrhosis who has unfortunately required regular paracentesis for ascites management and now 2 recent admissions related to decompensated liver failure. Her breast CA recently progressed on Ibrance, but remains bony only - no evidence of hepatic/renal involvement on recent PET scan.] Plan: [1. Decompensated liver failure with hepatorenal syndrome - s/p large volume paracentesis completed 12/18 with albumin infusion - management per hospitalist/nephrology team 2. Metastatic breast CA - recent evidence of progressive disease on Ibrance, but remains bony disease only - with worsening liver/kidney function treatment of her breast cancer is less of a priority and few options for treatment at this moment for her 3. GIB - noted bleeding per rectum - known small bowel AVMs with nl upper and lower endoscopy 06/2017 - GI consult pending Dispo: per hospitalist, oncology team will continue to follow along as needed. No plans for treatment of her metastatic malignancy at this time. Agree with palliative consultation, but it sounds like patient would like to cont with maximal medical intervention at this time.]
[2018-12-19] MEDS ORDERED: oxyCODONE/Acetamin 5/325 MG* TAB PO PRN (13:18)
--- NOTE | 2018-12-19 16:32 | PN ---
Subjective Date of Service: 12/19/18 Interval History: Afebrile, BPs trending upward to low 110s on the midodrine. DRUM STRAIGHTENER up to 3.3 from 3.1 green mushy BM this AM, no e/o blood. Hgb to 7.9 from 7.6 Still no urine sample provided yet (was mixed with feces yesterday). abdomen not painful, less cramping. no e/o of SBP on para Updated [place] at bedside. Objective Active Medications: Acetaminophen (Tylenol Tab*) 650 mg PO Q6H PRN PRN Reason: MILD PAIN or TEMP > 100.4 Albuterol (Ventolin Hfa Inhaler*) 2 puff INH Q4H PRN PRN Reason: SOB/WHEEZING Albuterol/Ipratropium (Duoneb (Albuterol 2.5 Mg/Ipratropium 0.5 Mg)) 1 neb INH Q4H PRN PRN Reason: SOB/WHEEZING Alprazolam (Xanax Tab*) 0.25 mg PO BID PRN PRN Reason: ANXIETY Betaxolol HCl (Betoptic-S 0.25%*) 1 drop BOTH EYES BID [facility] Last Admin: 12/19/18 10:26 Dose: 1 drop Docusate Sodium (Colace Cap*) 100 mg PO BID [facility] Last Admin: 12/19/18 10:16 Dose: Not Given Escitalopram Oxalate (Lexapro *) 20 mg PO DAILY [facility] Last Admin: 12/19/18 10:24 Dose: 20 mg Ferrous Sulfate (Ferrous Sulfate Tab*) 325 mg PO EVERY OTHER DAY [facility] Last Admin: 12/19/18 10:24 Dose: 325 mg Fluticasone Propionate (Flonase Nasal [place] 50mcg*) 1 spray BOTH NARES DAILY [facility] Last Admin: 12/19/18 10:26 Dose: 1 spray Sodium Chloride (Ns 0.9% 1000 Ml) 1,000 mls @ 125 mls/hr IV PER RATE [facility] Last Admin: 12/17/18 19:08 Dose: 125 mls/hr Albumin Human (Albumin Human 25%*) 25 gm in 100 mls @ 100 mls/hr IV TID [facility] Stop: 12/20/18 09:59 Last Admin: 12/19/18 15:19 Dose: 100 mls/hr Lactulose (Lactulose*) 45 ml PO TID [facility] Last Admin: 12/19/18 15:20 Dose: 45 ml Latanoprost (Xalatan 0.005%*) 1 drop RIGHT EYE QPM [facility] Last Admin: 12/18/18 18:21 Dose: 1 drop Midodrine (Midodrine) 15 mg PO TID [facility]; Protocol Last Admin: 12/19/18 15:19 Dose: 15 mg Mirtazapine (Remeron Tab*) 30 mg PO BEDTIME [facility] Last Admin: 12/18/18 21:32 Dose: 30 mg Mometasone Furoate/Formoterol Fumar (Dulera 100/5 Mdi*) 2 puff INH BID [facility] Last Admin: 12/19/18 07:26 Dose: 2 puff Multivitamins/Minerals (Theragran/Minerals Tab*) 1 tab PO DAILY [facility] Last Admin: 12/19/18 10:24 Dose: 1 tab Octreotide Acetate (Octreotide Acetate*) 100 mcg SUBCUT TID [facility] Last Admin: 12/19/18 15:21 Dose: 100 mcg Oxycodone HCl (Oxycontin(*)) 10 mg PO BID [facility] Last Admin: 12/19/18 10:24 Dose: 10 mg Oxycodone/Acetaminophen (Percocet 5/325 Tab*) 1 tab PO Q6H PRN PRN Reason: PAIN - SEVERE Pantoprazole Sodium (Protonix Tab*) 40 mg PO DAILY [facility] Last Admin: 12/19/18 10:24 Dose: 40 mg Rifaximin (Xifaxan*) 550 mg PO BID [facility] Last Admin: 12/19/18 10:24 Dose: 550 mg Sodium Bicarbonate (Sodium Bicarbonate (Antacid)*) 650 mg PO AC [facility] Last Admin: 12/19/18 15:19 Dose: 650 mg Vital Signs - 8 hr 12/19/18 12/19/18 10:24 14:54 Respiratory 18 18 Rate Oxygen Devices in Use Now: None Appearance: NAD, lying in bed Eyes: No Scleral Icterus Neck: NL Appearance and Movements; NL JVP, Trachea Midline Respiratory: Symmetrical Chest Expansion and Respiratory Effort, - - slight rales at right base. no wheezing or rhonchi. Abdominal: - - much less distended, soft, nontender. Extremities: - - 1+ edema b/l LE Skin: No Rash or Ulcers, No Nodules or Sclerosis Neurological: Alert and Oriented x 3, - - slight asterixis right hand. some difficulty rembering a specialist's name. Result Diagrams: 12/19/18 06:46 12/19/18 06:46 Additional Lab and Data: Laboratory Results - last 24 hr 12/17/18 12/17/18 12/17/18 17:09 17:09 17:09 WBC 6.3 RBC 2.17 L Hgb 8.2 L Hct 25 L MCV 114 H MCH 38 H MCHC 33 RDW 23 H Plt Count 134 L MPV 10.0 Neut % (Auto) 70.8 Lymph % (Auto) 9.0 [place] % (Auto) 19.0 Eos % (Auto) 1.2 Baso % (Auto) 0.0 Absolute Neuts (auto) 4.4 Absolute Lymphs (auto) 0.6 L Absolute Monos (auto) 1.2 H Absolute Eos (auto) 0.1 Absolute Basos (auto) 0.0 Absolute Nucleated RBC 0.0 Nucleated RBC % 0.5 INR (Anticoag Therapy) Sodium 128 L Potassium 3.9 Chloride 96 L Carbon Dioxide 22 Anion Gap 10 BUN 83 H Creatinine 3.05 H Est GFR ( Amer) 17.9 Est GFR (Non-Af Amer) 14.8 BUN/Creatinine Ratio 27.2 H Glucose 128 H Lactic Acid Calcium 9.0 Total Bilirubin 0.80 AST 65 H ALT 47 Alkaline Phosphatase 208 H Ammonia 42 Total Creatine Kinase 42 Troponin I 0.03 Total Protein 6.1 L Albumin 3.1 L Globulin 3.0 Albumin/Globulin Ratio 1.0 Lipase 52 TSH 4.06 12/17/18 12/17/18 12/18/18 17:09 17:09 05:11 WBC 6.2 RBC 2.02 L Hgb 7.6 L Hct 23 L MCV 111 H MCH 38 H MCHC 34 RDW 22 H Plt Count 127 L MPV 9.3 Neut % (Auto) 65.2 Lymph % (Auto) 12.4 [place] % (Auto) 18.9 Eos % (Auto) 2.3 Baso % (Auto) 1.2 Absolute Neuts (auto) 4.1 Absolute Lymphs (auto) 0.8 L Absolute Monos (auto) 1.2 H Absolute Eos (auto) 0.1 Absolute Basos (auto) 0.1 Absolute Nucleated RBC 0.0 Nucleated RBC % 0.6 INR (Anticoag Therapy) 1.27 H Sodium Potassium Chloride Carbon Dioxide Anion Gap BUN Creatinine Est GFR ( Amer) Est GFR (Non-Af Amer) BUN/Creatinine Ratio Glucose Lactic Acid 1.8 Calcium Total Bilirubin AST ALT Alkaline Phosphatase Ammonia Total Creatine Kinase Troponin I Total Protein Albumin Globulin Albumin/Globulin Ratio Lipase TSH 12/18/18 05:11 WBC RBC Hgb Hct MCV MCH MCHC RDW Plt Count MPV Neut % (Auto) Lymph % (Auto) [place] % (Auto) Eos % (Auto) Baso % (Auto) Absolute Neuts (auto) Absolute Lymphs (auto) Absolute Monos (auto) Absolute Eos (auto) Absolute Basos (auto) Absolute Nucleated RBC Nucleated RBC % INR (Anticoag Therapy) Sodium 130 L Potassium 4.2 Chloride 98 L Carbon Dioxide 23 Anion Gap 9 BUN 84 H Creatinine 3.07 H Est GFR ( Amer) 17.7 Est GFR (Non-Af Amer) 14.7 BUN/Creatinine Ratio 27.4 H Glucose 108 H Lactic Acid Calcium 8.4 L Total Bilirubin AST ALT Alkaline Phosphatase Ammonia Total Creatine Kinase Troponin I Total Protein Albumin Globulin Albumin/Globulin Ratio Lipase TSH Microbiology and Other Data: Microbiology 12/18/18 10:00 Gram Stain - Final Peritoneal Fluid Body Fluid Culture - Preliminary No Growth Day 1 12/18/18 17:10 Stool Occult Blood (CORTES) - Final Stool Assess/Plan/Problems-Billing Assessment: 78 yo female PMH metastatic breast cancer (recent progression on PET in bones), EtOH cirrhosis, worsening renal function (recent admission 12/08-12/13), anemia with hx of internal hemorrhoids and small bowels AVM, COPD, anxiety/depression. Returns with progressive weakness, abdominal distention and DRUM STRAIGHTENER up to 3.1 (1.6- 2.1 had been 0.7 in September and at some point had pharmacy mix up getting 10x torsemide dose prescribed). - Patient Problems (1) CKD (chronic kidney disease) stage 4, GFR 15-29 ml/min Current Visit: No Status: Acute Code(s): N18.4 - CHRONIC KIDNEY DISEASE, STAGE 4 (SEVERE) SNOMED Code(s): 569805735 Comment: - ELMER on admission, DRUM STRAIGHTENER up to 3.0, GFR 14. - waiting on UA (?hepatorenal), Bhargavi, UCrt, Uurea, UPotassium - plan to reconsult Dr Arenas - in setting of anemia, GIB, ascites. - lasix 20mg held, restart IVF 75 cc/hr - was started on escalating doses of midodrine (7.5->12.5->15mg TID), octreotide 100 q8 sc, albumin 25gm TID for 6 total doses for empiric hepatorenal syndrome. - pEF but Grade 1 diastolic dysfunction on recent ECHO 12/10 (2) Ascites Current Visit: Yes Status: Acute Code(s): R18.8 - OTHER ASCITES SNOMED Code(s): 301627700 Comment: s/p 8L diagnostic/therapeutic paracentesis by Page Gutierres of heme/ onc 12/18. no e/o of SBP. low (3) PMNs - held home lasix 20 - continue rifaxamin 550 BID. - ELMER etiology includes hepatorenal (need UA to help clarify), prerenal, ATN, less likely obstruction. (3) Anxiety and depression Current Visit: No Status: Acute Code(s): F41.9 - ANXIETY DISORDER, UNSPECIFIED; F32.9 - MAJOR DEPRESSIVE DISORDER, SINGLE EPISODE, UNSPECIFIED SNOMED Code(s): 404082319 Comment: - Continue escitalopram 20mg daily, mirtazapine 30mg qhs, alprazolam 0.25mg po BID (4) COPD (chronic obstructive pulmonary disease) Current Visit: No Status: Acute Code(s): J44.9 - CHRONIC OBSTRUCTIVE PULMONARY DISEASE, UNSPECIFIED SNOMED Code(s): 81698870 Comment: - Not in exacerbation - chronic hypoxic respiratory failure on 3L oxygen - Continue Dulera, albuterol (5) Decompensation of cirrhosis of liver Current Visit: No Status: Acute Code(s): K72.90 - HEPATIC FAILURE, UNSPECIFIED WITHOUT COMA SNOMED Code(s): 723885843 Comment: - held home Lasix 20mg which was added 12/12. - continue Lactolose - Alcoholic cirrhosis - Requiring frequent paracenteses: ++++ 12/04/18 when 6L was drained. ++++ 12/18/18 8L - MELD-Na is 25 indicating 19.6% 90-day mortality rate - appreciate oncology assistance - last drink 4 weeks ago (6) GI bleed Current Visit: No Status: Acute Code(s): K92.2 - GASTROINTESTINAL HEMORRHAGE , UNSPECIFIED SNOMED Code(s): 97136214 Comment: - hgb 7.9 from 7.6 from 8.2. recently 7.3-8.4 last week. - bright red blood per rectum on tissue wiping 12/18. none today. - history of internal hemorrhoids and small bowel AVMs and cirrhosis (INR 1.27) - CBC q24 - GI consulted last week and deferred on EGD at that time. - transfuse for symptoms or hgb <7. - continue PPI. - last EGD June 2017 - last poor prep colonoscopy June 2017 - small bowel capsule study September 2017 (7) History of pulmonary embolism Current Visit: No Status: Acute Code(s): Z86.711 - PERSONAL HISTORY OF PULMONARY EMBOLISM SNOMED Code(s): 953118363 Comment: - IVC filter in place (8) Hyponatremia Current Visit: No Status: Acute Code(s): E87.1 - HYPO-OSMOLALITY AND HYPONATREMIA SNOMED Code(s): 37768068 Comment: - Suspect secondary to cirrhosis - should be on sodium restriction given decompensated cirrhosis requiring intermittent paracentesis - stop home sodium tabs. (9) Metastatic breast cancer Current Visit: No Status: Acute Code(s): C50.919 - MALIGNANT NEOPLASM OF UNSP SITE OF UNSPECIFIED FEMALE BREAST SNOMED Code(s): 448304006 Comment: - Mets to bone - Recent PET scan shows increasing mets - Appreciate Oncology consult - Continue Oxycontin, Percocet - Currently FULL code. Did have a palliative care consult last week and was given information on PATH. - Palliative care consulting (10) Thrombocytopenia Current Visit: No Status: Acute Code(s): D69.6 - THROMBOCYTOPENIA, UNSPECIFIED SNOMED Code(s): 778380907 Comment: - Stable - Secondary to cirrhosis Status and Disposition: medicine, inpatient
[2018-12-19] MEDS ORDERED: NS 0.9% 1000 ML** 1,000 ML IV SCH (17:30)
[2018-12-19] MEDS ORDERED: Al Hydrox/Mg Hydrox/Simet LIQ* 30 ML UDC PO PRN (18:05)
[2018-12-19] MEDS: Latanoprost 0.005%* 2.5 ml BTL RIGHT EYE SCH (18:20)
[2018-12-19] MEDS ORDERED: Metoclopramide IV* 5 MG/ML 2 ML VIAL IV PRN (18:27)
[2018-12-19] MEDS: Mirtazapine TAB* 15 MG PO SCH (21:48)
[2018-12-20 06:42] LABS: Hematocrit 23 % (35-47); Hemoglobin 7.6 g/dL (12.0-16.0); Mean Corpuscular HGB Conc 33 g/dL (31-36); Mean Corpuscular Hemoglobin 38 pg (27-31); Mean Corpuscular Volume 115 fL (80-97); Mean Platelet Volume 9.3 fL (7.4-10.4); Platelet Count 158 10^3/uL (150-450); Red Blood Count 1.99 10^6 /uL (3.70-4.87); Red Cell Distribution Width 23 % (10-15); White Blood Count 7.7 10^3/uL (3.5-10.8)
[2018-12-20 07:00] LABS: Albumin 3.5 g/dL (3.2-5.2); Albumin/Globulin Ratio 1.7 (1-3); BUN/Creatinine Ratio 29.7 (8-20); Calcium 8.2 mg/dL (8.6-10.3); EGFR African American 19.5 (>60); EGFR Non-African American 16.1 (>60); Globulin 2.1 g/dL (2-4); Indirect Bilirubin 0.7 mg/dL (0.3-1.0); Potassium 4.5 mmol/L (3.5-5.0); Total Protein 5.6 g/dL (6.4-8.9)
[2018-12-20] MEDS: Mometasone/Formoter 100/5 MDI INH SCH ×2 (07:15→21:19)
[2018-12-20 07:31] LABS: Polychromasia 1+
[2018-12-20 07:32] LABS: ABS Eosinophils 0.2 10^3/ul (0-0.6)
[2018-12-20] MEDS: Albumin Human 25%* 25 GM/100 ML BTL IV SCH (08:39)
[2018-12-20] MEDS: Sodium Bicarbonate (ANTACID)* 650 MG TAB PO SCH ×3 (08:44→17:10)
[2018-12-20] MEDS: RiFAXimin* 550 MG TAB PO SCH ×2 (08:45→23:24)
[2018-12-20] MEDS: Fluticasone NASAL SPRAY 50MCG* 16 gm SPRAY BTL BOTH NARES SCH (08:45)
[2018-12-20] MEDS: oxyCODONE SR TAB(*) 10 MG TAB.SR PO SCH ×2 (08:45→21:21)
[2018-12-20] MEDS: Multivitamins/Minerals TAB PO SCH (08:45)
[2018-12-20] MEDS: Docusate CAP* 100 MG PO SCH ×2 (08:45→21:18)
[2018-12-20] MEDS: Pantoprazole TAB * 40 MG TAB PO SCH (08:45)
[2018-12-20] MEDS: Betaxolol-S 0.25%* 10 ML BTL BOTH EYES SCH ×2 (08:45→21:20)
[2018-12-20] MEDS: Octreotide Acetate* 100 MCG/ML 1 ML VIAL SUBCUT SCH ×3 (08:47→21:36)
[2018-12-20] MEDS: Mirtazapine TAB* 15 MG PO SCH (10:00)
[2018-12-20 12:07] LABS: Urine Appearance Cloudy; Urine Bilirubin Negative (Negative); Urine Blood Negative (Negative); Urine Color Yellow; Urine Glucose Negative (Negative); Urine Ketones Negative (Negative); Urine Nitrite Negative (Negative); Urine Protein Negative (Negative); Urine Specific Gravity 1.014 (1.010-1.030); Urine Urobilinogen Negative (Negative)
[2018-12-20 16:35] LABS: Urine Potassium Concentration 31.6 mmol/L
[2018-12-20 16:43] LABS: Urine Creatinine Concentration 88.94 mg/dL
[2018-12-20] MEDS ORDERED: Lactulose 300 ML for PR* 10 GM/15 ML BTL PR ONE (17:00)
[2018-12-20] MEDS: Latanoprost 0.005%* 2.5 ml BTL RIGHT EYE SCH (17:11)
--- NOTE | 2018-12-20 19:02 | PN ---
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 No report of blood in BM at 6am. Some nausea and spit up sputum after attempted to swallow a lot of AM pills at once. Pills seemed to stay down. She refused reglan (says she did not like the taste, RN said did not attempt as was afraid of potential side effect given allergy to zofran and compazine) BP 110-120s on the midodrine. no BM through out the day, worse asterixis on exam. Ammonia spiked up to 196 Objective Active Medications: Acetaminophen (Tylenol Tab*) 650 mg PO Q6H PRN PRN Reason: MILD PAIN or TEMP > 100.4 Al Hydrox/Mg Hydrox/Simethicone (Maalox Plus*) 30 ml PO Q6H PRN PRN Reason: DYSPEPSIA Last Admin: 12/19/18 18:18 Dose: 30 ml Albuterol (Ventolin Hfa Inhaler*) 2 puff INH Q4H PRN PRN Reason: SOB/WHEEZING Albuterol/Ipratropium (Duoneb (Albuterol 2.5 Mg/Ipratropium 0.5 Mg)) 1 neb INH Q4H PRN PRN Reason: SOB/WHEEZING Alprazolam (Xanax Tab*) 0.25 mg PO BID PRN PRN Reason: ANXIETY Betaxolol HCl (Betoptic-S 0.25%*) 1 drop BOTH EYES BID ON LICENSE OF [facility] Last Admin: 12/20/18 08:45 Dose: 1 drop Docusate Sodium (Colace Cap*) 100 mg PO BID ON LICENSE OF [facility] Last Admin: 12/20/18 08:45 Dose: 100 mg Ferrous Sulfate (Ferrous Sulfate Tab*) 325 mg PO EVERY OTHER DAY ON LICENSE OF [facility] Last Admin: 12/19/18 10:24 Dose: 325 mg Fluticasone Propionate (Flonase Nasal [place] 50mcg*) 1 spray BOTH NARES DAILY ON LICENSE OF [facility] Last Admin: 12/20/18 08:45 Dose: 1 spray Lactulose (Lactulose*) 45 ml PO QID ON LICENSE OF [facility] Last Admin: 12/20/18 17:10 Dose: 45 ml Latanoprost (Xalatan 0.005%*) 1 drop RIGHT EYE QPM ON LICENSE OF [facility] Last Admin: 12/20/18 17:11 Dose: 1 drop Metoclopramide HCl (Reglan Iv*) 5 mg IV Q6H PRN PRN Reason: NAUSEA/VOMITING Midodrine (Midodrine) 15 mg PO TID ON LICENSE OF [facility]; Protocol Last Admin: 12/20/18 12:48 Dose: 15 mg Mirtazapine (Remeron Tab*) 30 mg PO BEDTIME ON LICENSE OF [facility] Last Admin: 12/19/18 21:48 Dose: 30 mg Mometasone Furoate/Formoterol Fumar (Dulera 100/5 Mdi*) 2 puff INH BID ON LICENSE OF [facility] Last Admin: 12/20/18 07:15 Dose: 2 puff Multivitamins/Minerals (Theragran/Minerals Tab*) 1 tab PO DAILY ON LICENSE OF [facility] Last Admin: 12/20/18 08:45 Dose: 1 tab Octreotide Acetate (Octreotide Acetate*) 100 mcg SUBCUT TID ON LICENSE OF [facility] Last Admin: 12/20/18 12:49 Dose: 100 mcg Oxycodone HCl (Oxycontin(*)) 10 mg PO BID ON LICENSE OF [facility] Last Admin: 12/20/18 08:45 Dose: 10 mg Oxycodone/Acetaminophen (Percocet 5/325 Tab*) 1 tab PO Q6H PRN PRN Reason: PAIN - SEVERE Pantoprazole Sodium (Protonix Tab*) 40 mg PO DAILY ON LICENSE OF [facility] Last Admin: 12/20/18 08:45 Dose: 40 mg Rifaximin (Xifaxan*) 550 mg PO BID ON LICENSE OF [facility] Last Admin: 12/20/18 08:45 Dose: 550 mg Sodium Bicarbonate (Sodium Bicarbonate (Antacid)*) 650 mg PO AC ON LICENSE OF [facility] Last Admin: 12/20/18 17:10 Dose: 650 mg Vital Signs - 8 hr 12/20/18 12/20/18 11:04 15:15 Temperature 97.8 F 98.6 F Pulse Rate 69 69 Respiratory 16 Rate Blood Pressure 115/42 115/45 (mmHg) O2 Sat by Pulse 93 91 Oximetry Oxygen Devices in Use Now: None Appearance: NAD chronically ill appearing, worn out. longer response times to questions. Eyes: No Scleral Icterus Ears/Nose/Mouth/Throat: NL Teeth, Lips, Gums Neck: NL Appearance and Movements; NL JVP Respiratory: - - rales at R>L bases. no rhonchi or wheezing. Cardiovascular: NL Sounds; No Murmurs; No JVD, RRR Abdominal: - - soft, distended, nontender Extremities: - - 1+ pitting edema b/l Skin: No Rash or Ulcers Neurological: - - oriented to name and situation ; asterixis present Nutrition: Taking PO's Result Diagrams: 12/20/18 06:19 12/20/18 06:19 Additional Lab and Data: Laboratory Results - last 24 hr 12/20/18 12/20/18 12/20/18 06:19 06:19 10:04 WBC 7.7 RBC 1.99 L Hgb 7.6 L Hct 23 L MCV 115 H MCH 38 H MCHC 33 RDW 23 H Plt Count 158 MPV 9.3 Neut % (Auto) Not Reportable Lymph % (Auto) Not Reportable [place] % (Auto) Not Reportable Eos % (Auto) Not Reportable Baso % (Auto) Not Reportable Absolute Neuts (auto) Not Reportable Absolute Lymphs (auto) Not Reportable Absolute Monos (auto) Not Reportable Absolute Eos (auto) Not Reportable Absolute Basos (auto) Not Reportable Absolute Nucleated RBC Not Reportable Immature Gran % 5.0 Neutrophils % 70.0 Band Neutrophils % 5.0 Lymphocytes % 14.0 Monocytes % 8.0 Eosinophils % 3.0 Nucleated RBC % Not Reportable Abs Neuts (Manual) 5.8 Abs Lymphs (Manual) 1.1 Abs Monocytes (Manual) 0.6 Absolute Eos (Manual) 0.2 Abs Basophils (Manual) 0.0 Nucleated RBCs/100 WBC 4.0 H Normal RBC Morphology Not Reportable Polychromasia 1+ Anisocytosis 2+ Macrocytosis 2+ Sodium 133 L Potassium 4.5 Chloride 101 Carbon Dioxide 21 L Anion Gap 11 BUN 84 H Creatinine 2.83 H Est GFR ( Amer) 19.5 Est GFR (Non-Af Amer) 16.1 BUN/Creatinine Ratio 29.7 H Glucose 125 H Calcium 8.2 L Total Bilirubin 1.00 Direct Bilirubin 0.30 H Indirect Bilirubin 0.7 AST 38 ALT 25 Alkaline Phosphatase 147 H Ammonia 196 H Total Protein 5.6 L Albumin 3.5 Globulin 2.1 Albumin/Globulin Ratio 1.7 Urine Color Urine Appearance Urine pH Ur Specific [place] Urine Protein Urine Ketones Urine Blood Urine Nitrate Urine Bilirubin Urine Urobilinogen Ur Leukocyte Esterase Ur Creatinine Concen Urine Potassium Ur Urea Nitrogen Conc Urine Glucose 12/20/18 12/20/18 12/20/18 11:30 15:55 15:55 WBC RBC Hgb Hct MCV MCH MCHC RDW Plt Count MPV Neut % (Auto) Lymph % (Auto) [place] % (Auto) Eos % (Auto) Baso % (Auto) Absolute Neuts (auto) Absolute Lymphs (auto) Absolute Monos (auto) Absolute Eos (auto) Absolute Basos (auto) Absolute Nucleated RBC Immature Gran % Neutrophils % Band Neutrophils % Lymphocytes % Monocytes % Eosinophils % Nucleated RBC % Abs Neuts (Manual) Abs Lymphs (Manual) Abs Monocytes (Manual) Absolute Eos (Manual) Abs Basophils (Manual) Nucleated RBCs/100 WBC Normal RBC Morphology Polychromasia Anisocytosis Macrocytosis Sodium Potassium Chloride Carbon Dioxide Anion Gap BUN Creatinine Est GFR ( Amer) Est GFR (Non-Af Amer) BUN/Creatinine Ratio Glucose Calcium Total Bilirubin Direct Bilirubin Indirect Bilirubin AST ALT Alkaline Phosphatase Ammonia Total Protein Albumin Globulin Albumin/Globulin Ratio Urine Color Yellow Urine Appearance Cloudy Urine pH 5.0 Ur Specific [place] 1.014 Urine Protein Negative Urine Ketones Negative Urine Blood Negative Urine Nitrate Negative Urine Bilirubin Negative Urine Urobilinogen Negative Ur Leukocyte Esterase Negative Ur Creatinine Concen 88.94 Urine Potassium 31.6 Ur Urea Nitrogen Conc 685 Urine Glucose Negative Microbiology and Other Data: Microbiology 12/18/18 10:00 Peritoneal Fluid Gram Stain - Final 12/18/18 10:00 Peritoneal Fluid Body Fluid Culture - Preliminary No Growth Day 2 12/18/18 17:10 Stool Stool Occult Blood (CORTES) - Final Assess/Plan/Problems-Billing Assessment: 78 yo female PMH metastatic breast cancer (recent progression on PET in bones), EtOH cirrhosis, worsening renal function (recent admission 12/08-12/13), anemia with hx of internal hemorrhoids and small bowels AVM, COPD, anxiety/depression. 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 - UA bland (?hepatorenal), still waiting on Bhargavi - FeUrea (had been on lasix prior to admission) 25.9% consistent with pre-renal] - appreciate Dr Dagoberto russell - in setting of anemia, GIB, ascites. - was making urine since addmission but bladder scan showed 700cc and barrow placed 12/20 - lasix 20mg held, s/p IVF, currently on albumin daily - was started on escalating doses of midodrine (7.5->12.5->15mg TID), octreotide 100 q8 sc, s/p albumin 25gm TID for 6 total doses for empiric hepatorenal syndrome. - pEF but Grade 1 diastolic dysfunction on recent ECHO 12/10 (2) Ascites Current Visit: Yes Status: Acute Code(s): R18.8 - OTHER ASCITES SNOMED Code(s): 418400528 Comment: s/p 8L diagnostic/therapeutic paracentesis by Page Gutierres of heme/ onc 12/18. no e/o of SBP. low (3) PMNs - held home lasix 20 - continue rifaxamin 550 BID. - ELMER etiology includes hepatorenal (need UA to help clarify), prerenal, ATN, less likely obstruction. (3) Anxiety and depression Current Visit: No Status: Acute Code(s): F41.9 - ANXIETY DISORDER, UNSPECIFIED; F32.9 - MAJOR DEPRESSIVE DISORDER, SINGLE EPISODE, UNSPECIFIED SNOMED Code(s): 706095644 Comment: - Continue escitalopram 20mg daily, mirtazapine 30mg qhs, alprazolam 0.25mg po BID (4) COPD (chronic obstructive pulmonary disease) Current Visit: No Status: Acute Code(s): J44.9 - CHRONIC OBSTRUCTIVE PULMONARY DISEASE, UNSPECIFIED SNOMED Code(s): 29901040 Comment: - Not in exacerbation - chronic hypoxic respiratory failure on 3L oxygen - Continue Dulera, albuterol (5) Decompensation of cirrhosis of liver Current Visit: No Status: Acute Code(s): K72.90 - HEPATIC FAILURE, UNSPECIFIED WITHOUT COMA SNOMED Code(s): 266569600 Comment: - worse asterixis and ammonia up to 196. had not made BM since 6am despite lacutolose 45 QID from [facility]ONDA. will try lactulose enema. ?slow gib breakdown worsen - held home Lasix 20mg which was added 12/12. - Alcoholic cirrhosis - Requiring frequent paracenteses: ++++ 12/04/18 when 6L was drained. ++++ 12/18/18 8L - MELD-Na is 25 indicating 19.6% 90-day mortality rate - appreciate oncology assistance - last drink 4 weeks ago (6) GI bleed Current Visit: No Status: Acute Code(s): K92.2 - GASTROINTESTINAL HEMORRHAGE , UNSPECIFIED SNOMED Code(s): 56166869 Comment: - hgb 7.6 from 7.9 from 7.6 from 8.2. recently 7.3-8.4 last week. - red blood on tissue wiping 12/18. none reported last tow - history of internal hemorrhoids and small bowel AVMs and cirrhosis (INR 1.27) - CBC q24 - GI consulted last week and deferred on EGD at that time. - transfuse for symptoms or hgb <7. - continue PPI. - last EGD June 2017 - last poor prep colonoscopy June 2017 - small bowel capsule study September 2017 (7) History of pulmonary embolism Current Visit: No Status: Acute Code(s): Z86.711 - PERSONAL HISTORY OF PULMONARY EMBOLISM SNOMED Code(s): 037576046 Comment: - IVC filter in place (8) Hyponatremia Current Visit: No Status: Acute Code(s): E87.1 - HYPO-OSMOLALITY AND HYPONATREMIA SNOMED Code(s): 96427773 Comment: - improved to 133 from 128 on admission - Suspect secondary to cirrhosis - should be on sodium restriction given decompensated cirrhosis requiring intermittent paracentesis - stopped home sodium tabs on admission. (9) Metastatic breast cancer Current Visit: No Status: Acute Code(s): C50.919 - MALIGNANT NEOPLASM OF UNSP SITE OF UNSPECIFIED FEMALE BREAST SNOMED Code(s): 152216068 Comment: - Mets to bone - Recent PET scan shows increasing mets - Appreciate Oncology consult - Continue Oxycontin, Percocet - Currently FULL code. Did have a palliative care consult last week and was given information on PATH. - Palliative care consulting (10) Thrombocytopenia Current Visit: No Status: Acute Code(s): D69.6 - THROMBOCYTOPENIA, UNSPECIFIED SNOMED Code(s): 531219665 Comment: - Stable - up to 158 - Secondary to cirrhosis Status and Disposition: medicine, inpatient, multiorgan failure
[2018-12-20 19:12] LABS: Urine Sodium Concentration < 18 mmol/L
[2018-12-21 06:45] LABS: BUN/Creatinine Ratio 30.3 (8-20); Calcium 8.7 mg/dL (8.6-10.3); EGFR African American 20.8 (>60); EGFR Non-African American 17.2 (>60); Potassium 4.2 mmol/L (3.5-5.0)
[2018-12-21 07:00] LABS: ABS Basophils 0.1 10^3/ul (0-0.2); ABS Eosinophils 0.2 10^3/ul (0-0.6); ABS Lymphocytes 0.7 10^3/ul (1.0-4.8); ABS Monocytes 1.1 10^3/ul (0-0.8); ABS Neutrophils 5.8 10^3/ul (1.5-7.7); ABS Nucleated RBC 0.1 10^3/ul; Eosinophil % 3.1 %; Hematocrit 24 % (35-47); Hemoglobin 8.3 g/dL (12.0-16.0); Lymphocyte % 8.6 %; Mean Corpuscular HGB Conc 34 g/dL (31-36); Mean Corpuscular Hemoglobin 38 pg (27-31); Mean Corpuscular Volume 113 fL (80-97); Mean Platelet Volume 9.2 fL (7.4-10.4); Nucleated Red Blood Cells % 1.4; Platelet Count 168 10^3/uL (150-450); Red Blood Count 2.16 10^6 /uL (3.70-4.87); Red Cell Distribution Width 22 % (10-15); White Blood Count 7.9 10^3/uL (3.5-10.8)
[2018-12-21] MEDS: Mometasone/Formoter 100/5 MDI INH SCH ×2 (07:20→19:31)
[2018-12-21] MEDS: Albumin Human 25%* 25 GM/100 ML BTL IV SCH (09:33)
[2018-12-21] MEDS: Fluticasone NASAL SPRAY 50MCG* 16 gm SPRAY BTL BOTH NARES SCH (09:36)
[2018-12-21] MEDS: Multivitamins/Minerals TAB PO SCH (09:37)
[2018-12-21] MEDS: Ferrous Sulfate TAB* 325 MG PO SCH (09:37)
[2018-12-21] MEDS: Octreotide Acetate* 100 MCG/ML 1 ML VIAL SUBCUT SCH ×3 (09:37→21:17)
[2018-12-21] MEDS: Sodium Bicarbonate (ANTACID)* 650 MG TAB PO SCH ×3 (09:37→16:33)
[2018-12-21] MEDS: oxyCODONE SR TAB(*) 10 MG TAB.SR PO SCH ×2 (09:37→21:18)
[2018-12-21] MEDS: Pantoprazole TAB * 40 MG TAB PO SCH (09:37)
[2018-12-21] MEDS: Betaxolol-S 0.25%* 10 ML BTL BOTH EYES SCH ×2 (09:38→22:54)
[2018-12-21] MEDS: Docusate CAP* 100 MG PO SCH ×2 (09:38→21:48)
[2018-12-21] MEDS: RiFAXimin* 550 MG TAB PO SCH (10:54)
--- NOTE | 2018-12-21 12:19 | PN ---
Subjective Date of Service: 12/21/18 Interval History: Afebrile, No acute events overnight. Had two large BMs (no blood) at 0130 and 0430). Had lactulose enema with no BM at 1900 yesterday. Less confused. Denies nausea currently. Ate oatmeal and a fruit cut. "can't urinate" but denies pain. She had a barrow placed yesterday. 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 Thought November. Oriented to situation. Objective Active Medications: Acetaminophen (Tylenol Tab*) 650 mg PO Q6H PRN PRN Reason: MILD PAIN or TEMP > 100.4 Al Hydrox/Mg Hydrox/Simethicone (Maalox Plus*) 30 ml PO Q6H PRN PRN Reason: DYSPEPSIA Last Admin: 12/19/18 18:18 Dose: 30 ml Albuterol (Ventolin Hfa Inhaler*) 2 puff INH Q4H PRN PRN Reason: SOB/WHEEZING Albuterol/Ipratropium (Duoneb (Albuterol 2.5 Mg/Ipratropium 0.5 Mg)) 1 neb INH Q4H PRN PRN Reason: SOB/WHEEZING Alprazolam (Xanax Tab*) 0.25 mg PO BID PRN PRN Reason: ANXIETY Last Admin: 12/20/18 20:25 Dose: 0.25 mg Betaxolol HCl (Betoptic-S 0.25%*) 1 drop BOTH EYES BID [facility] Last Admin: 12/21/18 09:38 Dose: 1 drop Docusate Sodium (Colace Cap*) 100 mg PO BID [facility] Last Admin: 12/21/18 09:38 Dose: 100 mg Ferrous Sulfate (Ferrous Sulfate Tab*) 325 mg PO EVERY OTHER DAY [facility] Last Admin: 12/21/18 09:37 Dose: 325 mg Fluticasone Propionate (Flonase Nasal [place] 50mcg*) 1 spray BOTH NARES DAILY [facility] Last Admin: 12/21/18 09:36 Dose: 1 spray Albumin Human (Albumin Human 25%*) 25 gm in 100 mls @ 1 mls/min IV DAILY [facility] Last Admin: 12/21/18 09:33 Dose: 1 mls/min Lactulose (Lactulose*) 45 ml PO QID [facility] Last Admin: 12/21/18 09:37 Dose: 45 ml Latanoprost (Xalatan 0.005%*) 1 drop RIGHT EYE QPM [facility] Last Admin: 12/20/18 17:11 Dose: 1 drop Metoclopramide HCl (Reglan Iv*) 5 mg IV Q6H PRN PRN Reason: NAUSEA/VOMITING Midodrine (Midodrine) 15 mg PO TID [facility]; Protocol Last Admin: 12/21/18 09:37 Dose: 15 mg Mirtazapine (Remeron Tab*) 30 mg PO BEDTIME [facility] Last Admin: 12/20/18 10:00 Dose: 30 mg Mometasone Furoate/Formoterol Fumar (Dulera 100/5 Mdi*) 2 puff INH BID [facility] Last Admin: 12/21/18 07:20 Dose: 2 puff Multivitamins/Minerals (Theragran/Minerals Tab*) 1 tab PO DAILY [facility] Last Admin: 12/21/18 09:37 Dose: 1 tab Octreotide Acetate (Octreotide Acetate*) 100 mcg SUBCUT TID [facility] Last Admin: 12/21/18 09:37 Dose: 100 mcg Oxycodone HCl (Oxycontin(*)) 10 mg PO BID [facility] Last Admin: 12/21/18 09:37 Dose: 10 mg Oxycodone/Acetaminophen (Percocet 5/325 Tab*) 1 tab PO Q6H PRN PRN Reason: PAIN - SEVERE Pantoprazole Sodium (Protonix Tab*) 40 mg PO DAILY [facility] Last Admin: 12/21/18 09:37 Dose: 40 mg Rifaximin (Xifaxan*) 550 mg PO BID [facility] Last Admin: 12/21/18 10:54 Dose: 550 mg Sodium Bicarbonate (Sodium Bicarbonate (Antacid)*) 650 mg PO AC [facility] Last Admin: 12/21/18 09:37 Dose: 650 mg Vital Signs - 8 hr 12/21/18 12/21/18 12/21/18 04:53 07:11 07:15 Temperature 97.7 F Pulse Rate 72 Respiratory 16 18 18 Rate Blood Pressure 122/51 (mmHg) O2 Sat by Pulse 94 Oximetry 12/21/18 12/21/18 12/21/18 07:21 09:35 09:37 Temperature 98.4 F Pulse Rate 82 69 Respiratory 14 18 16 Rate Blood Pressure 115/44 (mmHg) O2 Sat by Pulse 92 92 Oximetry 12/21/18 12/21/18 09:52 11:04 Temperature 97.7 F 97.7 F Pulse Rate 72 71 Respiratory 18 16 Rate Blood Pressure 115/49 115/52 (mmHg) O2 Sat by Pulse 94 93 Oximetry Oxygen Devices in Use Now: None Appearance: NAD, chronically ill appearing. Eyes: No Scleral Icterus Neck: NL Appearance and Movements; NL JVP Respiratory: - - rales b/l base, no rhonchi or wheezing. Cardiovascular: - - s1 s2, 2/6 RUSB murmur Abdominal: - - soft, distended, ascites, nontender Extremities: - - 1+ left, 2+ right. Skin: No Rash or Ulcers Neurological: - - Thought November. Oriented to situation, name, place. Nutrition: Taking PO's Result Diagrams: 12/21/18 06:19 12/21/18 06:19 Additional Lab and Data: Laboratory Results - last 24 hr 12/20/18 12/21/18 12/21/18 15:55 06:19 06:19 WBC 7.9 RBC 2.16 L Hgb 8.3 L Hct 24 L MCV 113 H MCH 38 H MCHC 34 RDW 22 H Plt Count 168 MPV 9.2 Neut % (Auto) 73.5 Lymph % (Auto) 8.6 [place] % (Auto) 13.6 Eos % (Auto) 3.1 Baso % (Auto) 1.2 Absolute Neuts (auto) 5.8 Absolute Lymphs (auto) 0.7 L Absolute Monos (auto) 1.1 H Absolute Eos (auto) 0.2 Absolute Basos (auto) 0.1 Absolute Nucleated RBC 0.1 Nucleated RBC % 1.4 Sodium 138 Potassium 4.2 Chloride 103 Carbon Dioxide 24 Anion Gap 11 BUN 81 H Creatinine 2.67 H Est GFR ( Amer) 20.8 Est GFR (Non-Af Amer) 17.2 BUN/Creatinine Ratio 30.3 H Glucose 144 H Calcium 8.7 Ammonia U Sodium Concentration < 18 Urine Potassium 31.6 12/21/18 06:19 WBC RBC Hgb Hct MCV MCH MCHC RDW Plt Count MPV Neut % (Auto) Lymph % (Auto) [place] % (Auto) Eos % (Auto) Baso % (Auto) Absolute Neuts (auto) Absolute Lymphs (auto) Absolute Monos (auto) Absolute Eos (auto) Absolute Basos (auto) Absolute Nucleated RBC Nucleated RBC % Sodium Potassium Chloride Carbon Dioxide Anion Gap BUN Creatinine Est GFR ( Amer) Est GFR (Non-Af Amer) BUN/Creatinine Ratio Glucose Calcium Ammonia 102 H U Sodium Concentration Urine Potassium Microbiology and Other Data: Microbiology 12/18/18 10:00 Peritoneal Fluid Gram Stain - Final 12/18/18 10:00 Peritoneal Fluid Body Fluid Culture - Preliminary No Growth Day 3 12/18/18 17:10 Stool Stool Occult Blood ([facility]ES) - Final Assess/Plan/Problems-Billing Assessment: 78 yo female PMH metastatic breast cancer (recent progression on PET in bones), EtOH cirrhosis, worsening renal function, chronic anemia with hx of internal hemorrhoids and small bowels AVM, COPD, anxiety/depression. 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 Tx hepatorenal syndrome/pre-renal with some improvement. course complicate by confusion, hepatic encephalopathy. - Patient Problems (1) CKD (chronic kidney disease) stage 4, GFR 15-29 ml/min Current Visit: No Status: Acute Code(s): N18.4 - CHRONIC KIDNEY DISEASE, STAGE 4 (SEVERE) SNOMED Code(s): 014757016 Comment: - ELMER on admission, COMMERCIAL PORT[employer]IO MANAGER improved to 2.67 (admission 3.05, worst 3.3 ) GFR 21. - UA bland - FeUrea (had been on lasix prior to admission) 25.9% consistent with pre-renal] - appreciate Dr Dagoberto russell - in setting of chronic anemia with mild GIB loses, ascites. - was making urine since addmission but bladder scan showed 700cc and barrow placed 12/20 - lasix 20mg held, s/p IVF, currently on albumin daily - midodrine (currently 15mg TID), octreotide 100 q8 sc, s/p albumin 25gm TID for 6 total doses now daily for empiric hepatorenal syndrome. has had bibasilar rales last several days but now hypoxic or SOB. - pEF but Grade 1 diastolic dysfunction on recent ECHO 12/10 (2) Ascites Current Visit: Yes Status: Acute Code(s): R18.8 - OTHER ASCITES SNOMED Code(s): 647620905 Comment: s/p 8L diagnostic/therapeutic paracentesis by Page Gutierres of heme/ onc 12/18. no e/o of SBP. low (3) PMNs - held home lasix 20 - continue rifaxamin 550 BID. (3) Anxiety and depression Current Visit: No Status: Acute Code(s): F41.9 - ANXIETY DISORDER, UNSPECIFIED; F32.9 - MAJOR DEPRESSIVE DISORDER, SINGLE EPISODE, UNSPECIFIED SNOMED Code(s): 906896868 Comment: - Continue escitalopram 20mg daily, mirtazapine 30mg qhs, alprazolam 0.25mg po BID (4) COPD (chronic obstructive pulmonary disease) Current Visit: No Status: Acute Code(s): J44.9 - CHRONIC OBSTRUCTIVE PULMONARY DISEASE, UNSPECIFIED SNOMED Code(s): 25177623 Comment: - Not in exacerbation - chronic hypoxic respiratory failure on 3L oxygen at night at home - Continue Dulera, albuterol (5) Decompensation of cirrhosis of liver Current Visit: No Status: Acute Code(s): K72.90 - HEPATIC FAILURE, UNSPECIFIED WITHOUT COMA SNOMED Code(s): 747126803 Comment: - less asterixis and ammonia improved from 196 to 102. continue lacutolose 45 QID and prn lactulose enemas for 3-4 loose BMs daily goal. - held home Lasix 20mg which was added 12/12. - Etiology:Alcoholic cirrhosis - Requiring frequent paracenteses: ++++ 12/04/18 when 6L was drained. ++++ 12/18/18 8L - MELD-Na this admission was 25 indicating 19.6% 90-day mortality rate - appreciate oncology assistance - last drink 4 weeks ago (6) GI bleed Current Visit: No Status: Acute Code(s): K92.2 - GASTROINTESTINAL HEMORRHAGE , UNSPECIFIED SNOMED Code(s): 56978205 Comment: - hgb 8.3 <- 7.6 <- 7.9 <- 7.6 <- 8.2. recently 7.3-8.4 last week. - red blood on tissue wiping 12/18. none reported since - history of internal hemorrhoids and small bowel AVMs and cirrhosis (INR 1.27) - CBC q24 - GI consulted last week and deferred on EGD at that time. - transfuse for symptoms or hgb <7. - continue PPI. - last EGD June 2017 - last poor prep colonoscopy June 2017 - small bowel capsule study September 2017 (7) History of pulmonary embolism Current Visit: No Status: Acute Code(s): Z86.711 - PERSONAL HISTORY OF PULMONARY EMBOLISM SNOMED Code(s): 921868192 Comment: - IVC filter in place (8) Hyponatremia Current Visit: No Status: Acute Code(s): E87.1 - HYPO-OSMOLALITY AND HYPONATREMIA SNOMED Code(s): 06432633 Comment: - improved to 138 from 128 on admission - Suspect secondary to cirrhosis - should be on sodium restriction given decompensated cirrhosis requiring intermittent paracentesis - stopped home sodium tabs on admission. (9) Metastatic breast cancer Current Visit: No Status: Acute Code(s): C50.919 - MALIGNANT NEOPLASM OF UNSP SITE OF UNSPECIFIED FEMALE BREAST SNOMED Code(s): 820852577 Comment: - Mets to bone - Recent PET scan shows increasing mets - Appreciate Oncology consult - Continue Oxycontin, Percocet - Currently FULL code. Did have a palliative care consult last week and was given information on PATH. - Palliative care consulting (10) Thrombocytopenia Current Visit: No Status: Acute Code(s): D69.6 - THROMBOCYTOPENIA, UNSPECIFIED SNOMED Code(s): 174223273 Comment: - Stable - up to 168 - Secondary to cirrhosis Status and Disposition: medicine (inpatient) likely several more days for slowly improving kidney failure, intermittent hepatic encephalopathy
[2018-12-21] MEDS ORDERED: Lactulose 300 ML for PR* 10 GM/15 ML BTL PR ONE (14:55)
[2018-12-21] MEDS: Latanoprost 0.005%* 2.5 ml BTL RIGHT EYE SCH (16:33)
[2018-12-21] MEDS ORDERED: NS 0.9% 1000 ML** 1,000 ML IV SCH (20:15)
--- NOTE | 2018-12-21 20:34 | PN ---
Hospitalist Progress Note Date of Service: 12/21/18 Cross Cover Note 78 F PMH Stage 4 Breast Cancer (bone), Alcoholic cirrhosis d/c ascites, HE, ? hx of varices-last scope June 2017 (mild antral erythema and hiatal, also colo showing AVM/hem) hx of DVT/PE s/p IVC filter, CKD 3-4 at baseline, COPD on home O2, anxiety, depression presented with weakness and acute on chronic renal failure along with scant BRBPR. Presumed Hepatorenal syndrome (subsequent large volume para on 12/18) course c/b HE, ? GIB. Pt had x1 episode dark brown emesis (similar episode in prior hospitalization) VSS, SBP 130s, HR 70s Stat CBC and INR: 8.6/ (unchanged), plts >100, and INR 1.43 Plan: #Emesis in setting of decompensated (x2) cirrhosis: Ddx includes occult/active upper GIB, variceal (less likely), currenty HDS and with unchanging labs --In absence of active GIB will monitor, IV PPI (BID), remains on octerotide gtt for Hepatorenal synrdrome which will also help in portal HTN --Consider prophylactic abx for this cirrhotic patient with ? GIB, if has additional episode of emesis will start CTX --Trend H/H --Reconsult to GI in AM
[2018-12-21 20:37] LABS: Hematocrit 27 % (35-47); Hemoglobin 8.6 g/dL (12.0-16.0); Mean Corpuscular HGB Conc 32 g/dL (31-36); Mean Corpuscular Hemoglobin 38 pg (27-31); Mean Corpuscular Volume 118 fL (80-97); Mean Platelet Volume 9.3 fL (7.4-10.4); Platelet Count 171 10^3/uL (150-450); Red Blood Count 2.28 10^6 /uL (3.70-4.87); Red Cell Distribution Width 23 % (10-15); White Blood Count 6.5 10^3/uL (3.5-10.8)
[2018-12-21 20:40] LABS: INR 1.43 (0.82-1.09)
[2018-12-21 20:45] LABS: BUN/Creatinine Ratio 29.2 (8-20); EGFR African American 20.8 (>60); EGFR Non-African American 17.2 (>60); Potassium 3.6 mmol/L (3.5-5.0)
[2018-12-21 21:00] LABS: ABS Eosinophils 0.2 10^3/ul (0-0.6); ABS Lymphocytes 0.7 10^3/ul (1.0-4.8); ABS Monocytes 0.8 10^3/ul (0-0.8); ABS Neutrophils 4.9 10^3/ul (1.5-7.7); ABS Nucleated RBC 0.1 10^3/ul; Eosinophil % 2.7 %; Lymphocyte % 10.1 %; Nucleated Red Blood Cells % 1.1
[2018-12-21 21:14] LABS: Acanthocytes 2+; Polychromasia 2+
[2018-12-21] MEDS: Pantoprazole IV* 40 MG IV SCH (21:17)
[2018-12-22] MEDS: RiFAXimin* 550 MG TAB PO SCH ×3 (00:17→21:44)
[2018-12-22] MEDS: Mirtazapine TAB* 15 MG PO SCH ×2 (00:18→21:45)
[2018-12-22 06:46] LABS: BUN/Creatinine Ratio 31.6 (8-20); Calcium 8.3 mg/dL (8.6-10.3); EGFR African American 22.8 (>60); EGFR Non-African American 18.8 (>60)
[2018-12-22 06:58] LABS: ABS Eosinophils 0.4 10^3/ul (0-0.6); ABS Lymphocytes 0.9 10^3/ul (1.0-4.8); ABS Monocytes 0.9 10^3/ul (0-0.8); ABS Neutrophils 5.4 10^3/ul (1.5-7.7); ABS Nucleated RBC 0.1 10^3/ul; Eosinophil % 5.1 %; Hematocrit 23 % (35-47); Hemoglobin 7.9 g/dL (12.0-16.0); Lymphocyte % 11.4 %; Mean Corpuscular HGB Conc 34 g/dL (31-36); Mean Corpuscular Hemoglobin 39 pg (27-31); Mean Corpuscular Volume 113 fL (80-97); Mean Platelet Volume 8.8 fL (7.4-10.4); Nucleated Red Blood Cells % 0.8; Platelet Count 162 10^3/uL (150-450); Red Blood Count 2.05 10^6 /uL (3.70-4.87); Red Cell Distribution Width 22 % (10-15); White Blood Count 7.6 10^3/uL (3.5-10.8)
[2018-12-22] MEDS: Mometasone/Formoter 100/5 MDI INH SCH ×2 (07:47→19:26)
--- NOTE | 2018-12-22 07:48 | PN ---
Subjective Date of Service: 12/22/18 Interval History: Patient has no new complaints. Overnight she vomited some black material, there was concern over GI bleed. No hematemesis this AM, no melena. She has a 1/2 filled cup in her hand, but she states she is not drinking liquids. States not eating either. However, she says she feels "better" overall, but cannot say why or in what regard. Family History: Unchanged from Admission Social History: Unchanged from Admission Past Medical History: Unchanged from Admission Objective Active Medications: Acetaminophen (Tylenol Tab*) 650 mg PO Q6H PRN PRN Reason: MILD PAIN or TEMP > 100.4 Al Hydrox/Mg Hydrox/Simethicone (Maalox Plus*) 30 ml PO Q6H PRN PRN Reason: DYSPEPSIA Last Admin: 12/19/18 18:18 Dose: 30 ml Albuterol (Ventolin Hfa Inhaler*) 2 puff INH Q4H PRN PRN Reason: SOB/WHEEZING Albuterol/Ipratropium (Duoneb (Albuterol 2.5 Mg/Ipratropium 0.5 Mg)) 1 neb INH Q4H PRN PRN Reason: SOB/WHEEZING Alprazolam (Xanax Tab*) 0.25 mg PO BID PRN PRN Reason: ANXIETY Last Admin: 12/20/18 20:25 Dose: 0.25 mg Betaxolol HCl (Betoptic-S 0.25%*) 1 drop BOTH EYES BID [facility] Last Admin: 12/21/18 22:54 Dose: 1 drop Docusate Sodium (Colace Cap*) 100 mg PO BID [facility] Last Admin: 12/21/18 21:48 Dose: 100 mg Ferrous Sulfate (Ferrous Sulfate Tab*) 325 mg PO EVERY OTHER DAY [facility] Last Admin: 12/21/18 09:37 Dose: 325 mg Fluticasone Propionate (Flonase Nasal [place] 50mcg*) 1 spray BOTH NARES DAILY [facility] Last Admin: 12/21/18 09:36 Dose: 1 spray Albumin Human (Albumin Human 25%*) 25 gm in 100 mls @ 1 mls/min IV DAILY [facility] Last Admin: 12/21/18 09:33 Dose: 1 mls/min Sodium Chloride (Ns 0.9% 1000 Ml) 1,000 mls @ 50 mls/hr IV .PER RATE [facility] Last Admin: 12/21/18 21:51 Dose: 50 mls/hr Lactulose (Lactulose*) 45 ml PO QID [facility] Last Admin: 12/21/18 21:49 Dose: Not Given Latanoprost (Xalatan 0.005%*) 1 drop RIGHT EYE QPM [facility] Last Admin: 12/21/18 16:33 Dose: 1 drop Metoclopramide HCl (Reglan Iv*) 5 mg IV Q6H PRN PRN Reason: NAUSEA/VOMITING Midodrine (Midodrine) 15 mg PO TID [facility]; Protocol Last Admin: 12/22/18 00:18 Dose: 15 mg Mirtazapine (Remeron Tab*) 30 mg PO BEDTIME [facility] Last Admin: 12/22/18 00:18 Dose: 30 mg Mometasone Furoate/Formoterol Fumar (Dulera 100/5 Mdi*) 2 puff INH BID [facility] Last Admin: 12/21/18 19:31 Dose: 2 puff Multivitamins/Minerals (Theragran/Minerals Tab*) 1 tab PO DAILY [facility] Last Admin: 12/21/18 09:37 Dose: 1 tab Octreotide Acetate (Octreotide Acetate*) 100 mcg SUBCUT TID [facility] Last Admin: 12/21/18 21:17 Dose: 100 mcg Oxycodone HCl (Oxycontin(*)) 10 mg PO BID [facility] Last Admin: 12/21/18 21:18 Dose: 10 mg Oxycodone/Acetaminophen (Percocet 5/325 Tab*) 1 tab PO Q6H PRN PRN Reason: PAIN - SEVERE Pantoprazole Sodium (Protonix Iv*) 40 mg IV BID [facility] Last Admin: 12/21/18 21:17 Dose: 40 mg Rifaximin (Xifaxan*) 550 mg PO BID [facility] Last Admin: 12/22/18 00:17 Dose: 550 mg Sodium Bicarbonate (Sodium Bicarbonate (Antacid)*) 650 mg PO AC [facility] Last Admin: 12/21/18 16:33 Dose: 650 mg Vital Signs - 8 hr 12/22/18 12/22/18 12/22/18 00:48 02:59 07:12 Temperature 36.6 C Pulse Rate 76 72 Respiratory 16 16 Rate Blood Pressure 146/64 (mmHg) O2 Sat by Pulse 92 Oximetry Oxygen Devices in Use Now: None Appearance: awake and cooperative Eyes: No Scleral Icterus Ears/Nose/Mouth/Throat: Clear Oropharnyx Neck: NL Appearance and Movements; NL JVP Respiratory: Clear to Auscultation, Clear to Percussion Cardiovascular: NL Sounds; No Murmurs; No JVD, RRR, No Edema Abdominal: No Hepatosplenomegaly, - - distended, soft, NT, Lymphatic: No Cervical Adenopathy Neurological: NL Sensation, - - oriented to self, place, not date/time Lines/Tubes/Other Access: Clean, Dry and Intact Peripheral IV Result Diagrams: 12/22/18 06:17 12/22/18 06:17 Additional Lab and Data: Laboratory Tests 12/21/18 12/21/18 12/22/18 06:19 20:21 06:17 INR (Anticoag Therapy) 1.43 H Glucose 133 H Calcium 8.3 L Ammonia 102 H Microbiology and Other Data: Microbiology 12/18/18 17:10 Stool Stool Occult Blood (CORTES) - POSITIVE 12/18/18 10:00 Peritoneal Fluid Gram Stain - Final 12/18/18 10:00 Peritoneal Fluid Body Fluid Culture - Preliminary No Growth Day 3 Assess/Plan/Problems-Billing Assessment: 78 yo female PMH metastatic breast cancer (recent progression on PET in bones), EtOH cirrhosis, worsening renal function, chronic anemia with hx of internal hemorrhoids and small bowels AVM, COPD, anxiety/depression. Returns with progressive weakness, abdominal distention and creatinine up to 3.1 (2.1->1.6 during recent admission 12/08-12/13;had been 0.7 in September before a pharmacy mix up getting 10x torsemide dose prescribed). Tx hepatorenal syndrome/pre-renal with some improvement. - Patient Problems (1) CKD (chronic kidney disease) stage 4, GFR 15-29 ml/min Current Visit: Yes Status: Acute Priority: High Code(s): N18.4 - CHRONIC KIDNEY DISEASE, STAGE 4 (SEVERE) SNOMED Code(s): 397446936 Comment: - ELMER on admission, creatinine improved again w/ treatment for hepato-renal - anemia of renal disease, plus some small GI losses - barrow placed 12/20 due to retention - continue mitodrine, octreotide, and albumin infusions for hepatorenal syndrome. (2) Decompensation of cirrhosis of liver Current Visit: Yes Status: Acute Priority: High Code(s): K72.90 - HEPATIC FAILURE, UNSPECIFIED WITHOUT COMA SNOMED Code(s): 982727451 Comment: - Mental status is improving slowly. Continue lacutolose 45 QID and prn lactulose enemas for 3-4 loose BMs daily goal. 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 Status and Disposition: medicine (inpatient) likely several more days for slowly improving kidney failure, intermittent hepatic encephalopathy
[2018-12-22] MEDS: Albumin Human 25%* 25 GM/100 ML BTL IV SCH (09:02)
[2018-12-22] MEDS: Betaxolol-S 0.25%* 10 ML BTL BOTH EYES SCH ×2 (09:03→21:43)
[2018-12-22] MEDS: Fluticasone NASAL SPRAY 50MCG* 16 gm SPRAY BTL BOTH NARES SCH (09:04)
[2018-12-22] MEDS: Pantoprazole IV* 40 MG IV SCH ×2 (09:05→21:44)
[2018-12-22] MEDS: Sodium Bicarbonate (ANTACID)* 650 MG TAB PO SCH ×4 (09:20→16:46)
[2018-12-22] MEDS: Multivitamins/Minerals TAB PO SCH (09:22)
[2018-12-22] MEDS: Docusate CAP* 100 MG PO SCH ×2 (09:22→21:45)
[2018-12-22] MEDS: oxyCODONE SR TAB(*) 10 MG TAB.SR PO SCH ×2 (09:23→21:44)
[2018-12-22] MEDS: Octreotide Acetate* 100 MCG/ML 1 ML VIAL SUBCUT SCH ×3 (09:49→21:45)
--- NOTE | 2018-12-22 11:04 | PN ---
Progress Note - Progress Note Date of Service: 12/22/18 SOAP: Subjective: [Marianne reports feeling much better today. Reports of hematemesis yesterday, none today. Slight abd pain, but nothing significant. Eating well, appetite good.] Objective: [ Vital Signs: Temp Pulse Resp BP Pulse Ox 98.4 F 67 18 104/46 95 12/22/18 09:30 12/22/18 09:30 12/22/18 09:30 12/22/18 09:30 12/22/18 09:30 Acetaminophen (Tylenol Tab*) 650 mg PO Q6H PRN PRN Reason: MILD PAIN or TEMP > 100.4 Al Hydrox/Mg Hydrox/Simethicone (Maalox Plus*) 30 ml PO Q6H PRN PRN Reason: DYSPEPSIA Last Admin: 12/19/18 18:18 Dose: 30 ml Albuterol (Ventolin Hfa Inhaler*) 2 puff INH Q4H PRN PRN Reason: SOB/WHEEZING Albuterol/Ipratropium (Duoneb (Albuterol 2.5 Mg/Ipratropium 0.5 Mg)) 1 neb INH Q4H PRN PRN Reason: SOB/WHEEZING Alprazolam (Xanax Tab*) 0.25 mg PO BID PRN PRN Reason: ANXIETY Last Admin: 12/20/18 20:25 Dose: 0.25 mg Betaxolol HCl (Betoptic-S 0.25%*) 1 drop BOTH EYES BID [facility] Last Admin: 12/22/18 09:03 Dose: 1 drop Docusate Sodium (Colace Cap*) 100 mg PO BID [facility] Last Admin: 12/22/18 09:22 Dose: 100 mg Ferrous Sulfate (Ferrous Sulfate Tab*) 325 mg PO EVERY OTHER DAY [facility] Last Admin: 12/21/18 09:37 Dose: 325 mg Fluticasone Propionate (Flonase Nasal [place] 50mcg*) 1 spray BOTH NARES DAILY [facility] Last Admin: 12/22/18 09:04 Dose: 1 spray Albumin Human (Albumin Human 25%*) 25 gm in 100 mls @ 1 mls/min IV DAILY [facility] Last Admin: 12/22/18 09:02 Dose: 1 mls/min Sodium Chloride (Ns 0.9% 1000 Ml) 1,000 mls @ 50 mls/hr IV .PER RATE [facility] Last Admin: 12/21/18 21:51 Dose: 50 mls/hr Lactulose (Lactulose*) 45 ml PO QID [facility] Last Admin: 12/22/18 09:05 Dose: 45 ml Latanoprost (Xalatan 0.005%*) 1 drop RIGHT EYE QPM [facility] Last Admin: 12/21/18 16:33 Dose: 1 drop Metoclopramide HCl (Reglan Iv*) 5 mg IV Q6H PRN PRN Reason: NAUSEA/VOMITING Midodrine (Midodrine) 15 mg PO TID [facility]; Protocol Last Admin: 12/22/18 09:47 Dose: 15 mg Mirtazapine (Remeron Tab*) 30 mg PO BEDTIME [facility] Last Admin: 12/22/18 00:18 Dose: 30 mg Mometasone Furoate/Formoterol Fumar (Dulera 100/5 Mdi*) 2 puff INH BID [facility] Last Admin: 12/22/18 07:47 Dose: 2 puff Multivitamins/Minerals (Theragran/Minerals Tab*) 1 tab PO DAILY [facility] Last Admin: 12/22/18 09:22 Dose: 1 tab Octreotide Acetate (Octreotide Acetate*) 100 mcg SUBCUT TID [facility] Last Admin: 12/22/18 09:49 Dose: 100 mcg Oxycodone HCl (Oxycontin(*)) 10 mg PO BID [facility] Last Admin: 12/22/18 09:23 Dose: 10 mg Oxycodone/Acetaminophen (Percocet 5/325 Tab*) 1 tab PO Q6H PRN PRN Reason: PAIN - SEVERE Pantoprazole Sodium (Protonix Iv*) 40 mg IV BID [facility] Last Admin: 12/22/18 09:05 Dose: 40 mg Rifaximin (Xifaxan*) 550 mg PO BID [facility] Last Admin: 12/22/18 09:20 Dose: 550 mg Sodium Bicarbonate (Sodium Bicarbonate (Antacid)*) 650 mg PO AC [facility] Last Admin: 12/22/18 09:20 Dose: 650 mg Laboratory Results - last 24 hr 12/21/18 12/21/18 12/21/18 20:21 20:21 20:21 WBC 6.5 RBC 2.28 L Hgb 8.6 L Hct 27 L MCV 118 H MCH 38 H MCHC 32 RDW 23 H Plt Count 171 MPV 9.3 Neut % (Auto) 75.1 Lymph % (Auto) 10.1 Powell % (Auto) 11.7 Eos % (Auto) 2.7 Baso % (Auto) 0.4 Absolute Neuts (auto) 4.9 Absolute Lymphs (auto) 0.7 L Absolute Monos (auto) 0.8 Absolute Eos (auto) 0.2 Absolute Basos (auto) 0.0 Absolute Nucleated RBC 0.1 Neutrophils % 71.0 Lymphocytes % 13.0 Monocytes % 11.0 Eosinophils % 5.0 Nucleated RBC % 1.1 Nucleated RBCs/100 WBC 2.0 H Normal RBC Morphology Not Reportable Polychromasia 2+ Hypochromasia 2+ Anisocytosis 2+ Macrocytosis 2+ Acanthocytes (Spur) 2+ INR (Anticoag Therapy) 1.43 H Sodium 134 L Potassium 3.6 Chloride 100 L Carbon Dioxide 21 L Anion Gap 13 H BUN 78 H Creatinine 2.67 H Est GFR ( Amer) 20.8 Est GFR (Non-Af Amer) 17.2 BUN/Creatinine Ratio 29.2 H Glucose 165 H Calcium 9.0 12/22/18 12/22/18 06:17 06:17 WBC 7.6 RBC 2.05 L Hgb 7.9 L Hct 23 L MCV 113 H MCH 39 H MCHC 34 RDW 22 H Plt Count 162 MPV 8.8 Neut % (Auto) 70.8 Lymph % (Auto) 11.4 Powell % (Auto) 12.0 Eos % (Auto) 5.1 Baso % (Auto) 0.7 Absolute Neuts (auto) 5.4 Absolute Lymphs (auto) 0.9 L Absolute Monos (auto) 0.9 H Absolute Eos (auto) 0.4 Absolute Basos (auto) 0.0 Absolute Nucleated RBC 0.1 Neutrophils % Lymphocytes % Monocytes % Eosinophils % Nucleated RBC % 0.8 Nucleated RBCs/100 WBC Normal RBC Morphology Polychromasia Hypochromasia Anisocytosis Macrocytosis Acanthocytes (Spur) INR (Anticoag Therapy) Sodium 135 Potassium 4.0 Chloride 100 L Carbon Dioxide 25 Anion Gap 10 BUN 78 H Creatinine 2.47 H Est GFR ( Amer) 22.8 Est GFR (Non-Af Amer) 18.8 BUN/Creatinine Ratio 31.6 H Glucose 133 H Calcium 8.3 L Exam: Gen: chronically ill appearing female, who is in NAD Resp: nonlabored, even respirations Abd: distended Ext: 2+ nonpitting edema Skin: no jaundice noted or other rashes] Assessment: [78 yo female with metastatic breast cancer with a relatively new diagnosis of liver cirrhosis who has unfortunately required regular paracenteses for ascites management and now 2 recent admissions related to decompensated liver failure. Her breast CA recently progressed on Ibrance, but remains bony only - no evidence of hepatic/renal involvement on recent PET scan. Plan: [1. Decompensated liver failure with hepatorenal syndrome - s/p large volume paracentesis completed 12/18 with albumin infusion - renal fxn is improving slowly - management per hospitalist/nephrology team, pt wishes to cont maximal medical therapy at this time 2. Metastatic breast CA - recent evidence of progressive disease on Ibrance, but remains bony disease only - with worsening liver/kidney function treatment of her breast cancer is less of a priority and few options for treatment at this moment for her 3. GIB - noted bleeding per rectum and hematemesis yesterday with small drop in Hgb - known small bowel AVMs with nl upper and lower endoscopy 06/2017 - per GI consult during last hospital stay, there are no plans for endoscopic evaluation unless acute intervention is necessary Dispo: per hospitalist, oncology team will continue to follow along as needed. No plans for treatment of her metastatic malignancy at this time, will re- evaluate closer to discharge.
[2018-12-22] MEDS: Latanoprost 0.005%* 2.5 ml BTL RIGHT EYE SCH (16:47)
[2018-12-23 06:49] LABS: ABS Eosinophils 0.4 10^3/ul (0-0.6); ABS Lymphocytes 0.9 10^3/ul (1.0-4.8); ABS Monocytes 0.7 10^3/ul (0-0.8); ABS Neutrophils 5.7 10^3/ul (1.5-7.7); ABS Nucleated RBC 0.1 10^3/ul; Hematocrit 24 % (35-47); Mean Corpuscular HGB Conc 34 g/dL (31-36); Mean Corpuscular Hemoglobin 38 pg (27-31); Mean Corpuscular Volume 113 fL (80-97); Mean Platelet Volume 9.1 fL (7.4-10.4); Nucleated Red Blood Cells % 0.9; Platelet Count 153 10^3/uL (150-450); Red Blood Count 2.12 10^6 /uL (3.70-4.87); Red Cell Distribution Width 23 % (10-15); White Blood Count 7.7 10^3/uL (3.5-10.8)
[2018-12-23 07:04] LABS: BUN/Creatinine Ratio 30.2 (8-20); Calcium 8.5 mg/dL (8.6-10.3); EGFR African American 26.8 (>60); EGFR Non-African American 22.1 (>60); Potassium 3.5 mmol/L (3.5-5.0)
[2018-12-23] MEDS: Mometasone/Formoter 100/5 MDI INH SCH ×2 (07:33→19:27)
[2018-12-23] MEDS: Sodium Bicarbonate (ANTACID)* 650 MG TAB PO SCH ×3 (08:06→17:11)
[2018-12-23] MEDS: Octreotide Acetate* 100 MCG/ML 1 ML VIAL SUBCUT SCH ×3 (08:16→20:21)
[2018-12-23] MEDS: Pantoprazole IV* 40 MG IV SCH ×2 (08:17→20:17)
[2018-12-23] MEDS: Fluticasone NASAL SPRAY 50MCG* 16 gm SPRAY BTL BOTH NARES SCH (08:23)
[2018-12-23] MEDS: Betaxolol-S 0.25%* 10 ML BTL BOTH EYES SCH ×2 (08:24→20:19)
[2018-12-23] MEDS: RiFAXimin* 550 MG TAB PO SCH ×2 (08:25→20:18)
[2018-12-23] MEDS: Docusate CAP* 100 MG PO SCH ×2 (08:25→20:18)
[2018-12-23] MEDS: oxyCODONE SR TAB(*) 10 MG TAB.SR PO SCH ×2 (08:26→20:19)
[2018-12-23] MEDS: Multivitamins/Minerals TAB PO SCH (08:29)
[2018-12-23] MEDS: Ferrous Sulfate TAB* 325 MG PO SCH (08:29)
[2018-12-23] MEDS: Albumin Human 25%* 25 GM/100 ML BTL IV SCH (08:37)
--- NOTE | 2018-12-23 13:33 | PN ---
Subjective Date of Service: 12/23/18 Interval History: Patient feels "tired" today. She cannot say more. She states she is eating/ drinking. Denies pain. She refuses to get out of bed. Family History: Unchanged from Admission Social History: Unchanged from Admission Past Medical History: Unchanged from Admission Objective Active Medications: Acetaminophen (Tylenol Tab*) 650 mg PO Q6H PRN PRN Reason: MILD PAIN or TEMP > 100.4 Al Hydrox/Mg Hydrox/Simethicone (Maalox Plus*) 30 ml PO Q6H PRN PRN Reason: DYSPEPSIA Last Admin: 12/19/18 18:18 Dose: 30 ml Albuterol (Ventolin Hfa Inhaler*) 2 puff INH Q4H PRN PRN Reason: SOB/WHEEZING Albuterol/Ipratropium (Duoneb (Albuterol 2.5 Mg/Ipratropium 0.5 Mg)) 1 neb INH Q4H PRN PRN Reason: SOB/WHEEZING Alprazolam (Xanax Tab*) 0.25 mg PO BID PRN PRN Reason: ANXIETY Last Admin: 12/20/18 20:25 Dose: 0.25 mg Betaxolol HCl (Betoptic-S 0.25%*) 1 drop BOTH EYES BID [facility] Last Admin: 12/23/18 08:24 Dose: 1 drop Docusate Sodium (Colace Cap*) 100 mg PO BID [facility] Last Admin: 12/23/18 08:25 Dose: 100 mg Ferrous Sulfate (Ferrous Sulfate Tab*) 325 mg PO EVERY OTHER DAY [facility] Last Admin: 12/23/18 08:29 Dose: 325 mg Fluticasone Propionate (Flonase Nasal [place] 50mcg*) 1 spray BOTH NARES DAILY [facility] Last Admin: 12/23/18 08:23 Dose: 1 spray Albumin Human (Albumin Human 25%*) 25 gm in 100 mls @ 1 mls/min IV DAILY [facility] Last Admin: 12/23/18 08:37 Dose: 1 mls/min Lactulose (Lactulose*) 45 ml PO QID [facility] Last Admin: 12/23/18 12:41 Dose: Not Given Latanoprost (Xalatan 0.005%*) 1 drop RIGHT EYE QPM [facility] Last Admin: 12/22/18 16:47 Dose: 1 drop Metoclopramide HCl (Reglan Iv*) 5 mg IV Q6H PRN PRN Reason: NAUSEA/VOMITING Midodrine (Midodrine) 15 mg PO TID [facility]; Protocol Last Admin: 12/23/18 12:40 Dose: 15 mg Mirtazapine (Remeron Tab*) 30 mg PO BEDTIME [facility] Last Admin: 12/22/18 21:45 Dose: 30 mg Mometasone Furoate/Formoterol Fumar (Dulera 100/5 Mdi*) 2 puff INH BID [facility] Last Admin: 12/23/18 07:33 Dose: 2 puff Multivitamins/Minerals (Theragran/Minerals Tab*) 1 tab PO DAILY [facility] Last Admin: 12/23/18 08:29 Dose: 1 tab Octreotide Acetate (Octreotide Acetate*) 100 mcg SUBCUT TID [facility] Last Admin: 12/23/18 12:43 Dose: 100 mcg Oxycodone HCl (Oxycontin(*)) 10 mg PO BID [facility] Last Admin: 12/23/18 08:26 Dose: 10 mg Oxycodone/Acetaminophen (Percocet 5/325 Tab*) 1 tab PO Q6H PRN PRN Reason: PAIN - SEVERE Pantoprazole Sodium (Protonix Iv*) 40 mg IV BID [facility] Last Admin: 12/23/18 08:17 Dose: 40 mg Rifaximin (Xifaxan*) 550 mg PO BID [facility] Last Admin: 12/23/18 08:25 Dose: 550 mg Sodium Bicarbonate (Sodium Bicarbonate (Antacid)*) 650 mg PO AC [facility] Last Admin: 12/23/18 12:40 Dose: 650 mg Vital Signs - 8 hr 12/23/18 12/23/18 12/23/18 07:15 07:34 08:00 Temperature 36.8 C Pulse Rate 70 68 Respiratory 18 16 18 Rate Blood Pressure 117/52 (mmHg) O2 Sat by Pulse 93 92 Oximetry 12/23/18 12/23/18 12/23/18 08:26 08:35 08:56 Temperature 36.3 C 36.5 C Pulse Rate 67 72 Respiratory 18 18 23 Rate Blood Pressure 122/54 128/62 (mmHg) O2 Sat by Pulse 94 93 Oximetry 12/23/18 12/23/18 12/23/18 09:20 10:40 12:48 Temperature 36.6 C Pulse Rate 71 Respiratory 18 19 18 Rate Blood Pressure 125/53 (mmHg) O2 Sat by Pulse 92 Oximetry Oxygen Devices in Use Now: None Appearance: awake, cooperative Eyes: No Scleral Icterus Ears/Nose/Mouth/Throat: NL Teeth, Lips, Gums Neck: NL Appearance and Movements; NL JVP Respiratory: Symmetrical Chest Expansion and Respiratory Effort, Clear to Auscultation Cardiovascular: NL Sounds; No Murmurs; No JVD Abdominal: - - distended, soft, NT, +fluid wave Lymphatic: No Cervical Adenopathy Neurological: - - oriented to self, place, thinks its November, Lines/Tubes/Other Access: Clean, Dry and Intact Peripheral IV Nutrition: Taking PO's Result Diagrams: 12/23/18 06:34 12/23/18 06:34 Additional Lab and Data: Laboratory Tests 12/21/18 12/21/18 12/22/18 06:19 20:21 06:17 Hgb 8.6 L 7.9 L Creatinine Ammonia 102 H 12/22/18 12/23/18 12/23/18 06:17 06:34 06:34 Hgb 8.0 L Creatinine 2.47 H 2.15 H Ammonia 12/23/18 06:34 Hgb Creatinine Ammonia 115 H Assess/Plan/Problems-Billing Assessment: 78 yo female PMH metastatic breast cancer (recent progression on PET in bones), EtOH cirrhosis, worsening renal function, chronic anemia with hx of internal hemorrhoids and small bowels AVM, COPD, anxiety/depression. Returns with progressive weakness, abdominal distention and creatinine up to 3.1 (2.1->1.6 during recent admission 12/08-12/13;had been 0.7 in September before a pharmacy mix up getting 10x torsemide dose prescribed). Tx hepatorenal syndrome/pre-renal with some improvement. - Patient Problems (1) CKD (chronic kidney disease) stage 4, GFR 15-29 ml/min Current Visit: Yes Status: Acute Priority: High Code(s): N18.4 - CHRONIC KIDNEY DISEASE, STAGE 4 (SEVERE) SNOMED Code(s): 122449438 Comment: - Creatinine continues to improve - will stop IVF, consider diuresis w/ spironolactone if creatinine improves further - anemia of renal disease, plus some minimal GI losses - barrow placed 12/20 due to retention - continue mitodrine, octreotide, and albumin infusions for hepatorenal syndrome. (2) Decompensation of cirrhosis of liver Current Visit: Yes Status: Acute Priority: High Code(s): K72.90 - HEPATIC FAILURE, UNSPECIFIED WITHOUT COMA SNOMED Code(s): 858275873 Comment: - Mental status has plateaued. Continue lacutolose 45 QID and prn lactulose enemas for 3-4 loose BMs daily goal. - Ammonia higher today (3) GI bleed Current Visit: Yes Status: Acute Priority: Medium Code(s): K92.2 - GASTROINTESTINAL HEMORRHAGE, UNSPECIFIED SNOMED Code(s): 10031551 Comment: - Has had mild symptoms of upper and lower bleeding - hemoglobin stable in last several days - Discussed prophylactic antibiotics for SBP with Dr. Knutson, not recommended. Will ask for GI consult, endoscopy, if significant bleeding occurs - continue PPI. 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
[2018-12-23] MEDS: Latanoprost 0.005%* 2.5 ml BTL RIGHT EYE SCH (17:11)
[2018-12-23] MEDS: Mirtazapine TAB* 15 MG PO SCH (20:18)
[2018-12-24 06:15] LABS: Calcium 8.3 mg/dL (8.6-10.3); EGFR African American 26.2 (>60); EGFR Non-African American 21.6 (>60); Magnesium 3.2 mg/dL (1.9-2.7); Potassium 3.6 mmol/L (3.5-5.0)
[2018-12-24] MEDS: Mometasone/Formoter 100/5 MDI INH SCH ×2 (07:46→21:22)
[2018-12-24] MEDS: Fluticasone NASAL SPRAY 50MCG* 16 gm SPRAY BTL BOTH NARES SCH (07:55)
[2018-12-24] MEDS: Sodium Bicarbonate (ANTACID)* 650 MG TAB PO SCH ×3 (07:56→17:38)
[2018-12-24] MEDS: Multivitamins/Minerals TAB PO SCH (07:57)
[2018-12-24] MEDS: oxyCODONE SR TAB(*) 10 MG TAB.SR PO SCH (07:57)
[2018-12-24] MEDS: RiFAXimin* 550 MG TAB PO SCH ×2 (07:57→21:20)
[2018-12-24] MEDS: Docusate CAP* 100 MG PO SCH ×2 (07:57→21:24)
[2018-12-24] MEDS: Pantoprazole IV* 40 MG IV SCH ×2 (08:01→21:12)
[2018-12-24] MEDS: Octreotide Acetate* 100 MCG/ML 1 ML VIAL SUBCUT SCH ×3 (08:04→21:12)
[2018-12-24] MEDS: Betaxolol-S 0.25%* 10 ML BTL BOTH EYES SCH ×2 (08:05→21:23)
[2018-12-24] MEDS: Albumin Human 25%* 25 GM/100 ML BTL IV SCH (08:12)
--- NOTE | 2018-12-24 11:01 | PN ---
Subjective Date of Service: 12/24/18 Interval History: Patient more alert today. She got to chair, and participated with PT. States she vomited some clear liquid this AM. She thinks her is in the laws, but he has not been in yet today. Family History: Unchanged from Admission Social History: Unchanged from Admission Past Medical History: Unchanged from Admission Objective Active Medications: Acetaminophen (Tylenol Tab*) 650 mg PO Q6H PRN PRN Reason: MILD PAIN or TEMP > 100.4 Al Hydrox/Mg Hydrox/Simethicone (Maalox Plus*) 30 ml PO Q6H PRN PRN Reason: DYSPEPSIA Last Admin: 12/19/18 18:18 Dose: 30 ml Albuterol (Ventolin Hfa Inhaler*) 2 puff INH Q4H PRN PRN Reason: SOB/WHEEZING Albuterol/Ipratropium (Duoneb (Albuterol 2.5 Mg/Ipratropium 0.5 Mg)) 1 neb INH Q4H PRN PRN Reason: SOB/WHEEZING Alprazolam (Xanax Tab*) 0.25 mg PO BID PRN PRN Reason: ANXIETY Last Admin: 12/20/18 20:25 Dose: 0.25 mg Betaxolol HCl (Betoptic-S 0.25%*) 1 drop BOTH EYES BID [facility] Last Admin: 12/24/18 08:05 Dose: 1 drop Docusate Sodium (Colace Cap*) 100 mg PO BID [facility] Last Admin: 12/24/18 07:57 Dose: Not Given Ferrous Sulfate (Ferrous Sulfate Tab*) 325 mg PO EVERY OTHER DAY [facility] Last Admin: 12/23/18 08:29 Dose: 325 mg Fluticasone Propionate (Flonase Nasal [place] 50mcg*) 1 spray BOTH NARES DAILY [facility] Last Admin: 12/24/18 07:55 Dose: 1 spray Albumin Human (Albumin Human 25%*) 25 gm in 100 mls @ 1 mls/min IV DAILY [facility] Last Admin: 12/24/18 08:12 Dose: 1 mls/min Lactulose (Lactulose*) 45 ml PO QID [facility] Last Admin: 12/24/18 08:01 Dose: 45 ml Latanoprost (Xalatan 0.005%*) 1 drop RIGHT EYE QPM [facility] Last Admin: 12/23/18 17:11 Dose: 1 drop Metoclopramide HCl (Reglan Iv*) 5 mg IV Q6H PRN PRN Reason: NAUSEA/VOMITING Last Admin: 12/24/18 09:18 Dose: 5 mg Midodrine (Midodrine) 15 mg PO TID [facility]; Protocol Last Admin: 12/24/18 07:57 Dose: 15 mg Mirtazapine (Remeron Tab*) 30 mg PO BEDTIME [facility] Last Admin: 12/23/18 20:18 Dose: 30 mg Mometasone Furoate/Formoterol Fumar (Dulera 100/5 Mdi*) 2 puff INH BID [facility] Last Admin: 12/24/18 07:46 Dose: 2 puff Multivitamins/Minerals (Theragran/Minerals Tab*) 1 tab PO DAILY [facility] Last Admin: 12/24/18 07:57 Dose: 1 tab Octreotide Acetate (Octreotide Acetate*) 100 mcg SUBCUT TID [facility] Last Admin: 12/24/18 08:04 Dose: 100 mcg Oxycodone HCl (Oxycontin(*)) 10 mg PO BID [facility] Last Admin: 12/24/18 07:57 Dose: 10 mg Oxycodone/Acetaminophen (Percocet 5/325 Tab*) 1 tab PO Q6H PRN PRN Reason: PAIN - SEVERE Pantoprazole Sodium (Protonix Iv*) 40 mg IV BID [facility] Last Admin: 12/24/18 08:01 Dose: 40 mg Rifaximin (Xifaxan*) 550 mg PO BID [facility] Last Admin: 12/24/18 07:57 Dose: 550 mg Sodium Bicarbonate (Sodium Bicarbonate (Antacid)*) 650 mg PO AC [facility] Last Admin: 12/24/18 07:56 Dose: 650 mg Vital Signs - 8 hr 12/24/18 12/24/18 12/24/18 03:32 07:12 07:49 Temperature 37.1 C 36.5 C Pulse Rate 74 73 82 Respiratory 18 18 18 Rate Blood Pressure 120/48 116/51 (mmHg) O2 Sat by Pulse 92 94 91 Oximetry 12/24/18 12/24/18 12/24/18 07:57 08:00 08:13 Temperature 37.3 C Pulse Rate 71 Respiratory 18 18 18 Rate Blood Pressure 123/51 (mmHg) O2 Sat by Pulse 93 Oximetry 12/24/18 12/24/18 08:29 10:11 Temperature 36.8 C 36.8 C Pulse Rate 73 72 Respiratory 16 16 Rate Blood Pressure 120/48 128/51 (mmHg) O2 Sat by Pulse 93 92 Oximetry Oxygen Devices in Use Now: None Appearance: alert, cooperative Eyes: No Scleral Icterus Ears/Nose/Mouth/Throat: Clear Oropharnyx Neck: No Thyroid Enlargement, Masses Respiratory: Clear to Auscultation Cardiovascular: NL Sounds; No Murmurs; No JVD Abdominal: No Hepatosplenomegaly, - - distended, soft, +BS Extremities: - - 1+ edema bilat LE Neurological: - - oriented to self, place, thinks it is Saturday, 1920 Lines/Tubes/Other Access: Clean, Dry and Intact Peripheral IV Nutrition: Taking PO's Result Diagrams: 12/23/18 06:34 12/24/18 05:41 Assess/Plan/Problems-Billing Assessment: 78 yo female PMH metastatic breast cancer (recent progression on PET in bones), EtOH cirrhosis, worsening renal function, chronic anemia with hx of internal hemorrhoids and small bowels AVM, COPD, anxiety/depression. Returns with progressive weakness, abdominal distention and creatinine up to 3.1 (2.1->1.6 during recent admission 12/08-12/13;had been 0.7 in September before a pharmacy mix up getting 10x torsemide dose prescribed). Tx hepatorenal syndrome/pre-renal with some improvement. - Patient Problems (1) CKD (chronic kidney disease) stage 4, GFR 15-29 ml/min Current Visit: Yes Status: Acute Priority: High Code(s): N18.4 - CHRONIC KIDNEY DISEASE, STAGE 4 (SEVERE) SNOMED Code(s): 299509849 Comment: - Creatinine plateaued - Starting spironolactone and will monitor creatinine, K - barrow placed 12/20 due to retention, will have trial of removal today - continue mitodrine, octreotide, and albumin infusions for hepatorenal syndrome. (2) Decompensation of cirrhosis of liver Current Visit: Yes Status: Acute Priority: High Code(s): K72.90 - HEPATIC FAILURE, UNSPECIFIED WITHOUT COMA SNOMED Code(s): 635839990 Comment: - Mental status has improved. Continue lacutolose 45 QID and prn lactulose enemas for 3-4 loose BMs daily goal. - (3) GI bleed Current Visit: Yes Status: Acute Priority: Medium Code(s): K92.2 - GASTROINTESTINAL HEMORRHAGE, UNSPECIFIED SNOMED Code(s): 44959322 Comment: - Has had mild symptoms of upper and lower bleeding - hemoglobin stable in last several days - Discussed prophylactic antibiotics for SBP with Dr. Knutson, not recommended. Will ask for GI consult, endoscopy, if significant bleeding occurs - continue PPI. (4) Metastatic breast cancer Current Visit: No Status: Acute Priority: Medium Code(s): C50.919 - MALIGNANT NEOPLASM OF UNSP SITE OF UNSPECIFIED FEMALE BREAST SNOMED Code(s): 768798211 Comment: - Appreciate Oncology consult - Continue Oxycontin, Percocet - Has had palliative care consult, but family has not accepted plan to stop cancer treatment (5) DVT prophylaxis Current Visit: No Status: Acute Priority: Low Code(s): Z29.9 - ENCOUNTER FOR PROPHYLACTIC MEASURES, UNSPECIFIED SNOMED Code(s): 719980995 Comment: - has IVC filter due to h/o PE - SCDs only; chemical prophylaxis contraindicated in the setting of GI bleed (6) Hyponatremia Current Visit: No Status: Acute Priority: Medium Code(s): E87.1 - HYPO- OSMOLALITY AND HYPONATREMIA SNOMED Code(s): 56170727 Comment: - Suspect secondary to cirrhosis - resolved Status and Disposition: inpatient, should plan for STR Counseling and/or Coordination of Care Minutes: Discussed with and daughter. They are accepting STR
[2018-12-24] MEDS: Spironolactone TAB* 25 MG PO SCH (12:30)
[2018-12-24] MEDS: Latanoprost 0.005%* 2.5 ml BTL RIGHT EYE SCH (17:38)
[2018-12-24] MEDS: Mirtazapine TAB* 15 MG PO SCH (21:17)
[2018-12-25] MEDS: Sodium Bicarbonate (ANTACID)* 650 MG TAB PO SCH ×3 (07:37→17:11)
[2018-12-25] MEDS: RiFAXimin* 550 MG TAB PO SCH ×2 (07:38→22:18)
[2018-12-25] MEDS: Ferrous Sulfate TAB* 325 MG PO SCH (07:38)
[2018-12-25] MEDS: Spironolactone TAB* 25 MG PO SCH (07:39)
[2018-12-25] MEDS: Multivitamins/Minerals TAB PO SCH (07:39)
[2018-12-25] MEDS: Docusate CAP* 100 MG PO SCH ×2 (07:39→22:17)
[2018-12-25] MEDS: Octreotide Acetate* 100 MCG/ML 1 ML VIAL SUBCUT SCH ×3 (07:40→22:28)
[2018-12-25] MEDS: Fluticasone NASAL SPRAY 50MCG* 16 gm SPRAY BTL BOTH NARES SCH (07:40)
[2018-12-25] MEDS: Pantoprazole IV* 40 MG IV SCH ×2 (07:41→22:15)
[2018-12-25] MEDS: Betaxolol-S 0.25%* 10 ML BTL BOTH EYES SCH ×2 (07:41→22:20)
[2018-12-25 07:43] LABS: BUN/Creatinine Ratio 28.6 (8-20); Calcium 8.6 mg/dL (8.6-10.3); Potassium 3.3 mmol/L (3.5-5.0)
[2018-12-25] MEDS ORDERED: Potassium Chlor TAB* 10 MEQ TAB.ER PO ONE (08:02)
[2018-12-25] MEDS: Mometasone/Formoter 100/5 MDI INH SCH ×2 (08:06→19:31)
--- NOTE | 2018-12-25 08:43 | PN ---
Subjective Date of Service: 12/25/18 Interval History: Patient has no new complaints. She was out of bed yesterday to chair. Had barrow reinserted last night due to bladder scan showing ?fluid in bladder. Has had 350 urine output overnight, but bladder scan still reading >999. Family has accepted that patient will go to rehab. Family History: Unchanged from Admission Social History: Unchanged from Admission Past Medical History: Unchanged from Admission Objective Active Medications: Acetaminophen (Tylenol Tab*) 650 mg PO Q6H PRN PRN Reason: MILD PAIN or TEMP > 100.4 Al Hydrox/Mg Hydrox/Simethicone (Maalox Plus*) 30 ml PO Q6H PRN PRN Reason: DYSPEPSIA Last Admin: 12/19/18 18:18 Dose: 30 ml Albuterol (Ventolin Hfa Inhaler*) 2 puff INH Q4H PRN PRN Reason: SOB/WHEEZING Albuterol/Ipratropium (Duoneb (Albuterol 2.5 Mg/Ipratropium 0.5 Mg)) 1 neb INH Q4H PRN PRN Reason: SOB/WHEEZING Betaxolol HCl (Betoptic-S 0.25%*) 1 drop BOTH EYES BID [facility] Last Admin: 12/24/18 21:23 Dose: 1 drop Docusate Sodium (Colace Cap*) 100 mg PO BID [facility] Last Admin: 12/25/18 07:39 Dose: 100 mg Ferrous Sulfate (Ferrous Sulfate Tab*) 325 mg PO EVERY OTHER DAY [facility] Last Admin: 12/25/18 07:38 Dose: 325 mg Fluticasone Propionate (Flonase Nasal [place] 50mcg*) 1 spray BOTH NARES DAILY [facility] Last Admin: 12/24/18 07:55 Dose: 1 spray Albumin Human (Albumin Human 25%*) 25 gm in 100 mls @ 1 mls/min IV DAILY [facility] Last Admin: 12/24/18 08:12 Dose: 1 mls/min Lactulose (Lactulose*) 45 ml PO QID [facility] Last Admin: 12/25/18 07:40 Dose: 45 ml Latanoprost (Xalatan 0.005%*) 1 drop RIGHT EYE QPM [facility] Last Admin: 12/24/18 17:38 Dose: 1 drop Metoclopramide HCl (Reglan Iv*) 5 mg IV Q6H PRN PRN Reason: NAUSEA/VOMITING Last Admin: 12/24/18 09:18 Dose: 5 mg Midodrine (Midodrine) 15 mg PO TID [facility]; Protocol Last Admin: 12/25/18 07:38 Dose: 15 mg Mirtazapine (Remeron Tab*) 30 mg PO BEDTIME [facility] Last Admin: 12/24/18 21:17 Dose: 30 mg Mometasone Furoate/Formoterol Fumar (Dulera 100/5 Mdi*) 2 puff INH BID [facility] Last Admin: 12/25/18 08:06 Dose: 2 puff Multivitamins/Minerals (Theragran/Minerals Tab*) 1 tab PO DAILY [facility] Last Admin: 12/25/18 07:39 Dose: 1 tab Octreotide Acetate (Octreotide Acetate*) 100 mcg SUBCUT TID [facility] Last Admin: 12/24/18 21:12 Dose: 100 mcg Oxycodone/Acetaminophen (Percocet 5/325 Tab*) 1 tab PO Q6H PRN PRN Reason: PAIN - SEVERE Pantoprazole Sodium (Protonix Iv*) 40 mg IV BID [facility] Last Admin: 12/24/18 21:12 Dose: 40 mg Rifaximin (Xifaxan*) 550 mg PO BID [facility] Last Admin: 12/25/18 07:38 Dose: 550 mg Sodium Bicarbonate (Sodium Bicarbonate (Antacid)*) 650 mg PO AC [facility] Last Admin: 12/25/18 07:37 Dose: 650 mg Vital Signs - 8 hr 12/25/18 12/25/18 03:20 08:09 Temperature 36.5 C Pulse Rate 73 69 Respiratory 18 16 Rate Blood Pressure 116/50 (mmHg) O2 Sat by Pulse 92 Oximetry Oxygen Devices in Use Now: None Appearance: awake and alert Ears/Nose/Mouth/Throat: Clear Oropharnyx Neck: NL Appearance and Movements; NL JVP Respiratory: Symmetrical Chest Expansion and Respiratory Effort, Clear to Auscultation Cardiovascular: NL Sounds; No Murmurs; No JVD Abdominal: No Hepatosplenomegaly, - - distended, +BS Neurological: Alert and Oriented x 3 Lines/Tubes/Other Access: Clean, Dry and Intact Peripheral IV Nutrition: Taking PO's Result Diagrams: 12/23/18 06:34 12/25/18 07:19 Assess/Plan/Problems-Billing Assessment: 78 yo female PMH metastatic breast cancer (recent progression on PET in bones), EtOH cirrhosis, with hepatorenal syndrome - Patient Problems (1) CKD (chronic kidney disease) stage 4, GFR 15-29 ml/min Current Visit: Yes Status: Acute Priority: High Code(s): N18.4 - CHRONIC KIDNEY DISEASE, STAGE 4 (SEVERE) SNOMED Code(s): 778821067 Comment: - Creatinine worse after trial of spironolactone, will stop - continue mitodrine, octreotide, and albumin infusions for hepatorenal syndrome. (2) Decompensation of cirrhosis of liver Current Visit: Yes Status: Acute Priority: High Code(s): K72.90 - HEPATIC FAILURE, UNSPECIFIED WITHOUT COMA SNOMED Code(s): 637364783 Comment: - Mental status has improved. Continue lacutolose 45 QID and prn lactulose enemas for 3-4 loose BMs daily goal. - (3) GI bleed Current Visit: Yes Status: Acute Priority: Medium Code(s): K92.2 - GASTROINTESTINAL HEMORRHAGE, UNSPECIFIED SNOMED Code(s): 19072118 Comment: - Has had mild symptoms of upper and lower bleeding - hemoglobin stable in last several days (4) Metastatic breast cancer Current Visit: No Status: Acute Priority: Medium Code(s): C50.919 - MALIGNANT NEOPLASM OF UNSP SITE OF UNSPECIFIED FEMALE BREAST SNOMED Code(s): 275517330 Comment: - Per Oncology no current plan to restart treatment - Continue Oxycontin, Percocet - Has had palliative care consult, but family has not accepted plan to stop cancer treatment (5) DVT prophylaxis Current Visit: No Status: Acute Priority: Low Code(s): Z29.9 - ENCOUNTER FOR PROPHYLACTIC MEASURES, UNSPECIFIED SNOMED Code(s): 156701165 Comment: - has IVC filter due to h/o PE - SCDs only; chemical prophylaxis contraindicated in the setting of GI bleed (6) Hyponatremia Current Visit: No Status: Acute Priority: Medium Code(s): E87.1 - HYPO- OSMOLALITY AND HYPONATREMIA SNOMED Code(s): 48412567 Comment: - Suspect secondary to cirrhosis - resolved (7) Hypokalemia Current Visit: Yes Status: Acute Priority: Medium Code(s): E87.6 - HYPOKALEMIA SNOMED Code(s): 57357001 Comment: -Odd to have low K after starting spironolactone -Will supplement and recheck (8) Urinary retention Current Visit: Yes Status: Acute Priority: Medium Code(s): R33.9 - RETENTION OF URINE, UNSPECIFIED SNOMED Code(s): 141902074 Comment: -Suspect she is having catheters inserted due to bladder scans that are picking up ascites, not urine in bladder. -Will d/c Barrow, check bladder US later today, PVR Status and Disposition: inpatient, plan for STR
[2018-12-25] MEDS: Albumin Human 25%* 25 GM/100 ML BTL IV SCH (08:46)
[2018-12-25] MEDS: Latanoprost 0.005%* 2.5 ml BTL RIGHT EYE SCH (17:12)
[2018-12-25] MEDS: Mirtazapine TAB* 15 MG PO SCH (22:15)
[2018-12-26 06:58] LABS: BUN/Creatinine Ratio 30.1 (8-20); Calcium 8.7 mg/dL (8.6-10.3); EGFR African American 23.7 (>60); EGFR Non-African American 19.6 (>60)
[2018-12-26] MEDS: Mometasone/Formoter 100/5 MDI INH SCH (07:49)
[2018-12-26] MEDS: Docusate CAP* 100 MG PO SCH (08:00)
[2018-12-26] MEDS ORDERED: Potassium Chlor TAB* 20 MEQ TAB.ER PO SCH (09:00)
[2018-12-26] MEDS: Fluticasone NASAL SPRAY 50MCG* 16 gm SPRAY BTL BOTH NARES SCH (09:31)
[2018-12-26] MEDS: RiFAXimin* 550 MG TAB PO SCH (09:32)
[2018-12-26] MEDS: Sodium Bicarbonate (ANTACID)* 650 MG TAB PO SCH ×3 (09:32→16:15)
[2018-12-26] MEDS: Multivitamins/Minerals TAB PO SCH (09:32)
[2018-12-26] MEDS: Pantoprazole IV* 40 MG IV SCH (09:32)
[2018-12-26] MEDS: Betaxolol-S 0.25%* 10 ML BTL BOTH EYES SCH (09:32)
--- NOTE | 2018-12-26 16:00 | TRS ---
CC: Dr. Perry; Dr. Momin; Dr Brooks TRANSFER SUMMARY: DATE OF ADMISSION: 12/17/18 DATE OF TRANSFER: 12/26/18 ACCEPTING PHYSICIAN: Dr. Momin at [facility]. PRIMARY DIAGNOSES: 1. Decompensated hepatic failure, multifactorial, likely due to alcohol use, potentially related to Ibrance and/or acetaminophen. 2. Chronic hypercapnic respiratory failure, treated with BiPAP at night. 3. Hepatorenal syndrome. SECONDARY DIAGNOSES: 1. Chronic ascites secondary to above cirrhosis. 2. Low-grade gastrointestinal bleed with chronic anemia and positive occult blood, not investigated during this hospital stay. 3. 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 4. Chronic obstructive pulmonary disease. 5. Metastatic stage IV breast cancer with progression and bony metastasis, on Ibrance. 6. Insomnia. 7. Depression. 8. Anxiety. 9. Chronic kidney disease, stage 4. 10. History of glaucoma. 11. Macular degeneration. 12. Thrombocytopenia history. 13. Hypokalemia. MEDICATIONS ON DISCHARGE: 1. Acetaminophen 650 mg q.6 hours as needed. 2. Maalox 3 mL q.6 hours p.r.n. dyspepsia. 3. Albuterol inhaler 2 puffs q.4 hours p.r.n. wheezing. 4. Betaxolol 0.25% 1 drop both eyes twice a day. 5. Ferrous sulfate 325 mg every other day. 6. Fluticasone nasal spray 1 spray both nostrils daily. 7. Lactulose 45 mL p.o. q.i.d. scheduled. 8. Latanoprost 0.005% 1 drop right eye q.p.m. 9. Midodrine 50 mg p.o. t.i.d. 10. Mirtazapine 30 mg p.o. q.h.s. 11. Mometasone/formoterol 100/5 two puffs inhaled b.i.d. 12. Multivitamin 1 tab p.o. daily. 13. Pantoprazole 40 mg p.o. daily. 14. Potassium chloride 20 mEq p.o. daily. 15. Rifaximin 550 mg p.o. b.i.d. 16. Sodium bicarbonate 650 mg p.o. t.i.d. before meals. CONSULTATIONS: Dr. Dr. Mccarthy and [facility] of Hematology/Oncology performed a paracentesis . Paracentesis will need to recur every 2 weeks and should be scheduled on 12/30/[address] Mccarthy also gave the opinion that the patient had progression of her stage IV breast cancer, o n Ibrance, and this medication is not going to be used in the future. Future treatment of cancer wou ld depend on her recovering from her liver and kidney failure. HOSPITAL COURSE: A 78-year-old woman with multiple medical problems as outlined above, presented to the emergency department with weakness, left leg swelling, dyspnea. She had just been at this hospit al on 12/08/18 through 12/13/18 with possible GI bleed where she had been seen by Gastroenterology. They elected not to do endoscopy because of her high risk situation. During the previous hospitaliza tion, the patient did have a transfusion due to anemia and had medications titrated for her decompens ated liver failure. The patient during the hospital stay was treated for hepatorenal syndrome where her creatinine was 3.05 on admission, terry to 3.35, and was probably 2.[address] Alvin lindo lso consulted on the case and helped guide treatment. She was treated with intravenous albumin, octr eotide, and midodrine. The patient did have a large volume paracentesis on 12/18/[address] Mccarthy which produced a fluid consistent with peritoneal fluid, noninfected. The patient had a slow relativ marian steady improvement in her mental status. Her ammonia levels were 42 on admission terry to to 196 on 12/20/18 an fell to 115 on discharge. She continues to take lactulose and Xifaxan to treat this c hronic liver failure. With the patient's creatinine improved, we tried to institute low dose spironolactone. However, her creatinine terry from 2.19 to 2.45 and her potassium fell to 3.3 with initiation of spironolactone. That drug was stopped and her creatinine improved. Oddly spironolactone is potassium sparing, but in this case her potassium was 3.0 on the day of discharge and she was started no oral potassium suppl ement. The patient had occult blood positive stool on 12/18/18, but her hemoglobin remained stable during e hospital stay between 8.6 and 7.6. We discussed the case on the phone with Gastroenterology, but darrell tita had already given parameters as to when they would do endoscopy and colonoscopy with the patient and she did not meet the criteria for that to be done during this hospital stay. The patient will require large volume paracentesis every 2 weeks which could be arranged through the oncology office. This should be scheduled on 12/30/18 as mentioned above. On the day of discharge, the patient's temperature was 36.8, pulse 68, respirations 95, blood pressur e was 116/47. She is alert and cooperative but not oriented to date and time. She has clear lungs and heart is regular. Her abdomen is distended, soft. She has massive ascites, but they are not ten se. She has 2+ edema in both legs. She can get out of bed to chair with assistance. There was a suspicion of urinary retention during the hospital stay because the bladder scan showed f luid. However, this fluid is due to ascites and not urinary retention. The patient should not have bladder scans done and showed only be investigated for urinary retention if her uric or her creatinin e rises. DISPOSITION: [facility] for acute rehabilitation. CONDITION: Guarded. DIET: Low salt renal diet. ACTIVITY: Bed to chair with assistance. Status was inpatient. TIME SENT: I spent more than 45 minutes talking to the patient and family, coordinating care with [facility] providers, and completing necessary paperwork on the day of discharge. [id number]/[facility] #: [id number]
[2018-12-26 16:54] VITALS: BP 110/51
[2018-12-27] MEDS ORDERED: Pantoprazole TAB * 40 MG TAB PO SCH (09:00)
== END 2018-12-26 18:30 | DRG 432 ==
LOC: ED 14:15 → MED 20:01 → OBSVTOIN 12-18 11:00
PROVIDERS: ADMIT Internal Medicine; ATTEND Internal Medicine
PROC: 0W9G3ZZ Drainage of Peritoneal Cavity, Percutaneous Approach (ICD-10-PCS; principal; 2018-12-18)
PROC: 5A09357 Assistance with Respiratory Ventilation, Less than 24 Consecutive Hours, Continuous Positive Airway Pressure (ICD-10-PCS; 2018-12-18)
DX: K70.40 Alcoholic hepatic failure without coma (principal); K76.7 Hepatorenal syndrome; N18.4 Chronic kidney disease, stage 4 (severe); C79.51 Secondary malignant neoplasm of bone; K92.2 Gastrointestinal hemorrhage, unspecified; J96.11 Chronic respiratory failure with hypoxia; N17.9 Acute kidney failure, unspecified; J96.12 Chronic respiratory failure with hypercapnia; J44.9 Chronic obstructive pulmonary disease, unspecified; F32.9 Major depressive disorder, single episode, unspecified; F41.9 Anxiety disorder, unspecified; H40.9 Unspecified glaucoma; K70.31 Alcoholic cirrhosis of liver with ascites; C50.919 Malignant neoplasm of unspecified site of unspecified female breast; R87.1 Abnormal level of hormones in specimens from female genital organs; D69.6 Thrombocytopenia, unspecified; D63.1 Anemia in chronic kidney disease; M19.90 Unspecified osteoarthritis, unspecified site; H35.30 Unspecified macular degeneration; Z96.653 Presence of artificial knee joint, bilateral; E87.6 Hypokalemia; R33.9 Retention of urine, unspecified; K64.8 Other hemorrhoids; Z90.49 Acquired absence of other specified parts of digestive tract; Z90.11 Acquired absence of right breast and nipple; Z86.718 Personal history of other venous thrombosis and embolism; Z86.711 Personal history of pulmonary embolism; Z95.828 Presence of other vascular implants and grafts; Z88.8 Allergy status to other drugs, medicaments and biological substances; Z88.1 Allergy status to other antibiotic agents; Z88.2 Allergy status to sulfonamides; Z82.3 Family history of stroke; Z80.8 Family history of malignant neoplasm of other organs or systems; Z91.048 Other nonmedicinal substance allergy status; Z98.42 Cataract extraction status, left eye; Z98.41 Cataract extraction status, right eye; Z98.51 Tubal ligation status; Q27.33 Arteriovenous malformation of digestive system vessel; G47.00 Insomnia, unspecified
CPT/HCPCS: 36415; 71045; 76857; 80048; 80053; 80076; 81003; 82140; 82272; 82550; 82570; 83605; 83690; 83735; 84133; 84300; 84443; 84484; 84540; 85025; 85610; 87070; 87205; 89051; 93005; 93970; 94640; 94660; 99232; 99285; A9270-GY; G0378; G8978-GP-CK; G8979-GP-CI; J2354; J2765; P9047

== ENCOUNTER 2019-01-10 11:16 | Emergency (ER) | payer MEDICARE ==
--- NOTE | 2019-01-10 11:39 | ED ---
Adult Trauma - HPI Summary HPI Summary: LEVEL 5 CAVEAT DUE TO UNRESPONSIVENESS/LACK OF VERBAL RESPONSE This patient is a 78 year old F with a history of metastatic cancer (w pathological fractures), coagulopathy, intermittent altered mental status from a NH brought to [facility] by EMS with a chief complaint of post-fall trauma. EMS reports she fell at [facility] where the bed was reportedly higher than normal. EMS reports she received a left forehead wound. EMS reports she is normally much more responsive but has not been able to get a verbal response from pt except moans and reports at site she was gazing off to the side and now she has centered her gaze. Family en route. Per [facility] form patient is DNR/DNI - History of Current Complaint Stated Complaint: FALL/AMS Time Seen by Provider: 01/10/19 11:20 Hx Obtained From: EMS Mechanism of Injury: Fall Onset/Duration: Started Hours Ago, Still Present Aggravating Factor(s): Nothing Alleviating Factor(s): Nothing - Additional Pertinent History Primary Care Physician: [id number] - Allergy/Home Medications Allergies/Adverse Reactions: Allergies Allergy/AdvReac Type Severity Reaction Status Date / Time Adhesive Tape Allergy Unknown ITCHY RASH Verified 01/10/19 11:37 latex Allergy Rash Verified 01/10/19 11:37 prochlorperazine Allergy Swelling Verified 01/10/19 11:37 Of Face,Lips,& Throat Sulfa (Sulfonamide Allergy Rash Verified 01/10/19 11:37 Antibiotics) erythromycin base AdvReac GI Upset Verified 01/10/19 11:37 ondansetron AdvReac Headache Verified 01/10/19 11:37 Home Medications: Home Medications ALPRAZolam [Xanax] 0.25 mg PO Q4HR PRN 01/10/19 [History Confirmed 01/10/19] LORazepam [Ativan 0.5 MG TAB] 0.5 mg PO Q4HR PRN 01/10/19 [History Confirmed ] Morphine ORAL.CONC BULK BOT* [Roxanol ORAL.CONC Bottle*] 5 mg PO Q4HR PRN [History Confirmed 01/10/19] Oxycodone HCl [Oxycodone HCl ER] 10 mg PO BID 01/10/19 [History Confirmed ] Oxycodone HCl/Acetaminophen [Percocet] 1 tab PO Q6HR PRN 01/10/19 [History Confirmed 01/10/19] PMH/Surg Hx/FS Hx/Imm Hx Endocrine/Hematology History: Denies: Hx Diabetes, Hx Systemic Lupus Erythematosus, Hx Thyroid Disease Cardiovascular History: Reports: Hx Valvular Heart Disease - MV regurge, Other Cardiovascular Problems/Disorders - mitral valve regur Denies: Hx Congestive Heart Failure, Hx Hypertension, Hx Pacemaker/ICD Respiratory History: Reports: Hx Asthma, Hx Chronic Obstructive Pulmonary Disease (COPD) - pt claims she has a "little" copd, Hx Sleep Apnea - NO MACHINES GI History: Reports: Hx Gastroesophageal Reflux Disease, Other GI Disorders - DIVERTIC History: Reports: Hx Chronic Renal Failure Denies: Hx Dialysis, Hx Renal Disease Musculoskeletal History: Reports: Hx Arthritis, Other Musculoskeletal History - osteo arthritis Denies: Hx Rheumatoid Arthritis, Hx Gout Sensory History: Reports: Hx Cataracts, Hx Contacts or Glasses, Hx Glaucoma - BOTH EYES Denies: Hx Hearing Aid Opthamlomology History: Reports: Hx Cataracts, Hx Contacts or Glasses, Hx Glaucoma - BOTH EYES Psychiatric History: Reports: Hx Anxiety - ON MEDS, Hx Depression - ON MEDS Denies: Hx Panic Disorder - Cancer History Cancer Type, Location and Year: Breast CA WITH BONE METS Hx Chemotherapy: Yes - 1998 per pt Hx Radiation Therapy: No - Surgical History Surgery Procedure, Year, and Place: bilaterally knee replacement-07/2011, 01/2012 , right masectomy-1997, gall bladder removed-1984, rt shoulder-1999, lap for mekels diverticulum-1991, tubal ligation-1974, bunion repair-2003, bilateral, rt toes, bilateral cataract surgeries August 2014, D&C-2003 Hx Anesthesia Reactions: No Infectious Disease History: Denies: Hx Clostridium Difficile, Hx Hepatitis, Hx Human Immunodeficiency Virus (HIV), Hx of Known/Suspected MRSA, Hx Shingles, Hx Tuberculosis, Hx Known/ Suspected VRE, Hx Known/Suspected VRSA, History Other Infectious Disease - Family History Known Family History: Negative: Diabetes - Social History Alcohol Use: None Alcohol Amount: 4 glasses of wine and sebastian per day. Hx Substance Use: No Substance Use Type: Reports: None Hx Tobacco Use: No Smoking Status (MU): Never Smoked Tobacco Review of Systems - ROS Summary Review of Systems Summary: LEVEL 5 CAVEAT DUE TO UNRESPONSIVENESS/LACK OF VERBAL RESPONSE Positive: Other - left forehead gash to the eye Neurological: Other - nonresponsiveness All Other Systems Reviewed And Are Negative: No Physical Exam - Summary Physical Exam Summary: LEVEL 5 CAVEAT DUE TO UNRESPONSIVENESS/LACK OF VERBAL RESPONSE Constitutional: Elderly female, in c collar, somnolent Skin: Warm, Dry, laceration to forehead, ecchymosis to the left wrist, bilateral knees, lower abdomen HENT: 2 cm laceration to worship stellate laceration to the left forehead GCS- E4, V2, M4 Eyes: Conjunctiva normal, gaze deviated to R Neck: in c collar. Cardio: Rhythm regular, rate normal, Heart sounds normal; Intact distal pulses; Radial pulses are 2+ and symmetric. (-) Murmur Pulmonary/Chest wall: Effort normal. (-) Respiratory distress, (-) Wheezes, (-) Rales Abd: Soft, (-) tenderness, +ecchymosis to lower abdomen, (+) Distension, (-) Guarding, (-) Rebound Musculoskeletal: BLE edema to ankles. ecchymosis to knees Lymph: (-) Cervical adenopathy Neuro: GCS 10 [id number] Psych: deferred Triage Information Reviewed: Yes Vital Signs Reviewed: Yes Procedures - Laceration/Wound Repair 1 Location: face - forehead Description: Stellate Suture Type: Prolene - 5-0 prolene Number of Sutures: 4 2 Location: head - left worship Description: Stellate Suture Type: Prolene - 5-0 prolene Number of Sutures: 2 Diagnostics - Laboratory Lab Statement: Any lab studies that have been ordered have been reviewed, and results considered in the medical decision making process. - CT Brain CT CT Interpretation Completed By: Radiologist Summary of CT Findings: Per radiologist,. 1. SMALL SUBDURAL HEMATOMA ADJACENT TO THE RIGHT FRONTAL AND PARIETAL LOBES. 2. SMALL AMOUNT OF SUBARACHNOID HEMORRHAGE IN THE LEFT SYLVIAN FISSURE. ED physician has reviewed this imaging report. Cervical Spine CT CT Interpretation Completed By: Radiologist Summary of CT Findings: Per radiologist,. 1. DIFFUSE OSSEOUS METASTATIC DISEASE. 2. NONDISPLACED PATHOLOGIC FRACTURE OF THE SPINOUS PROCESS OF THE C2 VERTEBRA. 3. POSSIBLE NONDISPLACED FRACTURE OF THE ANTERIOR SUPERIOR RIGHT LATERAL CORNER OF THE C4. VERTEBRAL BODY. 4. MILD TO MODERATE CERVICAL SPONDYLOSIS. ED physician has reviewed this imaging report. Re-Evaluation - Re-Evaluation First Eval Re-Evaluation Time: 12:00 Comment: Pt has a subarachnoid and subdural. Pt will be transferred. Keppra ordered, lac repaired. Second Eval Re-Evaluation Time: 12:20 Comment: Dr. Phelan accepted pt to ED for futher eval for SAH, SDH and pathologic C-spine fracture. and daughter in agreeement with plan. Third Eval Comment: Hb 6.1 Adult Trauma Course/Dx - Course Course Of Treatment: 78-year-old female with a history of metastatic cancer, coagulopathy, intermittent altered mental status presents with fall. - Primary surgery notable for GCS of 10, chest x-ray negative. Secondary survey notable for lacerations to forehead, ecchymosis to lower abdomen, forearms, knees. - PE w elderly female, laceration to worship and left forehead, GCS E4V2M4 (10). Tetanus 2011 will defer given clean wound and possible allergy. - Check a brain C-spine CT, c-collar in place. Check a portable chest x-ray, labs including INR given reported coagulopathy. - Diabetic, states patient is DNR/ DNI however they would like interventions depending on what the intervention is. They are interested in pursuing further care and transfer if warranted - Diagnoses Provider Diagnoses: SAH (subarachnoid hemorrhage), SDH (subdural hematoma), Closed cervical spine fracture - Physician Notifications Discussed Care Of Patient With: Rj Ruby Time Discussed With Above Provider: 12:10 Instructed by Provider To: Other - accepts transfer - Critical Care Time Critical Care Time: 30-74 min - 30 min Discharge ED - Sign-Out/Discharge Documenting (check all that apply): Patient Departure - transfer Patient Received Moderate/Deep Sedation with Procedure: No - Discharge Plan Condition: Critical Disposition: TRANS HIGHER LVL OF CARE FAC Referrals: Sushil Brooks MD [Primary Care Provider] - - Billing Disposition and Condition Condition: CRITICAL Disposition: Trans Higher Lvl of Care Fac - Attestation Statements Document Initiated by Scribe: Yes Documenting Scribe: Tess Villafuerte Provider For Whom Scribe is Documenting (Include Credential): Dr. Pedro De Los Santos MD Scribe Attestation: ITess, scribed for Dr. Pedro De Los Santos MD on 01/10/19 at 1255. Scribe Documentation Reviewed: Yes Provider Attestation: The documentation as recorded by the scribe, Tess Villafuerte accurately reflects the service I personally performed and the decisions made by me, Dr. Pedro De Los Santos MD Status of Scribe Document: Viewed
[2019-01-10] MEDS ORDERED: levETIRAcetam 1000MG IVPREMIX* 1,000 MG/100 ML BAG IVPB ONE (12:34)
[2019-01-10 12:54] LABS: Hematocrit 19 % (35-47); Hemoglobin 6.1 g/dL (12.0-16.0); Mean Corpuscular HGB Conc 32 g/dL (31-36); Mean Corpuscular Hemoglobin 36 pg (27-31); Mean Corpuscular Volume 111 fL (80-97); Mean Platelet Volume 9.5 fL (7.4-10.4); Platelet Count 204 10^3/uL (150-450); Red Cell Distribution Width 23 % (10-15); White Blood Count 12.9 10^3/uL (3.5-10.8)
[2019-01-10 12:55] LABS: INR 1.57 (0.82-1.09)
[2019-01-10 13:11] LABS: ALT 33 U/L (7-52); Albumin/Globulin Ratio 0.9 (1-3); Alkaline Phosphatase 199 U/L (34-104); BUN/Creatinine Ratio 28.1 (8-20); Blood Urea Nitrogen 91 mg/dL (6-24); Chloride 98 mmol/L (101-111); EGFR African American 16.7 (>60); EGFR Non-African American 13.8 (>60); Globulin 3.2 g/dL (2-4); Glucose 111 mg/dL (70-100); Sodium 125 mmol/L (135-145); Total Protein 6.2 g/dL (6.4-8.9)
[2019-01-10 13:15] LABS: CO2 Carbon Dioxide 14 mmol/L (22-32)
[2019-01-10 13:16] LABS: Troponin I 0.05 ng/mL (<0.04)
[2019-01-10 13:23] VITALS: BP 120/74
[2019-01-10 13:25] LABS: ABS Eosinophils 0.2 10^3/ul (0-0.6); ABS Lymphocytes 0.8 10^3/ul (1.0-4.8); ABS Monocytes 1.6 10^3/ul (0-0.8); ABS Neutrophils 10.2 10^3/ul (1.5-7.7); ABS Nucleated RBC 0.3 10^3/ul; Eosinophil % 1.3 %; Lymphocyte % 6.5 %; Nucleated Red Blood Cells % 2.6
[2019-01-10 13:26] LABS: Anion Gap 13 mmol/L (2-11)
[2019-01-10 13:27] LABS: Polychromasia 2+
== END 2019-01-10 13:21 | disposition short-term general hospital (02) ==
LOC: ED 11:16
DX: S06.6X9A Traumatic subarachnoid hemorrhage with loss of consciousness of unspecified duration, initial encounter (principal); S06.5X9A Traumatic subdural hemorrhage with loss of consciousness of unspecified duration, initial encounter; S01.81XA Laceration without foreign body of other part of head, initial encounter; S12.9XXA Fracture of neck, unspecified, initial encounter; Z79.899 Other long term (current) drug therapy; K21.9 Gastro-esophageal reflux disease without esophagitis; N18.9 Chronic kidney disease, unspecified; F41.9 Anxiety disorder, unspecified; Z85.3 Personal history of malignant neoplasm of breast; F32.9 Major depressive disorder, single episode, unspecified; W19.XXXA Unspecified fall, initial encounter; Y92.129 Unspecified place in nursing home as the place of occurrence of the external cause; Z66 Do not resuscitate; Z88.2 Allergy status to sulfonamides
CPT/HCPCS: 12011; 36415; 70450; 71045; 72125; 80053; 84484; 85025; 85610; 86850; 86900; 86901; 86922; 96365; 99285; J1953